=== PATIENT | male | born 1950 | race Caucasian/White ===

== ENCOUNTER 2018-10-17 06:34 | Day surgery (SDC) | payer MEDICARE, OTHER ==
[2018-10-10 12:31] VITALS: BMI 39.9
[~2018-10-17 06:34] MED LIST: ALPRAZolam 0.25 MG TAB PO PRN; ALPRAZolam 0.5 MG TAB PO PRN; ASPIRIN 325 MG TAB PO STA; ATORVASTATIN 80 MG TAB PO STA; NITROGLYCERIN SL TABS 0.4 MG TAB SUBLINGUAL PRN; SODIUM CHLORIDE 0.9% 1,000 ML in EMPTY BAG 1 BAG IV ONE
[2018-10-17 07:15] LABS: Anisocytosis Slight; Basophils # (A) 0.1 k/uL (0-0.2); Basophils % (A) 1 %; Eosinophils # (A) 0.2 k/uL (0-0.7); Eosinophils % (A) 2 %; HCT 34.9 % (39.0-53.0); Hypochromasia Marked; Lymphocytes # (A) 9.5 k/uL (1.0-4.8); Lymphocytes % (A) 60 %; MCH 23.5 pg (25.0-35.0); MCHC 31.5 g/dL (31.0-37.0); MCV 74.7 fL (80.0-100.0); Mean Platelet Volume 7.7; Microcytosis Slight; Monocytes # (A) 0.5 k/uL (0-1.0); Monocytes % (A) 3 %; Neutrophils # (A) 5.3 k/uL (1.3-7.7); Neutrophils % (A) 33 %; Platelet Count 239 k/uL (150-450); RBC 4.67 m/uL (4.30-5.90); RDW 17.6 % (11.5-15.5); WBC 15.9 k/uL (3.8-10.6)
[2018-10-17 07:20] LABS: Glucose,Whole Blood 142 mg/dL (75-99)
[2018-10-17 07:21] VITALS: BP 161/77; PULSE 67; TEMP 98.6
[2018-10-17] MEDS ORDERED: fentaNYL (PF) 50 MCG/ML 2 ML AMP IV ONE (07:51)
[2018-10-17] MEDS ORDERED: LIDOCAINE 1% INJ 10MG/ML (20 ML MDV) SQ ONE ×2 (07:54→07:56)
[2018-10-17] MEDS ORDERED: VERAPAMIL SYRINGE (5 MG/10 ML) INTRAARTER ONE (07:59)
[2018-10-17] MEDS ORDERED: NITROGLYCERIN SL TABS 0.4 MG TAB SUBLINGUAL ONE (08:02)
[2018-10-17] MEDS ORDERED: IOPAMIDOL-370 125ML BTL INJ ONE (08:13)
[2018-10-17] MEDS ORDERED: RX INFO: IV CONTRAST WAS GIVEN 1 EACH MISC MISCELLANE PRN (08:27)
[2018-10-17] MEDS ORDERED: SODIUM CHLORIDE 0.9% 1,000 ML IV SCH (08:30)
--- NOTE | 2018-10-17 08:44 | CC ---
CARDIAC CATHETERIZATION REPORT Mr. Deluna is a 68-year-old male with a known history of coronary artery disease, hypertension, hyperlipidemia, as well as diabetes mellitus, who recently has been complaining of increasing episode of chest discomfort and dyspnea and he had visits to the emergency room. In view of his new pattern of symptoms, recommendation was made regarding cardiac catheterization. The procedure as well as the risks and complications were discussed with the patient who is in full understanding and agreement. PROCEDURE: Patient was brought to the dental laboratory technology teacher in a fasting semi-sedated state after receiving fentanyl and Benadryl and achieving moderate conscious state. Using Xylocaine anesthesia in the Seldinger technique, a 6-Italian sheath was introduced in the right radial artery. Selective right and left coronary angiography was performed using 5- Italian 3.5 bend right and left Edilma catheters. Multiple views of the coronary artery including hemiaxial views were obtained. Following that 5-Italian tight pigtail catheter was left ventricle and a 30-degree PERLA view of the left ventricle was obtained. Following that, catheter and sheaths were removed. Hemostasis was obtained with deployment of a TR band. There was no immediate complication. Patient was returned to his room in stable condition. Of note, the patient received 5000 units of intravenous heparin as well as intra-arterial verapamil. FINDINGS: LEFT MAIN: This is a short size vessel bifurcating in the left circumflex, left anterior descending artery. Left main coronary artery has no evidence of high-grade stenosis. LEFT ANTERIOR DESCENDING ARTERY: This is a large-sized vessel reaching to the apex with a wraparound apex segment giving rise to a large diagonal branch. Proximally the left anterior descending artery has a 30% proximal plaque as well as another 30% at the bifurcation of the diagonal branch. The rest of the vessel has no high-grade stenosis. LEFT CIRCUMFLEX: This is a nondominant vessel giving rise to a large proximal obtuse marginal branch. Beyond that, the left circumflex is small in caliber and has no evidence of high-grade stenosis. RIGHT CORONARY ARTERY: This is a large dominant vessel bifurcating distally PDA and posterolateral segment and branches. The right coronary artery in mid segment has a 30% to 40% plaque. The takeoff of the PLV has a 50% to 60% plaque. The rest of the vessel has no high-grade stenosis. LEFT VENTRICULOGRAM: Left ventriculogram was performed in 30-degree PERLA view revealed normal left ventricular size and systolic function. Ejection fraction 60%. There was no significant mitral regurgitation. HEMODYNAMICS: There was no gradient across the aortic valve. The left ventricular end- diastolic pressure was 14 mmHg. CONCLUSION: 1. Mild to moderate triple-vessel coronary artery disease. 2. Normal left ventricular size and systolic function. RECOMMENDATION: In view of finding anatomy, I recommend continue medical therapy with aggressive coronary risk modifications that has been initiated. Those findings and recommendations were discussed with the patient and his family and they are in full understanding and agreement. Duration of procedure is 19 minutes. MMODL / IJN: [id number] /
[2018-10-17] MEDS ORDERED: NON-FORMULARY DRUG (Omeprazole 20 MG) PO SCH (09:00)
[2018-10-17] MEDS ORDERED: NON-FORMULARY DRUG (Lisinopril [Lisinopril] 40 MG) PO SCH (09:00)
[2018-10-17] MEDS ORDERED: ATORVASTATIN 80 MG TAB PO SCH (09:00)
[2018-10-17] MEDS ORDERED: NON-FORMULARY DRUG (Aspirin [Adult Low Dose Aspirin Ec] 81 MG) PO SCH (09:00)
[2018-10-17] MEDS ORDERED: NON-FORMULARY DRUG (Ranitidine Hcl [Zantac] 150 MG) PO SCH (09:00)
[2018-10-17] MEDS ORDERED: POTASSIUM CHLORIDE 10 MEQ PO SCH (09:00)
[2018-10-17] MEDS ORDERED: ALLOPURINOL 300 MG TAB PO SCH (09:00)
[2018-10-17] MEDS ORDERED: NON-FORMULARY DRUG (Sitagliptin 100 MG) PO SCH (09:00)
[2018-10-17] MEDS ORDERED: LABETALOL 100 MG TAB PO SCH (09:00)
[2018-10-17] MEDS ORDERED: INSULIN DETEMIR (LEVEMIR) 100 UNIT/ML SYR SQ SCH (09:00)
[2018-10-17] MEDS ORDERED: ISOSORBIDE MONONITRATE ER 60 MG TAB.ER.24H PO SCH (09:00)
[2018-10-17] MEDS ORDERED: amLODIPine 5 MG TAB PO SCH (09:00)
[2018-10-17 09:17] LABS: Poikilocytosis (M) Present
[2018-10-17 12:24] LABS: Glucose,Whole Blood 124 mg/dL (75-99)
[2018-10-17 13:54] VITALS: RESP 20
== END 2018-10-17 13:55 | disposition home or self-care (01) ==
LOC: CATHCVL 06:34
PROVIDERS: ATTEND Internal Medicine Interventional Cardiology
DX: I25.110 Atherosclerotic heart disease of native coronary artery with unstable angina pectoris (principal); I10 Essential (primary) hypertension; E78.2 Mixed hyperlipidemia; E11.51 Type 2 diabetes mellitus with diabetic peripheral angiopathy without gangrene; A42.7 Actinomycotic sepsis; Z79.82 Long term (current) use of aspirin; Z79.899 Other long term (current) drug therapy; Z72.0 Tobacco use; Z79.4 Long term (current) use of insulin; Z79.01 Long term (current) use of anticoagulants
CPT/HCPCS: 93458; 85025; C1894; C1769; J2001; J3010; J1644; Q9967

== ENCOUNTER → 2019-06-14 | Outpatient (CLI) | payer MEDICARE, OTHER | END | disposition home or self-care (01) | LOC: CPPFTMAIN 12:41 | PROVIDERS: ATTEND Internal Medicine Critical Care Medicine | DX: J44.9 Chronic obstructive pulmonary disease, unspecified (principal) | CPT/HCPCS: 94060; 94726; 94729 ==

== ENCOUNTER 2020-01-27 02:44 | Inpatient (IN) | payer MEDICARE, OTHER ==
[2020-01-27] MEDS ORDERED: NALOXONE 0.4 MG/ML 1 ML VIAL IV PRN (02:55)
[2020-01-27] MEDS ORDERED: NITROGLYCERIN OINT 1 INCH/GM PACKET TOPICAL STA (02:55)
[2020-01-27] MEDS ORDERED: MORPHINE SULFATE 4 MG/ML SYRINGE IV PRN (02:55)
--- NOTE | 2020-01-27 02:55 | ED ---
Chest Pain HPI - General Stated Complaint: Cardiac consult Time Seen by Provider: 01/27/20 02:54 - History of Present Illness Initial Comments: Pierre is a 69-year-old male with known history of coronary artery disease, diabetes, hypertension, hyperlipidemia, morbid obesity. Patient is brought to the ER today as a transfer from [facility]. Patient presented the hospital complaining of chest pain that began at noon. Asians cardiac workup was unremarkable there. EKG was nonischemic troponins were negative 2 however despite narcotic pain medication and nitro the patient had persistent chest pain and decision was made to admit him for further evaluation by cardiology. Upon arrival patient received some pain medication in route and reports his pain is down to 2 out of 10. - Related Data Home Medications Medication Instructions Recorded Confirmed Allopurinol [Zyloprim] 300 mg PO DAILY 10/10/18 10/17/18 Aspirin [Adult Low Dose Aspirin EC] 81 mg PO DAILY 10/10/18 10/17/18 Atorvastatin [Lipitor] 80 mg PO DAILY 10/10/18 10/17/18 Furosemide [Lasix] 20 mg PO DAILY 10/10/18 10/17/18 Insulin Aspart [NovoLOG] 0 units INJ ACHS PRN 10/10/18 10/17/18 Insulin Detemir (Levemir) [Levemir] 50 unit SQ BID 10/10/18 10/17/18 Isosorbide Mononitrate ER [Imdur] 60 mg PO DAILY 10/10/18 10/10/18 Labetalol [Trandate] 100 mg PO BID 10/10/18 10/10/18 Lisinopril 40 mg PO BID 10/10/18 10/10/18 Omeprazole [PriLOSEC] 20 mg PO DAILY 10/10/18 10/17/18 Potassium Chloride 10 meq PO DAILY 10/10/18 10/17/18 Ranitidine HCl [Zantac] 150 mg PO BID 10/10/18 10/10/18 Rivaroxaban [Xarelto] 20 mg PO DAILY 10/10/18 10/17/18 amLODIPine [Norvasc] 5 mg PO DAILY 10/10/18 10/10/18 metFORMIN HCL [Glucophage] 1,000 mg PO BID 10/10/18 10/17/18 sitaGLIPtin [Januvia] 100 mg PO DAILY 10/10/18 10/17/18 Allergies Allergy/AdvReac Type Severity Reaction Status Date / Time cortisone Allergy Anaphylaxis Verified 01/27/20 03:25 Review of Systems ROS Statement: Those systems with pertinent positive or pertinent negative responses have been documented in the HPI. ROS Other: All systems not noted in ROS Statement are negative. 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 LT SHOULDER SX. RT ROTATOR CUFF REPAIR X 2. COLONOSCOPY Past Anesthesia/Blood Transfusion Reactions: No Reported Reaction Smoking Status: Former smoker - Past Family History Mother Family Medical History: No Reported History General Exam - General Exam Comments Initial Comments: Physical Exam GENERAL: Patient is well-developed and well-nourished. Patient is nontoxic and well-hydrated and is in no distress. HENT: Normocephalic, Atraumatic. EYES: Blind PULMONARY: Unlabored respirations. CARDIOVASCULAR: RRR Warm and well perfused extremities ABDOMEN: Non-distended Obese SKIN: No rashes or bruising : Deferred NEUROLOGIC: Alert and oriented Normal speech Normal gait MUSCULOSKELETAL: Moving all extremities with no apparent injury PSYCHIATRIC: No SI/HI Course Vital Signs 01/27/20 01/27/20 01/27/20 02:54 03:34 04:00 Temperature 97.7 F 97.5 F L 97.5 F L Pulse Rate 64 Pulse Rate [ 63 63 Rx Specialist ] Respiratory 17 18 18 Rate Blood Pressure 175/73 Blood Pressure 141/84 141/64 [Right Arm Supine] O2 Sat by Pulse 98 98 98 Oximetry Chest Pain MDM - MDM She care was discussed transferring physician 69-year-old male with known cardiac history with intractable chest pain despite narcotics and nitro Patient is noted to be hypertensive upon arrival to his chest pain is improved nitro paste was given On reevaluation patient remains nearly chest pain-free and his blood pressure is improving Patient will be admitted for evaluation by cardiology Disposition Clinical Impression: Chest pain Disposition: ADMITTED IP TO THIS HOSP Condition: Stable Is patient prescribed a controlled substance at d/c from ED?: No
[2020-01-27 06:00] LABS: Anisocytosis Slight; HCT 36.9 % (39.0-53.0); HGB 11.9 gm/dL (13.0-17.5); Hypochromasia Moderate; MCH 25.5 pg (25.0-35.0); MCHC 32.2 g/dL (31.0-37.0); MCV 79.1 fL (80.0-100.0); Microcytosis Slight; Platelet Count 211 k/uL (150-450); RBC 4.67 m/uL (4.30-5.90); RDW 17.6 % (11.5-15.5); WBC 16.9 k/uL (3.8-10.6)
[2020-01-27] MEDS: INSULIN ASPART (NovoLOG) 100 UNIT/ML VIAL SQ SCH ×4 (06:01→20:48)
[2020-01-27 06:03] LABS: Glucose,Whole Blood 52 mg/dL (75-99)
[2020-01-27 06:09] LABS: African American GFR (CKD) >90 (>60 ml/min/1.73 sqM); Anion Gap 5 mmol/L; Blood Urea Nitrogen 18 mg/dL (9-20); Calcium 9.3 mg/dL (8.4-10.2); Carbon Dioxide 26 mmol/L (22-30); Chloride 111 mmol/L (98-107); Non-African American GFR(CKD) 88 (>60 ml/min/1.73 sqM); Potassium 3.8 mmol/L (3.5-5.1); Sodium 142 mmol/L (137-145)
[2020-01-27 06:16] LABS: Glucose 48 mg/dL (74-99)
[2020-01-27 06:19] LABS: Glucose,Whole Blood 51 mg/dL (75-99)
[2020-01-27 06:34] LABS: Glucose,Whole Blood 66 mg/dL (75-99)
[2020-01-27 06:49] LABS: Glucose,Whole Blood 99 mg/dL (75-99)
--- NOTE | 2020-01-27 10:40 | P.CRDCN ---
History of Present Illness Consult date: 01/27/20 History of present illness: This is a 69-year-old gentleman with history of of diffuse coronary artery disease without any critical lesions, diabetes, hypertension, hyperlipidemia and also obesity. This patient went to the [facility] with complaints of chest pains yesterday. The pains were on the left side of the chest in the precordial area. Patient was sitting when he started having these pains. He claims these are sometimes sharp, sometimes dull pains. Not associated any significant nausea vomiting or sweating. No radiation. His EKG did not reveal any acute changes. He is feeling better today. His chest pains appear to be atypical. We'll proceed with the Lexiscan stress test tomorrow. Further recommendation will depend upon clinical course. Patient will also have an echocardiogram. 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 LT SHOULDER SX. RT ROTATOR CUFF REPAIR X 2. COLONOSCOPY Past Anesthesia/Blood Transfusion Reactions: No Reported Reaction Smoking Status: Former smoker - Past Family History Mother Family Medical History: No Reported History Medications and Allergies Home Medications Medication Instructions Recorded Confirmed Type Allopurinol [Zyloprim] 300 mg PO DAILY 10/10/18 10/17/18 History Aspirin [Adult Low Dose Aspirin EC] 81 mg PO DAILY 10/10/18 10/17/18 History Atorvastatin [Lipitor] 80 mg PO DAILY 10/10/18 10/17/18 History Furosemide [Lasix] 20 mg PO DAILY 10/10/18 10/17/18 History Insulin Aspart [NovoLOG] 0 units INJ ACHS PRN 10/10/18 10/17/18 History Insulin Detemir (Levemir) [Levemir] 50 unit SQ BID 10/10/18 10/17/18 History Isosorbide Mononitrate ER [Imdur] 60 mg PO DAILY 10/10/18 10/10/18 History Labetalol [Trandate] 100 mg PO BID 10/10/18 10/10/18 History Lisinopril 40 mg PO BID 10/10/18 10/10/18 History Omeprazole [PriLOSEC] 20 mg PO DAILY 10/10/18 10/17/18 History Potassium Chloride 10 meq PO DAILY 10/10/18 10/17/18 History Ranitidine HCl [Zantac] 150 mg PO BID 10/10/18 10/10/18 History Rivaroxaban [Xarelto] 20 mg PO DAILY 10/10/18 10/17/18 History amLODIPine [Norvasc] 5 mg PO DAILY 10/10/18 10/10/18 History metFORMIN HCL [Glucophage] 1,000 mg PO BID 10/10/18 10/17/18 History sitaGLIPtin [Januvia] 100 mg PO DAILY 10/10/18 10/17/18 History Allergies Allergy/AdvReac Type Severity Reaction Status Date / Time cortisone Allergy Anaphylaxis Verified 01/27/20 03:25 Physical Exam Vitals: Vital Signs Temp Pulse Pulse Resp BP BP Pulse Ox 01/27/20 08:22 69 01/27/20 08:21 97.6 F 69 18 160/70 94 L 01/27/20 04:00 97.5 F L 63 18 141/64 98 01/27/20 03:34 97.5 F L 63 18 141/84 98 01/27/20 02:54 97.7 F 64 17 175/73 98 Intake and Output 01/26/20 01/27/20 01/27/20 22:59 06:59 14:59 Other: # Voids 1 4 # Bowel Movements 1 Weight 122 kg GENERAL EXAM: Patient is alert and oriented and doesn't appear to be in any acute distress HEENT: Normocephalic. Normal reaction of pupils, equal size, normal range of extraocular motion. No erythema or exudates in the throat. NECK: No masses, no nuchal rigidity. CHEST: No chest wall deformity. LUNGS: Equal air entry with no crackles or wheeze. HEART: S1 and S2 normal with no audible mumurs or gallops. Regular rhythm, femorals equal on both sides.. ABDOMEN: No hepatosplenomegaly, normal bowel sounds, no guarding or rigidity. SKIN: No rashes CENTRAL NERVOUS SYSTEM: No focal deficits. EXTREMITIES: No cyanosis, clubbing or edema. Results 01/27/20 05:47 01/27/20 05:47 Cardiac Enzymes 01/27/20 Range/Units 05:47 Troponin I 0.021 (0.000-0.034) ng/mL CBC 01/27/20 Range/Units 05:47 WBC 16.9 H (3.8-10.6) k/uL RBC 4.67 (4.30-5.90) m/uL Hgb 11.9 L (13.0-17.5) gm/dL Hct 36.9 L (39.0-53.0) % Plt Count 211 (150-450) k/uL Comprehensive Metabolic Panel 01/27/20 Range/Units 05:47 Sodium 142 (137-145) mmol/L Potassium 3.8 (3.5-5.1) mmol/L Chloride 111 H (98-107) mmol/L Carbon Dioxide 26 (22-30) mmol/L BUN 18 (9-20) mg/dL Creatinine 0.90 (0.66-1.25) mg/dL Glucose 48 L* (74-99) mg/dL Calcium 9.3 (8.4-10.2) mg/dL Current Medications Generic Name Dose Route Start Last Admin Trade Name Freq PRN Reason Stop Dose Admin Insulin Aspart 0 unit 01/27/20 07:30 01/27/20 06:01 Novolog SQ Not Given ACHS [place]YTON Protocol Morphine Sulfate 4 mg 01/27/20 02:55 Morphine Sulfate (Inj) IV Q4HR PRN Severe Pain Naloxone HCl 0.2 mg 01/27/20 02:55 Narcan IV Q2M PRN Opioid Reversal Intake and Output 01/26/20 01/27/20 01/27/20 22:59 06:59 14:59 Other: # Voids 1 4 # Bowel Movements 1 Weight 122 kg 01/27/20 05:47 01/27/20 05:47 EKG Interpretations (text) Not available in the computer but apparently did not show any acute changes Assessment and Plan (1) Coronary artery disease Current Visit: Yes Status: Acute Code(s): I25.10 - ATHSCL HEART DISEASE OF [place] CORONARY ARTERY W/O ANG PCTRS SNOMED Code(s): 48542479 (2) Chest pain Current Visit: Yes Status: Acute Code(s): R07.9 - CHEST PAIN, UNSPECIFIED SNOMED Code(s): 36916518 (3) Diabetes mellitus Current Visit: Yes Status: Acute Code(s): E11.9 - TYPE 2 DIABETES MELLITUS WITHOUT COMPLICATIONS SNOMED Code(s): 42984213 (4) Essential hypertension Current Visit: Yes Status: Acute Code(s): I10 - ESSENTIAL (PRIMARY) HYPERTENSION SNOMED Code(s): 57796784 Plan: Patient is comfortable. His chest pains appear to be atypical. Cardiac enzymes and EKGs are negative. Patient is being scheduled for an echo and also Persantine Cardilate study. If the stress test was ischemia, patient may need a cardiac catheterization. Otherwise maximum medical therapy and risk factor modification to be continued
[2020-01-27 11:51] LABS: Glucose,Whole Blood 71 mg/dL (75-99)
[2020-01-27 12:08] LABS: Glucose,Whole Blood 93 mg/dL (75-99)
--- NOTE | 2020-01-27 13:37 | P.CNPUL ---
History of Present Illness Consult date: 01/27/20 Requesting physician: Neno Garcia Reason for consult: chest pain Chief complaint: Chest pain History of present illness: This is a very pleasant 69-year-old gentleman who follows with Dr. Dorman as his primary care provider. He has a history of hypertension, hyperlipidemia, obesity, diabetes mellitus, diffuse coronary artery disease without any critical lesions from previous cardiac catheterization 1 year ago. He also has a history of leukemia, CVA 2, gout, legally blind, former smoker. He also has a history of previous pulmonary embolism and is anticoagulated with Xarelto. He had presented to [facility] last evening with complaints of chest pain. He was subsequent transferred here for further cardiac evaluation. White count 16.9. Hemoglobin 11.9. Sodium 142. Potassium 3.8. Creatinine 0.90. Troponin 0.21. He is seen today in consultation on the selective care unit. He is currently sitting up in a chair at the bedside. Awake and alert in no acute distress. He denies any shortness of breath, cough or congestion. No fever, chills or night sweats. He is maintaining O2 saturations in the 90s on room air. He's afebrile. His chest pain appears to be atypical. The plan is for stress test in a.m. Review of Systems REVIEW OF SYSTEMS: CONSTITUTIONAL: Denies any recent significant weight loss or weight gain. EYES: Denies change in vision. EARS, NOSE, MOUTH, THROAT: Denies headaches, denies sore throat. CARDIOVASCULAR: Positive for chest pain, palpitations no syncopal episodes. RESPIRATORY: Denies shortness of breath, cough, congestion or hemoptysis. GASTROINTESTINAL: Denies change in appetite, denies abdominal pain GENITOURINARY: Denies hematuria, denies infections. MUSKULOSKELETAL: Denies pain, denies swelling. INTEGUMENTARY: Denies rash, denies eczema. NEUROLOGICAL: Denies recent memory loss, no recent seizure activity. PSYCHIATRIC: Denies anxiety, denies depression. HEMATOLOGIC/LYMPHATIC: Denies anemia, denies enlarged lymph nodes. 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 LT SHOULDER SX. RT ROTATOR CUFF REPAIR X 2. COLONOSCOPY Past Anesthesia/Blood Transfusion Reactions: No Reported Reaction Smoking Status: Former smoker - Past Family History Mother Family Medical History: No Reported History Medications and Allergies Home Medications Medication Instructions Recorded Confirmed Type Allopurinol [Zyloprim] 300 mg PO HS 10/10/18 01/27/20 History Aspirin [Adult Low Dose Aspirin EC] 81 mg PO HS 10/10/18 01/27/20 History Atorvastatin [Lipitor] 80 mg PO HS 10/10/18 01/27/20 History Furosemide [Lasix] 20 mg PO DAILY 10/10/18 01/27/20 History Isosorbide Mononitrate ER [Imdur] 60 mg PO DAILY 10/10/18 01/27/20 History Labetalol [Trandate] 100 mg PO BID 10/10/18 01/27/20 History Omeprazole [PriLOSEC] 20 mg PO DAILY 10/10/18 01/27/20 History Potassium Chloride 10 meq PO DAILY 10/10/18 01/27/20 History Rivaroxaban [Xarelto] 20 mg PO DAILY 10/10/18 01/27/20 History amLODIPine [Norvasc] 5 mg PO BID 10/10/18 01/27/20 History metFORMIN HCL [Glucophage] 1,000 mg PO BID 10/10/18 01/27/20 History sitaGLIPtin [Januvia] 100 mg PO DAILY 10/10/18 01/27/20 History Albuterol Sulfate [Albuterol 2 puff PO RT-QID PRN 01/27/20 01/27/20 History Sulfate Hfa] Ferrous Sulfate [Feosol] 325 mg PO BID 01/27/20 01/27/20 History Insulin Aspart [NovoLOG Flexpen] See Protocol SQ AC-TID 01/27/20 01/27/20 History Insulin Degludec [Tresiba 50 units SQ BID 01/27/20 01/27/20 History Flextouch U-100] Losartan Potassium [Cozaar] 100 mg PO DAILY 01/27/20 01/27/20 History Montelukast [Singulair] 10 mg PO DAILY 01/27/20 01/27/20 History Allergies Allergy/AdvReac Type Severity Reaction Status Date / Time cortisone Allergy Anaphylaxis Verified 01/27/20 10:40 Physical Exam Vitals: Vital Signs Temp Pulse Pulse Resp BP BP Pulse Ox 01/27/20 12:31 65 16 174/89 97 01/27/20 08:21 97.6 F 69 18 160/70 94 L 01/27/20 04:00 97.5 F L 63 18 141/64 98 01/27/20 03:34 97.5 F L 63 18 141/84 98 01/27/20 02:54 97.7 F 64 17 175/73 98 Intake and Output 01/26/20 01/27/20 01/27/20 22:59 06:59 14:59 Output Total 700 Balance -700 Output: Urine 700 Other: # Voids 1 4 # Bowel Movements 1 Weight 122 kg GENERAL EXAM: Alert, pleasant 69-year-old gentleman, on room air with O2 saturation 97%, comfortable in no apparent distress. HEAD: Normocephalic. EYES: Normal reaction of pupils, equal size. NOSE: Clear with pink turbinates. THROAT: No erythema or exudates. NECK: No masses, no JVD. CHEST: No chest wall deformity. LUNGS: Equal air entry with no crackles, wheeze, rhonchi or dullness. CVS: S1 and S2 normal with no audible murmur, regular rhythm. ABDOMEN: No hepatosplenomegaly, normal bowel sounds, no guarding or rigidity. SPINE: No scoliosis or deformity SKIN: No rashes CENTRAL NERVOUS SYSTEM: No focal deficits, tone is normal in all 4 extremities. EXTREMITIES: There is no peripheral edema. No clubbing, no cyanosis. Peripheral pulses are intact. Results - Laboratory Findings CBC and BMP: 01/27/20 05:47 01/27/20 05:47 Abnormal lab findings: Abnormal Labs 01/27/20 01/27/20 01/27/20 05:47 05:47 06:00 WBC 16.9 H Hgb 11.9 L Hct 36.9 L MCV 79.1 L RDW 17.6 H Chloride 111 H Glucose 48 L* POC Glucose (mg/dL) 52 L 01/27/20 01/27/20 01/27/20 06:18 06:32 11:50 WBC Hgb Hct MCV RDW Chloride Glucose POC Glucose (mg/dL) 51 L 66 L 71 L Assessment and Plan Assessment: 1 Atypical chest pain in a patient with a known history of diffuse coronary artery disease without any critical stenosis during heart catheterization 1 year ago. Plan is for stress test in a.m. 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 Pham Records from [facility] were reviewed Stable from the pulmonary standpoint Stress test in a.m. We will continue to follow make further recommendations based on his clinical status I, the cosigning physician, performed a history & physical examination of the patient. Lungs sounds are clear. Maintaining good O2 saturations in the 90s on room air. I discussed the assessment and plan of care with my nurse practitioner, Kayleigh Rodriguez. I attest to the consultation as dictated by her. Time with Patient: Greater than 30
[2020-01-27] MEDS ORDERED: ALBUTEROL NEBULIZED 2.5 MG/3 ML INHALATION PRN (16:05)
[2020-01-27] MEDS: LOSARTAN 50 MG TAB PO SCH (16:42)
[2020-01-27] MEDS: ISOSORBIDE MONONITRATE ER 60 MG TAB.ER.24H PO SCH (16:42)
[2020-01-27] MEDS: MONTELUKAST 10 MG TAB PO SCH (16:43)
[2020-01-27] MEDS: RIVAROXABAN 20 MG TAB PO SCH (16:43)
[2020-01-27 16:46] LABS: Glucose,Whole Blood 140 mg/dL (75-99)
[2020-01-27 20:39] LABS: Glucose,Whole Blood 144 mg/dL (75-99)
[2020-01-27] MEDS: ATORVASTATIN 80 MG TAB PO SCH (20:48)
[2020-01-27] MEDS: FERROUS SULFATE 325 MG TAB PO SCH (20:48)
[2020-01-27] MEDS: ALLOPURINOL 300 MG TAB PO SCH (20:48)
[2020-01-27] MEDS: ASPIRIN 81 MG PO SCH (20:48)
[2020-01-27] MEDS: LABETALOL 100 MG TAB PO SCH (20:48)
[2020-01-27] MEDS: amLODIPine 5 MG TAB PO SCH (20:53)
--- NOTE | 2020-01-28 00:52 | P.HPIM ---
History of Present Illness This is a pleasant 69 years old male with past medical history of coronary artery disease,PE on xarelto, heart failure, CVA/TIA, diabetes mellitus, hypertension, hyperlipidemia, leukemia not on treatment, legally blind. he was transferred from [facility] for coronary artery disease/ Presents because of chest pain of one day duration , on left side , non radiating, non specific in character,was more sever yesterday , no dyspnea , no nausea or vomiting , Vitals are stable. CBC showing mild leukocytosis of 16.9, BMP is unremarkable with normal electrolytes and creatinine. glucose was low this morning 51, currently improved to 93 Troponin is negative at 0.0-1 Review of Systems CONSTITUTIONAL: No fever, no malaise, no fatigue. HEENT: No recent visual problems or hearing problems. Denied any sore throat. CARDIOVASCULAR: no palpitations, no syncope. PULMONARY: , no cough, no hemoptysis. GASTROINTESTINAL: No diarrhea, no nausea, no vomiting, no abdominal pain. Normoactive bowel sounds. NEUROLOGICAL: No headaches, no weakness, no numbness. HEMATOLOGICAL: Denies any bleeding or petechiae. GENITOURINARY: Denies any burning micturition, frequency, or urgency. MUSCULOSKELETAL/RHEUMATOLOGICAL: Denies any joint pain, swelling, or any muscle pain. ENDOCRINE: Denies any polyuria or polydipsia. 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 LT SHOULDER SX. RT ROTATOR CUFF REPAIR X 2. COLONOSCOPY Past Anesthesia/Blood Transfusion Reactions: No Reported Reaction Smoking Status: Former smoker - Past Family History Mother Family Medical History: No Reported History Medications and Allergies Home Medications Medication Instructions Recorded Confirmed Type Allopurinol [Zyloprim] 300 mg PO HS 10/10/18 01/27/20 History Aspirin [Adult Low Dose Aspirin EC] 81 mg PO HS 10/10/18 01/27/20 History Atorvastatin [Lipitor] 80 mg PO HS 10/10/18 01/27/20 History Furosemide [Lasix] 20 mg PO DAILY 10/10/18 01/27/20 History Isosorbide Mononitrate ER [Imdur] 60 mg PO DAILY 10/10/18 01/27/20 History Labetalol [Trandate] 100 mg PO BID 10/10/18 01/27/20 History Omeprazole [PriLOSEC] 20 mg PO DAILY 10/10/18 01/27/20 History Potassium Chloride 10 meq PO DAILY 10/10/18 01/27/20 History Rivaroxaban [Xarelto] 20 mg PO DAILY 10/10/18 01/27/20 History amLODIPine [Norvasc] 5 mg PO BID 10/10/18 01/27/20 History metFORMIN HCL [Glucophage] 1,000 mg PO BID 10/10/18 01/27/20 History sitaGLIPtin [Januvia] 100 mg PO DAILY 10/10/18 01/27/20 History Albuterol Sulfate [Albuterol 2 puff PO RT-QID PRN 01/27/20 01/27/20 History Sulfate Hfa] Ferrous Sulfate [Feosol] 325 mg PO BID 01/27/20 01/27/20 History Insulin Aspart [NovoLOG Flexpen] See Protocol SQ AC-TID 01/27/20 01/27/20 History Insulin Degludec [Tresiba 50 units SQ BID 01/27/20 01/27/20 History Flextouch U-100] Losartan Potassium [Cozaar] 100 mg PO DAILY 01/27/20 01/27/20 History Montelukast [Singulair] 10 mg PO DAILY 01/27/20 01/27/20 History Allergies Allergy/AdvReac Type Severity Reaction Status Date / Time cortisone Allergy Anaphylaxis Verified 01/27/20 10:40 Physical Exam Vitals: Vital Signs Temp Pulse Pulse Resp BP BP Pulse Ox 01/27/20 08:22 69 01/27/20 08:21 97.6 F 69 18 160/70 94 L 01/27/20 04:00 97.5 F L 63 18 141/64 98 01/27/20 03:34 97.5 F L 63 18 141/84 98 01/27/20 02:54 97.7 F 64 17 175/73 98 Intake and Output 01/26/20 01/27/20 01/27/20 22:59 06:59 14:59 Output Total 700 Balance -700 Output: Urine 700 Other: # Voids 1 4 # Bowel Movements 1 Weight 122 kg GENERAL: The patient is alert and oriented x3, not in any acute distress. Well developed, well nourished. HEENT: Pupils are round and equally reacting to light. EOMI. No scleral icterus. No conjunctival pallor. Normocephalic, atraumatic. No pharyngeal erythema. No thyromegaly. CARDIOVASCULAR: S1 and S2 present. No murmurs, rubs, or gallops. PULMONARY: Chest is clear to auscultation, no wheezing or crackles. ABDOMEN: Soft, nontender, nondistended, normoactive bowel sounds. No palpable organomegaly. MUSCULOSKELETAL: No joint swelling or deformity. EXTREMITIES: No cyanosis, clubbing, or pedal edema. NEUROLOGICAL: Gross neurological examination did not reveal any focal deficits. SKIN: No rashes. No petechiae Results CBC & Chem 7: 01/27/20 05:47 01/27/20 05:47 Labs: Abnormal Lab Results - Last 24 Hours (Table) 01/27/20 01/27/20 01/27/20 Range/Units 05:47 05:47 06:00 WBC 16.9 H (3.8-10.6) k/uL Hgb 11.9 L (13.0-17.5) gm/dL Hct 36.9 L (39.0-53.0) % MCV 79.1 L (80.0-100.0) fL RDW 17.6 H (11.5-15.5) % Chloride 111 H (98-107) mmol/L Glucose 48 L* (74-99) mg/dL POC Glucose (mg/dL) 52 L (75-99) mg/dL 01/27/20 01/27/20 01/27/20 Range/Units 06:18 06:32 11:50 WBC (3.8-10.6) k/uL Hgb (13.0-17.5) gm/dL Hct (39.0-53.0) % MCV (80.0-100.0) fL RDW (11.5-15.5) % Chloride (98-107) mmol/L Glucose (74-99) mg/dL POC Glucose (mg/dL) 51 L 66 L 71 L (75-99) mg/dL Thrombosis Risk Factor Assmnt - Choose All That Apply Any of the Below Risk Factors Present?: Yes Each Factor Represents 1 point: Obesity (BMI >25) Other Risk Factors: Yes Each Risk Factor Represents 2 Points: Age 61-74 years Each Risk Factor Represents 3 Points: History of DVT/PE Thrombosis Risk Factor Assessment Total Risk Factor Score: 6 Thrombosis Risk Factor Assessment Level: High Risk Assessment and Plan Assessment: Chest pain, rule out acute coronary syndrome diabetes mellitus Hypertension Hyperlipidemia Chronic Heart failure History of coronary artery disease History of CVA/TIA History of leukemia not on treatment legally blind Plan: this is a pleasant 69 years old male who presents with chest pain. Slip Cover Operator evaluated the patient and recommended echocardiogram and stress study and he might need cardiac cath based on workup. Labs and medication were reviewed.. Continue same treatment. Continue with symptomatic treatment. Resume home medication. Monitor lytes and vitals. DVT and GI prophylaxis. Further recommendations of the clinical course of the patient DVT prophylaxis: on Xarelto GI Prophylaxis: Pepcid PT/OT: Pending Prognosis is guarded
[2020-01-28 05:44] LABS: Glucose,Whole Blood 115 mg/dL (75-99)
[2020-01-28] MEDS ORDERED: DIPYRIDAMOLE IV ONE (06:00)
[2020-01-28] MEDS ORDERED: SODIUM CHLORIDE 0.9% IV ONE (06:00)
[2020-01-28] MEDS ORDERED: CAFFEINE CITRATE 60 MG/3 ML VIAL IV PRN (06:00)
[2020-01-28] MEDS ORDERED: AMINOPHYLLINE 500 MG/20 ML VIAL IV PRN (06:00)
[2020-01-28] MEDS: INSULIN ASPART (NovoLOG) 100 UNIT/ML VIAL SQ SCH ×4 (06:07→20:52)
--- NOTE | 2020-01-28 11:01 | P.HPIM ---
History of Present Illness 69-year-old pleasant gentleman was admitted for chest pain appears to be atypical musculoskeletal nature rule out a concurrent syndromes patient underwent stress test that comes back negative patient will be discharged today. PHYSICAL EXAMINATION: GENERAL: The patient is alert and oriented x3, not in any acute distress. Well d eveloped, well nourished. HEENT: No scleral icterus. No conjunctival pallor. Normocephalic, atraumatic. No pharyngeal erythema. No thyromegaly. CARDIOVASCULAR: S1 and S2 present. No murmurs, rubs, or gallops. PULMONARY: Chest is clear to auscultation, no wheezing or crackles. ABDOMEN: Soft, nontender, nondistended, normoactive bowel sounds. No palpable organomegaly. MUSCULOSKELETAL: No joint swelling or deformity. EXTREMITIES: No cyanosis, clubbing, or pedal edema. NEUROLOGICAL: Gross neurological examination did not reveal any focal deficits. SKIN: No rashes. Rest of the medical problems as physician course please refer to dictation of H&P from Dr. Russell from yesterday Past Medical History Past Medical History: Coronary Artery Disease (CAD), Cancer, Heart Failure, CVA/TIA, Diabetes Mellitus, Eye Disorder, GERD/Reflux, Hyperlipidemia, Hy pertension Additional Past Medical History / Comment(s): LEUKEMIA-NO TX, CVA X 2, BILAT CATARACTS, LEGALLY BLIND-RETINITIS PIGMENTOSA, GOUT History of Any Multi-Drug Resistant Organisms: None Reported Past Surgical History: Appendectomy, Back Surgery, Cholecystectomy, Heart Catheterization, Joint Replacement, Orthopedic Surgery Additional Past Surgical History / Comment(s): BILAT TKA &MICHAEL. LT SHOULDER SX. RT ROTATOR CUFF REPAIR X 2. COLONOSCOPY Past Anesthesia/Blood Transfusion Reactions: No Reported Reaction Smoking Status: Former smoker - Past Family History Mother Family Medical History: No Reported History Medications and Allergies Home Medications Medication Instructions Recorded Confirmed Type Allopurinol [Zyloprim] 300 mg PO HS 10/10/18 01/27/20 History Aspirin [Adult Low Dose Aspirin EC] 81 mg PO HS 10/10/18 01/27/20 History Atorvastatin [Lipitor] 80 mg PO HS 10/10/18 01/27/20 History Furosemide [Lasix] 20 mg PO DAILY 10/10/18 01/27/20 History Isosorbide Mononitrate ER [Imdur] 60 mg PO DAILY 10/10/18 01/27/20 History Labetalol [Trandate] 100 mg PO BID 10/10/18 01/27/20 History Omeprazole [PriLOSEC] 20 mg PO DAILY 10/10/18 01/27/20 History Potassium Chloride 10 meq PO DAILY 10/10/18 01/27/20 History Rivaroxaban [Xarelto] 20 mg PO DAILY 10/10/18 01/27/20 History amLODIPine [Norvasc] 5 mg PO BID 10/10/18 01/27/20 History metFORMIN HCL [Glucophage] 1,000 mg PO BID 10/10/18 01/27/20 History sitaGLIPtin [Januvia] 100 mg PO DAILY 10/10/18 01/27/20 History Albuterol Sulfate [Albuterol 2 puff PO RT-QID PRN 01/27/20 01/27/20 History Sulfate Hfa] Ferrous Sulfate [Feosol] 325 mg PO BID 01/27/20 01/27/20 History Insulin Aspart [NovoLOG Flexpen] See Protocol SQ AC-TID 01/27/20 01/27/20 History Insulin Degludec [Tresiba 50 units SQ BID 01/27/20 01/27/20 History Flextouch U-100] Losartan Potassium [Cozaar] 100 mg PO DAILY 01/27/20 01/27/20 History Montelukast [Singulair] 10 mg PO DAILY 01/27/20 01/27/20 History Allergies Allergy/AdvReac Type Severity Reaction Status Date / Time cortisone Allergy Anaphylaxis Verified 01/27/20 10:40 Physical Exam Vitals: Vital Signs Temp Pulse Resp BP Pulse Ox 01/28/20 07:46 16 01/28/20 07:45 98.5 F 56 L 16 168/70 96 01/28/20 04:00 97.7 F 63 16 170/72 94 L 01/27/20 23:33 97.7 F 60 16 162/71 94 L 01/27/20 19:47 97.7 F 61 18 144/70 96 01/27/20 16:00 98.6 F 63 18 187/80 94 L 01/27/20 12:31 65 16 174/89 97 Intake and Output 01/27/20 01/28/20 01/28/20 22:59 06:59 14:59 Intake Total 560 300 10 Output Total 800 300 Balance -240 0 10 Intake: IV 10 Invasive Line 1 10 Oral 560 300 Output: Urine 800 300 Other: # Voids 1 # Bowel Movements 1 Weight 120 kg 120 kg Results CBC & Chem 7: 01/27/20 05:47 01/27/20 05:47 Labs: Abnormal Lab Results - Last 24 Hours (Table) 01/27/20 01/27/20 01/27/20 Range/Units 11:50 16:45 20:37 POC Glucose (mg/dL) 71 L 140 H 144 H (75-99) mg/dL 01/28/20 Range/Units 05:43 POC Glucose (mg/dL) 115 H (75-99) mg/dL Thrombosis Risk Factor Assmnt - Choose All That Apply Any of the Below Risk Factors Present?: Yes Each Factor Represents 1 point: Obesity (BMI >25) Other Risk Factors: Yes Each Risk Factor Represents 2 Points: Age 61-74 years Each Risk Factor Represents 3 Points: History of DVT/PE Thrombosis Risk Factor Assessment Total Risk Factor Score: 6 Thrombosis Risk Factor Assessment Level: High Risk
--- NOTE | 2020-01-28 11:01 | P.DS ---
Providers Date of admission: 01/27/20 02:55 Attending physician: Neno Garcia Consults: 01/27/20 04:17 Consult Physician Routine Consulting Provider: Sara Carrington Consult Reason/Comments: Chest pain Do you want consulting provider notified?: Yes, Notify in am Primary care physician: Sugar Dorman [facility] Course: 69-year-old pleasant gentleman was admitted for chest pain appears to be atypical musculoskeletal nature rule out a concurrent syndromes patient underwent stress test that comes back negative patient will be discharged today. PHYSICAL EXAMINATION: GENERAL: The patient is alert and oriented x3, not in any acute distress. Well developed, well nourished. HEENT: No scleral icterus. No conjunctival pallor. Normocephalic, atraumatic. No pharyngeal erythema. No thyromegaly. CARDIOVASCULAR: S1 and S2 present. No murmurs, rubs, or gallops. PULMONARY: Chest is clear to auscultation, no wheezing or crackles. ABDOMEN: Soft, nontender, nondistended, normoactive bowel sounds. No palpable organomegaly. MUSCULOSKELETAL: No joint swelling or deformity. EXTREMITIES: No cyanosis, clubbing, or pedal edema. NEUROLOGICAL: Gross neurological examination did not reveal any focal deficits. SKIN: No rashes. Rest of the medical problems as physician course please refer to dictation of H&P from Dr. Russell from yesterday Patient Condition at Discharge: Stable Plan - Discharge Summary Discharge Rx Participant: No New Discharge Prescriptions: Continue Omeprazole [PriLOSEC] 20 mg PO DAILY Furosemide [Lasix] 20 mg PO DAILY Atorvastatin [Lipitor] 80 mg PO HS sitaGLIPtin [Januvia] 100 mg PO DAILY amLODIPine [Norvasc] 5 mg PO BID Labetalol [Trandate] 100 mg PO BID Isosorbide Mononitrate ER [Imdur] 60 mg PO DAILY Allopurinol [Zyloprim] 300 mg PO HS metFORMIN HCL [Glucophage] 1,000 mg PO BID Rivaroxaban [Xarelto] 20 mg PO DAILY Potassium Chloride 10 meq PO DAILY Aspirin [Adult Low Dose Aspirin EC] 81 mg PO HS Montelukast [Singulair] 10 mg PO DAILY Insulin Degludec [Tresiba Flextouch U-100] 50 units SQ BID Insulin Aspart [NovoLOG Flexpen] See Protocol SQ AC-TID Albuterol Sulfate [Albuterol Sulfate Hfa] 2 puff PO RT-QID PRN PRN Reason: Shortness Of Breath Losartan Potassium [Cozaar] 100 mg PO DAILY Ferrous Sulfate [Iron (65 MG Elemental)] 325 mg PO BID Discharge Medication List Allopurinol [Zyloprim] 300 mg PO HS 10/10/18 [History] Aspirin [Adult Low Dose Aspirin EC] 81 mg PO HS 10/10/18 [History] Atorvastatin [Lipitor] 80 mg PO HS 10/10/18 [History] Furosemide [Lasix] 20 mg PO DAILY 10/10/18 [History] Isosorbide Mononitrate ER [Imdur] 60 mg PO DAILY 10/10/18 [History] Labetalol [Trandate] 100 mg PO BID 10/10/18 [History] Omeprazole [PriLOSEC] 20 mg PO DAILY 10/10/18 [History] Potassium Chloride 10 meq PO DAILY 10/10/18 [History] Rivaroxaban [Xarelto] 20 mg PO DAILY 10/10/18 [History] amLODIPine [Norvasc] 5 mg PO BID 10/10/18 [History] metFORMIN HCL [Glucophage] 1,000 mg PO BID 10/10/18 [History] sitaGLIPtin [Januvia] 100 mg PO DAILY 10/10/18 [History] Albuterol Sulfate [Albuterol Sulfate Hfa] 2 puff PO RT-QID PRN 01/27/20 [History] Ferrous Sulfate [Iron (65 MG Elemental)] 325 mg PO BID 01/27/20 [History] Insulin Aspart [NovoLOG Flexpen] See Protocol SQ AC-TID 01/27/20 [History] Insulin Degludec [Tresiba Flextouch U-100] 50 units SQ BID 01/27/20 [History] Losartan Potassium [Cozaar] 100 mg PO DAILY 01/27/20 [History] Montelukast [Singulair] 10 mg PO DAILY 01/27/20 [History] Follow up Appointment(s)/Referral(s): Sugar Dorman MD [Primary Care Provider] - 3 Days
[2020-01-28] MEDS: RIVAROXABAN 20 MG TAB PO SCH (11:07)
[2020-01-28] MEDS: FUROSEMIDE 20 MG TAB PO SCH (11:07)
[2020-01-28] MEDS: PANTOPRAZOLE 40 MG TABLET PO SCH (11:07)
[2020-01-28] MEDS: LOSARTAN 50 MG TAB PO SCH (11:07)
[2020-01-28] MEDS: ISOSORBIDE MONONITRATE ER 60 MG TAB.ER.24H PO SCH (11:07)
[2020-01-28] MEDS: amLODIPine 5 MG TAB PO SCH ×2 (11:07→20:17)
[2020-01-28] MEDS: MONTELUKAST 10 MG TAB PO SCH (11:07)
[2020-01-28] MEDS: FERROUS SULFATE 325 MG TAB PO SCH ×2 (11:07→20:17)
[2020-01-28] MEDS: LABETALOL 100 MG TAB PO SCH ×2 (11:09→20:53)
[2020-01-28] MEDS: POTASSIUM CHLORIDE ER 10 MEQ TAB.ER.PRT PO SCH (11:09)
--- NOTE | 2020-01-28 11:18 | NM ---
EXAMINATION TYPE: NM stress persantine cardiolit DATE OF EXAM: 01/28/2020 COMPARISON: NONE HISTORY: Chest pain TECHNIQUE: After the intravenous administration of 9.89 mCi Tc 99m Sestamibi - Cardiolite resting SP ECT images acquired 60 minutes post injection. The patient received 69.5 mg Persantine, 25.8 mCi Tc 99m Sestamibi - Stress images obtained 45 minute s post injection FINDINGS: Review of stress and rest SPECT images demonstrates area of stress-induced reversible ischemia involv ing the apex of the myocardium. Report called to patients nurse. Gated analysis shows normal wall mo tion with an estimated left ventricular ejection fraction of 54 %. IMPRESSION: 1. Findings suggestive of stress-induced reversible ischemia involving the apex of the myocardium. 2. Ejection fraction 54%
[2020-01-28 11:33] LABS: Glucose,Whole Blood 86 mg/dL (75-99)
--- NOTE | 2020-01-28 11:44 | P.PN ---
Subjective 69-year-old pleasant gentleman is admitted for chest pain found to have positive stress test. Cardiology will decide whether to continue with anticoagulation with xarelto, may need to to transition him to heparin for possible cardiac catheterization today. Patient presently doesn't have any chest pain Constitutional: Denied any fatigue denied any fever. Cardio vascular: denied any chest pain, palpitations Gastrointestinal denied any nausea vomiting Pulmonary: Denied any shortness of breath cough Neurologic denied any new focal deficits All inpatient medications were reviewed and appropriate changes in these medications as dictated in the interval history and assessment and plan. Objective - Vital Signs Vital signs: Vital Signs Temp 97.3 F L 01/28/20 11:05 Pulse 55 L 01/28/20 11:05 Resp 16 01/28/20 11:05 BP 165/79 01/28/20 11:05 Pulse Ox 97 01/28/20 11:05 Intake & Output 01/27/20 01/28/20 01/28/20 18:59 06:59 18:59 Intake Total 782 300 10 Output Total 1500 300 Balance -718 0 10 Weight 120 kg 120 kg Intake: IV 10 Invasive Line 1 10 Oral 782 300 Output: Urine 1500 300 Other: # Voids 4 1 # Bowel Movements 1 - Exam PHYSICAL EXAMINATION: GENERAL: The patient is alert and oriented x3, not in any acute distress. Well developed, well nourished. HEENT: No scleral icterus. No conjunctival pallor. Normocephalic, atraumatic. No pharyngeal erythema. No thyromegaly. CARDIOVASCULAR: S1 and S2 present. No murmurs, rubs, or gallops. PULMONARY: Chest is clear to auscultation, no wheezing or crackles. ABDOMEN: Soft, nontender, nondistended, normoactive bowel sounds. No palpable organomegaly. MUSCULOSKELETAL: No joint swelling or deformity. EXTREMITIES: No cyanosis, clubbing, or pedal edema. NEUROLOGICAL: Gross neurological examination did not reveal any focal deficits. SKIN: No rashes. - Labs CBC & Chem 7: 01/27/20 05:47 01/27/20 05:47 Labs: Abnormal Lab Results - Last 24 Hours (Table) 01/27/20 01/27/20 01/27/20 Range/Units 11:50 16:45 20:37 POC Glucose (mg/dL) 71 L 140 H 144 H (75-99) mg/dL 01/28/20 Range/Units 05:43 POC Glucose (mg/dL) 115 H (75-99) mg/dL Assessment and Plan Plan: Chest pain, with positive stress test patient probably A catheterization tomorrow, anti-correlation as mentioned above diabetes mellitus, type II Hypertension Hyperlipidemia Chronic Heart failure History of coronary artery disease History of CVA/TIA History of leukemia not on treatment legally blind
--- NOTE | 2020-01-28 12:10 | EST ---
EXERCISE STRESS AGE: 69 SEX: M HT: 67" WT: 264 PROTOCOL: Persantine STAGE: DURATION OF EXERCISE: HEART RATE REST: 59 BLOOD PRESSURE REST: 139/72 MAXIMUM HEART RATE ACHIEVED: 84 MAXIMUM BLOOD PRESSURE: 150/43 85% MPHR: 130 100% MPHR: 153 METS: INDICATIONS: CLINICAL INFORMATION: Baseline rhythm is sinus mechanism, rate of 59, normal axis and intervals, normal echocardiogram. Baseline blood pressure 139/72 mmHg. Patient received an infusion of dipyridamole per protocol, electrocardiograph monitoring revealed no evidence of diagnostic ischemic ST deviation. Cardiolite was injected per protocol. CONCLUSION: 1. Nondiagnostic electrocardiograph stress testing. 2. Nuclear images will be reported separately. MMODL / IJN: [id number] /
[2020-01-28] MEDS ORDERED: HEPARIN SODIUM,PORCINE 5,000 UNIT/ML 1 ML VIAL IV PRN (12:18)
[2020-01-28] MEDS ORDERED: HEPARIN SODIUM,PORCINE 5,000 UNIT/ML 1 ML VIAL IV ONE (12:18)
[2020-01-28] MEDS ORDERED: HEPARIN SOD,PORK IN 0.45% NACL 25,000 UNIT in 0.45% NACL 1 250ML.BAG IV SCH (12:30)
--- NOTE | 2020-01-28 16:17 | P.PN ---
Subjective Progress Note Date: 01/28/20 This is a 69-year-old gentleman with known ischemic or disease admitted with chest pain. He had a nuclear stress test today that showed ischemia at the apex. Patient is going to have cardiac cath tomorrow. Meanwhile, continue current medical therapy Objective - Vital Signs Vital signs: Vital Signs Temp 97.3 F L 01/28/20 11:05 Pulse 55 L 01/28/20 11:05 Resp 16 01/28/20 11:05 BP 165/79 01/28/20 11:05 Pulse Ox 97 01/28/20 11:05 Intake & Output 01/27/20 01/28/20 01/28/20 18:59 06:59 18:59 Intake Total 782 300 242 Output Total 1500 300 Balance -718 0 242 Weight 120 kg 120 kg Intake: IV 20 Invasive Line 1 20 Oral 782 300 222 Output: Urine 1500 300 Other: # Voids 4 1 # Bowel Movements 1 - Exam GENERAL EXAM: Patient is alert and oriented and doesn't appear to be in any acute distress HEENT: Normocephalic. Normal reaction of pupils, equal size, normal range of extraocular motion. No erythema or exudates in the throat. NECK: No masses, no nuchal rigidity. CHEST: No chest wall deformity. LUNGS: Equal air entry with no crackles or wheeze. HEART: S1 and S2 normal with no audible mumurs or gallops. Regular rhythm, femorals equal on both sides.. ABDOMEN: No hepatosplenomegaly, normal bowel sounds, no guarding or rigidity. SKIN: No rashes CENTRAL NERVOUS SYSTEM: No focal deficits. EXTREMITIES: No cyanosis, clubbing or edema.] - Labs CBC & Chem 7: 01/27/20 05:47 01/27/20 05:47 Labs: Abnormal Lab Results - Last 24 Hours (Table) 01/27/20 01/27/20 01/28/20 Range/Units 16:45 20:37 05:43 POC Glucose (mg/dL) 140 H 144 H 115 H (75-99) mg/dL Assessment and Plan (1) Coronary artery disease Current Visit: Yes Status: Acute Code(s): I25.10 - ATHSCL HEART DISEASE OF [place] CORONARY ARTERY W/O ANG PCTRS SNOMED Code(s): 27160116 (2) Chest pain Current Visit: Yes Status: Acute Code(s): R07.9 - CHEST PAIN, UNSPECIFIED SNOMED Code(s): 10378431 (3) Diabetes mellitus Current Visit: Yes Status: Acute Code(s): E11.9 - TYPE 2 DIABETES MELLITUS WITHOUT COMPLICATIONS SNOMED Code(s): 25191292 (4) Essential hypertension Current Visit: Yes Status: Acute Code(s): I10 - ESSENTIAL (PRIMARY) HYPERTENSION SNOMED Code(s): 43704804 Plan: Patient stress test showed ischemia involving the apex. Scheduled to have By Dr. Carrington tomorrow
[2020-01-28 16:44] LABS: Glucose,Whole Blood 155 mg/dL (75-99)
[2020-01-28 17:17] LABS: Anisocytosis Slight; HCT 36.7 % (39.0-53.0); HGB 11.5 gm/dL (13.0-17.5); Hypochromasia Slight; MCH 24.7 pg (25.0-35.0); MCHC 31.4 g/dL (31.0-37.0); MCV 78.6 fL (80.0-100.0); Mean Platelet Volume 7.1; Microcytosis Slight; Platelet Count 218 k/uL (150-450); RBC 4.67 m/uL (4.30-5.90); WBC 15.7 k/uL (3.8-10.6)
[2020-01-28 17:25] LABS: Calcium 9.2 mg/dL (8.4-10.2); Potassium 4.1 mmol/L (3.5-5.1)
--- NOTE | 2020-01-28 17:37 | PN ---
PROGRESS NOTE PULMONARY/CRITICAL CARE PROGRESS NOTE: DATE OF SERVICE: 01/28/2020 This is a 69-year-old gentleman who was seen by my partner over the weekend with a complaint of chest pain. The patient does have a known history of diffuse coronary disease without any critical stenosis during heart catheterization 1 year ago. The patient also has a history of PE, previous tobacco use, moderately severe to severe COPD with an FEV1 that is 50% of predicted, despite the fact that his COPD is stable, essential hypertension, obesity, hyperlipidemia, gout, diabetes, history of leukemia, retinitis pigmentosa, and a history of CVA/TIA. From the pulmonary standpoint, the patient is very stable. Denies any shortness of breath, chest tightness, wheezing, cough or phlegm production. Currently not having any chest pain or chest discomfort. His other medical issues tend to be stable. He has no respiratory or cardiac issues at this time. PHYSICAL EXAMINATION: VITAL SIGNS: Current vital signs are stable. Temperature 97.3 heart rate 55, respiratory rate 16, blood pressure 165/79, mean 107, room-air saturation 97%. GENERAL APPEARANCE: Appears in no acute distress. HEENT: Examination is grossly unremarkable. Mucous membranes are moist. No oral lesions. NECK: Supple. Full range of motion. No adenopathy. Neck veins are flat. CARDIOVASCULAR: Examination reveals regular rhythm and rate. Heart rate is only 55. S1, S2 normal. Heart sounds are distant. No murmur. LUNGS: Lungs are clear. Breath sounds equal. No wheezes, rhonchi or crackles. ABDOMEN: Soft. Bowel sounds are heard. No masses or tenderness. ABDOMEN: Obese. EXTREMITIES: Intact. No edema. SKIN: Without rash. NEUROLOGIC: Neurologic examination is nonfocal. LABS: Reviewed. No new labs from today. From yesterday, white count 16.9, hemoglobin 11.9, hematocrit 36.9, platelet count 211,000. Sodium 142, potassium 3.8, chloride 111, CO2 26. Anion gap is 5. BUN and creatinine were 18 and 0.9. His COVID-19 testing was negative. Microbiologic studies are negative. Persantine stress test was done. It showed stress-induced reversible ischemia involving the apex of the myocardium. Ejection fraction 54%. ASSESSMENT: 1. Atypical chest pain in a patient with a history of diffuse coronary artery disease, with recent Persantine stress test. 2. History of pulmonary embolism, anticoagulated on Xarelto. 3. Former smoker, with a history of underlying chronic obstructive pulmonary disease, moderately severe, with an FEV1 that is 50% of predicted. 4. Essential hypertension. 5. Obesity. 6. Hyperlipidemia. 7. History of gout. 8. Diabetes mellitus. 9. History of leukemia. 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 11.History of cerebrovascular accident. PLAN: Currently the patient is doing reasonably well. We will continue to follow. It is up to Cardiology as to how they want to proceed with this patient, given his recent catheterization about a year ago that was apparently okay. Additional recommendations and suggestions are forthcoming. Respiratory status is stable. We will follow up in office. MMODL / IJN: [id number] /
[2020-01-28] MEDS: ASPIRIN 81 MG PO SCH (20:17)
[2020-01-28] MEDS: ATORVASTATIN 80 MG TAB PO SCH (20:17)
[2020-01-28] MEDS: ALLOPURINOL 300 MG TAB PO SCH (20:17)
[2020-01-28 20:33] LABS: Glucose,Whole Blood 186 mg/dL (75-99)
[2020-01-28] MEDS: SODIUM CHLORIDE 0.9% 1,000 ML IV SCH (22:10)
[2020-01-29 00:19] VITALS: RESP 18
[2020-01-29] MEDS: LOSARTAN 50 MG TAB PO SCH (05:55)
[2020-01-29] MEDS: PANTOPRAZOLE 40 MG TABLET PO SCH (05:55)
[2020-01-29] MEDS: FUROSEMIDE 20 MG TAB PO SCH (05:55)
[2020-01-29] MEDS: MONTELUKAST 10 MG TAB PO SCH (05:56)
[2020-01-29] MEDS: amLODIPine 5 MG TAB PO SCH (05:56)
[2020-01-29] MEDS: ISOSORBIDE MONONITRATE ER 60 MG TAB.ER.24H PO SCH (05:56)
[2020-01-29] MEDS: FERROUS SULFATE 325 MG TAB PO SCH (05:56)
[2020-01-29] MEDS: POTASSIUM CHLORIDE ER 10 MEQ TAB.ER.PRT PO SCH (05:57)
[2020-01-29] MEDS: INSULIN ASPART (NovoLOG) 100 UNIT/ML VIAL SQ SCH ×3 (06:00→17:41)
[2020-01-29 06:01] LABS: Glucose,Whole Blood 103 mg/dL (75-99)
[2020-01-29] MEDS: LABETALOL 100 MG TAB PO SCH (06:19)
[2020-01-29 08:31] VITALS: TEMP 97.6
[2020-01-29] MEDS ORDERED: IV FLUID CONTINUATION 450 ML IV ONE (09:18)
[2020-01-29] MEDS ORDERED: LIDOCAINE 1% INJ 10MG/ML (20 ML MDV) SQ ONE (09:57)
[2020-01-29] MEDS ORDERED: fentaNYL (PF) 50 MCG/ML 2 ML AMP IV ONE (09:57)
[2020-01-29] MEDS ORDERED: VERAPAMIL SYRINGE (5 MG/10 ML) INTRAARTER ONE (10:04)
[2020-01-29] MEDS ORDERED: HEPARIN SODIUM 1,000 UN/ML (10ML VL) IV ONE (10:11)
[2020-01-29] MEDS ORDERED: IOPAMIDOL-370 100ML BTL INJ ONE (10:20)
[2020-01-29] MEDS ORDERED: RX INFO: IV CONTRAST WAS GIVEN 1 EACH MISC MISCELLANE PRN (10:31)
--- NOTE | 2020-01-29 10:44 | P.DS ---
Providers Date of admission: 01/28/20 16:20 Attending physician: Neno Garcia Consults: 01/27/20 04:17 Consult Physician Routine Consulting Provider: Sara Carrington Consult Reason/Comments: Chest pain Do you want consulting provider notified?: Yes, Notify in am Primary care physician: Sugar Dorman [facility] Course: 69-year-old pleasant gentleman is admitted for chest pain found to have positive stress test. Cardiology will decide whether to continue with anticoagulation with xarelto, may need to to transition him to heparin for possible cardiac catheterization today. Patient presently doesn't have any chest pain 01/29/2020 Patient underwent cardiac catheterization did not show any syncopal occlusive disease. Patient will be discharged today. Patient will be asked to hold off on metformin today and tomorrow will decrease the dose of metformin he may not need this medication at all as his blood sugars are very well controlled with other medications he is on already PHYSICAL EXAMINATION: GENERAL: The patient is alert and oriented x3, not in any acute distress. Well developed, well nourished. HEENT: Pupils are round and equally reacting to light. EOMI. No scleral icterus. No conjunctival pallor. Normocephalic, atraumatic. No pharyngeal erythema. No thyromegaly. CARDIOVASCULAR: S1 and S2 present. No murmurs, rubs, or gallops. PULMONARY: Chest is clear to auscultation, no wheezing or crackles. ABDOMEN: Soft, nontender, nondistended, normoactive bowel sounds. No palpable organomegaly. MUSCULOSKELETAL: No joint swelling or deformity. EXTREMITIES: No cyanosis, clubbing, or pedal edema. NEUROLOGICAL: Gross neurological examination did not reveal any focal deficits. SKIN: No rashes. Assessment and Plan Plan: Chest pain, with positive stress test, status post cardiac authorization did not show any significant stent table atherosclerotic occlusive disease. diabetes mellitus, type II Hypertension Hyperlipidemia Chronic Heart failure History of coronary artery disease History of CVA/TIA History of leukemia not on treatment legally blind Patient Condition at Discharge: Stable Plan - Discharge Summary Discharge Rx Participant: No New Discharge Prescriptions: Continue Omeprazole [PriLOSEC] 20 mg PO DAILY Furosemide [Lasix] 20 mg PO DAILY Atorvastatin [Lipitor] 80 mg PO HS sitaGLIPtin [Januvia] 100 mg PO DAILY amLODIPine [Norvasc] 5 mg PO BID Labetalol [Trandate] 100 mg PO BID Isosorbide Mononitrate ER [Imdur] 60 mg PO DAILY Allopurinol [Zyloprim] 300 mg PO HS Rivaroxaban [Xarelto] 20 mg PO DAILY Potassium Chloride 10 meq PO DAILY Aspirin [Adult Low Dose Aspirin EC] 81 mg PO HS Montelukast [Singulair] 10 mg PO DAILY Insulin Degludec [Tresiba Flextouch U-100] 50 units SQ BID Insulin Aspart [NovoLOG Flexpen] See Protocol SQ AC-TID Albuterol Sulfate [Albuterol Sulfate Hfa] 2 puff PO RT-QID PRN PRN Reason: Shortness Of Breath Losartan Potassium [Cozaar] 100 mg PO DAILY Ferrous Sulfate [Iron (65 MG Elemental)] 325 mg PO BID Changed metFORMIN HCL [Glucophage] 500 mg PO BID #0 Discharge Medication List Allopurinol [Zyloprim] 300 mg PO HS 10/10/18 [History] Aspirin [Adult Low Dose Aspirin EC] 81 mg PO HS 10/10/18 [History] Atorvastatin [Lipitor] 80 mg PO HS 10/10/18 [History] Furosemide [Lasix] 20 mg PO DAILY 10/10/18 [History] Isosorbide Mononitrate ER [Imdur] 60 mg PO DAILY 10/10/18 [History] Labetalol [Trandate] 100 mg PO BID 10/10/18 [History] Omeprazole [PriLOSEC] 20 mg PO DAILY 10/10/18 [History] Potassium Chloride 10 meq PO DAILY 10/10/18 [History] Rivaroxaban [Xarelto] 20 mg PO DAILY 10/10/18 [History] amLODIPine [Norvasc] 5 mg PO BID 10/10/18 [History] sitaGLIPtin [Januvia] 100 mg PO DAILY 10/10/18 [History] Albuterol Sulfate [Albuterol Sulfate Hfa] 2 puff PO RT-QID PRN 01/27/20 [Hist ory] Ferrous Sulfate [Iron (65 MG Elemental)] 325 mg PO BID 01/27/20 [History] Insulin Aspart [NovoLOG Flexpen] See Protocol SQ AC-TID 01/27/20 [History] Insulin Degludec [Tresiba Flextouch U-100] 50 units SQ BID 01/27/20 [History] Losartan Potassium [Cozaar] 100 mg PO DAILY 01/27/20 [History] Montelukast [Singulair] 10 mg PO DAILY 01/27/20 [History] metFORMIN HCL [Glucophage] 500 mg PO BID #0 01/29/20 [Rx] Follow up Appointment(s)/Referral(s): Sara Carrington MD [STAFF PHYSICIAN] - 1 Week Sugar Dorman MD [Primary Care Provider] - 3 Days
[2020-01-29] MEDS: SODIUM CHLORIDE 0.9% 1,000 ML IV SCH (10:45)
[2020-01-29] MEDS ORDERED: SODIUM CHLORIDE 0.9% 1,000 ML IV SCH (10:45)
--- NOTE | 2020-01-29 11:10 | PN ---
PROGRESS NOTE PULMONARY/CRITICAL CARE PROGRESS NOTE: DATE OF SERVICE: 01/29/2020 A 69-year-old male who we saw yesterday. The patient had atypical chest pain. His Persantine stress test was positive for reversible stress-induced ischemia. The patient is scheduled for catheterization today. He apparently had a catheterization about a year ago which apparently was "normal." He does have a history of pulmonary embolism, on Xarelto, previous tobacco user with underlying moderately severe COPD and an FEV1 of 50%, essential hypertension, obesity, hyperlipidemia, gout, diabetes, leukemia, legal blindness, and history of cerebrovascular accident. Currently, the patient is without symptoms. Denies any shortness of breath, chest pain, chest discomfort, cough, wheezing, phlegm production, fever, chills, nausea, vomiting or diarrhea. Current vital signs are reviewed, temperature is 97.6, heart rate 57, respiratory rate 18, blood pressure 157/72 mean 100, room air saturation is 97%. Appears in no acute distress. HEENT: Examination is grossly unremarkable. Mucous membranes are moist. No supplemental oxygen. NECK: Supple full range of motion. No adenopathy. Neck veins are flat. CARDIOVASCULAR: Examination reveals regular rhythm and rate. Heart rate mid 50s. S1, S2 normal. There is no murmur. LUNGS: Reveal clear breath sounds. No wheezes or rhonchi. ABDOMEN: Soft, bowel sounds are heard. EXTREMITIES: Intact. No cyanosis, clubbing, or edema. SKIN: Without rash. NEUROLOGIC: Examination is brief but nonfocal. Labs are reviewed. No new labs from today as yet. Microbiology is negative. No recent chest x-ray. Medications are reviewed. ASSESSMENT: 1. Atypical chest pain with an abnormal Persantine stress test, anticipated cardiac catheterization today. 2. Previous cardiac catheterization about 1 year ago, which was reported to be okay. 3. History of pulmonary embolism, currently on Xarelto. 4. History of tobacco use, with COPD, thought to be moderately severe with an FEV1 of 50% of predicted. 5. Essential hypertension. 6. Obesity. 7. Hyperlipidemia. 8. Gout. 9. Diabetes. 10.History of leukemia. 11.Legal blindness that is secondary to retinitis pigmentosa. 12.History of cerebrovascular accident. PLAN: The patient is doing well. Catheterization today. Presenting stress test was positive. Pulmonary status is stable. Will continue to follow. MMODL / IJN: [id number] /
[2020-01-29 11:45] LABS: Glucose,Whole Blood 147 mg/dL (75-99)
--- NOTE | 2020-01-29 12:02 | ECHOF ---
Referral Reason:Chest pain and cardiomyopathy MEASUREMENTS -------- HEIGHT: 170.2 cm WEIGHT: 119.7 kg BP: 170/72 RVIDd: 3.5 cm (< 3.3) IVSd: 1.4 cm (0.6 - 1.1) LVIDd: 5.0 cm (3.9 - 5.3) LVPWd: 1.3 cm (0.6 - 1.1) IVSs: 1.6 cm LVIDs: 3.6 cm LVPWs: 1.9 cm LA Diam: 3.5 cm (2.7 - 3.8) Ao Diam: 3.3 cm (2.0 - 3.7) AV Cusp: 2.0 cm (1.5 - 2.6) MV EXCURSION: 17.007 mm (> 18.000) MV EF SLOPE: 68 mm/s (70 - 150) EPSS: 0.7 cm MV E Nemesio: 0.94 m/s MV DecT: 328 ms MV A Nemesio: 1.12 m/s MV E/A Ratio: 0.84 FINDINGS -------- Sinus rhythm. This was a technically difficult study with suboptimal apical views. The left ventricular size is normal. There is moderate concentric left ventricular hypertrophy. O verall left ventricular systolic function is normal with, an EF between 55 - 60 %. The right ventricle is mildly enlarged. The left atrial size is normal. The right atrial size is normal. 3 ml of Lumason was utilized for enhancement of images. Interatrial and interventricular septum intact. The aortic valve is trileaflet, and appears structurally normal. No aortic stenosis or regurgitation. The mitral valve is normal. Mild mitral regurgitation is present. The tricuspid valve appears structurally normal. Mild tricuspid regurgitation present. The pulmonic valve was not well visualized. Trace/mild (physiologic) pulmonic regurgitation. The aortic root size is normal. IVC Not well visulized. There is no pericardial effusion. CONCLUSIONS -------- 1. There is moderate concentric left ventricular hypertrophy. 2. Overall left ventricular systolic function is normal with, an EF between 55 - 60 %. 3. The right ventricle is mildly enlarged. 4. The left atrial size is normal. 5. 3 ml of Lumason was utilized for enhancement of images. 6. The aortic valve is trileaflet, and appears structurally normal. No aortic stenosis or regurgitati on. 7. Mild mitral regurgitation is present. 8. Mild tricuspid regurgitation present. 9. Trace/mild (physiologic) pulmonic regurgitation. 10. There is no pericardial effusion. CONCRETE BLOCK MASON: Paloma Valenzuela RDCS
--- NOTE | 2020-01-29 12:04 | CC ---
CARDIAC CATHETERIZATION REPORT Mr. Deluna is a 69-year-old male with known history of hypertension, hyperlipidemia, diabetes mellitus, who presented with symptoms of chest discomfort. His cardiac enzymes were unremarkable. He underwent stress test that revealed evidence of inducible ischemia. In view of that, recommendation regarding cardiac catheterization. The procedures, risks, and complication were discussed with the patient who is in full understanding and agreement. PROCEDURE: Patient was brought to denture laboratory technician in a fasting semi-sedated state after receiving fentanyl and Benadryl and achieving moderate conscious sedated state. Using Xylocaine anesthesia and Seldinger technique, a 6-Welsh sheath was introduced in the right radial artery. Selective right and left coronary angiography was performed using 5- Welsh, 3.5 bend right and left Edilma catheter. Multiple views of the coronary artery including hemiaxial views obtained. Following that, catheter and sheath were removed. Hemostasis was obtained with deployment of a TR band. There was no immediate complication. Patient is returned to his room in stable condition. Of note, the patient received 5000 units of intravenous heparin as well as intra-arterial verapamil. FINDINGS: LEFT MAIN: This is a short size vessel, bifurcating into left circumflex, left anterior descending artery. Left main coronary artery has no evidence of high-grade stenosis. LEFT ANTERIOR DESCENDING ARTERY: This is a large-sized vessel, reaching toward the apex with a wraparound apex segment, giving rise to a proximal large diagonal branch. The left anterior descending artery proximally has 20% plaque. The rest of the vessel has no high-grade stenosis. LEFT CIRCUMFLEX: This is a small nondominant vessel that has no evidence of high-grade stenosis. RIGHT CORONARY ARTERY: This is a large dominant vessel, bifurcating distally into PDA and posterolateral segment and branches. There was catheter-induced spasm in the ostium that resolved. There is a 20% to 30% plaque in the mid segment. The rest of the vessel has mild intimal disease without any evidence of high-grade stenosis. LEFT VENTRICULOGRAM: Left ventriculogram was not performed. CONCLUSION: Mild disease involving the mid right coronary artery and the proximal LAD with catheter- induced spasm of the ostium of the right coronary artery that subsequently resolved. RECOMMENDATION: Patient will be continued on present medical regimen. Aggressive risk modifications will been continued. Those findings and recommendation were discussed with the patient in full understanding and agreement. Duration of procedure is 23 minutes. MMODL / IJN: [id number] /
--- NOTE | 2020-01-29 13:15 | CDI ---
Documentation Clarification Form Date: 01/29/2020 12:51:11 PM From: Roshni Son RN CCDS Admit Date: 01/28/2020 04:20:00 PM Patient Name: Pierre Deluna Visit Number: [id number] Discharge Date: ATTENTION: The Clinical Documentation Specialists (CDI) and [facility] Coding Staff appreciate your assistance in clarifying documentation. Please respond to the clarification below the line at the bottom and electronically sign. The CDI & [facility] Coding staff will review the response and follow-up if needed. Please note: Queries are made part of the Legal Health Record. If you have any questions, please contact the author of this message via ITS. Dr. Gilda Sanchez Chronic Heart failure is documented in the DCS 01/28 History/Risk Factors: 69-year-old male presents to the ED as a transfer from [facility] for chest pain that began at noon. Medical History HTN, CHF, CAD and DM Clinical Indicators: 01/26 VS/Pulse OX: B/P: 175/73; HR 64; Temp: 97.7 Oral; RR: 17; SpO2: 98% 2L nasal cannula 01/27 Echocardiogram Results: There is moderate concentric left ventricular hypertrophy. Overall left ventricular systolic function is normal with an EF between 55-60%. Right ventricle is mildly enlarged. Treatment: 01/26 Cozaar 100mg PO Daily, Imdur 60mg PO Daily; Lasix 20mg PO Daily In your professional opinion, can you please clarify the acuity and type of CHF if known? Chronic Diastolic Heart Failure Unable to Determine Other, please specify (Last Revision: October 2017) no heart failure MTDD
[2020-01-29 16:22] VITALS: BP 139/65; PULSE 55
[2020-01-29 16:48] LABS: Glucose,Whole Blood 191 mg/dL (75-99)
[2020-01-30] MEDS ORDERED: RIVAROXABAN 20 MG TAB PO SCH (09:00)
== END 2020-01-29 19:19 | disposition home or self-care (01) | DRG 287 ==
LOC: EC 02:44 → 3SCARD 02:55 → OBSVTOIN 01-28 16:20
PROVIDERS: ADMIT Hospitalist; ATTEND Hospitalist
PROC: B2111ZZ Fluoroscopy of Multiple Coronary Arteries using Low Osmolar Contrast (ICD-10-PCS; principal; 2020-01-29 09:00)
DX: I25.10 Atherosclerotic heart disease of native coronary artery without angina pectoris (principal); Z68.41 Body mass index [BMI] 40.0-44.9, adult; I50.1 Left ventricular failure, unspecified; E66.01 Morbid (severe) obesity due to excess calories; H54.8 Legal blindness, as defined in USA; K21.9 Gastro-esophageal reflux disease without esophagitis; E78.5 Hyperlipidemia, unspecified; I11.0 Hypertensive heart disease with heart failure; E11.9 Type 2 diabetes mellitus without complications; J44.9 Chronic obstructive pulmonary disease, unspecified; H26.9 Unspecified cataract; M10.9 Gout, unspecified; Z11.59 Encounter for screening for other viral diseases; Z79.899 Other long term (current) drug therapy; Z79.82 Long term (current) use of aspirin; Z79.4 Long term (current) use of insulin; Z79.01 Long term (current) use of anticoagulants; Z88.8 Allergy status to other drugs, medicaments and biological substances; Z86.73 Personal history of transient ischemic attack (TIA), and cerebral infarction without residual deficits; Z87.891 Personal history of nicotine dependence; Z86.711 Personal history of pulmonary embolism; Z90.49 Acquired absence of other specified parts of digestive tract; Z98.890 Other specified postprocedural states
CPT/HCPCS: 78452; 80048; 84484; 85027; 93017; 93306; 93454; 99285

== ENCOUNTER 2020-04-27 19:59 | Emergency (ER) | payer MEDICARE, OTHER ==
[2020-04-27 20:06] VITALS: TEMP 98.7
[2020-04-27] MEDS ORDERED: ONDANSETRON 4 MG/2 ML VIAL IVP STA (20:38)
[2020-04-27] MEDS ORDERED: MORPHINE SULFATE 4 MG/ML SYRINGE IVP STA (20:38)
[2020-04-27 21:06] LABS: Appearance,Urine Clear (Clear); Bilirubin,Urine Negative (Negative); Blood,Urine Negative (Negative); Color,Urine Yellow; Glucose,Urine (UA) Negative (Negative); Ketones,Urine Negative (Negative); Leukocyte Esterase,Urine Negative (Negative); Nitrite,Urine Negative (Negative); PH, Urine 5.5 (5.0-8.0); Protein,Urine Trace (Negative); Specific Gravity,Urine 1.021 (1.001-1.035); Urobilinogen,Urine <2.0 mg/dL (<2.0)
[2020-04-27 21:14] LABS: Partial Thromboplastin Time 27.8 sec (22.0-30.0); Prothrombin Time 10.7 sec (9.0-12.0)
[2020-04-27 21:16] LABS: Albumin 3.7 g/dL (3.5-5.0); Calcium 9.3 mg/dL (8.4-10.2); Potassium 3.9 mmol/L (3.5-5.1); Total Bilirubin 0.4 mg/dL (0.2-1.3); Total Protein 5.6 g/dL (6.3-8.2)
[2020-04-27 21:17] LABS: Anisocytosis Slight; Basophils # (A) 0.1 k/uL (0-0.2); Basophils % (A) 1 %; Eosinophils # (A) 0.3 k/uL (0-0.7); Eosinophils % (A) 2 %; HCT 34.7 % (39.0-53.0); HGB 10.9 gm/dL (13.0-17.5); Hypochromasia Slight; Lymphocytes # (A) 7.4 k/uL (1.0-4.8); Lymphocytes % (A) 49 %; MCH 23.9 pg (25.0-35.0); MCHC 31.5 g/dL (31.0-37.0); Mean Platelet Volume 7.2; Microcytosis Slight; Monocytes # (A) 0.6 k/uL (0-1.0); Monocytes % (A) 4 %; Neutrophils # (A) 6.6 k/uL (1.3-7.7); Neutrophils % (A) 43 %; Platelet Count 231 k/uL (150-450); RBC 4.57 m/uL (4.30-5.90); RDW 17.3 % (11.5-15.5); WBC 15.2 k/uL (3.8-10.6)
--- NOTE | 2020-04-27 21:18 | ED ---
Abdominal Pain HPI - General Chief Complaint: Abdominal Pain Stated Complaint: Rib pain Time Seen by Provider: 04/27/20 20:08 Source: patient Mode of arrival: wheelchair Limitations: physical limitation - History of Present Illness Initial Comments: 69-year-old male patient with past medical history significant for CAD, leukemia, heart failure, CVA, diabetes, hypertension, presents to the emergency department today for evaluation of pain. Patient is reporting pain to the right upper quadrant radiating through to his back. Patient states the area is very tender to touch. Hurts worse with movement and deep breathing. States that his been going on for the last 5 days and getting worse. He does report some diarrhea intermittently but denies any nausea or vomiting. Denies hematochezia, melena, hematemesis. Denies any fever or chills. He does report some dysuria. Denies any hematuria. He has had cholecystectomy and appendectomy in the past. Patient denies any recent rash, cough, shortness of breath, chest pain, numbness, tingling, dizziness, weakness, headache, visual changes, or any other complaints. - Related Data Home Medications Medication Instructions Recorded Confirmed Aspirin [Adult Low Dose Aspirin EC] 81 mg PO HS 10/10/18 01/27/20 Atorvastatin [Lipitor] 80 mg PO HS 10/10/18 01/27/20 Furosemide [Lasix] 20 mg PO DAILY 10/10/18 01/27/20 Isosorbide Mononitrate ER [Imdur] 60 mg PO DAILY 10/10/18 01/27/20 Labetalol [Trandate] 100 mg PO BID 10/10/18 01/27/20 Omeprazole [PriLOSEC] 20 mg PO DAILY 10/10/18 01/27/20 Potassium Chloride 10 meq PO DAILY 10/10/18 01/27/20 Rivaroxaban [Xarelto] 20 mg PO DAILY 10/10/18 01/27/20 allopurinoL [Zyloprim] 300 mg PO HS 10/10/18 01/27/20 amLODIPine [Norvasc] 5 mg PO BID 10/10/18 01/27/20 sitaGLIPtin [Januvia] 100 mg PO DAILY 10/10/18 01/27/20 Albuterol Sulfate [Albuterol 2 puff PO RT-QID PRN 01/27/20 01/27/20 Sulfate Hfa] Ferrous Sulfate [Iron (65 MG 325 mg PO BID 01/27/20 01/27/20 Elemental)] Insulin Aspart [NovoLOG Flexpen] See Protocol SQ AC-TID 01/27/20 01/27/20 Insulin Degludec [Tresiba 50 units SQ BID 01/27/20 01/27/20 Flextouch U-100] Losartan Potassium [Cozaar] 100 mg PO DAILY 01/27/20 01/27/20 Montelukast [Singulair] 10 mg PO DAILY 01/27/20 01/27/20 Previous Rx's Medication Instructions Recorded metFORMIN HCL [Glucophage] 500 mg PO BID #0 01/29/20 Allergies Allergy/AdvReac Type Severity Reaction Status Date / Time cortisone Allergy Anaphylaxis Verified 04/27/20 20:06 Review of Systems ROS Statement: Those systems with pertinent positive or pertinent negative responses have been documented in the HPI. ROS Other: All systems not noted in ROS Statement are negative. 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 LT SHOULDER SX. RT ROTATOR CUFF REPAIR X 2. COLONOSCOPY Past Anesthesia/Blood Transfusion Reactions: No Reported Reaction Past Psychological History: No Psychological Hx Reported Smoking Status: Never smoker Past Alcohol Use History: None Reported Past Drug Use History: None Reported - Past Family History Mother Family Medical History: No Reported History General Exam Limitations: physical limitation General appearance: alert, in no apparent distress, other (This is a well- developed, well-nourished adult male patient in no acute distress. Vital signs upon presentation are temperature 98.7F, pulse 63, respiration 16, blood pressure 176/70, pulse ox 98% on room air.) ENT exam: Present: normal exam, normal oropharynx, mucous membranes moist Respiratory exam: Present: normal lung sounds bilaterally. Absent: respiratory distress, wheezes, rales, rhonchi, stridor Cardiovascular Exam: Present: regular rate, normal rhythm, normal heart sounds. Absent: systolic murmur, diastolic murmur, rubs, gallop, clicks GI/Abdominal exam: Present: soft, tenderness (Right upper quadrant, right lateral abdomen, right CVA tenderness), normal bowel sounds. Absent: distended, guarding, rebound, rigid Neurological exam: Present: alert, oriented X3, CN II-XII intact Psychiatric exam: Present: normal affect, normal mood Skin exam: Present: warm, dry, intact, normal color. Absent: rash Course Vital Signs 04/27/20 04/27/20 04/27/20 20:03 20:30 21:10 Temperature 98.7 F Pulse Rate 63 63 72 Respiratory 16 14 16 Rate Blood Pressure 176/70 181/75 155/60 O2 Sat by Pulse 98 96 95 Oximetry 04/27/20 04/27/20 21:40 22:10 Temperature Pulse Rate 62 61 Respiratory 17 16 Rate Blood Pressure 155/60 143/57 O2 Sat by Pulse 95 97 Oximetry Medical Decision Making - Medical Decision Making 69-year-old male patient presents to the emergency department today for evaluation of right upper quadrant abdominal pain radiating around to his right ribs. Physical examination did reveal increased tenderness with even the lightest palpation to the right upper quadrant and right lateral abdomen and flank. Labs reviewed and did reveal elevated white blood cell count at 15,000. Remainder of labs are unremarkable. Urine showed no evidence for infection or blood. CT abdomen and pelvis without contrast was obtained. Did show simple cyst on the liver which were unchanged compared to a computed tomography scan in January of last year. Remainder of CT was unremarkable for acute abnormalities. I did discuss findings and results with the patient. He's had no vomiting and pain has improved since being in the emergency department. We did discuss possible early shingles infection as a cause for his symptoms he is instructed to monitor for rash. He is instructed to follow up with his primary care physic celia in one to 2 days for further evaluation of this abdominal pain. Return parameters were discussed in detail. He verbalizes understanding and agrees with this plan to - Lab Data Result diagrams: 04/27/20 20:45 04/27/20 20:45 Lab Results 10/04/20 10/04/20 10/04/20 Range/Units 20:45 20:45 20:45 WBC 15.2 H (3.8-10.6) k/uL RBC 4.57 (4.30-5.90) m/uL Hgb 10.9 L (13.0-17.5) gm/dL Hct 34.7 L (39.0-53.0) % MCV 76.0 L (80.0-100.0) fL MCH 23.9 L (25.0-35.0) pg MCHC 31.5 (31.0-37.0) g/dL RDW 17.3 H (11.5-15.5) % Plt Count 231 (150-450) k/uL Neutrophils % 43 % Lymphocytes % 49 % Monocytes % 4 % Eosinophils % 2 % Basophils % 1 % Neutrophils # 6.6 (1.3-7.7) k/uL Lymphocytes # 7.4 H (1.0-4.8) k/uL Monocytes # 0.6 (0-1.0) k/uL Eosinophils # 0.3 (0-0.7) k/uL Basophils # 0.1 (0-0.2) k/uL Manual Slide Review Performed Hypochromasia Slight Anisocytosis Slight Microcytosis Slight PT 10.7 (9.0-12.0) sec INR 1.0 (<1.2) APTT 27.8 (22.0-30.0) sec Sodium (137-145) mmol/L Potassium (3.5-5.1) mmol/L Chloride (98-107) mmol/L Carbon Dioxide (22-30) mmol/L Anion Gap mmol/L BUN (9-20) mg/dL Creatinine (0.66-1.25) mg/dL Est GFR (CKD-EPI)AfAm (>60 ml/min/1.73 sqM) Est GFR (CKD-EPI)NonAf (>60 ml/min/1.73 sqM) Glucose (74-99) mg/dL Calcium (8.4-10.2) mg/dL Total Bilirubin (0.2-1.3) mg/dL AST (17-59) U/L ALT (4-49) U/L Alkaline Phosphatase (38-126) U/L Troponin I (0.000-0.034) ng/mL Total Protein (6.3-8.2) g/dL Albumin (3.5-5.0) g/dL Amylase (30-110) U/L Lipase (23-300) U/L Urine Color Yellow Urine Appearance Clear (Clear) Urine pH 5.5 (5.0-8.0) Ur Specific [place] 1.021 (1.001-1.035) Urine Protein Trace H (Negative) Urine Glucose (UA) Negative (Negative) Urine Ketones Negative (Negative) Urine Blood Negative (Negative) Urine Nitrite Negative (Negative) Urine Bilirubin Negative (Negative) Urine Urobilinogen <2.0 (<2.0) mg/dL Ur Leukocyte Esterase Negative (Negative) 04/27/20 04/27/20 Range/Units 20:45 20:45 WBC (3.8-10.6) k/uL RBC (4.30-5.90) m/uL Hgb (13.0-17.5) gm/dL Hct (39.0-53.0) % MCV (80.0-100.0) fL MCH (25.0-35.0) pg MCHC (31.0-37.0) g/dL RDW (11.5-15.5) % Plt Count (150-450) k/uL Neutrophils % % Lymphocytes % % Monocytes % % Eosinophils % % Basophils % % Neutrophils # (1.3-7.7) k/uL Lymphocytes # (1.0-4.8) k/uL Monocytes # (0-1.0) k/uL Eosinophils # (0-0.7) k/uL Basophils # (0-0.2) k/uL Manual Slide Review Hypochromasia Anisocytosis Microcytosis PT (9.0-12.0) sec INR (<1.2) APTT (22.0-30.0) sec Sodium 141 (137-145) mmol/L Potassium 3.9 (3.5-5.1) mmol/L Chloride 109 H (98-107) mmol/L Carbon Dioxide 26 (22-30) mmol/L Anion Gap 6 mmol/L BUN 19 (9-20) mg/dL Creatinine 1.12 (0.66-1.25) mg/dL Est GFR (CKD-EPI)AfAm 78 (>60 ml/min/1.73 sqM) Est GFR (CKD-EPI)NonAf 68 (>60 ml/min/1.73 sqM) Glucose 138 H (74-99) mg/dL Calcium 9.3 (8.4-10.2) mg/dL Total Bilirubin 0.4 (0.2-1.3) mg/dL AST 30 (17-59) U/L ALT 17 (4-49) U/L Alkaline Phosphatase 52 (38-126) U/L Troponin I <0.012 (0.000-0.034) ng/mL Total Protein 5.6 L (6.3-8.2) g/dL Albumin 3.7 (3.5-5.0) g/dL Amylase 57 (30-110) U/L Lipase 129 (23-300) U/L Urine Color Urine Appearance (Clear) Urine pH (5.0-8.0) Ur Specific [place] (1.001-1.035) Urine Protein (Negative) Urine Glucose (UA) (Negative) Urine Ketones (Negative) Urine Blood (Negative) Urine Nitrite (Negative) Urine Bilirubin (Negative) Urine Urobilinogen (<2.0) mg/dL Ur Leukocyte Esterase (Negative) - EKG Data -: EKG Interpreted by Dc EKG Comments: EKG obtained at 2011 shows sinus rhythm with blocked PACs, ventricular rate is 71, MO interval 176, QRS duration 94, QTC 416, QTC 452. No evidence of ST elevation or depression. - Radiology Data Radiology results: report reviewed, image reviewed CT abdomen and pelvis without contrast is obtained. Report is reviewed in its entirety. Impression by Dr. Wright shows colonic diverticulosis without diverticulitis. Multilevel spondylotic changes in the lumbar spine and probable spinal stenosis. No evidence of renal stone or obstruction. Multiple simple cyst in the liver not change compared to old chest computed tomography scan of 02/12/2019. Disposition Clinical Impression: Abdominal pain Disposition: HOME SELF-CARE Condition: Good Instructions (If sedation given, give patient instructions): Abdominal Pain (ED) Additional Instructions: Follow up with your primary care physician for recheck in 1-2 days. Monitor area for development of a rash. Return to the emergency department for any new, worsening, or concerning symptoms. Is patient prescribed a controlled substance at d/c from ED?: No Referrals: Sugar Dorman MD [Primary Care Provider] - 1-2 days Time of Disposition: 23:52
--- NOTE | 2020-04-27 23:26 | CT ---
EXAMINATION TYPE: CT abdomen pelvis wo con DATE OF EXAM: 04/27/2020 COMPARISON: None HISTORY: Right sided pain with pain during urination. CT DLP: 1940.4 mGycm Automated exposure control for dose reduction was used. There is some mild atelectasis at the lung bases. There is no pleural effusion. There is no pericardi al effusion. There are multiple cysts in the liver that measure up to 7 cm. The bile ducts are not dilated. Spleen is intact. The stomach is intact. There is no evidence of pancreatic mass. There are clips from chol ecystectomy. The bile ducts are not dilated. There is no adrenal mass. Kidneys have normal size. There is no hydronephrosis. Ureters are not dilat ed. There is no retroperitoneal adenopathy. The bladder distends smoothly. There is metal artifact fr om bilateral hip prosthesis. The bony pelvis appears intact. There are numerous diverticula in the si gmoid colon. I see no sign of diverticulitis. There is posterior fusion surgery in the lumbar spine f rom L3 to L5. There is laminectomy defect. There is probably multilevel lumbar spinal stenosis. Detai l is limited. There is no mesenteric edema. There is no ascites. There clips apparently from appendectomy. There is no evidence of a bowel obstruction. There is no sign of free air. IMPRESSION: Colonic diverticulosis without diverticulitis. Multilevel spondylotic changes in the lumbar spine and probable spinal stenosis. No evidence of renal stone or obstruction. Multiple simple cysts in the liver not changed compared to old chest CT scan of 02/12/2019
[2020-04-27] MEDS ORDERED: ACET/COD 300 MG/30 MG STARTER PACK 6 TAB BTL PO STA (23:55)
[2020-04-28 02:47] VITALS: BP 157/74; PULSE 70; RESP 18
== END 2020-04-28 00:20 | disposition home or self-care (01) ==
LOC: EC 19:59
DX: R10.11 Right upper quadrant pain (principal); D72.829 Elevated white blood cell count, unspecified; M54.9 Dorsalgia, unspecified; I11.0 Hypertensive heart disease with heart failure; I50.9 Heart failure, unspecified; E78.5 Hyperlipidemia, unspecified; K21.9 Gastro-esophageal reflux disease without esophagitis; H54.8 Legal blindness, as defined in USA; I25.10 Atherosclerotic heart disease of native coronary artery without angina pectoris; E11.9 Type 2 diabetes mellitus without complications; Z79.4 Long term (current) use of insulin; Z79.01 Long term (current) use of anticoagulants; Z79.82 Long term (current) use of aspirin; Z79.899 Other long term (current) drug therapy; Z90.49 Acquired absence of other specified parts of digestive tract; Z98.42 Cataract extraction status, left eye; Z98.41 Cataract extraction status, right eye; Z88.8 Allergy status to other drugs, medicaments and biological substances; Z86.73 Personal history of transient ischemic attack (TIA), and cerebral infarction without residual deficits
CPT/HCPCS: 99284; 96374; 96375; 36415; 93005; 80053; 82150; 83690; 84484; 85025; 85610; 85730; 81003; 74176; J2270; J2405

== ENCOUNTER 2020-08-09 21:20 | Observation (INO) | payer MEDICARE, OTHER ==
[2020-08-09] MEDS ORDERED: MORPHINE SULFATE 4 MG/ML SYRINGE IVP STA (21:33)
[2020-08-09 21:49] LABS: Anisocytosis Slight; Basophils # (A) 0.2 k/uL (0-0.2); Basophils % (A) 1 %; Eosinophils # (A) 0.3 k/uL (0-0.7); Eosinophils % (A) 2 %; HCT 36.6 % (39.0-53.0); Lymphocytes # (A) 9.5 k/uL (1.0-4.8); Lymphocytes % (A) 56 %; MCH 24.8 pg (25.0-35.0); MCHC 32.7 g/dL (31.0-37.0); MCV 75.9 fL (80.0-100.0); Mean Platelet Volume 7.1; Microcytosis Slight; Monocytes # (A) 0.5 k/uL (0-1.0); Monocytes % (A) 3 %; Neutrophils # (A) 6.2 k/uL (1.3-7.7); Neutrophils % (A) 36 %; Platelet Count 195 k/uL (150-450); RBC 4.83 m/uL (4.30-5.90); RDW 17.4 % (11.5-15.5)
[2020-08-09 21:57] LABS: Prothrombin Time 10.6 sec (9.0-12.0)
[2020-08-09 22:04] LABS: Albumin 3.9 g/dL (3.5-5.0); Calcium 9.5 mg/dL (8.4-10.2); Potassium 3.8 mmol/L (3.5-5.1); Total Bilirubin 0.6 mg/dL (0.2-1.3); Total Protein 6.2 g/dL (6.3-8.2)
--- NOTE | 2020-08-09 22:53 | ED ---
Chest Pain HPI - General Chief Complaint: Chest Pain Stated Complaint: Chest pain Time Seen by Provider: 08/09/20 21:20 Source: patient, EMS Mode of arrival: ambulatory Limitations: no limitations - History of Present Illness Initial Comments: 70 year old male with PMH of ascad, DM who presents to the ED from [facility]. Patient was their facility earlier this evening with complaint of chest pain that started around 12:30. Patient describes it as a pressure sensation was treated with nitro without improvement. Laboratory studies were conducted and the patient did have a negative first troponin. She had a history of a cath earlier this year by Dr. Carrington. Was found have a 65% occlusion which was going to be medically managed. Patient denies having any stents in his heart. Patient presents to our facility reporting of the pain is 6 out of 10. States that he frequently gets short of breath which is exertional. Patient was given an aspirin at their facility and was transferred here for cardiac care. Patient denies ripping or tearing sensation. No fevers or chills. Denies any nausea or vomiting. No numbness, tingling or weakness into his legs. Denies any abdominal pain. No other alleviating, precipitating or modifying factors - Related Data Home Medications Medication Instructions Recorded Confirmed Aspirin [Adult Low Dose Aspirin EC] 81 mg PO HS 10/10/18 08/09/20 Atorvastatin [Lipitor] 80 mg PO HS 10/10/18 08/09/20 Furosemide [Lasix] 20 mg PO DAILY 10/10/18 08/09/20 Isosorbide Mononitrate ER [Imdur] 60 mg PO DAILY 10/10/18 08/09/20 Labetalol [Trandate] 100 mg PO BID 10/10/18 08/09/20 Omeprazole [PriLOSEC] 20 mg PO HS 10/10/18 08/09/20 Potassium Chloride 10 meq PO DAILY 10/10/18 08/09/20 Rivaroxaban [Xarelto] 20 mg PO DAILY 10/10/18 08/09/20 allopurinoL [Zyloprim] 300 mg PO HS 10/10/18 08/09/20 amLODIPine [Norvasc] 5 mg PO BID 10/10/18 08/09/20 sitaGLIPtin [Januvia] 100 mg PO DAILY 10/10/18 08/09/20 Albuterol Sulfate [Albuterol 2 puff INHALATION RT-QID PRN 01/27/20 08/09/20 Sulfate Hfa] Ferrous Sulfate [Iron (65 MG 325 mg PO BID 01/27/20 08/09/20 Elemental)] Insulin Aspart [NovoLOG Flexpen] See Protocol SQ AC-TID 01/27/20 08/09/20 Insulin Degludec [Tresiba 35 units SQ BID 01/27/20 08/09/20 Flextouch U-100] Losartan Potassium [Cozaar] 100 mg PO DAILY 01/27/20 08/09/20 Montelukast [Singulair] 10 mg PO HS 01/27/20 08/09/20 Budesonide/Formoterol Fumarate 2 puff INHALATION RT-BID 08/09/20 08/09/20 [Symbicort 160-4.5 Mcg Inhaler] Dapagliflozin Propanediol [Farxiga] 5 mg PO HS 08/09/20 08/09/20 Tamsulosin [Flomax] 0.4 mg PO HS 08/09/20 08/09/20 hydrALAZINE HCL [Apresoline] 100 mg PO BID 08/09/20 08/09/20 metFORMIN HCL 1,000 mg PO BID 08/09/20 08/09/20 Allergies Allergy/AdvReac Type Severity Reaction Status Date / Time cortisone Allergy Anaphylaxis Verified 08/09/20 22:58 Review of Systems ROS Statement: Those systems with pertinent positive or pertinent negative responses have been documented in the HPI. ROS Other: All systems not noted in ROS Statement are negative. EKG Findings - EKG Comments: EKG Findings:: EKG demonstrates sinus rhythm with PACs. Rate of 64. [place] 172. QRS 100. QTC of 455. No acute ST segment elevations or depressions Past Medical History Past Medical History: Coronary Artery Disease (CAD), Cancer, Heart Failure, CVA/TIA, Diabetes Mellitus, Eye Disorder, GERD/Reflux, Hyperlipidemia, Hypertension Additional Past Medical History / Comment(s): 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 LT SHOULDER SX. RT ROTATOR CUFF REPAIR X 2. COLONOSCOPY Past Anesthesia/Blood Transfusion Reactions: No Reported Reaction Past Psychological History: No Psychological Hx Reported Smoking Status: Never smoker Past Alcohol Use History: None Reported Past Drug Use History: None Reported - Past Family History Mother Family Medical History: No Reported History General Exam Limitations: no limitations General appearance: alert, in no apparent distress Head exam: Present: atraumatic, normocephalic, normal inspection Eye exam: Present: normal appearance, PERRL, EOMI. Absent: scleral icterus, conjunctival injection, periorbital swelling ENT exam: Present: normal exam, mucous membranes moist Neck exam: Present: normal inspection. Absent: tenderness, meningismus, lymphadenopathy Respiratory exam: Present: normal lung sounds bilaterally. Absent: respiratory distress, wheezes, rales, rhonchi, stridor Cardiovascular Exam: Present: regular rate, normal rhythm, normal heart sounds. Absent: systolic murmur, diastolic murmur, rubs, gallop, clicks GI/Abdominal exam: Present: soft, normal bowel sounds. Absent: distended, te nderness, guarding, rebound, rigid Extremities exam: Present: normal inspection, full ROM, normal capillary refill. Absent: tenderness, pedal edema, joint swelling, calf tenderness Back exam: Present: normal inspection Neurological exam: Present: alert, oriented X3, CN II-XII intact Psychiatric exam: Present: normal affect, normal mood Skin exam: Present: warm, dry, intact, normal color. Absent: rash Course Vital Signs 08/09/20 08/09/20 08/09/20 21:22 21:59 22:01 Temperature 98 F Pulse Rate 68 60 Pulse Rate [ 60 Template Clerk ] Respiratory 20 18 Rate Blood Pressure 192/92 189/78 O2 Sat by Pulse 94 L 94 L Oximetry 08/09/20 22:44 Temperature Pulse Rate 61 Pulse Rate [ Template Clerk ] Respiratory 18 Rate Blood Pressure 155/69 O2 Sat by Pulse 93 L Oximetry Chest Pain MDM - MDM Upon arrival patient is placed into room 14. A thorough history and physical exam was performed. I did review the patient's packet. He is given a dose of morphine for his pain for which she does have resolution in his pain. I repeated laboratory studies. The patient's troponin continues to remain negative. Because of this known cardiac disease I did recommend hospital admission for which patient did agree to. Leukocytosis of 17 is consistent with lab values that were obtained at [facility]. I discussed the case with Dr. Mejía who accepted admission for the patient. Patient remained in stable condition was transported to the floor Disposition Clinical Impression: Chest pain, Coronary artery disease Disposition: ADMITTED IP TO THIS HOSP Condition: Stable Is patient prescribed a controlled substance at d/c from ED?: No Decision to Admit Reason: Admit from EC Decision Date: 08/09/20 Decision Time: 22:53
[2020-08-09] MEDS ORDERED: MORPHINE SULFATE 4 MG/ML SYRINGE IV PRN (22:54)
[2020-08-09] MEDS ORDERED: NALOXONE 0.4 MG/ML 1 ML VIAL IV PRN (22:54)
[2020-08-10 02:50] LABS: Anisocytosis Slight; Basophils # (A) 0.1 k/uL (0-0.2); Basophils % (A) 1 %; Eosinophils # (A) 0.2 k/uL (0-0.7); Eosinophils % (A) 1 %; HCT 34.5 % (39.0-53.0); HGB 10.6 gm/dL (13.0-17.5); Hypochromasia Moderate; Lymphocytes # (A) 8.1 k/uL (1.0-4.8); Lymphocytes % (A) 57 %; MCH 23.8 pg (25.0-35.0); MCHC 30.8 g/dL (31.0-37.0); MCV 77.2 fL (80.0-100.0); Mean Platelet Volume 7.7; Microcytosis Slight; Monocytes # (A) 0.4 k/uL (0-1.0); Monocytes % (A) 3 %; Neutrophils # (A) 5.2 k/uL (1.3-7.7); Neutrophils % (A) 36 %; Platelet Count 201 k/uL (150-450); RBC 4.47 m/uL (4.30-5.90); RDW 17.1 % (11.5-15.5); WBC 14.2 k/uL (3.8-10.6)
[2020-08-10 03:18] LABS: Calcium 8.9 mg/dL (8.4-10.2); Potassium 3.6 mmol/L (3.5-5.1)
[2020-08-10 05:50] LABS: Glucose,Whole Blood 124 mg/dL (75-99)
[2020-08-10] MEDS ORDERED: INSULIN DETEMIR (LEVEMIR) 100 UNIT/ML SYR SQ SCH (07:00)
[2020-08-10] MEDS: INSULIN ASPART (NovoLOG) 100 UNIT/ML VIAL SQ SCH ×2 (07:48→12:43)
[2020-08-10] MEDS ORDERED: SYMBICORT 160-4.5 MCG INHALER INHALATION SCH (08:00)
[2020-08-10] MEDS ORDERED: hydrALAZINE HCL 50 MG TAB PO SCH (09:00)
[2020-08-10] MEDS ORDERED: amLODIPine 5 MG TAB PO SCH (09:00)
[2020-08-10] MEDS ORDERED: FUROSEMIDE 20 MG TAB PO SCH (09:00)
[2020-08-10] MEDS ORDERED: POTASSIUM CHLORIDE ER 10 MEQ TAB.ER.PRT PO SCH (09:00)
[2020-08-10] MEDS ORDERED: LOSARTAN 25 MG TAB PO SCH (09:00)
[2020-08-10] MEDS ORDERED: FERROUS SULFATE 325 MG TAB PO SCH (09:00)
[2020-08-10] MEDS ORDERED: ISOSORBIDE MONONITRATE ER 60 MG TAB.ER.24H PO SCH (09:00)
[2020-08-10] MEDS ORDERED: RIVAROXABAN 20 MG TAB PO SCH (09:00)
[2020-08-10] MEDS ORDERED: LABETALOL 100 MG TAB PO SCH (09:00)
[2020-08-10 09:55] VITALS: RESP 18
[2020-08-10 12:12] LABS: Glucose,Whole Blood 199 mg/dL (75-99)
--- NOTE | 2020-08-10 13:56 | P.DS ---
Providers Date of admission: 08/09/20 22:56 Attending physician: Gemma Mejía Consults: 08/09/20 22:55 Consult Physician Urgent Consulting Provider: [facility] Consult Reason/Comments: acute chest pain, possible acs, hx ascad Do you want consulting provider notified?: Yes Primary care physician: Sugar Dorman [facility] Course: Refer to my history of present illness for further details Patient Condition at Discharge: Stable Plan - Discharge Summary Discharge Rx Participant: No New Discharge Prescriptions: No Action Omeprazole [PriLOSEC] 20 mg PO HS Furosemide [Lasix] 20 mg PO DAILY Atorvastatin [Lipitor] 80 mg PO HS sitaGLIPtin [Januvia] 100 mg PO DAILY amLODIPine [Norvasc] 5 mg PO BID Labetalol [Trandate] 100 mg PO BID Isosorbide Mononitrate ER [Imdur] 60 mg PO DAILY allopurinoL [Zyloprim] 300 mg PO HS Rivaroxaban [Xarelto] 20 mg PO DAILY Potassium Chloride 10 meq PO DAILY Aspirin [Adult Low Dose Aspirin EC] 81 mg PO HS Montelukast [Singulair] 10 mg PO HS Insulin Degludec [Tresiba Flextouch U-100] 35 units SQ BID Insulin Aspart [NovoLOG Flexpen] See Protocol SQ AC-TID Albuterol Sulfate [Albuterol Sulfate Hfa] 2 puff INHALATION RT-QID PRN PRN Reason: Shortness Of Breath Losartan Potassium [Cozaar] 100 mg PO DAILY Ferrous Sulfate [Iron (65 MG Elemental)] 325 mg PO BID Dapagliflozin Propanediol [Farxiga] 5 mg PO HS Tamsulosin [Flomax] 0.4 mg PO HS Budesonide/Formoterol Fumarate [Symbicort 160-4.5 Mcg Inhaler] 2 puff INHALATION RT-BID hydrALAZINE HCL [Apresoline] 100 mg PO BID metFORMIN HCL 1,000 mg PO BID Discharge Medication List Aspirin [Adult Low Dose Aspirin EC] 81 mg PO HS 10/10/18 [History] Atorvastatin [Lipitor] 80 mg PO HS 10/10/18 [History] Furosemide [Lasix] 20 mg PO DAILY 10/10/18 [History] Isosorbide Mononitrate ER [Imdur] 60 mg PO DAILY 10/10/18 [History] Labetalol [Trandate] 100 mg PO BID 10/10/18 [History] Omeprazole [PriLOSEC] 20 mg PO HS 10/10/18 [History] Potassium Chloride 10 meq PO DAILY 10/10/18 [History] Rivaroxaban [Xarelto] 20 mg PO DAILY 10/10/18 [History] allopurinoL [Zyloprim] 300 mg PO HS 10/10/18 [History] amLODIPine [Norvasc] 5 mg PO BID 10/10/18 [History] sitaGLIPtin [Januvia] 100 mg PO DAILY 10/10/18 [History] Albuterol Sulfate [Albuterol Sulfate Hfa] 2 puff INHALATION RT-QID PRN 01/27/20 [History] Ferrous Sulfate [Iron (65 MG Elemental)] 325 mg PO BID 01/27/20 [History] Insulin Aspart [NovoLOG Flexpen] See Protocol SQ AC-TID 01/27/20 [History] Insulin Degludec [Tresiba Flextouch U-100] 35 units SQ BID 01/27/20 [History] Losartan Potassium [Cozaar] 100 mg PO DAILY 01/27/20 [History] Montelukast [Singulair] 10 mg PO HS 01/27/20 [History] Budesonide/Formoterol Fumarate [Symbicort 160-4.5 Mcg Inhaler] 2 puff INHALATION RT-BID 08/09/20 [History] Dapagliflozin Propanediol [Farxiga] 5 mg PO HS 08/09/20 [History] Tamsulosin [Flomax] 0.4 mg PO HS 08/09/20 [History] hydrALAZINE HCL [Apresoline] 100 mg PO BID 08/09/20 [History] metFORMIN HCL 1,000 mg PO BID 08/09/20 [History] Follow up Appointment(s)/Referral(s): Sugar Dorman MD [Primary Care Provider] - 3 Days Discharge Disposition: HOME SELF-CARE
--- NOTE | 2020-08-10 13:56 | P.HPIM ---
History of Present Illness 64-year-old male the came in with compensative chest pain which started yesterday pressure-like sensation along with pain in the in between the shoulder blade areas patient doesn't have any gallbladder. Patient just pain has improve d a competent no diaphoresis or shortness of breath 6/10 in severity and lasted for few hours. This probably associated shortness of breath. Patient had a cardiac catheterization recently which showed around the 2030% stenosis in some of the coronary vessels. D-dimer is negative patient is already on anticoagulation at this time. We'll also obtain a chest x-ray patient denied any cough fever chills patient does have leukocytosis denied any dysuria. Review of Systems REVIEW OF SYSTEMS: CONSTITUTIONAL: No fever, no malaise, no fatigue. HEENT: No recent visual problems or hearing problems. Denied any sore throat. CARDIOVASCULAR: No orthopnea, PND, no palpitations, no syncope. PULMONARY: no cough, no hemoptysis. GASTROINTESTINAL: No diarrhea, no nausea, no vomiting, no abdominal pain. NEUROLOGICAL: No headaches, no weakness, no numbness. HEMATOLOGICAL: Denies any bleeding or petechiae. GENITOURINARY: Denies any burning micturition, frequency, or urgency. MUSCULOSKELETAL/RHEUMATOLOGICAL: Denies any joint pain, swelling, or any muscle pain. ENDOCRINE: Denies any polyuria or polydipsia. The rest of the 14-point review of systems is negative. 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 LT SHOULDER SX. RT ROTATOR CUFF REPAIR X 2. COLONOSCOPY Past Anesthesia/Blood Transfusion Reactions: No Reported Reaction Past Psychological History: No Psychological Hx Reported Smoking Status: Never smoker Past Alcohol Use History: None Reported Past Drug Use History: None Reported - Past Family History Mother Family Medical History: No Reported History Medications and Allergies Home Medications Medication Instructions Recorded Confirmed Type Aspirin [Adult Low Dose Aspirin EC] 81 mg PO HS 10/10/18 08/09/20 History Atorvastatin [Lipitor] 80 mg PO HS 10/10/18 08/09/20 History Furosemide [Lasix] 20 mg PO DAILY 10/10/18 08/09/20 History Isosorbide Mononitrate ER [Imdur] 60 mg PO DAILY 10/10/18 08/09/20 History Labetalol [Trandate] 100 mg PO BID 10/10/18 08/09/20 History Omeprazole [PriLOSEC] 20 mg PO HS 10/10/18 08/09/20 History Potassium Chloride 10 meq PO DAILY 10/10/18 08/09/20 History Rivaroxaban [Xarelto] 20 mg PO DAILY 10/10/18 08/09/20 History allopurinoL [Zyloprim] 300 mg PO HS 10/10/18 08/09/20 History amLODIPine [Norvasc] 5 mg PO BID 10/10/18 08/09/20 History sitaGLIPtin [Januvia] 100 mg PO DAILY 10/10/18 08/09/20 History Albuterol Sulfate [Albuterol 2 puff INHALATION RT-QID PRN 01/27/20 08/09/20 History Sulfate Hfa] Ferrous Sulfate [Iron (65 MG 325 mg PO BID 01/27/20 08/09/20 History Elemental)] Insulin Aspart [NovoLOG Flexpen] See Protocol SQ AC-TID 01/27/20 08/09/20 Hi story Insulin Degludec [Tresiba 35 units SQ BID 01/27/20 08/09/20 History Flextouch U-100] Losartan Potassium [Cozaar] 100 mg PO DAILY 01/27/20 08/09/20 History Montelukast [Singulair] 10 mg PO HS 01/27/20 08/09/20 History Budesonide/Formoterol Fumarate 2 puff INHALATION RT-BID 08/09/20 08/09/20 History [Symbicort 160-4.5 Mcg Inhaler] Dapagliflozin Propanediol [Farxiga] 5 mg PO HS 08/09/20 08/09/20 History Tamsulosin [Flomax] 0.4 mg PO HS 08/09/20 08/09/20 History hydrALAZINE HCL [Apresoline] 100 mg PO BID 08/09/20 08/09/20 History metFORMIN HCL 1,000 mg PO BID 08/09/20 08/09/20 History Allergies Allergy/AdvReac Type Severity Reaction Status Date / Time cortisone Allergy Anaphylaxis Verified 08/09/20 22:58 Physical Exam Vitals: Vital Signs Temp Pulse Pulse Resp BP BP Pulse Ox 08/10/20 09:00 97.8 F 60 18 174/74 96 08/10/20 02:56 59 L 08/10/20 00:15 98.4 F 59 L 16 167/76 94 L 08/09/20 22:44 61 18 155/69 93 L 08/09/20 22:01 60 08/09/20 21:59 60 18 189/78 94 L 08/09/20 21:22 98 F 68 20 192/92 94 L Intake and Output 08/09/20 08/10/20 08/10/20 22:59 06:59 14:59 Output Total 350 Balance -350 Output: Urine 350 Other: Voiding Method Urinal # Voids 1 Weight 120.202 kg 120.202 kg PHYSICAL EXAMINATION: GENERAL: The patient is alert and oriented x3, not in any acute distress. Well developed, well nourished. HEENT: Patient is legally blind EOMI. No scleral icterus. No conjunctival pallor. Normocephalic, atraumatic. No pharyngeal erythema. No thyromegaly. CARDIOVASCULAR: S1 and S2 present. No murmurs, rubs, or gallops. PULMONARY: Chest is clear to auscultation, no wheezing or crackles. ABDOMEN: Soft, nontender, nondistended, normoactive bowel sounds. No palpable organomegaly. MUSCULOSKELETAL: No joint swelling or deformity. EXTREMITIES: No cyanosis, clubbing, or pedal edema. NEUROLOGICAL: Gross neurological examination did not reveal any focal deficits. SKIN: No rashes. Results CBC & Chem 7: 08/10/20 02:40 08/10/20 02:40 Labs: Abnormal Lab Results - Last 24 Hours (Table) 08/09/20 08/09/20 08/10/20 Range/Units 21:41 21:41 02:40 WBC 17.0 H 14.2 H (3.8-10.6) k/uL Hgb 12.0 L 10.6 L (13.0-17.5) gm/dL Hct 36.6 L 34.5 L (39.0-53.0) % MCV 75.9 L 77.2 L (80.0-100.0) fL MCH 24.8 L 23.8 L (25.0-35.0) pg MCHC 30.8 L (31.0-37.0) g/dL RDW 17.4 H 17.1 H (11.5-15.5) % Lymphocytes # 9.5 H 8.1 H (1.0-4.8) k/uL Chloride 109 H (98-107) mmol/L Glucose 124 H (74-99) mg/dL POC Glucose (mg/dL) (75-99) mg/dL Total Protein 6.2 L (6.3-8.2) g/dL 08/10/20 08/10/20 08/10/20 Range/Units 02:40 05:48 12:11 WBC (3.8-10.6) k/uL Hgb (13.0-17.5) gm/dL Hct (39.0-53.0) % MCV (80.0-100.0) fL MCH (25.0-35.0) pg MCHC (31.0-37.0) g/dL RDW (11.5-15.5) % Lymphocytes # (1.0-4.8) k/uL Chloride 108 H (98-107) mmol/L Glucose 122 H (74-99) mg/dL POC Glucose (mg/dL) 124 H 199 H (75-99) mg/dL Total Protein (6.3-8.2) g/dL Thrombosis Risk Factor Assmnt - Choose All That Apply Each Risk Factor Represents 2 Points: Age 61-74 years Each Risk Factor Represents 3 Points: History of DVT/PE Thrombosis Risk Factor Assessment Total Risk Factor Score: 5 Thrombosis Risk Factor Assessment Level: High Risk Assessment and Plan Plan: -Chest pain: We will rule out acute coronary syndromes but possibility of this chest pain being cardiac is low as patient had recent cardiac catheterization with the above-mentioned the results. Patient will be evaluated by cardiology cleared by cardiology after ruling out any pneumonia patient will be discharged. Ruled out pulmonary embolism. 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
--- NOTE | 2020-08-10 14:31 | XR ---
EXAMINATION TYPE: XR chest 2V DATE OF EXAM: 08/10/2020 COMPARISON: 02/12/2013. HISTORY: Chest pain. TECHNIQUE: Frontal and lateral views of the chest are obtained. FINDINGS: There is mild interstitial edema. No definite focal infiltrate, pleural effusion, or pneum othorax seen. The cardiac silhouette size is enlarged. The osseous structures are otherwise intact . Left shoulder arthroplasty seen. IMPRESSION: Mild CHF.
[2020-08-10 15:25] VITALS: TEMP 98
[2020-08-10 16:08] VITALS: BP 160/75; PULSE 60
--- NOTE | 2020-08-10 16:35 | P.CRDCN ---
History of Present Illness History of present illness: HISTORY OF PRESENTING ILLNESS This is a pleasant 70-year-old male past medical history significant for hypertension, PE, hyperlipidemia, diabetes mellitus, mild nonobstructive coronary artery disease and prior stroke. He follows in the office with Dr. Carrington. We have been asked to see in consultation for chest pain. Patient has had numerous issues with chest pain in the past. He admits that over the last 3 days he has had substernal chest pain which has been off and on occasionally lasting for 5 minutes and occasionally lasting all day. He denies any association with exertion and no associated nausea, diaphoresis. He admits it is worse with deep inspiration. He therefore presented to emergency department. He has had numerous heart catheterizations in the past. His last heart catheterization 01/28/2020 was performed secondary to abnormal stress test with apical ischemia. Heart catheterization showed mild LAD plaquing of 20%, no significant disease of the circumflex and a catheter-induced vasospasm however only 20-30% stenosis. Patient currently states that his chest pain is improved. Last echocardiogram in the office showed ejection fraction 55% from September 2017 DIAGNOSTICS EKG reveals normal sinus rhythm, PAC, no significant ST or T wave abnormalities. Chest xray reported as mild CHF. Laboratory reviewed, white blood cell 14.2, hemoglobin 10.6, platelets 201, creatinine 1.0, troponins negative 3. Current cardiac medications include amlodipine 5 mg twice a day, aspirin 81 mg daily, Lipitor 80 mg daily, Lasix 20 mg daily, hydralazine 100 mg by mouth twice a day, Imdur 60 mg daily, labetalol 100 mg twice a day, losartan 100 mg daily, Xarelto 20 mg daily. REVIEW OF SYSTEMS At the time of my exam: CONSTITUTIONAL: Denies fever or chills. CARDIOVASCULAR: + chest pain, no shortness of breath, orthopnea, PND or palpitations. RESPIRATORY: Denies cough. GASTROINTESTINAL: Denies abdominal pain, diarrhea, constipation, nausea or vomiting. MUSCULOSKELETAL: Denies myalgias. NEUROLOGIC: Denies numbness, tingling or weakness. ENDOCRINE: Denies fatigue, weight change, polydipsia or polyurina. GENITOURINARY: Denies burning, hematuria or urgency with micturation. HEMATOLOGIC: Denies history of anemia or bleeding. PHYSICAL EXAMINATION Blood pressure 160/75 heart rate 60 afebrile and maintaining oxygen saturation on room air. CONSTITUTIONAL: No apparent distress, + nystagmus. HEENT: Head is normocephalic. Pupils are equal, round. Sclerae anicteric. Mucous membranes of the mouth are moist. No JVD. No carotid bruit. CHEST EXAMINATION: Lungs are clear to auscultation. +mild chest wall tenderness is noted on palpation. HEART EXAMINATION: Regular rate and rhythm. S1, S2 heard. No murmurs, gallops or rub. ABDOMEN: Soft, nontender. Positive bowel sounds. EXTREMITIES: 2+ peripheral pulses, no lower extremity edema and no calf tenderness. NEUROLOGIC EXAMINATION: Patient is awake, alert and oriented x3. ASSESSMENT 1. Atypical chest pain with normal troponins and recent heart catheterization showing only mild coronary artery disease 2. Coronary artery disease with only mild disease by recent heart catheterization 3. History of PE on anticoagulation 4. Essential hypertension on 6 medications with continued elevated blood pressure readings 5. History of CVA 6. Hyperlipidemia 7. Diabetes mellitus PLAN Patient's chest pain appears fairly atypical and somewhat reproducible on exam. His troponins are normal and EKG normal. Patient has had recent workup with heart catheterization showing no significant obstructive disease. Patient appears stable for discharge with follow-up with Dr. Carrington. 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 LT SHOULDER SX. RT ROTATOR CUFF REPAIR X 2. COLONOSCOPY Past Anesthesia/Blood Transfusion Reactions: No Reported Reaction Past Psychological History: No Psychological Hx Reported Smoking Status: Never smoker Past Alcohol Use History: None Reported Past Drug Use History: None Reported - Past Family History Mother Family Medical History: No Reported History Medications and Allergies Home Medications Medication Instructions Recorded Confirmed Type Aspirin [Adult Low Dose Aspirin EC] 81 mg PO HS 10/10/18 08/09/20 History Atorvastatin [Lipitor] 80 mg PO HS 10/10/18 08/09/20 History Furosemide [Lasix] 20 mg PO DAILY 10/10/18 08/09/20 History Isosorbide Mononitrate ER [Imdur] 60 mg PO DAILY 10/10/18 08/09/20 History Labetalol [Trandate] 100 mg PO BID 10/10/18 08/09/20 History Omeprazole [PriLOSEC] 20 mg PO HS 10/10/18 08/09/20 History Potassium Chloride 10 meq PO DAILY 10/10/18 08/09/20 History Rivaroxaban [Xarelto] 20 mg PO DAILY 10/10/18 08/09/20 History allopurinoL [Zyloprim] 300 mg PO HS 10/10/18 08/09/20 History amLODIPine [Norvasc] 5 mg PO BID 10/10/18 08/09/20 History sitaGLIPtin [Januvia] 100 mg PO DAILY 10/10/18 08/09/20 History Albuterol Sulfate [Albuterol 2 puff INHALATION RT-QID PRN 01/27/20 08/09/20 History Sulfate Hfa] Ferrous Sulfate [Iron (65 MG 325 mg PO BID 01/27/20 08/09/20 History Elemental)] Insulin Aspart [NovoLOG Flexpen] See Protocol SQ AC-TID 01/27/20 08/09/20 History Insulin Degludec [Tresiba 35 units SQ BID 01/27/20 08/09/20 History Flextouch U-100] Losartan Potassium [Cozaar] 100 mg PO DAILY 01/27/20 08/09/20 History Montelukast [Singulair] 10 mg PO HS 01/27/20 08/09/20 History Budesonide/Formoterol Fumarate 2 puff INHALATION RT-BID 08/09/20 08/09/20 History [Symbicort 160-4.5 Mcg Inhaler] Dapagliflozin Propanediol [Farxiga] 5 mg PO HS 08/09/20 08/09/20 History Tamsulosin [Flomax] 0.4 mg PO HS 08/09/20 08/09/20 History hydrALAZINE HCL [Apresoline] 100 mg PO BID 08/09/20 08/09/20 History metFORMIN HCL 1,000 mg PO BID 08/09/20 08/09/20 History Allergies Allergy/AdvReac Type Severity Reaction Status Date / Time cortisone Allergy Anaphylaxis Verified 08/09/20 22:58 Physical Exam Vitals: Vital Signs Temp Pulse Pulse Resp BP BP Pulse Ox 08/10/20 15:00 98.0 F 68 18 160/75 95 08/10/20 09:00 97.8 F 60 18 174/74 96 08/10/20 02:56 59 L 08/10/20 00:15 98.4 F 59 L 16 167/76 94 L 08/09/20 22:44 61 18 155/69 93 L 08/09/20 22:01 60 08/09/20 21:59 60 18 189/78 94 L 08/09/20 21:22 98 F 68 20 192/92 94 L Intake and Output 08/10/20 08/10/20 08/10/20 06:59 14:59 22:59 Output Total 350 Balance -350 Output: Urine 350 Other: Voiding Method Urinal Urinal # Voids 1 Weight 120.202 kg Results 08/10/20 02:40 08/10/20 02:40 Cardiac Enzymes 08/09/20 08/09/20 08/10/20 Range/Units 21:41 21:41 00:30 AST 32 (17-59) U/L Troponin I <0.012 <0.012 (0.000-0.034) ng/mL 08/10/20 Range/Units 02:40 AST (17-59) U/L Troponin I <0.012 (0.000-0.034) ng/mL Coagulation 08/09/20 Range/Units 21:41 PT 10.6 (9.0-12.0) sec APTT 23.0 (22.0-30.0) sec CBC 08/09/20 08/10/20 Range/Units 21:41 02:40 WBC 17.0 H 14.2 H (3.8-10.6) k/uL RBC 4.83 4.47 (4.30-5.90) m/uL Hgb 12.0 L 10.6 L (13.0-17.5) gm/dL Hct 36.6 L 34.5 L (39.0-53.0) % Plt Count 195 201 (150-450) k/uL Comprehensive Metabolic Panel 08/09/20 08/10/20 Range/Units 21:41 02:40 Sodium 140 140 (137-145) mmol/L Potassium 3.8 3.6 (3.5-5.1) mmol/L Chloride 109 H 108 H (98-107) mmol/L Carbon Dioxide 25 28 (22-30) mmol/L BUN 19 18 (9-20) mg/dL Creatinine 1.03 1.03 (0.66-1.25) mg/dL Glucose 124 H 122 H (74-99) mg/dL Calcium 9.5 8.9 (8.4-10.2) mg/dL AST 32 (17-59) U/L ALT 25 (4-49) U/L Alkaline Phosphatase 52 (38-126) U/L Total Protein 6.2 L (6.3-8.2) g/dL Albumin 3.9 (3.5-5.0) g/dL Current Medications Generic Name Dose Route Start Last Admin Trade Name Freq PRN Reason Stop Dose Admin Allopurinol 300 mg 08/10/20 21:00 Allopurinol 300 Mg Tab PO HS [facility] Amlodipine Besylate 5 mg 08/10/20 09:00 08/10/20 08:58 Amlodipine 5 Mg Tab PO 5 mg BID [facility] Administration Aspirin 81 mg 08/10/20 21:00 Aspirin 81 Mg PO HS [facility] Atorvastatin Calcium 80 mg 08/10/20 21:00 Atorvastatin 80 Mg Tab PO HS [facility] Budesonide/Formoterol Fumarate 2 puff 08/10/20 08:00 08/10/20 07:47 Symbicort 160-4.5 Mcg Inhaler INHALATION 2 puff RT-BID [facility] Administration Ferrous Sulfate 325 mg 08/10/20 09:00 08/10/20 08:58 Ferrous Sulfate 325 Mg Tab PO 325 mg BID [facility] Administration Furosemide 20 mg 08/10/20 09:00 08/10/20 08:58 Furosemide 20 Mg Tab PO 20 mg DAILY [facility] Administration Hydralazine HCl 100 mg 08/10/20 09:00 08/10/20 08:59 Hydralazine Hcl 50 Mg Tab PO 100 mg BID [facility] Administration Insulin Aspart 0 unit 08/10/20 07:30 08/10/20 12:43 Insulin Aspart (Novolog) 100 Unit/Ml Vial SQ 3 unit ACHS [facility] Administration Protocol Insulin Detemir 35 unit 08/10/20 07:00 08/10/20 07:05 Insulin Detemir (Levemir) 100 Unit/Ml Syr SQ Not Given BID@0700,2100 [facility] Isosorbide Mononitrate 60 mg 08/10/20 09:00 08/10/20 08:59 Isosorbide Mononitrate Er 60 Mg Tab.Er.24h PO 60 mg DAILY [facility] Administration Labetalol HCl 100 mg 08/10/20 09:00 08/10/20 08:59 Labetalol 100 Mg Tab PO 100 mg BID [facility] Administration Losartan Potassium 100 mg 08/10/20 09:00 08/10/20 08:58 Losartan 25 Mg Tab PO 100 mg DAILY [facility] Administration Montelukast Sodium 10 mg 08/10/20 21:00 Montelukast 10 Mg Tab PO HS [facility] Morphine Sulfate 4 mg 08/09/20 22:54 Morphine Sulfate 4 Mg/Ml Syringe IV Q4HR PRN Severe Pain Naloxone HCl 0.2 mg 08/09/20 22:54 Naloxone 0.4 Mg/Ml 1 Ml Vial IV Q2M PRN Opioid Reversal Pantoprazole Sodium 40 mg 08/10/20 21:00 Pantoprazole 40 Mg Tablet PO HS [facility] Potassium Chloride 10 meq 08/10/20 09:00 08/10/20 08:58 Potassium Chloride Er 10 Meq Tab.Er.Prt PO 10 meq DAILY [facility] Administration Rivaroxaban 20 mg 08/10/20 09:00 08/10/20 09:00 Rivaroxaban 20 Mg Tab PO 20 mg DAILY [facility] Administration Tamsulosin HCl 0.4 mg 08/10/20 21:00 Tamsulosin 0.4 Mg Cap.Er.24h PO HS [facility] Intake and Output 08/10/20 08/10/20 08/10/20 06:59 14:59 22:59 Output Total 350 Balance -350 Output: Urine 350 Other: Voiding Method Urinal Urinal # Voids 1 Weight 120.202 kg 08/10/20 02:40 08/10/20 02:40
[2020-08-10] MEDS ORDERED: allopurinoL 300 MG TAB PO SCH (21:00)
[2020-08-10] MEDS ORDERED: TAMSULOSIN 0.4 MG CAP.ER.24H PO SCH (21:00)
[2020-08-10] MEDS ORDERED: ATORVASTATIN 80 MG TAB PO SCH (21:00)
[2020-08-10] MEDS ORDERED: MONTELUKAST 10 MG TAB PO SCH (21:00)
[2020-08-10] MEDS ORDERED: ASPIRIN 81 MG PO SCH (21:00)
[2020-08-10] MEDS ORDERED: PANTOPRAZOLE 40 MG TABLET PO SCH (21:00)
== END 2020-08-10 16:54 | disposition home or self-care (01) ==
LOC: EC 21:20 → 1SOBS 22:56
PROVIDERS: ADMIT Internal Medicine; ATTEND Internal Medicine
DX: R07.89 Other chest pain (principal); R06.02 Shortness of breath; I25.10 Atherosclerotic heart disease of native coronary artery without angina pectoris; E78.5 Hyperlipidemia, unspecified; J44.9 Chronic obstructive pulmonary disease, unspecified; C95.90 Leukemia, unspecified not having achieved remission; H35.52 Pigmentary retinal dystrophy; I49.1 Atrial premature depolarization; I50.9 Heart failure, unspecified; K21.9 Gastro-esophageal reflux disease without esophagitis; M10.9 Gout, unspecified; I13.0 Hypertensive heart and chronic kidney disease with heart failure and stage 1 through stage 4 chronic kidney disease, or unspecified chronic kidney disease; E11.22 Type 2 diabetes mellitus with diabetic chronic kidney disease; N18.9 Chronic kidney disease, unspecified; Z98.890 Other specified postprocedural states; Z79.82 Long term (current) use of aspirin; Z79.899 Other long term (current) drug therapy; Z79.01 Long term (current) use of anticoagulants; Z79.4 Long term (current) use of insulin; Z79.51 Long term (current) use of inhaled steroids; Z88.8 Allergy status to other drugs, medicaments and biological substances; Z86.73 Personal history of transient ischemic attack (TIA), and cerebral infarction without residual deficits; Z98.41 Cataract extraction status, right eye; Z98.42 Cataract extraction status, left eye; Z90.49 Acquired absence of other specified parts of digestive tract; Z96.653 Presence of artificial knee joint, bilateral; Z96.643 Presence of artificial hip joint, bilateral; Z86.711 Personal history of pulmonary embolism
CPT/HCPCS: 96374; 99285; 36415; 94640; 93005; 85379; 80053; 80048; 84484 ×2; 85025 ×2; 85610; 85730; 71046; G0378 ×2; J2270

== ENCOUNTER → 2020-10-15 | Outpatient (CLI) | payer MEDICARE, OTHER ==
[2020-10-15 09:26] VITALS: BP 163/72; PULSE 65; RESP 16; TEMP 98.1
--- NOTE | 2020-10-15 09:50 | P.PAINCN ---
History of Present Illness - Reason for Consult Consult date: 10/15/20 - History of Present Illness This is 70 years old male with a chronic history of severe neck pain started 2 years ago, he denies any initiating event and he report that the neck pain is constant and increased with any neck movement, associated with some headache especially at night, pain is more prominent on the left side of the neck, he denies any radicular symptoms, patient reported that he had some numbness and tingling sensation in his hands bilaterally, also he has some numbness and tingling sensation in his feet bilaterally and this is mostly secondary to peripheral neuropathy secondary to diabetes, his neck pain interfere with her quality of life, patient denies any motor or sensory deficits he denies any fever or night sweats, and he denies any change in the bowel movement or urination, patient reported that most of his neck pain is on the left side cervical area almost 80% of his pain, he denies any radiation of the pain to the upper extremity, patient is scheduled to have physical therapy starting next week. Patient had a history of coronary artery disease ,and PE and he is currently on anticoagulation(Xarelto ) Patient is legally blind Past Medical History Past Medical History: Coronary Artery Disease (CAD), Cancer, Heart Failure, CVA/TIA, Diabetes Mellitus, Eye Disorder, GERD/Reflux, Hyperlipidemia, Hypertension, Osteoarthritis (OA), Renal Disease Additional Past Medical History / Comment(s): 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 LT SHOULDER SX. RT ROTATOR CUFF REPAIR X 2. COLONOSCOPY. heartcaths x3-no stents Past Anesthesia/Blood Transfusion Reactions: No Reported Reaction Past Psychological History: No Psychological Hx Reported Smoking Status: Never smoker Past Alcohol Use History: None Reported Additional Past Alcohol Use History / Comment(s): QUIT SMOKING AT AGE 34 per pt, smoked a pipe Past Drug Use History: None Reported - Past Family History Mother Family Medical History: No Reported History Medications and Allergies Home Medications Medication Instructions Recorded Confirmed Type Aspirin [Adult Low Dose Aspirin EC] 81 mg PO HS 10/10/18 10/15/20 History Atorvastatin [Lipitor] 80 mg PO HS 10/10/18 10/15/20 History Furosemide [Lasix] 20 mg PO DAILY 10/10/18 10/15/20 History Isosorbide Mononitrate ER [Imdur] 60 mg PO DAILY 10/10/18 10/15/20 History Labetalol [Trandate] 100 mg PO BID 10/10/18 10/15/20 History Omeprazole [PriLOSEC] 20 mg PO BID 10/10/18 10/15/20 History Potassium Chloride 10 meq PO DAILY 10/10/18 10/15/20 History Rivaroxaban [Xarelto] 20 mg PO DAILY 10/10/18 10/15/20 History allopurinoL [Zyloprim] 300 mg PO HS 10/10/18 10/15/20 History amLODIPine [Norvasc] 5 mg PO BID 10/10/18 10/15/20 History sitaGLIPtin [Januvia] 100 mg PO DAILY 10/10/18 10/15/20 History Albuterol Sulfate [Albuterol 2 puff INHALATION RT-QID PRN 01/27/20 10/15/20 History Sulfate Hfa] Ferrous Sulfate [Iron (65 MG 325 mg PO BID 01/27/20 10/15/20 History Elemental)] Insulin Aspart [NovoLOG Flexpen] See Protocol SQ AC-TID 01/27/20 10/15/20 History Insulin Degludec [Tresiba 35 units SQ BID 01/27/20 10/15/20 History Flextouch U-100] Montelukast [Singulair] 10 mg PO HS 01/27/20 10/15/20 History Budesonide/Formoterol Fumarate 2 puff INHALATION RT-BID 08/09/20 10/15/20 History [Symbicort 160-4.5 Mcg Inhaler] Dapagliflozin Propanediol [Farxiga] 5 mg PO HS 08/09/20 10/15/20 History Tamsulosin [Flomax] 0.4 mg PO HS 08/09/20 10/15/20 History hydrALAZINE HCL [Apresoline] 100 mg PO 1200 PRN 08/09/20 10/15/20 History metFORMIN HCL 1,000 mg PO BID 08/09/20 10/15/20 History hydrALAZINE HCL [Apresoline] 100 mg PO BID 10/13/20 10/15/20 History Allergies Allergy/AdvReac Type Severity Reaction Status Date / Time cortisone Allergy Anaphylaxis Verified 10/13/20 15:32 Physical Exam Vitals: Vital Signs Temp Pulse Resp BP Pulse Ox 10/15/20 09:23 98.1 F 65 16 163/72 99 Physical Examinations : -Constitutiona : Cooperative , not in acute distress . -HEENT : nech : supple , no Lymphadenopathy , normal thyroid size . : eyes : no ptosis , no icterus, no photophobia . - neurologic : , no focal neurological deffecit . Patient legally blind -psychatric : alert , oriented X 3 , appropriate affect , intact judgment and insight . -Lymphatic : no Lymphadenopathy . - musculoskeltal : Cervical Spine motor stregnth in the deltoid and biceps, normal right side , normal Left side motor stregnth biceps and the wrist extensors normal right side ,normal left side . motor stregnth in the triceps muscle . normal Right side , normal Left side deep tendon reflexes normal at the biceps , normal at Brachioradialis , normal at triceps. cervical facet loading test: Positive Bilaterally Spurling test= positive Right , positive left. Neck distraction test= positive Right , positive left. Ryan sign= positive right, positive left . Lumber spine moter stegnth lower extremities ,thigh and legs 5/5 Right side , 5/5 Left side deep tendon reflexes : normal Knee Jerk , normal ankle Jerk lumber facet Loading Test =positive Right , posiutive Left Range of motion of the lumbar spine Flexion 30 degrees, extension 10 degrees strait leg raising test = positive at 60 degree Fabere test= positive Right , and positive LT . Sever tenderness over the Sacroiliac joint on the Right , and Left sides Results Comments: Not have any diagnostic imaging for computed tomography scan or MRI of the cervical spine is available Assessment and Plan Plan: Assessment and plan=1-cervical spondylosis with cervical facet arthropathy without myelopathy 2-coronary artery disease . 3-history of pulmonary embolism currently on anticoagulation Xarelto. We will order MRI of the cervical spine to evaluate. Patient already scheduled to have physical therapy started next week, Patient will be seen within a few weeks after he had MRI of the cervical spine, patient possibly could benefit from diagnostic medial branch cervical area, and possible RFA , we have to hold Xarelto before the procedure(a cardiology approval if we have to proceed Time with Patient: Greater than 30 PQRS Measure Charge Sheet Measure #130: Documentation of Current Meds in Medical Chart: Patient's medications documented in chart Measure #226: Tobacco Use: Screen & Cessation Intervention: Pt not a tobacco user Measure #111: Pneumonia Vaccination: Pneumococcal vaccine NOT administered or previously given Measure #47: Advance Care Plan: Advance care planning discussed & documented, pt chose/unable to give Measure #412: Opioid Treatment Agreement: No documentation of signed opioid treatment agreement Measure #408: Opioid Therapy Follow-up Evaluation: Patient had NO f/u eval minimum every 3 months during opioid therapy Measure #317: Preventitive Care & Scrn High Bld Press & F/U: Pre-hypertensive or hypertensive BP documented, pt will f/u with PCP Measure #128: Body Mass Index (BMI) Screening & Follow-up: BMI documented ABOVE normal parameters - f/u documented Measure #131: Pain Assessment & Follow-up: Pain positive & plan documented, Follow-up scheduled Measure #431: Unhealthy Alcohol Use Preventative Care & Scrn: Patient not identified as an unhealthy alcohol user PQRS Narrative: Smoking Status Former smoker Blood Pressure 163/72 Pain Intensity [Neck] 3 Scale Used Numeric (1 - 10) Hx Alcohol Use (MH) No Home Medications: Ambulatory Orders Aspirin [Adult Low Dose Aspirin EC] 81 mg PO HS 10/10/18 Atorvastatin [Lipitor] 80 mg PO HS 10/10/18 Furosemide [Lasix] 20 mg PO DAILY 10/10/18 Isosorbide Mononitrate ER [Imdur] 60 mg PO DAILY 10/10/18 Labetalol [Trandate] 100 mg PO BID 10/10/18 Omeprazole [PriLOSEC] 20 mg PO BID 10/10/18 Potassium Chloride 10 meq PO DAILY 10/10/18 Rivaroxaban [Xarelto] 20 mg PO DAILY 10/10/18 allopurinoL [Zyloprim] 300 mg PO HS 10/10/18 amLODIPine [Norvasc] 5 mg PO BID 10/10/18 sitaGLIPtin [Januvia] 100 mg PO DAILY 10/10/18 Albuterol Sulfate [Albuterol Sulfate Hfa] 2 puff INHALATION RT-QID PRN 01/27/20 Ferrous Sulfate [Iron (65 MG Elemental)] 325 mg PO BID 01/27/20 Insulin Aspart [NovoLOG Flexpen] See Protocol SQ AC-TID 01/27/20 Insulin Degludec [Tresiba Flextouch U-100] 35 units SQ BID 01/27/20 Montelukast [Singulair] 10 mg PO HS 01/27/20 Budesonide/Formoterol Fumarate [Symbicort 160-4.5 Mcg Inhaler] 2 puff INHALATION RT-BID 08/09/20 Dapagliflozin Propanediol [Farxiga] 5 mg PO HS 08/09/20 Tamsulosin [Flomax] 0.4 mg PO HS 08/09/20 hydrALAZINE HCL [Apresoline] 100 mg PO 1200 PRN 08/09/20 metFORMIN HCL 1,000 mg PO BID 08/09/20 hydrALAZINE HCL [Apresoline] 100 mg PO BID 10/13/20
== END ==
LOC: PNWHC3 09:02
PROVIDERS: ATTEND Specialist
DX: M47.812 Spondylosis without myelopathy or radiculopathy, cervical region (principal); I25.10 Atherosclerotic heart disease of native coronary artery without angina pectoris; E11.9 Type 2 diabetes mellitus without complications; K21.9 Gastro-esophageal reflux disease without esophagitis; E78.5 Hyperlipidemia, unspecified; I10 Essential (primary) hypertension; M19.90 Unspecified osteoarthritis, unspecified site; Z79.02 Long term (current) use of antithrombotics/antiplatelets; Z79.82 Long term (current) use of aspirin; Z79.4 Long term (current) use of insulin; Z79.899 Other long term (current) drug therapy; Z86.718 Personal history of other venous thrombosis and embolism; Z86.73 Personal history of transient ischemic attack (TIA), and cerebral infarction without residual deficits
CPT/HCPCS: 99211

== ENCOUNTER → 2020-11-12 | Outpatient (CLI) | payer MEDICARE, OTHER ==
--- NOTE | 2020-11-12 12:08 | P.PN ---
Progress Note - Text Progress Note Date: 11/12/20 This is a follow-up visit for this 70 years old woman with a chronic history of severe neck pain, patient diagnosed with cervical spondylosis and he was ordered last visit to have physical therapy, and also we ordered MRI of the cervical spine, patient reported that since he started the physical therapy his pain improved significantly he had minimal or no pain, and his activity improved, he is legally blind and he has difficulty arranging for transportation, the patient reported that his pain is 0 now, he had no motor or sensory deficits, in the future if pain increases or change he can call the clinic and we will get the MRI report from [facility], (had cervical MRI done over there ), and because the patient's pain improved ,I advised the patient to follow up with us when necessary, we will reevaluate, patient has to finish his physical therapy - PQRS measures = - Patient's medications are documented in the chart. -Tobacco use is ,negative and counseling.Given. -Patient's has not received pneumococcal vaccine. -Advanced care planning discussed, patient not eligible. -Opiate contract not signed. -Pain positive and follow-up visit/procedure is scheduled. -Patient's blood pressure measured [ 151/76] , and documented in the record ,and patient will follow up with the primary care. -Patient's weight was measured and body mass index [ 41 ] above the,normal limits and counseling was done. and patient instructed to follow-up with the primary care physician. -Patient was not identified as an unhealthy alcohol user
== END ==
CPT/HCPCS: 99211

== ENCOUNTER 2020-12-09 21:38 | Observation (INO) | payer MEDICARE, OTHER ==
--- NOTE | 2020-12-09 21:41 | ED ---
Weakness HPI - General Stated complaint: CHF Time Seen by Provider: 12/09/20 21:40 Source: RN notes reviewed, old records reviewed Mode of arrival: EMS Limitations: altered mental status - History of Present Illness Initial comments: This is a 62-year-old male with a complaint of shortness of breath like swelling and weakness. Patient is blind is multiple medical core morbidities but coming in with shortness of breath and not feeling well. Week. Patient was found a significantly low blood sugar is improved by given glucose, patient is found here to have recurrent low blood sugar here in the ER which is replaced MD Complaint: generalized weakness -: hour(s) Location: generalized Severity: moderate Severity scale (1-10): 6 Consistency: constant Improves with: none Context: recent illness, history of similar Associated Symptoms: confusion, nausea/vomiting, shortness of breath - Related Data Home Medications Medication Instructions Recorded Confirmed Atorvastatin [Lipitor] 80 mg PO HS 10/10/18 12/09/20 Isosorbide Mononitrate ER [Imdur] 60 mg PO DAILY 10/10/18 12/09/20 Labetalol [Trandate] 100 mg PO BID 10/10/18 12/09/20 Omeprazole [PriLOSEC] 20 mg PO BID 10/10/18 12/09/20 Rivaroxaban [Xarelto] 20 mg PO DAILY 10/10/18 12/09/20 allopurinoL [Zyloprim] 300 mg PO DAILY 10/10/18 12/09/20 amLODIPine [Norvasc] 5 mg PO BID 10/10/18 12/09/20 sitaGLIPtin [Januvia] 100 mg PO DAILY 10/10/18 12/09/20 Albuterol Sulfate [Albuterol 2 puff INHALATION RT-Q4H PRN 01/27/20 12/09/20 Sulfate Hfa] Insulin Aspart [NovoLOG Flexpen] See Protocol SQ AC-TID 01/27/20 12/09/20 Insulin Degludec [Tresiba 35 units SQ BID 01/27/20 12/09/20 Flextouch U-100] Montelukast [Singulair] 10 mg PO HS 01/27/20 12/09/20 Budesonide/Formoterol Fumarate 2 puff INHALATION RT-BID 08/09/20 12/09/20 [Symbicort 160-4.5 Mcg Inhaler] Dapagliflozin Propanediol [Farxiga] 5 mg PO HS 08/09/20 12/09/20 Tamsulosin [Flomax] 0.4 mg PO HS 08/09/20 12/09/20 hydrALAZINE HCL [Apresoline] 100 mg PO DAILY@1200 PRN 08/09/20 12/09/20 metFORMIN HCL 1,000 mg PO BID 08/09/20 12/09/20 Furosemide [Lasix] 40 mg PO DAILY 12/09/20 12/09/20 Losartan Potassium [Cozaar] 100 mg PO DAILY 12/09/20 12/09/20 Silver Sulfadiazine [SSD 1% Cream] 1 applic TOPICAL 5XD 12/09/20 12/09/20 hydrALAZINE HCL 100 mg PO BID 12/09/20 12/09/20 Previous Rx's Medication Instructions Recorded Potassium Chloride 20 meq PO DAILY #0 12/10/20 traMADol HCL [Ultram] 50 mg PO Q4HR PRN 3 Days #18 tab 12/10/20 Allergies Allergy/AdvReac Type Severity Reaction Status Date / Time cortisone Allergy Anaphylaxis Verified 12/09/20 22:27 Review of Systems ROS Statement: Those systems with pertinent positive or pertinent negative responses have been documented in the HPI. ROS Other: All systems not noted in ROS Statement are negative. 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 LT SHOULDER SX. RT ROTATOR CUFF REPAIR X 2. COLONOSCOPY Past Anesthesia/Blood Transfusion Reactions: No Reported Reaction Additional Past Alcohol Use History / Comment(s): QUIT SMOKING AT AGE 34 per pt, smoked a pipe - Past Family History Mother Family Medical History: No Reported History General Exam Limitations: altered mental status General appearance: alert, in no apparent distress, anxious, lethargic, in distress, obese Head exam: Present: atraumatic, normocephalic, normal inspection Eye exam: Present: normal appearance, PERRL, EOMI. Absent: scleral icterus, conjunctival injection, periorbital swelling ENT exam: Present: normal exam, mucous membranes moist Neck exam: Present: normal inspection. Absent: tenderness, meningismus, lymphadenopathy Respiratory exam: Present: normal lung sounds bilaterally. Absent: respiratory distress, wheezes, rales, rhonchi, stridor Cardiovascular Exam: Present: regular rate, normal rhythm, normal heart sounds. Absent: systolic murmur, diastolic murmur, rubs, gallop, clicks GI/Abdominal exam: Present: soft, normal bowel sounds. Absent: distended, tenderness, guarding, rebound, rigid Extremities exam: Present: normal inspection, full ROM, normal capillary refill. Absent: tenderness, pedal edema, joint swelling, calf tenderness Back exam: Present: normal inspection Neurological exam: Present: alert, oriented X3, CN II-XII intact Psychiatric exam: Present: normal affect, normal mood Skin exam: Present: warm, dry, intact, normal color. Absent: rash Course Vital Signs 12/09/20 12/09/20 12/10/20 21:43 23:00 00:00 Temperature 98.1 F Pulse Rate 74 69 64 Respiratory 20 20 20 Rate Blood Pressure 152/55 122/54 128/57 O2 Sat by Pulse 97 98 98 Oximetry 12/10/20 12/10/20 12/10/20 01:04 05:28 06:30 Temperature 97.8 F 98.0 F 98.7 F Pulse Rate 65 60 58 L Respiratory 20 20 20 Rate Blood Pressure 146/60 137/62 131/66 O2 Sat by Pulse 98 97 95 Oximetry 12/10/20 12/10/20 12/10/20 08:10 10:25 14:39 Temperature 98.2 F 98.3 F Pulse Rate 60 63 Respiratory 16 16 Rate Blood Pressure 142/58 138/57 O2 Sat by Pulse 97 96 95 Oximetry 12/10/20 12/10/20 18:24 20:55 Temperature 98 F Pulse Rate 58 L 63 Respiratory 20 18 Rate Blood Pressure 139/63 161/72 O2 Sat by Pulse 96 97 Oximetry - Reevaluation(s) Reevaluation #1: Medical record is reviewed patient Symptoms are improved here in the ER Spoke with patient informed results questions answered EKG Findings - EKG Comments: EKG Findings:: EKG shows sinus rhythm 69 [place] 1:30 QRS 100 QTc 482 Medical Decision Making - Medical Decision Making 70 male with CHF coming in with recurrent hypoglycemia weakness. Patient is diuresis low blood sugar that his been replaced - Lab Data Result diagrams: 12/10/20 11:19 12/10/20 11:19 Lab Results 12/09/20 12/09/20 12/09/20 Range/Units 21:44 22:04 22:04 WBC 15.3 H (3.8-10.6) k/uL RBC 4.56 (4.30-5.90) m/uL Hgb 11.3 L (13.0-17.5) gm/dL Hct 34.5 L (39.0-53.0) % MCV 75.7 L (80.0-100.0) fL MCH 24.8 L (25.0-35.0) pg MCHC 32.7 (31.0-37.0) g/dL RDW 17.8 H (11.5-15.5) % Plt Count 200 (150-450) k/uL MPV 7.5 Neutrophils % 52 % Lymphocytes % 41 % Monocytes % 4 % Eosinophils % 2 % Basophils % 1 % Neutrophils # 7.9 H (1.3-7.7) k/uL Lymphocytes # 6.2 H (1.0-4.8) k/uL Monocytes # 0.5 (0-1.0) k/uL Eosinophils # 0.3 (0-0.7) k/uL Basophils # 0.1 (0-0.2) k/uL Hypochromasia Slight Anisocytosis Slight Microcytosis Slight PT 10.9 (9.0-12.0) sec INR 1.0 (<1.2) APTT 24.7 (22.0-30.0) sec Sodium (137-145) mmol/L Potassium (3.5-5.1) mmol/L Chloride (98-107) mmol/L Carbon Dioxide (22-30) mmol/L Anion Gap mmol/L BUN (9-20) mg/dL Creatinine (0.66-1.25) mg/dL Est GFR (CKD-EPI)AfAm (>60 ml/min/1.73 sqM) Est GFR (CKD-EPI)NonAf (>60 ml/min/1.73 sqM) Glucose (74-99) mg/dL POC Glucose (mg/dL) 53 L (75-99) mg/dL POC Glu Industrial Education Teacher ID Geovani Tamez Calcium (8.4-10.2) mg/dL Phosphorus (2.5-4.5) mg/dL Magnesium (1.6-2.3) mg/dL Total Bilirubin (0.2-1.3) mg/dL AST (17-59) U/L ALT (4-49) U/L Alkaline Phosphatase (38-126) U/L Creatine Kinase (55-170) U/L Troponin I (0.000-0.034) ng/mL NT-Pro-B Natriuret Pep pg/mL Total Protein (6.3-8.2) g/dL Albumin (3.5-5.0) g/dL Urine Color Urine Appearance (Clear) Urine pH (5.0-8.0) Ur Specific [place] (1.001-1.035) Urine Protein (Negative) Urine Glucose (UA) (Negative) Urine Ketones (Negative) Urine Blood (Negative) Urine Nitrite (Negative) Urine Bilirubin (Negative) Urine Urobilinogen (<2.0) mg/dL Ur Leukocyte Esterase (Negative) Coronavirus (PCR) (Not Detectd) 12/09/20 12/09/20 12/09/20 Range/Units 22:04 22:04 22:04 WBC (3.8-10.6) k/uL RBC (4.30-5.90) m/uL Hgb (13.0-17.5) gm/dL Hct (39.0-53.0) % MCV (80.0-100.0) fL MCH (25.0-35.0) pg MCHC (31.0-37.0) g/dL RDW (11.5-15.5) % Plt Count (150-450) k/uL MPV Neutrophils % % Lymphocytes % % Monocytes % % Eosinophils % % Basophils % % Neutrophils # (1.3-7.7) k/uL Lymphocytes # (1.0-4.8) k/uL Monocytes # (0-1.0) k/uL Eosinophils # (0-0.7) k/uL Basophils # (0-0.2) k/uL Hypochromasia Anisocytosis Microcytosis PT (9.0-12.0) sec INR (<1.2) APTT (22.0-30.0) sec Sodium 138 (137-145) mmol/L Potassium 3.4 L (3.5-5.1) mmol/L Chloride 107 (98-107) mmol/L Carbon Dioxide 22 (22-30) mmol/L Anion Gap 9 mmol/L BUN 25 H (9-20) mg/dL Creatinine 1.24 (0.66-1.25) mg/dL Est GFR (CKD-EPI)AfAm 69 (>60 ml/min/1.73 sqM) Est GFR (CKD-EPI)NonAf 60 (>60 ml/min/1.73 sqM) Glucose 318 H (74-99) mg/dL POC Glucose (mg/dL) (75-99) mg/dL POC Glu Industrial Education Teacher ID Calcium 9.4 (8.4-10.2) mg/dL Phosphorus 3.0 (2.5-4.5) mg/dL Magnesium 1.7 (1.6-2.3) mg/dL Total Bilirubin 0.4 (0.2-1.3) mg/dL AST 30 (17-59) U/L ALT 17 (4-49) U/L Alkaline Phosphatase 50 (38-126) U/L Creatine Kinase 223 H (55-170) U/L Troponin I <0.012 (0.000-0.034) ng/mL NT-Pro-B Natriuret Pep pg/mL Total Protein 5.5 L (6.3-8.2) g/dL Albumin 3.6 (3.5-5.0) g/dL Urine Color Yellow Urine Appearance Clear (Clear) Urine pH 5.0 (5.0-8.0) Ur Specific [place] 1.016 (1.001-1.035) Urine Protein Negative (Negative) Urine Glucose (UA) 3+ H (Negative) Urine Ketones Negative (Negative) Urine Blood Negative (Negative) Urine Nitrite Negative (Negative) Urine Bilirubin Negative (Negative) Urine Urobilinogen <2.0 (<2.0) mg/dL Ur Leukocyte Esterase Negative (Negative) Coronavirus (PCR) (Not Detectd) 12/09/20 12/09/20 12/09/20 Range/Units 22:04 22:06 23:01 WBC (3.8-10.6) k/uL RBC (4.30-5.90) m/uL Hgb (13.0-17.5) gm/dL Hct (39.0-53.0) % MCV (80.0-100.0) fL MCH (25.0-35.0) pg MCHC (31.0-37.0) g/dL RDW (11.5-15.5) % Plt Count (150-450) k/uL MPV Neutrophils % % Lymphocytes % % Monocytes % % Eosinophils % % Basophils % % Neutrophils # (1.3-7.7) k/uL Lymphocytes # (1.0-4.8) k/uL Monocytes # (0-1.0) k/uL Eosinophils # (0-0.7) k/uL Basophils # (0-0.2) k/uL Hypochromasia Anisocytosis Microcytosis PT (9.0-12.0) sec INR (<1.2) APTT (22.0-30.0) sec Sodium (137-145) mmol/L Potassium (3.5-5.1) mmol/L Chloride (98-107) mmol/L Carbon Dioxide (22-30) mmol/L Anion Gap mmol/L BUN (9-20) mg/dL Creatinine (0.66-1.25) mg/dL Est GFR (CKD-EPI)AfAm (>60 ml/min/1.73 sqM) Est GFR (CKD-EPI)NonAf (>60 ml/min/1.73 sqM) Glucose (74-99) mg/dL POC Glucose (mg/dL) 127 H 106 H (75-99) mg/dL POC Glu Industrial Education Teacher ID Joshua Purcell Pauline Calcium (8.4-10.2) mg/dL Phosphorus (2.5-4.5) mg/dL Magnesium (1.6-2.3) mg/dL Total Bilirubin (0.2-1.3) mg/dL AST (17-59) U/L ALT (4-49) U/L Alkaline Phosphatase (38-126) U/L Creatine Kinase (55-170) U/L Troponin I (0.000-0.034) ng/mL NT-Pro-B Natriuret Pep 136 pg/mL Total Protein (6.3-8.2) g/dL Albumin (3.5-5.0) g/dL Urine Color Urine Appearance (Clear) Urine pH (5.0-8.0) Ur Specific [place] (1.001-1.035) Urine Protein (Negative) Urine Glucose (UA) (Negative) Urine Ketones (Negative) Urine Blood (Negative) Urine Nitrite (Negative) Urine Bilirubin (Negative) Urine Urobilinogen (<2.0) mg/dL Ur Leukocyte Esterase (Negative) Coronavirus (PCR) (Not Detectd) 12/09/20 12/10/20 Range/Units 23:50 01:08 WBC (3.8-10.6) k/uL RBC (4.30-5.90) m/uL Hgb (13.0-17.5) gm/dL Hct (39.0-53.0) % MCV (80.0-100.0) fL MCH (25.0-35.0) pg MCHC (31.0-37.0) g/dL RDW (11.5-15.5) % Plt Count (150-450) k/uL MPV Neutrophils % % Lymphocytes % % Monocytes % % Eosinophils % % Basophils % % Neutrophils # (1.3-7.7) k/uL Lymphocytes # (1.0-4.8) k/uL Monocytes # (0-1.0) k/uL Eosinophils # (0-0.7) k/uL Basophils # (0-0.2) k/uL Hypochromasia Anisocytosis Microcytosis PT (9.0-12.0) sec INR (<1.2) APTT (22.0-30.0) sec Sodium (137-145) mmol/L Potassium (3.5-5.1) mmol/L Chloride (98-107) mmol/L Carbon Dioxide (22-30) mmol/L Anion Gap mmol/L BUN (9-20) mg/dL Creatinine (0.66-1.25) mg/dL Est GFR (CKD-EPI)AfAm (>60 ml/min/1.73 sqM) Est GFR (CKD-EPI)NonAf (>60 ml/min/1.73 sqM) Glucose (74-99) mg/dL POC Glucose (mg/dL) 175 H (75-99) mg/dL POC Glu Industrial Education Teacher ID Dariela Florez Calcium (8.4-10.2) mg/dL Phosphorus (2.5-4.5) mg/dL Magnesium (1.6-2.3) mg/dL Total Bilirubin (0.2-1.3) mg/dL AST (17-59) U/L ALT (4-49) U/L Alkaline Phosphatase (38-126) U/L Creatine Kinase (55-170) U/L Troponin I (0.000-0.034) ng/mL NT-Pro-B Natriuret Pep pg/mL Total Protein (6.3-8.2) g/dL Albumin (3.5-5.0) g/dL Urine Color Urine Appearance (Clear) Urine pH (5.0-8.0) Ur Specific [place] (1.001-1.035) Urine Protein (Negative) Urine Glucose (UA) (Negative) Urine Ketones (Negative) Urine Blood (Negative) Urine Nitrite (Negative) Urine Bilirubin (Negative) Urine Urobilinogen (<2.0) mg/dL Ur Leukocyte Esterase (Negative) Coronavirus (PCR) Not Detected (Not Detectd) Disposition Clinical Impression: Congestive heart failure, Diabetes mellitus, Hypoglycemia, Weakness Disposition: ADMITTED IP TO THIS HOSP Condition: Good Is patient prescribed a controlled substance at d/c from ED?: No
[2020-12-09 21:46] LABS: Glucose,Whole Blood 53 mg/dL (75-99)
[2020-12-09 22:08] LABS: Glucose,Whole Blood 127 mg/dL (75-99)
[2020-12-09 22:31] LABS: Anisocytosis Slight; Basophils # (A) 0.1 k/uL (0-0.2); Basophils % (A) 1 %; Eosinophils # (A) 0.3 k/uL (0-0.7); Eosinophils % (A) 2 %; HCT 34.5 % (39.0-53.0); HGB 11.3 gm/dL (13.0-17.5); Hypochromasia Slight; Lymphocytes # (A) 6.2 k/uL (1.0-4.8); Lymphocytes % (A) 41 %; MCH 24.8 pg (25.0-35.0); MCHC 32.7 g/dL (31.0-37.0); MCV 75.7 fL (80.0-100.0); Mean Platelet Volume 7.5; Microcytosis Slight; Monocytes # (A) 0.5 k/uL (0-1.0); Monocytes % (A) 4 %; Neutrophils # (A) 7.9 k/uL (1.3-7.7); Neutrophils % (A) 52 %; Platelet Count 200 k/uL (150-450); RBC 4.56 m/uL (4.30-5.90); RDW 17.8 % (11.5-15.5); WBC 15.3 k/uL (3.8-10.6)
[2020-12-09 22:32] LABS: Albumin 3.6 g/dL (3.5-5.0); Calcium 9.4 mg/dL (8.4-10.2); Magnesium 1.7 mg/dL (1.6-2.3); Potassium 3.4 mmol/L (3.5-5.1); Total Bilirubin 0.4 mg/dL (0.2-1.3); Total Protein 5.5 g/dL (6.3-8.2)
[2020-12-09 22:35] LABS: Partial Thromboplastin Time 24.7 sec (22.0-30.0); Prothrombin Time 10.9 sec (9.0-12.0)
--- NOTE | 2020-12-09 22:36 | XR ---
EXAMINATION TYPE: XR chest 2V DATE OF EXAM: 12/09/2020 COMPARISON: 08/10/2020 HISTORY: Chest pain. Weakness. TECHNIQUE: 2 views FINDINGS: There is some minimal linear infiltrate and atelectasis left lower lobe. The right lung is clear. There is no heart failure. There is left shoulder prosthesis. There are chest leads. IMPRESSION: Minimal atelectasis left lung bases increased compared to old exam. Normal heart.
[2020-12-09 22:38] LABS: Appearance,Urine Clear (Clear); Bilirubin,Urine Negative (Negative); Blood,Urine Negative (Negative); Color,Urine Yellow; Glucose,Urine (UA) 3+ (Negative); Ketones,Urine Negative (Negative); Leukocyte Esterase,Urine Negative (Negative); Nitrite,Urine Negative (Negative); Protein,Urine Negative (Negative); Specific Gravity,Urine 1.016 (1.001-1.035); Urobilinogen,Urine <2.0 mg/dL (<2.0)
[2020-12-09 23:03] LABS: Glucose,Whole Blood 106 mg/dL (75-99)
[2020-12-10] MEDS ORDERED: HYDROmorphone 1 MG/ML 1 ML SYRINGE IVP STA (00:43)
[2020-12-10 01:11] LABS: Glucose,Whole Blood 175 mg/dL (75-99)
[2020-12-10] MEDS ORDERED: POTASSIUM BICARBONATE/CIT AC 20 MEQ TABLET.EFF PO STA (01:19)
[2020-12-10] MEDS ORDERED: HYDROmorphone 1 MG/ML 1 ML SYRINGE IVP PRN (01:19)
[2020-12-10] MEDS ORDERED: FUROSEMIDE 10 MG/ML 4 ML VIAL IV SCH (01:30)
[2020-12-10 06:23] LABS: Glucose,Whole Blood 136 mg/dL (75-99)
[2020-12-10] MEDS: INSULIN ASPART (NovoLOG) 100 UNIT/ML VIAL SQ SCH ×3 (07:57→18:15)
[2020-12-10] MEDS ORDERED: ALBUTEROL HFA INHALER INHALATION PRN (11:10)
[2020-12-10 11:52] LABS: Anisocytosis Slight; HGB 11.2 gm/dL (13.0-17.5); Hypochromasia Slight; MCH 23.5 pg (25.0-35.0); MCV 75.8 fL (80.0-100.0); Mean Platelet Volume 7.8; Microcytosis Slight; Platelet Count 201 k/uL (150-450); RBC 4.75 m/uL (4.30-5.90); RDW 17.8 % (11.5-15.5); WBC 11.9 k/uL (3.8-10.6)
[2020-12-10] MEDS ORDERED: hydrALAZINE HCL 50 MG TAB PO PRN (12:00)
--- NOTE | 2020-12-10 12:03 | US ---
EXAMINATION TYPE: US venous doppler duplex LE DATE OF EXAM: 12/10/2020 11:54 AM COMPARISON: NONE CLINICAL HISTORY: DVT. SIDE PERFORMED: TECHNIQUE: The lower extremity deep venous system is examined utilizing real time linear array sonog danelle with graded compression, doppler sonography and color-flow sonography. VESSELS IMAGED: Common Femoral Vein Deep Femoral Vein Greater Saphenous Vein * Femoral Vein Popliteal Vein Small Saphenous Vein * Proximal Calf Veins-not seen swelling (* superficial vessels) Large body habitus, extensive swelling, technically difficult study. Right Leg: Appears negative for DVT. Left Leg: Appears negative for DVT. There is normal flow, compressibility, vascular waveforms. IMPRESSION: No evident deep venous thrombosis at or central to the knees
[2020-12-10 12:05] LABS: Calcium 9.8 mg/dL (8.4-10.2); Potassium 3.7 mmol/L (3.5-5.1)
[2020-12-10 12:29] LABS: Glucose,Whole Blood 161 mg/dL (75-99)
--- NOTE | 2020-12-10 14:20 | P.HPIM ---
History of Present Illness Patient is pleasant 70-year-old the male came in with complaints of bilateral lower extremity edema and some pain. Patient is still complaining of some pain in that area patient had a left the lower extremity DVT in the past. Patient is admitted with concerns of congestive heart failure although patient doesn't have any JVD pulmonary edema on the chest x-ray. Patient swelling although may have resolved by now patient was receiving Lasix and evaluated patient doesn't have much of swelling in the small area of redness which does didn't appear to be cellulitic days. Patient may have post-thrombotic pain. Patient will need c ompression socks which will be ordered. Patient will be given prescriptions for pain medications be obtained a Doppler of the bilateral lower extremity which did not show any DVT patient has BNP of around 200. Patient denied any orthopnea proximal nocturnal dyspnea or shortness of breath. Patient denied any chest pain at this time patient doesn't have any fever chills no signs or symptoms of sepsis but patient had leukocytosis yesterday which improved today. Patient is presently not on any antibiotics. Review of Systems REVIEW OF SYSTEMS: CONSTITUTIONAL: No fever, no malaise, no fatigue. HEENT: No recent visual problems or hearing problems. Denied any sore throat. CARDIOVASCULAR: No chest pain, orthopnea, PND, no palpitations, no syncope. PULMONARY: No shortness of breath, no cough, no hemoptysis. GASTROINTESTINAL: No diarrhea, no nausea, no vomiting, no abdominal pain. NEUROLOGICAL: No headaches, no weakness, no numbness. HEMATOLOGICAL: Denies any bleeding or petechiae. GENITOURINARY: Denies any burning micturition, frequency, or urgency. MUSCULOSKELETAL/RHEUMATOLOGICAL: Denies any joint pain. ENDOCRINE: Denies any polyuria or polydipsia. The rest of the 14-point review of systems is negative. 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 LT SHOULDER SX. RT ROTATOR CUFF REPAIR X 2. COLONOSCOPY Past Anesthesia/Blood Transfusion Reactions: No Reported Reaction Additional Past Alcohol Use History / Comment(s): QUIT SMOKING AT AGE 34 per pt, smoked a pipe - Past Family History Mother Family Medical History: No Reported History Medications and Allergies Home Medications Medication Instructions Recorded Confirmed Type Atorvastatin [Lipitor] 80 mg PO HS 10/10/18 12/09/20 History Isosorbide Mononitrate ER [Imdur] 60 mg PO DAILY 10/10/18 12/09/20 History Labetalol [Trandate] 100 mg PO BID 10/10/18 12/09/20 History Omeprazole [PriLOSEC] 20 mg PO BID 10/10/18 12/09/20 History Rivaroxaban [Xarelto] 20 mg PO DAILY 10/10/18 12/09/20 History allopurinoL [Zyloprim] 300 mg PO DAILY 10/10/18 12/09/20 History amLODIPine [Norvasc] 5 mg PO BID 10/10/18 12/09/20 History sitaGLIPtin [Januvia] 100 mg PO DAILY 10/10/18 12/09/20 History Albuterol Sulfate [Albuterol 2 puff INHALATION RT-Q4H PRN 01/27/20 12/09/20 History Sulfate Hfa] Insulin Aspart [NovoLOG Flexpen] See Protocol SQ AC-TID 01/27/20 12/09/20 History Insulin Degludec [Tresiba 35 units SQ BID 01/27/20 12/09/20 History Flextouch U-100] Montelukast [Singulair] 10 mg PO HS 01/27/20 12/09/20 History Budesonide/Formoterol Fumarate 2 puff INHALATION RT-BID 08/09/20 12/09/20 History [Symbicort 160-4.5 Mcg Inhaler] Dapagliflozin Propanediol [Farxiga] 5 mg PO HS 08/09/20 12/09/20 History Tamsulosin [Flomax] 0.4 mg PO HS 08/09/20 12/09/20 History hydrALAZINE HCL [Apresoline] 100 mg PO DAILY@1200 PRN 08/09/20 12/09/20 History metFORMIN HCL 1,000 mg PO BID 08/09/20 12/09/20 History Furosemide [Lasix] 40 mg PO DAILY 12/09/20 12/09/20 History Losartan Potassium [Cozaar] 100 mg PO DAILY 12/09/20 12/09/20 History Silver Sulfadiazine [SSD 1% Cream] 1 applic TOPICAL 5XD 12/09/20 12/09/20 History hydrALAZINE HCL 100 mg PO BID 12/09/20 12/09/20 History Potassium Chloride 20 meq PO DAILY #0 12/10/20 12/09/20 Rx traMADol HCL [Ultram] 50 mg PO Q4HR PRN 3 Days #18 tab 12/10/20 Rx Allergies Allergy/AdvReac Type Severity Reaction Status Date / Time cortisone Allergy Anaphylaxis Verified 12/09/20 22:27 Physical Exam Vitals: Vital Signs Temp Pulse Resp BP Pulse Ox 12/10/20 10:25 98.2 F 60 16 142/58 96 12/10/20 08:10 97 12/10/20 06:30 98.7 F 58 L 20 131/66 95 12/10/20 05:28 98.0 F 60 20 137/62 97 12/10/20 01:04 97.8 F 65 20 146/60 98 12/10/20 00:00 64 20 128/57 98 12/09/20 23:00 69 20 122/54 98 12/09/20 21:43 98.1 F 74 20 152/55 97 Intake and Output 12/09/20 12/10/20 12/10/20 22:59 06:59 14:59 Other: Weight 120.202 kg PHYSICAL EXAMINATION: GENERAL: The patient is alert and oriented x3, not in any acute distress. Well developed, well nourished. HEENT: No scleral icterus. No conjunctival pallor. Normocephalic, atraumatic. No pharyngeal erythema. No thyromegaly. CARDIOVASCULAR: S1 and S2 present. No murmurs, rubs, or gallops. PULMONARY: Chest is clear to auscultation, no wheezing or crackles. ABDOMEN: Soft, nontender, nondistended, normoactive bowel sounds. No palpable organomegaly. MUSCULOSKELETAL: No joint swelling or deformity. EXTREMITIES: No cyanosis, clubbing, patient doesn't have any significant pedal edema patient does have an area of redness which didn't appear to be cellulitic no lower cranial rise of temperature. NEUROLOGICAL: Gross neurological examination did not reveal any focal deficits. SKIN: No rashes. Results CBC & Chem 7: 12/10/20 11:19 12/10/20 11:19 Labs: Abnormal Lab Results - Last 24 Hours (Table) 12/09/20 12/09/20 12/09/20 Range/Units 21:44 22:04 22:04 WBC 15.3 H (3.8-10.6) k/uL Hgb 11.3 L (13.0-17.5) gm/dL Hct 34.5 L (39.0-53.0) % MCV 75.7 L (80.0-100.0) fL MCH 24.8 L (25.0-35.0) pg RDW 17.8 H (11.5-15.5) % Neutrophils # 7.9 H (1.3-7.7) k/uL Lymphocytes # 6.2 H (1.0-4.8) k/uL Potassium (3.5-5.1) mmol/L Carbon Dioxide (22-30) mmol/L BUN (9-20) mg/dL Glucose (74-99) mg/dL POC Glucose (mg/dL) 53 L (75-99) mg/dL Creatine Kinase (55-170) U/L Total Protein (6.3-8.2) g/dL Urine Glucose (UA) 3+ H (Negative) 12/09/20 12/09/20 12/09/20 Range/Units 22:04 22:06 23:01 WBC (3.8-10.6) k/uL Hgb (13.0-17.5) gm/dL Hct (39.0-53.0) % MCV (80.0-100.0) fL MCH (25.0-35.0) pg RDW (11.5-15.5) % Neutrophils # (1.3-7.7) k/uL Lymphocytes # (1.0-4.8) k/uL Potassium 3.4 L (3.5-5.1) mmol/L Carbon Dioxide (22-30) mmol/L BUN 25 H (9-20) mg/dL Glucose 318 H (74-99) mg/dL POC Glucose (mg/dL) 127 H 106 H (75-99) mg/dL Creatine Kinase 223 H (55-170) U/L Total Protein 5.5 L (6.3-8.2) g/dL Urine Glucose (UA) (Negative) 12/10/20 12/10/20 12/10/20 Range/Units 01:08 06:17 11:19 WBC 11.9 H (3.8-10.6) k/uL Hgb 11.2 L (13.0-17.5) gm/dL Hct 36.0 L (39.0-53.0) % MCV 75.8 L (80.0-100.0) fL MCH 23.5 L (25.0-35.0) pg RDW 17.8 H (11.5-15.5) % Neutrophils # (1.3-7.7) k/uL Lymphocytes # (1.0-4.8) k/uL Potassium (3.5-5.1) mmol/L Carbon Dioxide (22-30) mmol/L BUN (9-20) mg/dL Glucose (74-99) mg/dL POC Glucose (mg/dL) 175 H 136 H (75-99) mg/dL Creatine Kinase (55-170) U/L Total Protein (6.3-8.2) g/dL Urine Glucose (UA) (Negative) 12/10/20 12/10/20 Range/Units 11:19 12:27 WBC (3.8-10.6) k/uL Hgb (13.0-17.5) gm/dL Hct (39.0-53.0) % MCV (80.0-100.0) fL MCH (25.0-35.0) pg RDW (11.5-15.5) % Neutrophils # (1.3-7.7) k/uL Lymphocytes # (1.0-4.8) k/uL Potassium (3.5-5.1) mmol/L Carbon Dioxide 31 H (22-30) mmol/L BUN 24 H (9-20) mg/dL Glucose 196 H (74-99) mg/dL POC Glucose (mg/dL) 161 H (75-99) mg/dL Creatine Kinase (55-170) U/L Total Protein (6.3-8.2) g/dL Urine Glucose (UA) (Negative) Assessment and Plan Plan: - bilateral pedal edema: Which resolved at this time doesn't appear to be in CHF exacerbation patient had a normal ejection fraction the past although patient may have a diastolic dysfunction but patient is not in heart failure exacerbation at this time bilateral pedal edema may be related to chronic venous insufficiency which resolved at this time. Patient will be discharged same dose on same dose of Lasix. -Left lower exudate pain, most probably post-thrombotic pain ruled out DVT patient is already on anticoagulation which will be continued and patient will need compression socks. -Mild acute renal failure secondary to excessive diuretics because of which I'm cutting back to diuretics back to his home dose. 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
--- NOTE | 2020-12-10 14:21 | P.DS ---
Providers Date of admission: 12/10/20 01:19 Attending physician: Neno Garcia Primary care physician: Sugar Dorman [facility] Course: Please refer to my history of present illness for further details Patient Condition at Discharge: Good Plan - Discharge Summary New Discharge Prescriptions: New traMADol HCL [Ultram] 50 mg PO Q4HR PRN 3 Days #18 tab PRN Reason: Pain Continue Omeprazole [PriLOSEC] 20 mg PO BID Atorvastatin [Lipitor] 80 mg PO HS sitaGLIPtin [Januvia] 100 mg PO DAILY amLODIPine [Norvasc] 5 mg PO BID Labetalol [Trandate] 100 mg PO BID Isosorbide Mononitrate ER [Imdur] 60 mg PO DAILY allopurinoL [Zyloprim] 300 mg PO DAILY Rivaroxaban [Xarelto] 20 mg PO DAILY Montelukast [Singulair] 10 mg PO HS Insulin Degludec [Tresiba Flextouch U-100] 35 units SQ BID Insulin Aspart [NovoLOG Flexpen] See Protocol SQ AC-TID Albuterol Sulfate [Albuterol Sulfate Hfa] 2 puff INHALATION RT-Q4H PRN PRN Reason: Shortness Of Breath Dapagliflozin Propanediol [Farxiga] 5 mg PO HS Tamsulosin [Flomax] 0.4 mg PO HS Budesonide/Formoterol Fumarate [Symbicort 160-4.5 Mcg Inhaler] 2 puff INHALATION RT-BID hydrALAZINE HCL [Apresoline] 100 mg PO DAILY@1200 PRN PRN Reason: HIGH BLOOD PRESSURE metFORMIN HCL 1,000 mg PO BID hydrALAZINE HCL 100 mg PO BID Furosemide [Lasix] 40 mg PO DAILY Silver Sulfadiazine [SSD 1% Cream] 1 applic TOPICAL 5XD Losartan Potassium [Cozaar] 100 mg PO DAILY Changed Potassium Chloride 20 meq PO DAILY #0 Discharge Medication List Atorvastatin [Lipitor] 80 mg PO HS 10/10/18 [History] Isosorbide Mononitrate ER [Imdur] 60 mg PO DAILY 10/10/18 [History] Labetalol [Trandate] 100 mg PO BID 10/10/18 [History] Omeprazole [PriLOSEC] 20 mg PO BID 10/10/18 [History] Rivaroxaban [Xarelto] 20 mg PO DAILY 10/10/18 [History] allopurinoL [Zyloprim] 300 mg PO DAILY 10/10/18 [History] amLODIPine [Norvasc] 5 mg PO BID 10/10/18 [History] sitaGLIPtin [Januvia] 100 mg PO DAILY 10/10/18 [History] Albuterol Sulfate [Albuterol Sulfate Hfa] 2 puff INHALATION RT-Q4H PRN 01/27/20 [History] Insulin Aspart [NovoLOG Flexpen] See Protocol SQ AC-TID 01/27/20 [History] Insulin Degludec [Tresiba Flextouch U-100] 35 units SQ BID 01/27/20 [History] Montelukast [Singulair] 10 mg PO HS 01/27/20 [History] Budesonide/Formoterol Fumarate [Symbicort 160-4.5 Mcg Inhaler] 2 puff INHALATION RT-BID 08/09/20 [History] Dapagliflozin Propanediol [Farxiga] 5 mg PO HS 08/09/20 [History] Tamsulosin [Flomax] 0.4 mg PO HS 08/09/20 [History] hydrALAZINE HCL [Apresoline] 100 mg PO DAILY@1200 PRN 08/09/20 [History] metFORMIN HCL 1,000 mg PO BID 08/09/20 [History] Furosemide [Lasix] 40 mg PO DAILY 12/09/20 [History] Losartan Potassium [Cozaar] 100 mg PO DAILY 12/09/20 [History] Silver Sulfadiazine [SSD 1% Cream] 1 applic TOPICAL 5XD 12/09/20 [History] hydrALAZINE HCL 100 mg PO BID 12/09/20 [History] Potassium Chloride 20 meq PO DAILY #0 12/10/20 [Rx] traMADol HCL [Ultram] 50 mg PO Q4HR PRN 3 Days #18 tab 12/10/20 [Rx] Follow up Appointment(s)/Referral(s): Sugar Dorman MD [Primary Care Provider] - 3 Days Ambulatory/Diagnostic Orders: Basic Metabolic Panel [LAB.AMB] Time Frame: 3 Days, Location: None Selected Discharge Disposition: HOME WITH HOME HEALTH SERVICES
[2020-12-10 17:15] LABS: Glucose,Whole Blood 156 mg/dL (75-99)
[2020-12-10 18:25] VITALS: TEMP 98
[2020-12-10] MEDS ORDERED: SYMBICORT 160-4.5 MCG INHALER INHALATION SCH (20:00)
[2020-12-10 21:00] VITALS: BP 161/72; PULSE 63; RESP 18
[2020-12-10] MEDS ORDERED: MONTELUKAST 10 MG TAB PO SCH (21:00)
[2020-12-10] MEDS ORDERED: INSULIN DETEMIR (LEVEMIR) 100 UNIT/ML SYR SQ SCH (21:00)
[2020-12-10] MEDS ORDERED: LABETALOL 100 MG TAB PO SCH (21:00)
[2020-12-10] MEDS ORDERED: ATORVASTATIN 80 MG TAB PO SCH (21:00)
[2020-12-10] MEDS ORDERED: TAMSULOSIN 0.4 MG CAP.ER.24H PO SCH (21:00)
[2020-12-10] MEDS ORDERED: metFORMIN 500 MG TAB PO SCH (21:00)
[2020-12-10] MEDS ORDERED: amLODIPine 5 MG TAB PO SCH (21:00)
[2020-12-10] MEDS ORDERED: NON FORMULARY DRUG (Dapagliflozin Propanediol [Farxiga] 5 MG Tablet) PO SCH (21:00)
[2020-12-10] MEDS ORDERED: hydrALAZINE HCL 50 MG TAB PO SCH (21:00)
[2020-12-11] MEDS ORDERED: PANTOPRAZOLE 40 MG TABLET PO SCH (07:30)
[2020-12-11] MEDS ORDERED: allopurinoL 300 MG TAB PO SCH (09:00)
[2020-12-11] MEDS ORDERED: RIVAROXABAN 20 MG TAB PO SCH (09:00)
[2020-12-11] MEDS ORDERED: POTASSIUM CHLORIDE ER 10 MEQ TAB.ER.PRT PO SCH (09:00)
[2020-12-11] MEDS ORDERED: LOSARTAN 50 MG TAB PO SCH (09:00)
[2020-12-11] MEDS ORDERED: FUROSEMIDE 40 MG TAB PO SCH (09:00)
[2020-12-11] MEDS ORDERED: LINAGLIPTIN 5 MG TABLET PO SCH (09:00)
[2020-12-11] MEDS ORDERED: ISOSORBIDE MONONITRATE ER 60 MG TAB.ER.24H PO SCH (09:00)
== END 2020-12-10 21:10 | disposition home health service (06) ==
LOC: EC 21:38 → 1SOBS 12-10 01:19
PROVIDERS: ADMIT Hospitalist; ATTEND Hospitalist
DX: R60.0 Localized edema (principal); N17.9 Acute kidney failure, unspecified; E11.649 Type 2 diabetes mellitus with hypoglycemia without coma; I13.0 Hypertensive heart and chronic kidney disease with heart failure and stage 1 through stage 4 chronic kidney disease, or unspecified chronic kidney disease; I50.9 Heart failure, unspecified; N18.9 Chronic kidney disease, unspecified; E11.22 Type 2 diabetes mellitus with diabetic chronic kidney disease; M79.662 Pain in left lower leg; J44.9 Chronic obstructive pulmonary disease, unspecified; E87.6 Hypokalemia; T50.2X5A Adverse effect of carbonic-anhydrase inhibitors, benzothiadiazides and other diuretics, initial encounter; E78.5 Hyperlipidemia, unspecified; I25.10 Atherosclerotic heart disease of native coronary artery without angina pectoris; D72.829 Elevated white blood cell count, unspecified; K21.9 Gastro-esophageal reflux disease without esophagitis; H35.52 Pigmentary retinal dystrophy; M10.9 Gout, unspecified; H26.9 Unspecified cataract; H54.8 Legal blindness, as defined in USA; Z79.01 Long term (current) use of anticoagulants; Z79.51 Long term (current) use of inhaled steroids; Z79.4 Long term (current) use of insulin; Z79.899 Other long term (current) drug therapy; Z88.8 Allergy status to other drugs, medicaments and biological substances; Z86.73 Personal history of transient ischemic attack (TIA), and cerebral infarction without residual deficits; Z86.718 Personal history of other venous thrombosis and embolism; Z85.6 Personal history of leukemia; Z90.49 Acquired absence of other specified parts of digestive tract; Z87.891 Personal history of nicotine dependence; Z96.653 Presence of artificial knee joint, bilateral; Z96.643 Presence of artificial hip joint, bilateral; Z86.711 Personal history of pulmonary embolism; Z98.890 Other specified postprocedural states
CPT/HCPCS: 96374; 96375; 99285; 36415 ×2; 93005; 83880; 80053; 80048; 82550; 83735; 84100; 84484; 85025; 85027; 85610; 85730; 81003; 87635; 71046; 93970; G0378; J1940; J1170

== ENCOUNTER 2021-02-21 22:45 | Observation (INO) | payer MEDICARE, OTHER ==
[2021-02-21] MEDS ORDERED: ASPIRIN 81 MG PO STA (23:01)
[2021-02-21 23:18] LABS: Anisocytosis Slight; Basophils # (A) 0.1 k/uL (0-0.2); Basophils % (A) 1 %; Eosinophils # (A) 0.3 k/uL (0-0.7); Eosinophils % (A) 2 %; HCT 32.9 % (39.0-53.0); HGB 10.7 gm/dL (13.0-17.5); Lymphocytes % (A) 49 %; MCH 25.3 pg (25.0-35.0); MCHC 32.7 g/dL (31.0-37.0); MCV 77.3 fL (80.0-100.0); Mean Platelet Volume 8.1; Microcytosis Slight; Monocytes # (A) 0.5 k/uL (0-1.0); Monocytes % (A) 3 %; Neutrophils # (A) 6.2 k/uL (1.3-7.7); Neutrophils % (A) 43 %; Platelet Count 209 k/uL (150-450); RBC 4.25 m/uL (4.30-5.90); RDW 17.9 % (11.5-15.5); WBC 14.3 k/uL (3.8-10.6)
--- NOTE | 2021-02-21 23:19 | XR ---
EXAMINATION TYPE: XR chest 2V DATE OF EXAM: 02/21/2021 COMPARISON: 12/09/2020 HISTORY: Chest pain TECHNIQUE: FINDINGS: There is no heart failure nor confluent pneumonic infiltrate. Costophrenic angles are fairl y clear. There is bilateral shoulder prosthesis. Heart size is normal. There are chest leads. There a re no hilar masses. IMPRESSION: No active cardiopulmonary disease. Normal heart. No adverse change.
[2021-02-21 23:28] LABS: Albumin 3.5 g/dL (3.5-5.0); Calcium 9.1 mg/dL (8.4-10.2); Magnesium 1.6 mg/dL (1.6-2.3); Potassium 3.8 mmol/L (3.5-5.1); Total Bilirubin 0.5 mg/dL (0.2-1.3); Total Protein 5.5 g/dL (6.3-8.2)
[2021-02-21 23:31] LABS: INR 1.1 (<1.2); Partial Thromboplastin Time 25.4 sec (22.0-30.0); Prothrombin Time 11.8 sec (9.0-12.0)
[2021-02-21 23:40] LABS: Poikilocytosis (M) Present; Rouleaux Present
--- NOTE | 2021-02-21 23:53 | ED ---
Chest Pain HPI - General Stated Complaint: Chest Pain Time Seen by Provider: 02/21/21 22:47 Source: patient, EMS Mode of arrival: EMS Limitations: no limitations - History of Present Illness Initial Comments: This patient is a 70-year-old man who presents to be evaluated for left-sided chest pain that had started in the morning. Patient describes intermittent pains that he states are somewhat dull and also somewhat heavy. They've been lasting about 2-3 minutes and resolved spontaneously. Patient did go to [facility]. He states he was told that his potassium was alone they gave him a supplement and then let him go home. Patient states that he continued having episodes of pain and it was recommended that he come back here to the hospital. MD Complaint: chest pain Onset/Timin -: hour(s) Onset: during rest Pain Location: left chest Pain Radiation: none Severity: mild Quality: heaviness, dull Consistency: intermittent Improves With: nothing Worsens With: nothing Treatments Prior to Arrival: none - Related Data Home Medications Medication Instructions Recorded Confirmed Atorvastatin [Lipitor] 80 mg PO HS 10/10/18 02/22/21 Isosorbide Mononitrate ER [Imdur] 60 mg PO DAILY 10/10/18 02/22/21 Labetalol [Trandate] 100 mg PO BID 10/10/18 02/22/21 Omeprazole [PriLOSEC] 20 mg PO BID 10/10/18 02/22/21 Rivaroxaban [Xarelto] 20 mg PO DAILY 10/10/18 02/22/21 allopurinoL [Zyloprim] 300 mg PO DAILY 10/10/18 02/22/21 amLODIPine [Norvasc] 5 mg PO BID 10/10/18 02/22/21 sitaGLIPtin [Januvia] 100 mg PO DAILY 10/10/18 02/22/21 Albuterol Sulfate [Albuterol 2 puff INHALATION RT-Q4H PRN 01/27/20 02/22/21 Sulfate Hfa] Insulin Aspart [NovoLOG Flexpen] See Protocol SQ AC-TID 01/27/20 02/22/21 Insulin Degludec [Tresiba 20 units SQ BID 01/27/20 02/22/21 Flextouch U-100] Montelukast [Singulair] 10 mg PO HS 01/27/20 02/22/21 Budesonide/Formoterol Fumarate 2 puff INHALATION RT-BID 08/09/20 02/22/21 [Symbicort 160-4.5 Mcg Inhaler] Dapagliflozin Propanediol [Farxiga] 5 mg PO HS 08/09/20 02/22/21 Tamsulosin [Flomax] 0.4 mg PO HS 08/09/20 02/22/21 hydrALAZINE HCL [Apresoline] 100 mg PO DAILY@1200 PRN 08/09/20 02/22/21 metFORMIN HCL [Glucophage] 1,000 mg PO BID 08/09/20 02/22/21 Furosemide [Lasix] 40 mg PO DAILY 12/09/20 02/22/21 Losartan Potassium [Cozaar] 100 mg PO DAILY 12/09/20 02/22/21 Silver Sulfadiazine [SSD 1% Cream] 1 applic TOPICAL 5XD 12/09/20 02/22/21 hydrALAZINE HCL 100 mg PO BID 12/09/20 02/22/21 Aspirin 81 mg PO DAILY 02/22/21 02/22/21 Previous Rx's Medication Instructions Recorded Potassium Chloride 20 meq PO DAILY #0 12/10/20 traMADol HCL [Ultram] 50 mg PO Q4HR PRN 3 Days #18 tab 12/10/20 Allergies Allergy/AdvReac Type Severity Reaction Status Date / Time cortisone Allergy Anaphylaxis Verified 02/21/21 23:05 Review of Systems ROS Statement: Those systems with pertinent positive or pertinent negative responses have been documented in the HPI. ROS Other: All systems not noted in ROS Statement are negative. Constitutional: Denies: fever, chills Respiratory: Denies: cough, dyspnea Cardiovascular: Reports: chest pain. Denies: palpitations, orthopnea, edema, syncope Gastrointestinal: Denies: abdominal pain, nausea, vomiting, diarrhea, melena, hematochezia Genitourinary: Denies: dysuria, hematuria Musculoskeletal: Denies: back pain Skin: Denies: rash Neurological: Denies: headache, weakness, numbness EKG Findings - EKG Results: EKG: interpreted by LISA BULLOCK, sinus rhythm (Rate 66 bpm), normal axis, normal QRS, normal ST/T Past Medical History Past Medical History: Coronary Artery Disease (CAD), Cancer, Heart Failure, CVA/TIA, Diabetes Mellitus, Eye Disorder, GERD/Reflux, Hyperlipidemia, Hypertension Additional Past Medical History / Comment(s): 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 LT SHOULDER SX. RT ROTATOR CUFF REPAIR X 2. COLONOSCOPY Past Anesthesia/Blood Transfusion Reactions: No Reported Reaction Additional Past Alcohol Use History / Comment(s): QUIT SMOKING AT AGE 34 per pt, smoked a pipe - Past Family History Mother Family Medical History: No Reported History General Exam Limitations: no limitations General appearance: alert, in no apparent distress Head exam: Present: atraumatic, normocephalic Eye exam: Absent: scleral icterus, conjunctival injection Neck exam: Present: normal inspection, full ROM Respiratory exam: Present: normal lung sounds bilaterally. Absent: respiratory distress, wheezes, rales, rhonchi, stridor, chest wall tenderness, accessory muscle use Cardiovascular Exam: Present: regular rate, normal rhythm, normal heart sounds. Absent: systolic murmur, diastolic murmur, rubs, gallop GI/Abdominal exam: Present: soft. Absent: distended, tenderness, guarding, rebound, rigid, mass Extremities exam: Present: normal inspection, normal capillary refill. Absent: pedal edema, calf tenderness Back exam: Present: normal inspection. Absent: CVA tenderness (R), CVA tenderness (L) Neurological exam: Present: alert Skin exam: Present: warm, dry, intact, normal color. Absent: rash Course Vital Signs 02/21/21 02/22/21 02/22/21 23:03 00:02 01:01 Temperature 97.5 F L Pulse Rate 66 62 98 Respiratory 18 18 68 H Rate Blood Pressure 148/70 113/45 133/51 O2 Sat by Pulse 98 98 98 Oximetry Disposition Clinical Impression: Chest pain Disposition: ADMITTED IP TO THIS HOSP Condition: Fair Is patient prescribed a controlled substance at d/c from ED?: No
[2021-02-22] MEDS ORDERED: NITROGLYCERIN SL TABS 0.4 MG TAB SUBLINGUAL PRN (00:45)
[2021-02-22] MEDS ORDERED: traMADol 50 MG TAB PO PRN (02:14)
--- NOTE | 2021-02-22 02:19 | P.HPIM ---
History of Present Illness H&P Date: 02/22/21 Patient is a 70-year-old male with a PMH of type II DM, Hx of PE (on Xarelto), legally blind, chronic kidney disease, hypertension, hyperlipidemia, tobacco abuse, and COPD who presented to emergency room with complaints of chest pain. The patient reports that his chest pain started around 8:30 PM last night, sudden onset, left-sided, sharp and dull in nature, somewhat pleuritic in nature, nonradiating, with associated shortness of breath. He denied nausea, diaphoresis, or dizziness. Denied pain radiating to the back. Denied leg pain or swelling. Reports that the pain had improved at time of interview to a 3 out of 10. He further denied cough, fever, chills, abdominal pain, diarrhea. Chest x- ray in the emergency room was unremarkable. EKG in the emergency room revealed a normal sinus rhythm at [address]/T-wave changes noted as reviewed by me. Laboratory evaluation was remarkable for leukocytosis of 14.3, hemoglobin 10.7, MCV 77.3, d-dimer 0.7, BUN 23, creatinine 1.32, glucose 118, and troponin less than 0.012. Review of systems: Pertinent positives and negatives as discussed in HPI, a complete review of systems was performed and all other systems are negative. Physical examination: General: non toxic, no distress, appears at stated age, morbidly obese Derm: no unusual rashes/lesions no unusual ecchymoses, warm, dry Head: atraumatic, normocephalic, symmetric Eyes: EOMI, no lid lag, anicteric sclera, pupils equal round reactive to light ENT: Nose and ears atraumatic, no thrush, no pharyngeal erythema Neck: No thyromegaly, no cervical lymphadenopathy, trachea midline, supple Mouth: no lip lesion, mucus membranes moist Cardiovascular: S1S2 reg, no murmur, positive posterior tibial pulse bilateral, no edema, capillary refill less than 2 seconds Lungs: CTA bilateral, no rhonchi, no rales , no accessory muscle use Abdominal: soft, nontender to palpation, no guarding, no appreciable organomegaly, normal bowel sounds Ext: no gross muscle atrophy, muscle strength 5 out of 5 in all 4 extremities grossly, no contractures, Neuro: CN II-XI grossly intact, light touch intact all 4 extremities Psych: Alert, oriented, appropriate affect Assessment/plan Chest pain with atypical features -Cardiology consult -Trend troponin -Cardiac monitoring -Continue with aspirin Leukocytosis -Likely due to acute stressor -No signs of active infection at this time -Monitor for now Microcytic anemia -At baseline -Obtain anemia workup SERJIO on Chronic kidney disease -Monitor for now Chronic conditions: Type II DM, hypertension, hyperlipidemia, COPD -Lispro insulin sliding scale a blood glucose monitoring -Check A1c -Continue with home meds DVT prophylaxis -Xarelto The patient is admitted with an anticipated less than 2 midnight stay for evaluation of chest pain CODE STATUS:Full Code Discussed with: patient Anticipated discharge date: in am Anticipated discharge place: Home Past Medical History Past Medical History: Coronary Artery Disease (CAD), Cancer, Heart Failure, CVA/TIA, Diabetes Mellitus, Eye Disorder, GERD/Reflux, Hyperlipidemia, Hypertension Additional Past Medical History / Comment(s): 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 LT SHOULDER SX. RT ROTATOR CUFF REPAIR X 2. COLONOSCOPY Past Anesthesia/Blood Transfusion Reactions: No Reported Reaction Past Psychological History: No Psychological Hx Reported Smoking Status: Former smoker Past Alcohol Use History: None Reported Additional Past Alcohol Use History / Comment(s): QUIT SMOKING AT AGE 34 per pt, smoked a pipe Past Drug Use History: None Reported - Past Family History Mother Family Medical History: No Reported History Medications and Allergies Home Medications Medication Instructions Recorded Confirmed Type Atorvastatin [Lipitor] 80 mg PO HS 10/10/18 02/22/21 History Isosorbide Mononitrate ER [Imdur] 60 mg PO DAILY 10/10/18 02/22/21 History Labetalol [Trandate] 100 mg PO BID 10/10/18 02/22/21 History Omeprazole [PriLOSEC] 20 mg PO BID 10/10/18 02/22/21 History Rivaroxaban [Xarelto] 20 mg PO DAILY 10/10/18 02/22/21 History allopurinoL [Zyloprim] 300 mg PO DAILY 10/10/18 02/22/21 History amLODIPine [Norvasc] 5 mg PO BID 10/10/18 02/22/21 History sitaGLIPtin [Januvia] 100 mg PO DAILY 10/10/18 02/22/21 History Albuterol Sulfate [Albuterol 2 puff INHALATION RT-Q4H PRN 01/27/20 02/22/21 History Sulfate Hfa] Insulin Aspart [NovoLOG Flexpen] See Protocol SQ AC-TID 01/27/20 02/22/21 History Insulin Degludec [Tresiba 20 units SQ BID 01/27/20 02/22/21 History Flextouch U-100] Montelukast [Singulair] 10 mg PO HS 01/27/20 02/22/21 History Budesonide/Formoterol Fumarate 2 puff INHALATION RT-BID 08/09/20 02/22/21 History [Symbicort 160-4.5 Mcg Inhaler] Dapagliflozin Propanediol [Farxiga] 5 mg PO HS 08/09/20 02/22/21 History Tamsulosin [Flomax] 0.4 mg PO HS 08/09/20 02/22/21 History hydrALAZINE HCL [Apresoline] 100 mg PO DAILY@1200 PRN 08/09/20 02/22/21 History metFORMIN HCL [Glucophage] 1,000 mg PO BID 08/09/20 02/22/21 History Furosemide [Lasix] 40 mg PO DAILY 12/09/20 02/22/21 History Losartan Potassium [Cozaar] 100 mg PO DAILY 12/09/20 02/22/21 History Silver Sulfadiazine [SSD 1% Cream] 1 applic TOPICAL 5XD 12/09/20 02/22/21 History hydrALAZINE HCL 100 mg PO BID 12/09/20 02/22/21 History Potassium Chloride 20 meq PO DAILY #0 12/10/20 02/22/21 Rx traMADol HCL [Ultram] 50 mg PO Q4HR PRN 3 Days #18 tab 12/10/20 02/22/21 Rx Aspirin 81 mg PO DAILY 02/22/21 02/22/21 History Allergies Allergy/AdvReac Type Severity Reaction Status Date / Time cortisone Allergy Anaphylaxis Verified 02/21/21 23:05 Physical Exam Vitals: Vital Signs Temp Pulse Pulse Resp BP BP Pulse Ox 02/22/21 01:32 97.7 F 62 18 126/67 98 02/22/21 01:01 98 68 H 133/51 98 02/22/21 00:02 62 18 113/45 98 02/21/21 23:03 97.5 F L 66 18 148/70 98 Intake and Output 02/21/21 02/21/21 02/22/21 14:59 22:59 06:59 Other: Weight 117.934 kg Results CBC & Chem 7: 02/21/21 23:09 02/21/21 23:09 Labs: Abnormal Lab Results - Last 24 Hours (Table) 02/21/21 02/21/21 02/21/21 Range/Units 23:09 23:09 23:09 WBC 14.3 H (3.8-10.6) k/uL RBC 4.25 L (4.30-5.90) m/uL Hgb 10.7 L (13.0-17.5) gm/dL Hct 32.9 L (39.0-53.0) % MCV 77.3 L (80.0-100.0) fL RDW 17.9 H (11.5-15.5) % Lymphocytes # 7.0 H (1.0-4.8) k/uL D-Dimer 0.71 H (<0.60) mg/L FEU Carbon Dioxide 21 L (22-30) mmol/L BUN 23 H (9-20) mg/dL Creatinine 1.32 H (0.66-1.25) mg/dL Glucose 118 H (74-99) mg/dL Total Protein 5.5 L (6.3-8.2) g/dL Thrombosis Risk Factor Assmnt - Choose All That Apply Any of the Below Risk Factors Present?: Yes Each Risk Factor Represents 2 Points: Age 61-74 years Thrombosis Risk Factor Assessment Total Risk Factor Score: 2 Thrombosis Risk Factor Assessment Level: Low Risk
[2021-02-22] MEDS: SYMBICORT 160-4.5 MCG INHALER INHALATION SCH ×2 (07:16→17:34)
[2021-02-22 07:19] LABS: Glucose,Whole Blood 130 mg/dL (75-99)
[2021-02-22] MEDS: INSULIN ASPART (NovoLOG) 100 UNIT/ML VIAL SQ SCH ×4 (07:53→20:53)
[2021-02-22] MEDS ORDERED: HEPARIN SODIUM,PORCINE/PF 5,000 UNIT/0.5 ML SYRINGE SQ SCH (09:00)
[2021-02-22] MEDS: amLODIPine 5 MG TAB PO SCH ×2 (09:30→20:46)
[2021-02-22] MEDS: LABETALOL 100 MG TAB PO SCH ×2 (09:30→20:46)
[2021-02-22] MEDS: ASPIRIN 325 MG TAB PO SCH (09:30)
[2021-02-22] MEDS: hydrALAZINE HCL 50 MG TAB PO SCH ×2 (09:30→20:46)
[2021-02-22] MEDS: FUROSEMIDE 40 MG TAB PO SCH (09:30)
[2021-02-22] MEDS: RIVAROXABAN 20 MG TAB PO SCH (09:31)
[2021-02-22] MEDS: LOSARTAN 50 MG TAB PO SCH (09:31)
[2021-02-22] MEDS: ISOSORBIDE MONONITRATE ER 60 MG TAB.ER.24H PO SCH (09:31)
[2021-02-22] MEDS: allopurinoL 300 MG TAB PO SCH (09:31)
[2021-02-22 10:20] LABS: HCT 31.2 % (39.6-50.0); HGB 9.4 g/dL (13.0-17.0); MCH 24.3 pg (27.0-32.0); MCHC 30.1 g/dL (32.0-37.0); MCV 80.6 fL (80.0-97.0); Mean Platelet Volume 10.3 fL (9.5-12.2); Platelet Count 193 X 10*3/uL (140-440); RBC 3.87 X 10*6/uL (4.40-5.60); RDW 18.6 % (11.5-14.5); WBC 11.76 X 10*3/uL (4.50-10.00)
[2021-02-22 10:32] LABS: Ferritin 42.8 ng/mL (22.0-322.0)
[2021-02-22] MEDS: IPRATROPIUM-ALBUTEROL 3 ML NEB INHALATION SCH ×3 (10:53→17:33)
[2021-02-22 10:54] LABS: % Iron Saturation 7.48 (15.00-50.00); Anion Gap 9.4 mmol/L (4.00-12.00); BUN/Creat Ratio 18.46 Ratio (12.00-20.00); Calcium 8.9 mg/dL (8.7-10.3); Carbon Dioxide 25.6 mmol/L (21.6-31.8); Non-African American GFR(CKD) 56.1 (60.0-200.0); Potassium 3.6 mmol/L (3.5-5.5)
[2021-02-22 12:44] LABS: Glucose,Whole Blood 138 mg/dL (75-99)
[2021-02-22] MEDS: POTASSIUM CHLORIDE ER 10 MEQ TAB.ER.PRT PO SCH (13:09)
--- NOTE | 2021-02-22 13:32 | P.CNPUL ---
History of Present Illness Consult date: 02/22/21 Reason for consult: dyspnea, chest pain History of present illness: This is a 70-year-old male patient known history of COPD and previous history of pulmonary embolism with Xarelto on outpatient basis was coming in for intermittent chest pain. The pain is over the anterior chest area on and off and he does not related to any activity. He can be watching TV and he would have on and off chest pain. No diaphoresis. No sweating. No radiation. EKG was showing a normal sinus rhythm without any ST-T segment abnormalities. Troponins were less than 0.01. Chest x-ray showed emphysema/COPD with hyperinflation. There is also increased pulmonary vascular markings and pulmonary arteries are quite engorged. There is also a vague opacity in the left upper lobe which was not reported by the radiologist. However there is a concern of an underlying abnormality in the left upper lobe based on my review of the chest x-ray.. The patient is legally blind. The patient has diabetes mellitus. The patient has had multiple orthopedic surgeries including a lateral shoulder replacement. He also has chronic kidney disease. Current creatinine is at 1.3. He has hypertension and hyperlipidemia. No history of hemoptysis. The pain across his chest and nonpleuritic in nature. Currently is chest pain- free. Hemoglobin is at 10.7 at time of admission and currently is down to 9.4. The creatinine is at 1.3 stable, COVID-19 testing was negative, troponin times he has been negative. Cardiology consultation has been obtained. No other significant events otherwise. No hemodynamic instability. No altered mentation. No syncope. His last echocardiogram that was done on 01/28/2020 showed normal ejection fraction of 55-60%. He had a Doppler of the lower extremity on 12/10/2020 that showed no evidence of DVT of the lower extremities bilaterally. He had also a Persantine cardiac stress test that was done on 01/28/2020 that showed sinus injury was reversible ischemia involving the apex of the myocardium. The patient also had a cardiac catheterization on 01/30/2020 that showed mild disease involving the mid RCA and proximal LAD and there was a catheter induced spasm of the ostium of the right coronary artery that subsequently resolved. He was offered medical management by Dr. Carrington. Review of Systems Constitutional: Reports fatigue Eyes: bilateral blurred vision, bilateral decreased vision, bilateral loss of vision Ears: deny: decreased hearing, ear discharge, earache, tinnitus Ears, nose, mouth and throat: Reports as per HPI Breasts: absent: as per HPI, gynecomastia Cardiovascular: Reports chest pain, Reports claudication, Reports decreased exercise tolerance, Reports dyspnea on exertion, Reports shortness of breath Respiratory: Reports dyspnea Gastrointestinal: Reports as per HPI Genitourinary: Reports as per HPI Musculoskeletal: Reports as per HPI Musculoskeletal: bilateral: ankle swelling, absent: ankle pain, ankle stiffness Integumentary: Reports as per HPI Neurological: Reports as per HPI (History of TIA/CVA), Reports weakness Endocrine: Reports as per HPI Hematologic/Lymphatic: Reports as per HPI Allergic/Immunologic: Reports as per HPI Past Medical History Past Medical History: Coronary Artery Disease (CAD), Cancer, Heart Failure, CVA/TIA, Diabetes Mellitus, Eye Disorder, GERD/Reflux, Hyperlipidemia, Hypertension Additional Past Medical History / Comment(s): 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 LT SHOULDER SX. RT ROTATOR CUFF REPAIR X 2. COLONOSCOPY Past Anesthesia/Blood Transfusion Reactions: No Reported Reaction Additional Past Alcohol Use History / Comment(s): QUIT SMOKING AT AGE 34 per pt, smoked a pipe - Past Family History Mother Family Medical History: No Reported History Medications and Allergies Home Medications Medication Instructions Recorded Confirmed Type Atorvastatin [Lipitor] 80 mg PO HS 10/10/18 02/22/21 History Isosorbide Mononitrate ER [Imdur] 60 mg PO DAILY 10/10/18 02/22/21 History Labetalol [Trandate] 100 mg PO BID 10/10/18 02/22/21 History Omeprazole [PriLOSEC] 20 mg PO BID 10/10/18 02/22/21 History Rivaroxaban [Xarelto] 20 mg PO DAILY 10/10/18 02/22/21 History allopurinoL [Zyloprim] 300 mg PO DAILY 10/10/18 02/22/21 History amLODIPine [Norvasc] 5 mg PO BID 10/10/18 02/22/21 History sitaGLIPtin [Januvia] 100 mg PO DAILY 10/10/18 02/22/21 History Albuterol Sulfate [Albuterol 2 puff INHALATION RT-Q4H PRN 01/27/20 02/22/21 History Sulfate Hfa] Insulin Aspart [NovoLOG Flexpen] See Protocol SQ AC-TID 01/27/20 02/22/21 History Insulin Degludec [Tresiba 20 units SQ BID 01/27/20 02/22/21 History Flextouch U-100] Montelukast [Singulair] 10 mg PO HS 01/27/20 02/22/21 History Budesonide/Formoterol Fumarate 2 puff INHALATION RT-BID 08/09/20 02/22/21 History [Symbicort 160-4.5 Mcg Inhaler] Dapagliflozin Propanediol [Farxiga] 5 mg PO HS 08/09/20 02/22/21 History Tamsulosin [Flomax] 0.4 mg PO HS 08/09/20 02/22/21 History metFORMIN HCL [Glucophage] 1,000 mg PO BID 08/09/20 02/22/21 History Furosemide [Lasix] 40 mg PO DAILY 12/09/20 02/22/21 History Losartan Potassium [Cozaar] 100 mg PO DAILY 12/09/20 02/22/21 History Silver Sulfadiazine [SSD 1% Cream] 1 applic TOPICAL 5XD 12/09/20 02/22/21 History hydrALAZINE HCL 100 mg PO BID 12/09/20 02/22/21 History Aspirin 81 mg PO DAILY 02/22/21 02/22/21 History Potassium Chloride ER [K-Dur 10] 10 meq PO DAILY 02/22/21 02/22/21 History Allergies Allergy/AdvReac Type Severity Reaction Status Date / Time cortisone Allergy Anaphylaxis Verified 02/22/21 08:05 Physical Exam Vitals: Vital Signs Temp Pulse Pulse Resp BP BP Pulse Ox 02/22/21 08:00 62 16 02/22/21 07:00 97.7 F 62 16 153/69 99 02/22/21 01:32 97.7 F 62 18 126/67 98 02/22/21 01:01 98 68 H 133/51 98 02/22/21 00:02 62 18 113/45 98 07/31/21 23:03 97.5 F L 66 18 148/70 98 Intake and Output 02/21/21 02/22/21 02/22/21 22:59 06:59 14:59 Output Total 500 700 Balance -500 -700 Output: Urine 500 700 Other: Voiding Method Urinal Urinal Diaper Diaper # Voids 2 Weight 117.934 kg The patient appeared well nourished and normally developed. Vital signs as documented. Head exam is unremarkable. No scleral icterus or corneal arcus noted. 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 Neck is without jugular venous distension, thyromegaly, or carotid bruits. Carotid upstrokes are brisk bilaterally. Lungs are clear to auscultation and percussion. Cardiac exam reveals the PMI to be normally sized and situated. Rhythm is reg ular. First and second heart sounds normal. No murmurs, rubs or gallops. Abdominal exam reveals normal bowel sounds, no masses, no organomegaly and no aortic enlargement. Extremities are nonedematous and both femoral and pedal pulses are normal.Examination of the skin revealed no evidence of significant rashes, suspicious appearing nevi or other concerning lesions.Neurologically, the patient is awake and alert and the patient does not have any focal neurological deficit. Cranial nerves are essentially intact. Results - Laboratory Findings CBC and BMP: 02/22/21 04:56 02/22/21 04:56 PT/INR, D-dimer PT 11.8 sec (9.0-12.0) 02/21/21 23:09 INR 1.1 (<1.2) 02/21/21 23:09 D-Dimer 0.71 mg/L FEU (<0.60) H 02/21/21 23:09 Abnormal lab findings: Abnormal Labs 02/21/21 02/21/21 02/21/21 23:09 23:09 23:09 WBC 14.3 H RBC 4.25 L Hgb 10.7 L Hct 32.9 L MCV 77.3 L MCH MCHC RDW 17.9 H Lymphocytes # 7.0 H D-Dimer 0.71 H Carbon Dioxide 21 L BUN 23 H Creatinine 1.32 H Est GFR (CKD-EPI)NonAf Glucose 118 H POC Glucose (mg/dL) Iron % Saturation Total Protein 5.5 L 08/01/21 08/01/21 08/01/21 04:56 04:56 07:09 WBC 11.76 H RBC 3.87 L Hgb 9.4 L Hct 31.2 L MCV MCH 24.3 L MCHC 30.1 L RDW 18.6 H Lymphocytes # D-Dimer Carbon Dioxide BUN Creatinine Est GFR (CKD-EPI)NonAf 56.1 L Glucose 129 H POC Glucose (mg/dL) 130 H Iron 19 L % Saturation 7.48 L Total Protein 02/22/21 12:41 WBC RBC Hgb Hct MCV MCH MCHC RDW Lymphocytes # D-Dimer Carbon Dioxide BUN Creatinine Est GFR (CKD-EPI)NonAf Glucose POC Glucose (mg/dL) 138 H Iron % Saturation Total Protein - Diagnostic Findings Chest x-ray: image reviewed Assessment and Plan Plan: 1 chest pain, atypical, currently under investigation. Note that the patient has no EKG abnormalities. No troponin leak. Chest x-ray showing a vague opacity in the left upper lobe. He has previous history of pulmonary embolism. Nevertheless the patient is demented on Xarelto on outpatient basis. 2 coronary artery disease, mild, nonocclusive based on a cardiac catheterization that was done in January 2020. He has been offered medical treatment 3 congestion heart failure, preserved LV function based on that finding on that was done in 2019 4 diabetes mellitus 5 COPD 6 previous history of pulmonary embolism maintained on long-term and to coagulation with Xarelto. Doppler of the lower extremity that was done in November 2020 was negative 7 legal blindness/Retinitis pigmentosa 8 previous history of CVA/TIA 2 without any residual disorders 9 hypertension 10 hyperlipidemia 11 chronic kidney disease stage 2-3 Plan Noncontrast CAT scan of the chest regarding the possibility of left upper lobe opacity Resumed on nebulizer treatments around the clock Continue Xarelto Cardiology consultation
[2021-02-22 14:16] LABS: Hemoglobin A1C 6.5 % (4.0-6.0)
--- NOTE | 2021-02-22 15:01 | P.PN ---
Subjective Progress Note Date: 02/22/21 Principal diagnosis: chest pain Hospitalist Interval Note Patient seen and examined at bedside. minimal chest pain currently, reports that he has had worsening dyspnea on exertion for the last 2 weeks. He also reports that he had surgery on his right shoulder about a month ago and has been using his left shoulder more. He denies any increase in numbness or tingling, no lightheadedness, no dizziness, slight issues with acid reflux that have been getting better, and no significant nausea. Vital signs reviewed General: non toxic, no distress, [appears older than stated age Derm: warm, dry Head: atraumatic, normocephalic, symmetric Eyes: EOMI, no lid lag, anicteric sclera Mouth: no lip lesion, mucus membranes moist Cardiovascular: S1S2 reg, no murmur, positive posterior tibial pulse bilateral, pain to palpation over left chest wall, negative empty can test, negative biceps tendon testing Lungs: CTA bilateral, no rhonchi, no rales , no accessory muscle use Abdominal: soft, nontender to palpation, no guarding, no appreciable or ganomegaly Ext: no gross muscle atrophy, no edema, no contractures Neuro: CN II-XI grossly intact, no focal neuro deficits Psych: Alert, oriented, appropriate affect Assessment/Plan: Chest pain atypical -Suspect secondary to overuse of the left arm -Serial troponin negative -EKG without significant ST segment changes -Await cardiology recommendations. COPD with worsening shortness of breath, left upper lobe opacity -No signs of wheezing on auscultation, history of ALLERGIC reaction to cortisone -Increase DuoNeb's -Patient asking for pulmonary consultation -Check CT chest Chronic kidney disease, at baseline -Avoid nephrotoxic agents -No signs of acute kidney injury -Repeat BMP in a.m. Leukocytosis -Likely secondary to stress or -Continue to monitor Diabetes mellitus type 2 -Sliding-scale insulin -Follow blood sugars -Resume Tradjenta -Long-acting insulin Chronic: Hypertension Dyslipidemia This is an update note for patient , for full note on 02/22/21 see H and P. There is no charge associated with this note. Active Medications Albuterol/Ipratropium (Ipratropium-Albuterol 3 Ml Neb) 3 ml INHALATION RT-QID [place] Last Admin: 02/22/21 10:53 Dose: Not Given Documented by: Allopurinol (Allopurinol 300 Mg Tab) 300 mg PO DAILY [facility] Last Admin: 02/22/21 09:31 Dose: 300 mg Documented by: Amlodipine Besylate (Amlodipine 5 Mg Tab) 5 mg PO BID [facility] Last Admin: 02/22/21 09:30 Dose: 5 mg Documented by: Aspirin (Aspirin 325 Mg Tab) 325 mg PO DAILY [facility] Last Admin: 02/22/21 09:30 Dose: 325 mg Documented by: Atorvastatin Calcium (Atorvastatin 80 Mg Tab) 80 mg PO [facility] Budesonide/Formoterol Fumarate (Symbicort 160-4.5 Mcg Inhaler) 2 puff INHALATION RT-BID [facility] Last Admin: 02/22/21 07:16 Dose: 2 puff Documented by: Furosemide (Furosemide 40 Mg Tab) 40 mg PO DAILY [facility] Last Admin: 02/22/21 09:30 Dose: 40 mg Documented by: Hydralazine HCl (Hydralazine Hcl 50 Mg Tab) 100 mg PO BID [facility] Last Admin: 02/22/21 09:30 Dose: 100 mg Documented by: Insulin Aspart (Insulin Aspart (Novolog) 100 Unit/Ml Vial) 0 unit SQ [facility]; Protocol Last Admin: 02/22/21 13:09 Dose: 1 unit Documented by: Insulin Detemir (Insulin Detemir (Levemir) 100 Unit/Ml Syr) 20 unit SQ BID@0700,2100 [facility] Isosorbide Mononitrate (Isosorbide Mononitrate Er 60 Mg Tab.Er.24h) 60 mg PO DAILY [facility] Last Admin: 02/22/21 09:31 Dose: 60 mg Documented by: Labetalol HCl (Labetalol 100 Mg Tab) 100 mg PO BID [facility] Last Admin: 02/22/21 09:30 Dose: 100 mg Documented by: Linagliptin (Linagliptin 5 Mg Tablet) 5 mg PO DAILY [facility] Losartan Potassium (Losartan 50 Mg Tab) 100 mg PO DAILY [facility] Last Admin: 02/22/21 09:31 Dose: 100 mg Documented by: Montelukast Sodium (Montelukast 10 Mg Tab) 10 mg PO [facility] Nitroglycerin (Nitroglycerin Sl Tabs 0.4 Mg Tab) 0.4 mg SUBLINGUAL Q5M PRN PRN Reason: Chest Pain Potassium Chloride (Potassium Chloride Er 10 Meq Tab.Er.Prt) 10 meq PO DAILY [facility] Last Admin: 02/22/21 13:09 Dose: 10 meq Documented by: Rivaroxaban (Rivaroxaban 20 Mg Tab) 20 mg PO DAILY [facility]; Protocol Last Admin: 02/22/21 09:31 Dose: 20 mg Documented by: Tamsulosin HCl (Tamsulosin 0.4 Mg Cap.Er.24h) 0.4 mg PO [facility] Tramadol HCl (Tramadol 50 Mg Tab) 50 mg PO Q4HR PRN PRN Reason: Pain Objective - Vital Signs Vital signs: Vital Signs Temp 97.8 F 02/22/21 14:53 Pulse 60 02/22/21 14:53 Resp 16 02/22/21 14:53 BP 121/62 02/22/21 14:53 Pulse Ox 98 02/22/21 14:53 Intake & Output 02/21/21 02/22/21 02/22/21 18:59 06:59 18:59 Intake Total 200 Output Total 500 1200 Balance -500 -1000 Weight 117.934 kg Intake: Oral 200 Output: Urine 500 1200 Other: Voiding Method Urinal Urinal Diaper Diaper # Voids 2 - Labs CBC & Chem 7: 02/22/21 04:56 02/22/21 04:56 Labs: Abnormal Lab Results - Last 24 Hours (Table) 02/21/21 02/21/21 02/21/21 Range/Units 23:09 23:09 23:09 WBC 14.3 H (3.8-10.6) k/uL RBC 4.25 L (4.30-5.90) m/uL Hgb 10.7 L (13.0-17.5) gm/dL Hct 32.9 L (39.0-53.0) % MCV 77.3 L (80.0-100.0) fL MCH (27.0-32.0) pg MCHC (32.0-37.0) g/dL RDW 17.9 H (11.5-15.5) % Lymphocytes # 7.0 H (1.0-4.8) k/uL D-Dimer 0.71 H (<0.60) mg/L FEU Carbon Dioxide 21 L (22-30) mmol/L BUN 23 H (9-20) mg/dL Creatinine 1.32 H (0.66-1.25) mg/dL Est GFR (CKD-EPI)NonAf (60.0-200.0) Glucose 118 H (74-99) mg/dL POC Glucose (mg/dL) (75-99) mg/dL Hemoglobin A1c (4.0-6.0) % Iron (65-175) ug/dL % Saturation (15.00-50.00) Total Protein 5.5 L (6.3-8.2) g/dL 02/22/21 02/22/21 02/22/21 Range/Units 04:56 04:56 04:56 WBC 11.76 H (3.8-10.6) k/uL RBC 3.87 L (4.30-5.90) m/uL Hgb 9.4 L (13.0-17.5) gm/dL Hct 31.2 L (39.0-53.0) % MCV (80.0-100.0) fL MCH 24.3 L (27.0-32.0) pg MCHC 30.1 L (32.0-37.0) g/dL RDW 18.6 H (11.5-15.5) % Lymphocytes # (1.0-4.8) k/uL D-Dimer (<0.60) mg/L FEU Carbon Dioxide (22-30) mmol/L BUN (9-20) mg/dL Creatinine (0.66-1.25) mg/dL Est GFR (CKD-EPI)NonAf 56.1 L (60.0-200.0) Glucose 129 H (74-99) mg/dL POC Glucose (mg/dL) (75-99) mg/dL Hemoglobin A1c 6.5 H (4.0-6.0) % Iron 19 L (65-175) ug/dL % Saturation 7.48 L (15.00-50.00) Total Protein (6.3-8.2) g/dL 02/22/21 02/22/21 Range/Units 07:09 12:41 WBC (3.8-10.6) k/uL RBC (4.30-5.90) m/uL Hgb (13.0-17.5) gm/dL Hct (39.0-53.0) % MCV (80.0-100.0) fL MCH (27.0-32.0) pg MCHC (32.0-37.0) g/dL RDW (11.5-15.5) % Lymphocytes # (1.0-4.8) k/uL D-Dimer (<0.60) mg/L FEU Carbon Dioxide (22-30) mmol/L BUN (9-20) mg/dL Creatinine (0.66-1.25) mg/dL Est GFR (CKD-EPI)NonAf (60.0-200.0) Glucose (74-99) mg/dL POC Glucose (mg/dL) 130 H 138 H (75-99) mg/dL Hemoglobin A1c (4.0-6.0) % Iron (65-175) ug/dL % Saturation (15.00-50.00) Total Protein (6.3-8.2) g/dL
--- NOTE | 2021-02-22 16:06 | P.CRDCN ---
History of Present Illness History of present illness: HISTORY OF PRESENTING ILLNESS Patient is a pleasant 70-year-old male with history of type 2 diabetes mellitus, pulmonary embolism on anticoagulation, legally blind, chronic kidney disease, CO PD, tobacco abuse, hypertension, hyperlipidemia, prior mild coronary artery disease by heart catheterization 01/29/2020. Patient presents secondary to episodes of chest pain as well as shortness breath. Patient states this has been going on for last 3-4 weeks. He did have an echocardiogram performed at the end of January by Dr. Carrington however I do not have the results currently. His chest pain is not associated with any exertion. It is very reproducible and pinpoint in the left fifth intercostal space with palpation. He denies any associated nausea or diaphoresis. This shortness breath appears unrelated. He did see pulmonology who ordered a CAT scan, results are pending. Prior heart catheterization from January 2020 showed only mild disease of the RCA and proximal LAD and a catheter induced spasm of the RCA. REVIEW OF SYSTEMS At the time of my exam: CONSTITUTIONAL: Denies fever or chills. CARDIOVASCULAR: +chest pain, +shortness of breath, no orthopnea, PND or palpitations. RESPIRATORY: Denies cough. GASTROINTESTINAL: Denies abdominal pain, diarrhea, constipation, nausea or vomiting. MUSCULOSKELETAL: Denies myalgias. NEUROLOGIC: Denies numbness, tingling or weakness. ENDOCRINE: Denies fatigue, weight change, polydipsia or polyurina. GENITOURINARY: Denies burning, hematuria or urgency with micturation. HEMATOLOGIC: Denies history of anemia or bleeding. PHYSICAL EXAMINATION Vital signs reviewed. CONSTITUTIONAL: No apparent distress. HEENT: Head is normocephalic. Pupils are equal, round. Sclerae anicteric. Mucous membranes of the mouth are moist. No JVD. No carotid bruit. CHEST EXAMINATION: Lungs are clear to auscultation. No chest wall tenderness is noted on palpation or with deep breathing. HEART EXAMINATION: Regular rate and rhythm. S1, S2 heard. No murmurs, gallops or rub. ABDOMEN: Soft, nontender. Positive bowel sounds. EXTREMITIES: 2+ peripheral pulses, no lower extremity edema and no calf tenderness. NEUROLOGIC EXAMINATION: Patient is awake, alert and oriented x3. ASSESSMENT 1. Atypical, reproducible chest pain with palpation and recent heart cathet erization showing only mild coronary artery disease. Do not suspect acute coronary syndrome. Appears musculoskeletal. Troponins normal. 2. Coronary artery disease with only mild CAD by heart catheterization 3. History of PE on anticoagulation 4. Essential hypertension 5. History of stroke 6. Hyperlipidemia 7. Diabetes mellitus2 PLAN Check office records for recent 2-D echo that was performed at the end of January. Patient's chest pain appears atypical. Continue with medical therapy. Offered patient stress testing however he would like to continue with medical therapy and outpatient follow-up. Past Medical History Past Medical History: Coronary Artery Disease (CAD), Cancer, Heart Failure, CVA/TIA, Diabetes Mellitus, Eye Disorder, GERD/Reflux, Hyperlipidemia, Hypertension Additional Past Medical History / Comment(s): LEUKEMIA-NO TX, CVA X 2, BILAT CATARACTS, LEGALLY BLIND-RETINITIS PIGMENTOSA, GOUT, chronic kidney diease History of Any Multi-Drug Resistant Organisms: None Reported Past Surgical History: Appendectomy, Back Surgery, Cholecystectomy, Heart Malorie terization, Joint Replacement, Orthopedic Surgery Additional Past Surgical History / Comment(s): BILAT TKA &MICHAEL. LT SHOULDER SX. RT ROTATOR CUFF REPAIR X 2. COLONOSCOPY Past Anesthesia/Blood Transfusion Reactions: No Reported Reaction Additional Past Alcohol Use History / Comment(s): QUIT SMOKING AT AGE 34 per pt, smoked a pipe - Past Family History Mother Family Medical History: No Reported History Medications and Allergies Home Medications Medication Instructions Recorded Confirmed Type Atorvastatin [Lipitor] 80 mg PO HS 10/10/18 02/22/21 History Isosorbide Mononitrate ER [Imdur] 60 mg PO DAILY 10/10/18 02/22/21 History Labetalol [Trandate] 100 mg PO BID 10/10/18 02/22/21 History Omeprazole [PriLOSEC] 20 mg PO BID 10/10/18 02/22/21 History Rivaroxaban [Xarelto] 20 mg PO DAILY 10/10/18 02/22/21 History allopurinoL [Zyloprim] 300 mg PO DAILY 10/10/18 02/22/21 History amLODIPine [Norvasc] 5 mg PO BID 10/10/18 02/22/21 History sitaGLIPtin [Januvia] 100 mg PO DAILY 10/10/18 02/22/21 History Albuterol Sulfate [Albuterol 2 puff INHALATION RT-Q4H PRN 01/27/20 02/22/21 History Sulfate Hfa] Insulin Aspart [NovoLOG Flexpen] See Protocol SQ AC-TID 01/27/20 02/22/21 History Insulin Degludec [Tresiba 20 units SQ BID 01/27/20 02/22/21 History Flextouch U-100] Montelukast [Singulair] 10 mg PO HS 01/27/20 02/22/21 History Budesonide/Formoterol Fumarate 2 puff INHALATION RT-BID 08/09/20 02/22/21 History [Symbicort 160-4.5 Mcg Inhaler] Dapagliflozin Propanediol [Farxiga] 5 mg PO HS 08/09/20 02/22/21 History Tamsulosin [Flomax] 0.4 mg PO HS 08/09/20 02/22/21 History metFORMIN HCL [Glucophage] 1,000 mg PO BID 08/09/20 02/22/21 History Furosemide [Lasix] 40 mg PO DAILY 12/09/20 02/22/21 History Losartan Potassium [Cozaar] 100 mg PO DAILY 12/09/20 02/22/21 History Silver Sulfadiazine [SSD 1% Cream] 1 applic TOPICAL 5XD 12/09/20 02/22/21 History hydrALAZINE HCL 100 mg PO BID 12/09/20 02/22/21 History Aspirin 81 mg PO DAILY 02/22/21 02/22/21 History Potassium Chloride ER [K-Dur 10] 10 meq PO DAILY 02/22/21 02/22/21 History Allergies Allergy/AdvReac Type Severity Reaction Status Date / Time cortisone Allergy Anaphylaxis Verified 02/22/21 08:05 Physical Exam Vitals: Vital Signs Temp Pulse Pulse Resp BP BP Pulse Ox 02/22/21 14:53 97.8 F 60 16 121/62 98 02/22/21 08:00 62 16 02/22/21 07:00 97.7 F 62 16 153/69 99 02/22/21 01:32 97.7 F 62 18 126/67 98 02/22/21 01:01 98 68 H 133/51 98 02/22/21 00:02 62 18 113/45 98 02/21/21 23:03 97.5 F L 66 18 148/70 98 Intake and Output 02/22/21 02/22/21 02/22/21 06:59 14:59 22:59 Intake Total 200 Output Total 500 700 500 Balance -500 -500 -500 Intake: Oral 200 Output: Urine 500 700 500 Other: Voiding Method Urinal Urinal Diaper Diaper # Voids 1 2 Weight 117.934 kg Results 02/22/21 04:56 02/22/21 04:56 Cardiac Enzymes 02/21/21 02/21/21 02/22/21 Range/Units 23:09 23:09 01:26 AST 23 (17-59) U/L Troponin I <0.012 <0.012 (0.000-0.034) ng/mL 02/22/21 Range/Units 04:56 AST (17-59) U/L Troponin I <0.012 (0.000-0.034) ng/mL Coagulation 02/21/21 Range/Units 23:09 PT 11.8 (9.0-12.0) sec APTT 25.4 (22.0-30.0) sec CBC 02/21/21 02/22/21 Range/Units 23:09 04:56 WBC 14.3 H 11.76 H (3.8-10.6) k/uL RBC 4.25 L 3.87 L (4.30-5.90) m/uL Hgb 10.7 L 9.4 L (13.0-17.5) gm/dL Hct 32.9 L 31.2 L (39.0-53.0) % Plt Count 209 193 (150-450) k/uL Comprehensive Metabolic Panel 02/21/21 02/22/21 Range/Units 23:09 04:56 Sodium 138 144 (137-145) mmol/L Potassium 3.8 3.6 (3.5-5.1) mmol/L Chloride 107 109 (98-107) mmol/L Carbon Dioxide 21 L 25.6 (22-30) mmol/L BUN 23 H 24.0 (9-20) mg/dL Creatinine 1.32 H 1.3 (0.66-1.25) mg/dL Glucose 118 H 129 H (74-99) mg/dL Calcium 9.1 8.9 (8.4-10.2) mg/dL AST 23 (17-59) U/L ALT 15 (4-49) U/L Alkaline Phosphatase 58 (38-126) U/L Total Protein 5.5 L (6.3-8.2) g/dL Albumin 3.5 (3.5-5.0) g/dL Current Medications Generic Name Dose Route Start Last Admin Trade Name Freq PRN Reason Stop Dose Admin Albuterol/Ipratropium 3 ml 02/22/21 12:00 02/22/21 15:06 Ipratropium-Albuterol 3 Ml Neb INHALATION Not Given RT-QID [facility] Allopurinol 300 mg 02/22/21 09:00 02/22/21 09:31 Allopurinol 300 Mg Tab PO 300 mg DAILY [facility] Administration Amlodipine Besylate 5 mg 02/22/21 09:00 02/22/21 09:30 Amlodipine 5 Mg Tab PO 5 mg BID [facility] Administration Aspirin 325 mg 02/22/21 09:00 02/22/21 09:30 Aspirin 325 Mg Tab PO 325 mg DAILY [facility] Administration Atorvastatin Calcium 80 mg 02/22/21 21:00 Atorvastatin 80 Mg Tab PO [facility] Budesonide/Formoterol Fumarate 2 puff 02/22/21 08:00 02/22/21 07:16 Symbicort 160-4.5 Mcg Inhaler INHALATION 2 puff RT-BID [facility] Administration Furosemide 40 mg 02/22/21 09:00 02/22/21 09:30 Furosemide 40 Mg Tab PO 40 mg DAILY [facility] Administration Hydralazine HCl 100 mg 02/22/21 09:00 02/22/21 09:30 Hydralazine Hcl 50 Mg Tab PO 100 mg BID [facility] Administration Insulin Aspart 0 unit 02/22/21 07:30 02/22/21 13:09 Insulin Aspart (Novolog) 100 Unit/Ml Vial SQ 1 unit [facility] Administration Protocol Insulin Detemir 20 unit 02/22/21 21:00 Insulin Detemir (Levemir) 100 Unit/Ml Syr SQ BID@0700,2100 [facility] Isosorbide Mononitrate 60 mg 02/22/21 09:00 02/22/21 09:31 Isosorbide Mononitrate Er 60 Mg Tab.Er.24h PO 60 mg DAILY [facility] Administration Labetalol HCl 100 mg 02/22/21 09:00 02/22/21 09:30 Labetalol 100 Mg Tab PO 100 mg BID [facility] Administration Linagliptin 5 mg 02/23/21 09:00 Linagliptin 5 Mg Tablet PO DAILY [facility] Losartan Potassium 100 mg 02/22/21 09:00 02/22/21 09:31 Losartan 50 Mg Tab PO 100 mg DAILY [facility] Administration Montelukast Sodium 10 mg 02/22/21 21:00 Montelukast 10 Mg Tab PO HS [facility] Nitroglycerin 0.4 mg 02/22/21 00:45 Nitroglycerin Sl Tabs 0.4 Mg Tab SUBLINGUAL Q5M PRN Chest Pain Potassium Chloride 10 meq 02/22/21 12:00 02/22/21 13:09 Potassium Chloride Er 10 Meq Tab.Er.Prt PO 10 meq DAILY [facility] Administration Rivaroxaban 20 mg 02/22/21 09:00 02/22/21 09:31 Rivaroxaban 20 Mg Tab PO 20 mg DAILY [facility] Administration Protocol Tamsulosin HCl 0.4 mg 02/22/21 21:00 Tamsulosin 0.4 Mg Cap.Er.24h PO HS [facility] Tramadol HCl 50 mg 02/22/21 02:14 Tramadol 50 Mg Tab PO Q4HR PRN Pain Intake and Output 02/22/21 02/22/21 02/22/21 06:59 14:59 22:59 Intake Total 200 Output Total 500 700 500 Balance -500 -500 -500 Intake: Oral 200 Output: Urine 500 700 500 Other: Voiding Method Urinal Urinal Diaper Diaper # Voids 1 2 Weight 117.934 kg 02/22/21 04:56 02/22/21 04:56
[2021-02-22 17:06] LABS: Glucose,Whole Blood 166 mg/dL (75-99)
--- NOTE | 2021-02-22 18:17 | CT ---
EXAMINATION TYPE: CT chest wo con DATE OF EXAM: 02/22/2021 COMPARISON: Chest radiograph 02/21/2021 HISTORY: Suspect upper lobe mass CT DLP: 941 mGycm. Automated Exposure Control for Dose Reduction was Utilized. TECHNIQUE: CT scan of the thorax is performed without IV contrast. FINDINGS: LUNGS: The lungs are grossly clear, there is no concerning parenchymal mass or nodule identified. T here is no pleural effusion or pneumothorax seen. The tracheobronchial tree is patent. MEDIASTINUM: Lack of IV contrast is noted to limit evaluation for mediastinal and especially hilar ad enopathy. There are no definitive greater than 1 cm hilar or mediastinal lymph nodes. No cardiomega ly or pericardial effusion is seen. Atherosclerotic calcifications of the thoracic aorta without aneu rysm. OTHER: Circumscribed hepatic cysts the largest measuring 6.5 cm in the right hepatic dome, similar to prior. Gallbladder is absent and there are surgical clips within the gallbladder fossa. Spleen appea rs enlarged measuring 16.5 cm in craniocaudal dimension and contains a nonspecific focal hypodensity inferiorly, measuring 1.5 cm, which appears unchanged compared to 2020. Surgical changes of the bilat eral shoulders. IMPRESSION: 1. No focal consolidation, pleural effusion, or pneumothorax. 2. Splenomegaly. Recommend appropriate laboratory and clinical correlation.
[2021-02-22 20:43] LABS: Glucose,Whole Blood 156 mg/dL (75-99)
[2021-02-22] MEDS ORDERED: TAMSULOSIN 0.4 MG CAP.ER.24H PO SCH (21:00)
[2021-02-22] MEDS ORDERED: ATORVASTATIN 80 MG TAB PO SCH (21:00)
[2021-02-22] MEDS ORDERED: MONTELUKAST 10 MG TAB PO SCH (21:00)
[2021-02-22] MEDS: INSULIN DETEMIR (LEVEMIR) 100 UNIT/ML SYR SQ SCH (21:23)
[2021-02-23 06:53] LABS: Glucose,Whole Blood 136 mg/dL (75-99)
[2021-02-23] MEDS: ASPIRIN 325 MG TAB PO SCH (07:52)
[2021-02-23] MEDS: POTASSIUM CHLORIDE ER 10 MEQ TAB.ER.PRT PO SCH (07:52)
[2021-02-23] MEDS: allopurinoL 300 MG TAB PO SCH (07:52)
[2021-02-23] MEDS: INSULIN ASPART (NovoLOG) 100 UNIT/ML VIAL SQ SCH ×3 (07:53→18:16)
[2021-02-23] MEDS: LOSARTAN 50 MG TAB PO SCH (07:53)
[2021-02-23] MEDS: FUROSEMIDE 40 MG TAB PO SCH (07:53)
[2021-02-23] MEDS: amLODIPine 5 MG TAB PO SCH (07:53)
[2021-02-23] MEDS: SYMBICORT 160-4.5 MCG INHALER INHALATION SCH (08:03)
[2021-02-23] MEDS: IPRATROPIUM-ALBUTEROL 3 ML NEB INHALATION SCH ×3 (08:03→15:52)
[2021-02-23] MEDS ORDERED: LINAGLIPTIN 5 MG TABLET PO SCH (09:00)
[2021-02-23] MEDS: INSULIN DETEMIR (LEVEMIR) 100 UNIT/ML SYR SQ SCH (09:03)
[2021-02-23] MEDS: hydrALAZINE HCL 50 MG TAB PO SCH (09:04)
[2021-02-23] MEDS: ISOSORBIDE MONONITRATE ER 60 MG TAB.ER.24H PO SCH (09:04)
[2021-02-23] MEDS: RIVAROXABAN 20 MG TAB PO SCH (09:04)
[2021-02-23] MEDS: LABETALOL 100 MG TAB PO SCH ×2 (09:04→10:40)
[2021-02-23 09:51] LABS: Chol/HDL Ratio 4.33; LDL Cholesterol,Calculated 51.6 mg/dL (0.0-131.0); VLDL Calculation 28.4 mg/dL (5.00-40.00)
[2021-02-23] MEDS: MUPIROCIN 2% OINT 22 GM TUBE TOPICAL SCH ×2 (10:40→16:55)
--- NOTE | 2021-02-23 11:40 | P.PN ---
Subjective Progress Note Date: 02/23/21 Principal diagnosis: Dyspnea, chest pain This is a 70-year-old male patient known history of COPD and previous history of pulmonary embolism with Xarelto on outpatient basis was coming in for intermittent chest pain. The pain is over the anterior chest area on and off and he does not related to any activity. He can be watching TV and he would have on and off chest pain. No diaphoresis. No sweating. No radiation. EKG was showing a normal sinus rhythm without any ST-T segment abnormalities. Troponins were less than 0.01. Chest x-ray showed emphysema/COPD with hyperi nflation. There is also increased pulmonary vascular markings and pulmonary arteries are quite engorged. There is also a vague opacity in the left upper lobe which was not reported by the radiologist. However there is a concern of an underlying abnormality in the left upper lobe based on my review of the chest x-ray.. The patient is legally blind. The patient has diabetes mellitus. The patient has had multiple orthopedic surgeries including a lateral shoulder replacement. He also has chronic kidney disease. Current creatinine is at 1.3. He has hypertension and hyperlipidemia. No history of hemoptysis. The pain across his chest and nonpleuritic in nature. Currently is chest pain-free. Hemoglobin is at 10.7 at time of admission and currently is down to 9.4. The creatinine is at 1.3 stable, COVID-19 testing was negative, troponin times he has been negative. Cardiology consultation has been obtained. No other significant events otherwise. No hemodynamic instability. No altered mentation. No syncope. His last echocardiogram that was done on 01/28/2020 showed normal ejection fraction of 55-60%. He had a Doppler of the lower extremity on 12/10/2020 that showed no evidence of DVT of the lower extremities bilaterally. He had also a Persantine cardiac stress test that was done on 01/28/2020 that showed sinus injury was reversible ischemia involving the apex of the myocardium. The patient also had a cardiac catheterization on 01/30/2020 that showed mild disease involving the mid RCA and proximal LAD and there was a catheter induced spasm of the ostium of the right coronary artery that subsequently resolved. He was offered medical management by Dr. Carrington. On 02/23/2021 patient seen in follow-up on medical surgical floor. He is increased up in the chair, breathing comfortably right now, no complaints of chest pain today. Vital signs are stable, on 2 L of oxygen pulse ox 96%, he is afebrile. his CT chest has been reviewed showing no focal consolidation and pleural effusion or pneumothorax. Patient has been on Xarelto for previous history of pulmonary embolism. He has had no cough or pulmonary congestion, no phlegm production. He was seen by cardiology and his chest pain was felt to be atypical. Patient follows with Dr. Carrington [facility]. Acute coronary syndrome was not suspected, troponins were normal, no EKG changes. Mos t recent echocardiogram showed preserved LV function of 55-60%. Medical therapy was recommended. Objective - Vital Signs Vital signs: Vital Signs Temp 97.7 F 02/23/21 06:36 Pulse 53 L 02/23/21 06:36 Resp 20 02/23/21 06:36 BP 128/65 02/23/21 06:36 Pulse Ox 96 02/23/21 06:36 Intake & Output 02/22/21 02/23/21 02/23/21 18:59 06:59 18:59 Intake Total 500 500 Output Total 1400 950 Balance -900 -450 Intake: Oral 500 500 Output: Urine 1400 950 Other: Voiding Method Urinal Urinal Diaper Diaper # Voids 1 2 # Bowel Movements 1 - Exam GENERAL EXAM: Alert, very pleasant, 70-year-old white male, on 2 L of oxygen, with pulse ox of 96-98%, sitting up in the recliner comfortable in no apparent distress. HEAD: Normocephalic/atraumatic. EYES: Normal reaction of pupils, equal size. Conjunctiva pink, sclera white. NOSE: Clear with pink turbinates. THROAT: No erythema or exudates. NECK: No masses, no JVD, no thyroid enlargement, no adenopathy. CHEST: No chest wall deformity. Symmetrical expansion. LUNGS: Equal air entry with no crackles, wheeze, rhonchi or dullness. CVS: Regular rate and rhythm, normal S1 and S2, no gallops, no murmurs, no rubs ABDOMEN: Soft, nontender. No hepatosplenomegaly, normal bowel sounds, no guarding or rigidity. EXTREMITIES: No clubbing, no edema, no cyanosis, 2+ pulses and upper and lower extremities. MUSCULOSKELETAL: Muscle strength and tone normal. SPINE: No scoliosis or deformity SKIN: No rashes CENTRAL NERVOUS SYSTEM: Alert and oriented -3. No focal deficits, tone is normal in all 4 extremities. PSYCHIATRIC: Alert and oriented -3. Appropriate affect. Intact judgment and insight. - Labs CBC & Chem 7: 02/22/21 04:56 02/22/21 04:56 Labs: Abnormal Lab Results - Last 24 Hours (Table) 02/22/21 02/22/21 02/22/21 Range/Units 04:56 12:41 17:04 POC Glucose (mg/dL) 138 H 166 H (75-99) mg/dL Hemoglobin A1c 6.5 H (4.0-6.0) % HDL Cholesterol (40.0-60.0) mg/dL 02/22/21 02/23/21 02/23/21 Range/Units 20:41 05:49 06:37 POC Glucose (mg/dL) 156 H 136 H (75-99) mg/dL Hemoglobin A1c (4.0-6.0) % HDL Cholesterol 24.0 L (40.0-60.0) mg/dL Assessment and Plan Plan: 1 chest pain, atypical, currently under investigation. Note that the patient has no EKG abnormalities. No troponin leak. Chest x-ray showing a vague opacity in the left upper lobe, this was followed up with a contrast CT of the chest which showed no focal consolidation, pleural effusion or pneumothorax. He has previous history of pulmonary embolism. Nevertheless the patient is demented on Xarelto on outpatient basis. 2 coronary artery disease, mild, nonocclusive based on a cardiac catheterization that was done in January 2020. He has been offered medical treatment 3 congestion heart failure, preserved LV function based on that finding on that was done in 2019 4 diabetes mellitus 5 COPD 6 previous history of pulmonary embolism maintained on long-term and to coagulation with Xarelto. Doppler of the lower extremity that was done in November 2020 was negative 7 legal blindness/Retinitis pigmentosa 8 previous history of CVA/TIA 2 without any residual disorders 9 hypertension 10 hyperlipidemia 11 chronic kidney disease stage 2-3 Plan: CT of the chest has been reviewed and showed focal consolidation, effusion or pneumothorax Vital signs have been stable Breathing comfortably Patient states he still has exertional dyspnea which has been going on for about a year Does have underlying history of COPD which is stable at this time From pulmonary respectively continue considered for discharge home today in follow-up with in the office this week on I performed a history & physical examination of the patient and discussed their management with my nurse practitioner, Doreen Guzman. I reviewed the nurse practitioner's note and agree with the documented findings and plan of care. Lung sounds are positive for clear breath sounds throughout the lung burdick. The findings and the impression was discussed with the patient. I attest to the documentation by the nurse practitioner. Time with Patient: Less than 30
[2021-02-23 12:23] LABS: Glucose,Whole Blood 235 mg/dL (75-99)
--- NOTE | 2021-02-23 13:24 | P.DS ---
Providers Date of admission: 02/22/21 00:52 Expected date of discharge: 02/23/21 Attending physician: Kranthi Quinones MD Consults: 02/22/21 00:45 Consult Physician Routine Consulting Provider: Sara Carrington Consult Reason/Comments: chest pain Do you want consulting provider notified?: Yes 02/22/21 12:33 Consult Physician Routine Consulting Provider: Nithya Guzman Consult Reason/Comments: COPD, worsening MORRELL Do you want consulting provider notified?: Yes Primary care physician: Sugar Dorman Hospital Course: Discharge Diagnosis: Chest pain atypical, suspect due to overuse from surgery on right shoulder COPD with worsening shortness of breath, left upper lobe opacity Chronic kidney disease, at baseline Leukocytosis Diabetes mellitus type 2 Hypertension Dyslipidemia Hospital Course: Pankaj is a 62 yo male with a history of PMH of type II DM, Hx of PE (on Xarelto), legally blind, chronic kidney disease, hypertension, hyperlipidemia, tobacco abuse, and COPD who presented to emergency room with complaints of chest pain. In the ER he underwent an extensive evaluation. Chest x-ray in the emergency room was unremarkable. EKG in the emergency room revealed a normal sinus rhythm at [address]/T-wave changes noted as reviewed by me. Laboratory evaluation was remarkable for leukocytosis of 14.3, hemoglobin 10.7, MCV 77.3, d-dimer 0.7, BUN 23, creatinine 1.32, glucose 118, and troponin less than 0.012.He was admitted for further monitoring. His troponin remained negative. He was seen by pulmonary and cardiology and was cleared for discharge. Patient seen and examined at bedside. No additional chest pain, still with shortness of breathwith exertion which has been going on for 6-8 months. Vital signs reviewed and stable. General: non toxic, no distress, appears at stated age, chronically ill appearing Derm: warm, dry Head: atraumatic, normocephalic, symmetric Eyes: EOMI, no lid lag, anicteric sclera, horizontal nystagamous Mouth: no lip lesion, mucus membranes moist Cardiovascular: S1S2 reg, no murmur, positive posterior tibial pulse bilateral, Lungs: Course bs bilateral, no rhonchi, no rales , no accessory muscle use Abdominal: soft, nontender to palpation, no guarding, no appreciable organomegaly Ext: no gross muscle atrophy, 2+ edema, no contractures Neuro: CN II-XI grossly intact, no focal neuro deficits Psych: Alert, oriented, appropriate affect A total of 35 minutes of time were spent preparing this complex discharge summary . Patient Condition at Discharge: Fair Plan - Discharge Summary New Discharge Prescriptions: New Mupirocin 2% Oint [Bactroban 2% Oint] 1 applic TOPICAL TID #0 applic Continue Omeprazole [PriLOSEC] 20 mg PO BID Atorvastatin [Lipitor] 80 mg PO HS sitaGLIPtin [Januvia] 100 mg PO DAILY amLODIPine [Norvasc] 5 mg PO BID Labetalol [Trandate] 100 mg PO BID Isosorbide Mononitrate ER [Imdur] 60 mg PO DAILY allopurinoL [Zyloprim] 300 mg PO DAILY Rivaroxaban [Xarelto] 20 mg PO DAILY Montelukast [Singulair] 10 mg PO HS Insulin Degludec [Tresiba Flextouch U-100] 20 units SQ BID Insulin Aspart [NovoLOG Flexpen] See Protocol SQ AC-TID Albuterol Sulfate [Albuterol Sulfate Hfa] 2 puff INHALATION RT-Q4H PRN PRN Reason: Shortness Of Breath Dapagliflozin Propanediol [Farxiga] 5 mg PO HS Tamsulosin [Flomax] 0.4 mg PO HS Budesonide/Formoterol Fumarate [Symbicort 160-4.5 Mcg Inhaler] 2 puff INHALATION RT-BID metFORMIN HCL [Glucophage] 1,000 mg PO BID hydrALAZINE HCL 100 mg PO BID Furosemide [Lasix] 40 mg PO DAILY Silver Sulfadiazine [SSD 1% Cream] 1 applic TOPICAL 5XD Potassium Chloride ER [K-Dur 10] 10 meq PO DAILY Losartan Potassium [Cozaar] 100 mg PO DAILY Aspirin 81 mg PO DAILY Discharge Medication List Atorvastatin [Lipitor] 80 mg PO HS 10/10/18 [History] Isosorbide Mononitrate ER [Imdur] 60 mg PO DAILY 10/10/18 [History] Labetalol [Trandate] 100 mg PO BID 10/10/18 [History] Omeprazole [PriLOSEC] 20 mg PO BID 10/10/18 [History] Rivaroxaban [Xarelto] 20 mg PO DAILY 10/10/18 [History] allopurinoL [Zyloprim] 300 mg PO DAILY 10/10/18 [History] amLODIPine [Norvasc] 5 mg PO BID 10/10/18 [History] sitaGLIPtin [Januvia] 100 mg PO DAILY 10/10/18 [History] Albuterol Sulfate [Albuterol Sulfate Hfa] 2 puff INHALATION RT-Q4H PRN 01/27/20 [History] Insulin Aspart [NovoLOG Flexpen] See Protocol SQ AC-TID 01/27/20 [History] Insulin Degludec [Tresiba Flextouch U-100] 20 units SQ BID 01/27/20 [History] Montelukast [Singulair] 10 mg PO HS 01/27/20 [History] Budesonide/Formoterol Fumarate [Symbicort 160-4.5 Mcg Inhaler] 2 puff INHALATION RT-BID 08/09/20 [History] Dapagliflozin Propanediol [Farxiga] 5 mg PO HS 08/09/20 [History] Tamsulosin [Flomax] 0.4 mg PO HS 08/09/20 [History] metFORMIN HCL [Glucophage] 1,000 mg PO BID 08/09/20 [History] Furosemide [Lasix] 40 mg PO DAILY 12/09/20 [History] Losartan Potassium [Cozaar] 100 mg PO DAILY 12/09/20 [History] Silver Sulfadiazine [SSD 1% Cream] 1 applic TOPICAL 5XD 12/09/20 [History] hydrALAZINE HCL 100 mg PO BID 12/09/20 [History] Aspirin 81 mg PO DAILY 02/22/21 [History] Potassium Chloride ER [K-Dur 10] 10 meq PO DAILY 02/22/21 [History] Mupirocin 2% Oint [Bactroban 2% Oint] 1 applic TOPICAL TID #0 applic 02/23/21 [Rx] Follow up Appointment(s)/Referral(s): Sara Carrington MD [STAFF PHYSICIAN] - 1 Week Isaias Orellana DO [Doctor of Osteopathic Medicine] - 1 Week Sugar Dorman MD [Primary Care Provider] - 1-2 days Activity/Diet/Wound Care/Special Instructions: Activity: as tolerated Diet: heart healthy Discharge Disposition: HOME SELF-CARE
--- NOTE | 2021-02-23 14:04 | P.PN ---
Subjective Progress Note Date: 02/23/21 HISTORY OF PRESENT ILLNESS: Patient is a pleasant 70-year-old male with history of type 2 diabetes mellitus, pulmonary embolism on anticoagulation, legally blind, chronic kidney disease, COPD, tobacco abuse, hypertension, hyperlipidemia, prior mild coronary artery disease by heart catheterization 01/29/2020. Patient presents secondary to episodes of chest pain as well as shortness breath. Patient states this has been going on for last 3-4 weeks. He did have an echocardiogram performed at the end of January by Dr. Carrington however I do not have the results currently. His chest pain is not associated with any exertion. It is very reproducible and pinpoint in the left fifth intercostal space with palpation. He denies any associated nausea or diaphoresis. This shortness breath appears unrelated. He did see pulmonology who ordered a CAT scan, results are pending. Prior heart catheterization from January 2020 showed only mild disease of the RCA and proximal LAD and a catheter induced spasm of the RCA. 02/23/2021 Patient examined this morning at the bedside. She denies chest pain or pressure. He denies shortness of breath. Patient had an echocardiogram perfor med in the office last month. Ejection fraction 55-60%. Mild mitral regurgitation. Mild tricuspid regurgitation. PHYSICAL EXAM: VITAL SIGNS: Reviewed. GENERAL: Well-developed in no acute distress. NECK: Supple. No JVD or thyromegaly LUNGS: Respirations even and unlabored. Lungs essentially clear to auscultation bilaterally. HEART: Regular rate and rhythm. S1 and S2 heard. EXTREMITIES: Normal range of motion. No clubbing or cyanosis. Peripheral pulses intact. No lower extremity edema ASSESSMENT: 1. Atypical, reproducible chest pain with palpation and recent heart catheterization showing only mild coronary artery disease. Do not suspect acute coronary syndrome. Appears musculoskeletal. Troponins normal. 2. Coronary artery disease with only mild CAD by heart catheterization 3. History of PE on anticoagulation 4. Essential hypertension 5. History of stroke 6. Hyperlipidemia 7. Diabetes mellitus PLAN: 2D echo from the office reviewed Patient is stable for discharge home today from a cardiac standpoint He will follow up outpatient with Dr. Carrington Nurse practitioner note has been reviewed by physician. Signing provider agrees with the documented findings, assessment, and plan of care. Objective - Vital Signs Vital signs: Vital Signs Temp 97.7 F 02/23/21 06:36 Pulse 53 L 02/23/21 06:36 Resp 20 02/23/21 06:36 BP 128/65 02/23/21 06:36 Pulse Ox 96 02/23/21 06:36 Intake & Output 02/22/21 02/23/21 02/23/21 18:59 06:59 18:59 Intake Total 500 500 Output Total 1400 950 Balance -900 -450 Intake: Oral 500 500 Output: Urine 1400 950 Other: Voiding Method Urinal Urinal Diaper Diaper # Voids 1 2 # Bowel Movements 1 - Labs CBC & Chem 7: 02/22/21 04:56 02/22/21 04:56 Labs: Abnormal Lab Results - Last 24 Hours (Table) 02/22/21 02/22/21 02/22/21 Range/Units 04:56 12:41 17:04 POC Glucose (mg/dL) 138 H 166 H (75-99) mg/dL Hemoglobin A1c 6.5 H (4.0-6.0) % HDL Cholesterol (40.0-60.0) mg/dL 02/22/21 02/23/21 02/23/21 Range/Units 20:41 05:49 06:37 POC Glucose (mg/dL) 156 H 136 H (75-99) mg/dL Hemoglobin A1c (4.0-6.0) % HDL Cholesterol 24.0 L (40.0-60.0) mg/dL
[2021-02-23 14:34] VITALS: BP 109/55; PULSE 52; RESP 18; TEMP 97.5
[2021-02-23 17:22] LABS: Glucose,Whole Blood 126 mg/dL (75-99)
== END 2021-02-23 18:30 | disposition home or self-care (01) ==
LOC: EC 22:45 → 6NMEDSUR 02-22 00:52
PROVIDERS: ADMIT Internal Medicine; ATTEND Internal Medicine
DX: R07.89 Other chest pain (principal); J44.9 Chronic obstructive pulmonary disease, unspecified; N18.9 Chronic kidney disease, unspecified; I13.0 Hypertensive heart and chronic kidney disease with heart failure and stage 1 through stage 4 chronic kidney disease, or unspecified chronic kidney disease; E11.22 Type 2 diabetes mellitus with diabetic chronic kidney disease; D72.829 Elevated white blood cell count, unspecified; Z20.822 Contact with and (suspected) exposure to COVID-19; E78.5 Hyperlipidemia, unspecified; I50.9 Heart failure, unspecified; I25.10 Atherosclerotic heart disease of native coronary artery without angina pectoris; H54.8 Legal blindness, as defined in USA; K21.9 Gastro-esophageal reflux disease without esophagitis; E66.01 Morbid (severe) obesity due to excess calories; Z68.41 Body mass index [BMI] 40.0-44.9, adult; H35.52 Pigmentary retinal dystrophy; C95.90 Leukemia, unspecified not having achieved remission; M10.9 Gout, unspecified; Z79.01 Long term (current) use of anticoagulants; Z79.4 Long term (current) use of insulin; Z79.51 Long term (current) use of inhaled steroids; Z79.82 Long term (current) use of aspirin; Z79.899 Other long term (current) drug therapy; Z86.711 Personal history of pulmonary embolism; Z86.73 Personal history of transient ischemic attack (TIA), and cerebral infarction without residual deficits; Z87.891 Personal history of nicotine dependence; Z96.619 Presence of unspecified artificial shoulder joint; Z98.41 Cataract extraction status, right eye; Z98.42 Cataract extraction status, left eye; Z90.49 Acquired absence of other specified parts of digestive tract; Z88.8 Allergy status to other drugs, medicaments and biological substances; Z96.643 Presence of artificial hip joint, bilateral; Z96.653 Presence of artificial knee joint, bilateral
CPT/HCPCS: 93005 ×2; 99285; 36415; 94640 ×3; 85379; 80061; 80053; 80048; 82728; 83540; 83550; 83735; 84484 ×2; 85025; 85027; 85610; 85730; 83036; 87635; 71046; 71250; G0378 ×2

== ENCOUNTER → 2021-04-10 | Outpatient (CLI) | payer MEDICARE, OTHER ==
--- NOTE | 2021-04-10 08:25 | US ---
EXAMINATION TYPE: US abdomen complete DATE OF EXAM: 04/10/2021 COMPARISON: NONE CLINICAL HISTORY: R10.13 epigastric pain. Right side pain. GB removed. Hx liver cysts. EXAM MEASUREMENTS: Liver Length: 21.5 cm CBD: 0.5 cm Spleen: 15.0 cm Right Kidney: 11.0 x 5.6 x 4.6 cm Left Kidney: 11.5 x 5.0 x 5.8 cm Pancreas: Echogenic in appearance Liver: Multiple cystic lesions seen. Largest in left lobe= 4.1 x 3.3 x 2.6 cm Gallbladder: Surgically absent Evidence for sonographic Moulton's sign: neg CBD: wnl Spleen: Cystic lesion = 1.6 x 1.9 x 1.4 cm Right Kidney: No hydronephrosis or masses seen Left Kidney: Medial hypoechoic lesion = 0.8 x 0.9 x 0.8 cm Upper IVC: wnl Abd Aorta: Mid and distal portion obscured by overlying bowel gas IMPRESSION: 1. Multiple hepatic cysts. 2. Splenic cyst. 3. Left renal indeterminate lesion could be followed with MRI.
== END | disposition home or self-care (01) ==
LOC: RADUSWWP 07:28
PROVIDERS: ATTEND Internal Medicine Gastroenterology
DX: K76.89 Other specified diseases of liver (principal); D73.4 Cyst of spleen
CPT/HCPCS: 76700

== ENCOUNTER → 2021-09-17 | Outpatient (CLI) | payer MEDICARE, OTHER ==
[2021-09-17 18:16] LABS: ALT 12 U/L (10-49); AST 22 U/L (14-35)
== END | disposition home or self-care (01) ==
LOC: LABWHC1 13:10
PROVIDERS: ATTEND Psychiatry & Neurology Pain Medicine
DX: R51.9 Headache, unspecified (principal); R31.9 Hematuria, unspecified
CPT/HCPCS: 36415; 84450; 84460

== ENCOUNTER → 2022-12-02 | Outpatient (CLI) | payer MEDICARE, OTHER ==
[2022-12-02 16:01] LABS: ALT 26 U/L (10-49); AST 39 U/L (14-35); African American GFR (CKD) 46.3 (60.0-200.0); Alkaline Phosphatase 98 U/L (41-126); Blood Urea Nitrogen 37.4 mg/dL (9.0-27.0); Calcium 9.5 mg/dL (8.7-10.3); Carbon Dioxide 24.9 mmol/L (20.0-27.5); Chloride 110 mmol/L (96-109); Chol/HDL Ratio 2.92 Ratio; Globulin 1.6 g/dL (1.6-3.3); Glucose 73 mg/dL (70-110); LDL Cholesterol,Calculated 86.6 mg/dL (0.0-131.0); Potassium 4.6 mmol/L (3.5-5.5); Sodium 147 mmol/L (135-145); Total Protein 5.6 g/dL (6.2-8.2)
[2022-12-02 16:02] LABS: HCT 32.7 % (39.6-50.0); HGB 9.8 g/dL (13.0-17.0); MCH 25.4 pg (27.0-32.0); MCV 84.7 fL (80.0-97.0); Mean Platelet Volume 10.1 fL (9.5-12.2); NRBC Per 100 WBC 0 /100 WBCS (0.0-0.0); Platelet Count 200 X 10*3/uL (140-440); RBC 3.86 X 10*6/uL (4.40-5.60); RDW 17.3 % (11.5-14.5); WBC 15.61 X 10*3/uL (4.50-10.00)
== END | disposition home or self-care (01) ==
LOC: LABWHC1 09:23
PROVIDERS: ATTEND Internal Medicine Interventional Cardiology
DX: I25.10 Atherosclerotic heart disease of native coronary artery without angina pectoris (principal); E78.2 Mixed hyperlipidemia
CPT/HCPCS: 36415; 80053; 80061; 85027

== ENCOUNTER → 2023-01-07 | Day surgery (SDC) | payer MEDICARE, OTHER ==
[~2023-01-07] MED LIST changes: +ASPIRIN 81 MG PO SCH; +ATORVASTATIN 80 MG TAB PO SCH; +DAPAGLIFLOZIN PROPANEDIOL 5 MG TABLET PO SCH; +HEPARIN SODIUM 1,000 UN/ML (10ML VL) IV ONE; +HEPARIN SODIUM 1,000 UN/ML (10ML VL) ONE; +HEPARIN SODIUM,PORCINE 10,000 UNIT in SODIUM CHLORIDE 0.9% 1,000 ML IRRIGATION PRN; +HEPARIN SODIUM,PORCINE 2,500 UNIT in SODIUM CHLORIDE 0.9% 250 ML IRRIGATION PRN; +IOPAMIDOL-370 100ML BTL INJ ONE; +ISOSORBIDE MONONITRATE ER 60 MG TAB.ER.24H PO SCH; +LABETALOL 100 MG TAB PO SCH; +LIDOCAINE 1% INJ 10MG/ML (5 ML VIAL-PF) SQ ONE; +MONTELUKAST 10 MG TAB PO SCH; +NON FORMULARY DRUG (Insulin Degludec [Tresiba Flextouch U-100 Pen] 100 UNIT/ML Insuln.Pen) SQ SCH; +NON FORMULARY DRUG (Losartan Potassium [Cozaar] 100 MG Tablet) PO SCH; +NON FORMULARY DRUG (Omeprazole 20 MG Capsule.Dr) PO SCH; +RX INFO: IV CONTRAST WAS GIVEN 1 EACH MISC MISCELLANE PRN; +SODIUM CHLORIDE 0.9% 1,000 ML IV ONE; +SODIUM CHLORIDE 0.9% 1,000 ML IV SCH; -SODIUM CHLORIDE 0.9% 1,000 ML in EMPTY BAG 1 BAG IV ONE; +SODIUM CHLORIDE 0.9% 1,000 ML in EMPTY BAG 1 BAG IV SCH; +TAMSULOSIN 0.4 MG CAP.ER.24H PO SCH; +VERAPAMIL 2.5 MG/ML 2 ML AMP ONE; +VERAPAMIL SYRINGE (5 MG/10 ML) INTRAARTER ONE; +amLODIPine 5 MG TAB PO SCH; +fentaNYL (PF) 50 MCG/ML 2 ML AMP IV ONE; +fentaNYL (PF) 50 MCG/ML 2 ML AMP ONE
[2023-01-07 06:55] LABS: Glucose,Whole Blood 116 mg/dL (70-110)
[2023-01-07 06:56] VITALS: TEMP 98
[2023-01-07 06:59] LABS: Anisocytosis Slight; Basophils % (A) 0 %; Eosinophils # (A) 0.2 k/uL (0-0.7); Eosinophils % (A) 2 %; HCT 35.6 % (39.0-53.0); HGB 11.5 gm/dL (13.0-17.5); Hypochromasia Slight; Lymphocytes % (A) 51 %; MCH 25.6 pg (25.0-35.0); MCHC 32.3 g/dL (31.0-37.0); MCV 79.2 fL (80.0-100.0); Mean Platelet Volume 9.1; Microcytosis Slight; Monocytes # (A) 0.4 k/uL (0-1.0); Monocytes % (A) 4 %; Neutrophils % (A) 42 %; Platelet Count 166 k/uL (150-450); RDW 16.4 % (11.5-15.5)
[2023-01-07 07:33] LABS: African American GFR (CKD) 50 (>60 ml/min/1.73 sqM); Anion Gap 10 mmol/L; Blood Urea Nitrogen 24 mg/dL (9-20); Calcium 9.1 mg/dL (8.4-10.2); Carbon Dioxide 24 mmol/L (22-30); Chloride 108 mmol/L (98-107); Glucose 117 mg/dL (74-99); Non-African American GFR(CKD) 44 (>60 ml/min/1.73 sqM); Potassium 4.2 mmol/L (3.5-5.1); Sodium 142 mmol/L (137-145)
--- NOTE | 2023-01-07 09:43 | P.CARDCATH ---
Date of Procedure: 01/07/23 Description of Procedure: Cardiac Catheterization: The patient is a 72-year-old male with a known history of CAD, hypertension, diabetes and hyperlipidemia who has been complaining of progressive dyspnea and chest discomfort. He had an abnormal MPI. Recommendations were made regarding cardiac catheterization, the risks and the complications were discussed with the patient who is in full understanding and agreement. Procedure Description: Patient was brought to excavation laborer in fasting semi-sedated state after receiving Fentanyl and Benadryl achieiving moderate conscious sedated state. Using Xylocaine Anesthesia and Seldinger technique, a 6-Armenian sheath was introduced in the right radial artery . Subsequently, selective coronary angiography was performed using a 5-Armenian 3.5 bend Edilma catheter. Multiple views of the coronary artery including hemiaxial views were obtained. The 5-Armenian pigtail catheter was used to cross the aortic valve and LVEDP was calculated. Following that, catheter and sheath were removed. Hemostasis was obtained with deployment of TR band . There was no immediate complication. Patient was returned to room in stable condition. Of note, the patient received a total of 5000 units of intravenous heparin as well as intra-arterial verapamil. Findings: Left main: This is a large size vessel, bifurcating into LAD and left circumflex, the distal left main has 10% plaque, the rest of the vessel has no high-grade stenosis LAD: This is a large size vessel, reaching to the apex, giving rise to a large diagonal branch, the proximal LAD has 20-30% plaque no high-grade stenosis Left circumflex: This is a nondominant vessel giving rise to a very proximal obtuse marginal branch, the second obtuse marginal branch is small in caliber, the left circumflex and its branches have no evidence of obstructive disease RCA: This is a dominant vessel, bifurcating into PDA and PLV the proximal and mid RCA has mild intimal disease of 20-30% without any evidence of high-grade stenosis Left Ventriculogram: Not performed Hemodynamics: There was no gradient across the aortic valve , LVEDP was 14-18 mmHg Conclusion: 1. Mild obstructive disease in the LAD and right coronary artery 2. Right dominance 3. No progression of disease compared with old imaging Recommendations: At this time I'll continue on the present medical therapy with guideline maximum medical therapy. The findings and the recommendations were discussed with the patient and he was in full understanding and agreement. Duration of sedation is 22 minutes.
[2023-01-07 15:05] VITALS: BP 145/85; PULSE 48; RESP 16
== END | disposition home or self-care (01) ==
LOC: CATHCVL 06:20
PROVIDERS: ATTEND Internal Medicine Interventional Cardiology
DX: I25.10 Atherosclerotic heart disease of native coronary artery without angina pectoris (principal); I25.9 Chronic ischemic heart disease, unspecified; E11.51 Type 2 diabetes mellitus with diabetic peripheral angiopathy without gangrene; I10 Essential (primary) hypertension; G47.33 Obstructive sleep apnea (adult) (pediatric); E78.2 Mixed hyperlipidemia; Z87.891 Personal history of nicotine dependence; Z79.82 Long term (current) use of aspirin; Z79.899 Other long term (current) drug therapy; Z79.01 Long term (current) use of anticoagulants; Z79.4 Long term (current) use of insulin; Z79.84 Long term (current) use of oral hypoglycemic drugs; Z79.51 Long term (current) use of inhaled steroids; Z88.8 Allergy status to other drugs, medicaments and biological substances
CPT/HCPCS: 93458; 99152; 80048; 85025; C1769; C1894; J2001; J3010; J1644; Q9967

== ENCOUNTER 2024-01-08 13:59 | Inpatient (IN) | payer MEDICARE, OTHER ==
[2024-01-08 14:10] LABS: Glucose,Whole Blood 193 mg/dL (70-110)
[2024-01-08] MEDS: SODIUM CHLORIDE 0.9% 500 ML 500 ML IV ONE (14:21)
--- NOTE | 2024-01-08 14:27 | CT ---
EXAMINATION TYPE: CT brain wo con CT DLP: 1293.1 mGycm, Automated exposure control for dose reduction was used. DATE OF EXAM: 01/08/2024 2:21 PM COMPARISON: None. CLINICAL INDICATION:Male, 73 years old with history of Neuro deficit, acute, stroke suspected, Neuro deficit, acute, stroke suspected. right side weakness TECHNIQUE: Brain: Axial CT images of the brain were obtained with coronal and sagittal reformats created and rev iewed. Contrast used: None. Oral contrast used: None. FINDINGS: Brain: Extra-axial spaces: No abnormal extra-axial fluid collections. Ventricular system: Within normal limits Cerebral parenchyma: No acute intraparenchymal hemorrhage or mass effect. The gtz-white junction is well differentiated. Scattered hypoattenuating areas are seen within the white matter. Cerebellum: Unremarkable. Mass effect: No evidence of midline shift. Intracranial vasculature: unremarkable Soft tissues: Normal. Calvarium/osseous structures: No depressed skull fracture. Paranasal sinuses and mastoid air cells: Mild scattered paranasal sinus disease. Visualized orbits: Orbital contents are intact. IMPRESSION: 1. No acute intracranial process. 2. Nonspecific white matter changes, likely secondary to chronic small vessel ischemic disease.
[2024-01-08 14:30] LABS: ALT 23 U/L (4-49); AST 38 U/L (17-59); African American GFR (CKD) 42 (>60 ml/min/1.73 sqM); Albumin 3.8 g/dL (3.5-5.0); Alkaline Phosphatase 64 U/L (38-126); Anion Gap 8 mmol/L; Blood Urea Nitrogen 40 mg/dL (9-20); Calcium 8.6 mg/dL (8.4-10.2); Carbon Dioxide 26 mmol/L (22-30); Chloride 110 mmol/L (98-107); Creatine Kinase 154 U/L (55-170); Glucose 175 mg/dL (74-99); Non-African American GFR(CKD) 37 (>60 ml/min/1.73 sqM); Potassium 4.3 mmol/L (3.5-5.1); Sodium 144 mmol/L (137-145); Total Bilirubin 0.6 mg/dL (0.2-1.3); Total Protein 5.9 g/dL (6.3-8.2)
--- NOTE | 2024-01-08 14:30 | ED ---
General Adult HPI - General Chief complaint: Neuro Symptoms/Deficit Stated complaint: Poss Stroke Time Seen by Provider: 01/08/24 14:01 Source: patient, EMS, RN notes reviewed, old records reviewed Mode of arrival: EMS Limitations: no limitations - History of Present Illness Initial comments: 83-year-old male with remote history of CVA presenting with stroke symptoms which began at approximately 1250. Patient had developed some dizziness, headache, and right-sided weakness. Paramedics had noted a drift in the right upper and right lower extremity. Patient is legally blind from . He does take Xarelto and states that he took this medication this morning. Patient is a code stroke activation. - Related Data Home Medications Medication Instructions Recorded Confirmed Atorvastatin [Lipitor] 80 mg PO HS 10/10/18 01/08/24 Isosorbide Mononitrate ER [Imdur] 60 mg PO DAILY 10/10/18 01/08/24 Labetalol [Trandate] 100 mg PO DAILY 10/10/18 01/08/24 Omeprazole [PriLOSEC] 20 mg PO BID 10/10/18 01/08/24 Rivaroxaban [Xarelto] 20 mg PO DAILY 10/10/18 01/08/24 amLODIPine [Norvasc] 5 mg PO BID 10/10/18 01/08/24 Albuterol Sulfate [Albuterol 2 puff INHALATION RT-Q4H PRN 01/27/20 01/08/24 Sulfate Hfa] Insulin Aspart [NovoLOG Flexpen] 5 - 15 units SQ AC-TID 01/27/20 01/08/24 Insulin Degludec [Tresiba 22 units SQ BID 01/27/20 01/08/24 Flextouch U-100 Pen] Montelukast [Singulair] 10 mg PO HS 01/27/20 01/08/24 Dapagliflozin Propanediol [Farxiga] 5 mg PO HS 08/09/20 01/08/24 Tamsulosin [Flomax] 0.8 mg PO PC-SUPPER 08/09/20 01/08/24 Losartan Potassium [Cozaar] 100 mg PO DAILY 12/09/20 01/08/24 Aspirin 81 mg PO HS 02/22/21 01/08/24 Potassium Chloride ER [K-Dur 10] 10 meq PO DAILY 02/22/21 01/08/24 Budesonide/Glycopyr/Formoterol 2 puff INHALATION RT-BID 01/08/24 01/08/24 [Breztri Aerosphere Inhaler] Cyanocobalamin (Vitamin B-12) 1,000 mcg PO DAILY 01/08/24 01/08/24 [Vitamin B-12] Furosemide [Lasix] 20 mg PO DAILY 01/08/24 01/08/24 Gabapentin 300 mg PO TID 01/08/24 01/08/24 HYDROcodone/APAP 5-325MG [[place] 1 tab PO Q8H PRN 01/08/24 01/08/24 5-325] Levalbuterol Nebulized [Xopenex 1.25 mg INHALATION RT-Q8H PRN 01/08/24 01/08/24 Nebulized] Solifenacin Succinate 5 mg PO DAILY 01/08/24 01/08/24 allopurinoL [Zyloprim] 100 mg PO HS 01/08/24 01/08/24 metFORMIN HCL ER [Glucophage XR] 500 mg PO BID-W/MEALS 01/08/24 01/08/24 Allergies Allergy/AdvReac Type Severity Reaction Status Date / Time cortisone Allergy Anaphylaxis, Verified 01/08/24 15:22 tongue swelling Review of Systems ROS Statement: Those systems with pertinent positive or pertinent negative responses have been documented in the HPI. ROS Other: All systems not noted in ROS Statement are negative. 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 History of Any Multi-Drug Resistant Organisms: None Reported Past Surgical History: Appendectomy, Back Surgery, Cholecystectomy, Heart Catheterization, Joint Replacement, Orthopedic Surgery Additional Past Surgical History / Comment(s): BILAT TKA &MICHAEL. LT SHOULDER SX/b ilateral total shoulder replacements. RT ROTATOR CUFF REPAIR X 2. COLONOSCOPY Past Anesthesia/Blood Transfusion Reactions: No Reported Reaction Additional Past Anesthesia/Blood Transfusion Reaction / Comment(s): Pt unsure if he has received blood. Past Psychological History: No Psychological Hx Reported Smoking Status: Former smoker - Past Family History Mother Family Medical History: No Reported History Additional Family Medical History / Comment(s): Smoker. Father Sister(s) Family Medical History: Vascular Disorder Additional Family Medical History / Comment(s): ASHD General Exam General appearance: alert, in no apparent distress Head exam: Present: atraumatic, normocephalic Eye exam: Present: PERRL Respiratory exam: Present: normal lung sounds bilaterally. Absent: respiratory distress, wheezes Cardiovascular Exam: Present: normal rhythm, bradycardia GI/Abdominal exam: Present: soft. Absent: distended, tenderness Neurological exam: Present: alert, oriented X3, CN II-XII intact. Absent: motor sensory deficit Psychiatric exam: Present: normal affect, normal mood Skin exam: Present: warm, dry, intact. Absent: cyanosis, diaphoretic Course Vital Signs 01/08/24 01/08/24 14:01 15:28 Temperature 97.6 F Pulse Rate 57 L 52 L Respiratory 18 18 Rate Blood Pressure 171/87 150/63 O2 Sat by Pulse 97 99 Oximetry - Reevaluation(s) Reevaluation #1: 01/08/24 14:[address] Toure, recommends CT brain wo contrast, hold CT angiography given low NIH, anticoagulation and history of chronic kidney disease. Medical Decision Making - Medical Decision Making Was pt. sent in by a medical professional or institution (, PA, RADIATOR REPAIRER, urgent ca re, hospital, or custodial...) When possible be specific @ -No Did you speak to anyone other than the patient for history (EMS, parent, family, police, friend...)? What history was obtained from this source @ -No Did you review nursing and triage notes (agree or disagree)? Why? @ -I reviewed and agree with nursing and triage notes Were old charts reviewed (outside hosp., previous admission, EMS record, old EKG, old radiological studies, urgent care reports/EKG's, custodial records)? Report findings @ -No old charts were reviewed Differential CVA Ischemic stroke, hemorrhagic stroke, brain tumor, atypical migraine, Wernicke's encephalopathy, seizure, multiple sclerosis, meningitis, encephalitis, hypoglycemia, Guillain-Son, electrolytes disturbance, myasthenia gravis.... This is not meant to be an all-inclusive list EKG interpreted by me (3pts min.). @EKG: Sinus bradycardia rate of 55, FL interval 179, QRS duration 105, QTc [address] segment elevation. X-rays interpreted by me (1pt min.). @X-ray of the chest showing pulmonary vascular congestion. CT interpreted by me (1pt min.). @The brain negative for intracranial hemorrhage or mass effect. U/S interpreted by me (1pt. min.). @ -None done What testing was considered but not performed or refused? (CT, X-rays, U/S, la bs)? Why? @ -None What meds were considered but not given or refused? Why? @ -None Did you discuss the management of the patient with other professionals (professionals i.e. , PA, RADIATOR REPAIRER, lab, RT, psych nurse, psychiatric social worker supervisor, chucking machine set up operator, teacher, seaman officer, outpatient case manager)? Give summary @ -Case discussed with Dr. Barbosa who will admit Was smoking cessation discussed for >3mins.? @ -No Was critical care preformed (if so, how long)? @ -yes, 35 min Were there social determinants of health that impacted care today? How? (Homelessness, low income, unemployed, alcoholism, drug addiction, transportati on, low edu. Level, literacy, decrease access to med. care, detention, rehab)? @ -No Was there de-escalation of care discussed even if they declined (Discuss DNR or withdrawal of care, Hospice)? DNR status @ -No What co-morbidities impacted this encounter? (DM, HTN, Smoking, COPD, CAD, Cancer, CVA, ARF, Chemo, Hep., AIDS, mental health diagnosis, sleep apnea, morbid obesity)? @Chronic kidney disease, CVA Was patient admitted / discharged? Hospital course, mention meds given and route, prescriptions, significant lab abnormalities, going to OR and other pertinent info. @ -4-year-old male presenting with right-sided weakness, dizziness, headache. Patient has previous CVA, paramedics report that he had no residual weakness from his CVA but the patient states that he has had some minor residual deficits although these were worse today. Initial NIH is 3. Patient not a normal lytic candidate secondary to anticoagulation and low NIH. Patient was a stroke activation and workup in the emergency department reveals chronic CBC abnormalities, chronic kidney disease, head CT is negative. Patient will be admitted for further evaluation of CVA, neurology placed on consult. Undiagnosed new problem with uncertain prognosis? @ -No Drug Therapy requiring intensive monitoring for toxicity (Heparin, Nitro, Insulin, Cardizem)? @ -No Were any procedures done? @ -No Diagnosis/symptom? @ -Dizzy, right-sided weakness, CVA Acute, or Chronic, or Acute on Chronic? @ -[Acute Uncomplicated (without systemic symptoms) or Complicated (systemic symptoms)? @ -Default Side effects of treatment? @ -No Exacerbation, Progression, or Severe Exacerbation? @ -No Poses a threat to life or bodily function? How? (Chest pain, USA, MS, pneumonia, PE, COPD, DKA, ARF, appy, cholecystitis, CVA, Diverticulitis, Homicidal, Suicidal, threat to staff... and all critical care pts) @ -[yes, CVA - Lab Data Result diagrams: 01/08/24 14:11 01/08/24 14:11 Lab Results 01/08/24 01/08/24 01/08/24 Range/Units 14:07 14:11 14:11 WBC 14.1 H (3.8-10.6) k/uL RBC 4.07 L (4.30-5.90) m/uL Hgb 10.6 L (13.0-17.5) gm/dL Hct 33.5 L (39.0-53.0) % MCV 82.3 (80.0-100.0) fL MCH 25.9 (25.0-35.0) pg MCHC 31.5 (31.0-37.0) g/dL RDW 17.3 H (11.5-15.5) % Plt Count 157 (150-450) k/uL MPV 8.2 Neutrophils % (Manual) 39 % Lymphocytes % (Manual) 60 % Monocytes % (Manual) 1 % Neutrophils # (Manual) 5.50 (1.3-7.7) k/uL Lymphocytes # (Manual) 8.46 H (1.0-4.8) k/uL Monocytes # (Manual) 0.14 (0-1.0) k/uL Nucleated RBCs 0 (0-0) /100 WBC Manual Slide Review Performed Hypochromasia Moderate Anisocytosis Slight Ovalocytes Present PT 14.6 H (10.0-12.5) sec INR 1.4 H (<1.2) APTT 32.1 H (22.0-30.0) sec Sodium (137-145) mmol/L Potassium (3.5-5.1) mmol/L Chloride (98-107) mmol/L Carbon Dioxide (22-30) mmol/L Anion Gap mmol/L BUN (9-20) mg/dL Creatinine (0.66-1.25) mg/dL Est GFR (CKD-EPI)AfAm (>60 ml/min/1.73 sqM) Est GFR (CKD-EPI)NonAf (>60 ml/min/1.73 sqM) Glucose (74-99) mg/dL POC Glucose (mg/dL) 193 H (70-110) mg/dL POC Glu Filter Changer ID Mango, Cate Calcium (8.4-10.2) mg/dL Total Bilirubin (0.2-1.3) mg/dL AST (17-59) U/L ALT (4-49) U/L Alkaline Phosphatase (38-126) U/L Creatine Kinase (55-170) U/L Total Protein (6.3-8.2) g/dL Albumin (3.5-5.0) g/dL 01/08/24 Range/Units 14:11 WBC (3.8-10.6) k/uL RBC (4.30-5.90) m/uL Hgb (13.0-17.5) gm/dL Hct (39.0-53.0) % MCV (80.0-100.0) fL MCH (25.0-35.0) pg MCHC (31.0-37.0) g/dL RDW (11.5-15.5) % Plt Count (150-450) k/uL MPV Neutrophils % (Manual) % Lymphocytes % (Manual) % Monocytes % (Manual) % Neutrophils # (Manual) (1.3-7.7) k/uL Lymphocytes # (Manual) (1.0-4.8) k/uL Monocytes # (Manual) (0-1.0) k/uL Nucleated RBCs (0-0) /100 WBC Manual Slide Review Hypochromasia Anisocytosis Ovalocytes PT (10.0-12.5) sec INR (<1.2) APTT (22.0-30.0) sec Sodium 144 (137-145) mmol/L Potassium 4.3 (3.5-5.1) mmol/L Chloride 110 H (98-107) mmol/L Carbon Dioxide 26 (22-30) mmol/L Anion Gap 8 mmol/L BUN 40 H (9-20) mg/dL Creatinine 1.82 H (0.66-1.25) mg/dL Est GFR (CKD-EPI)AfAm 42 (>60 ml/min/1.73 sqM) Est GFR (CKD-EPI)NonAf 37 (>60 ml/min/1.73 sqM) Glucose 175 H (74-99) mg/dL POC Glucose (mg/dL) (70-110) mg/dL POC Glu Filter Changer ID Calcium 8.6 (8.4-10.2) mg/dL Total Bilirubin 0.6 (0.2-1.3) mg/dL AST 38 (17-59) U/L ALT 23 (4-49) U/L Alkaline Phosphatase 64 (38-126) U/L Creatine Kinase 154 (55-170) U/L Total Protein 5.9 L (6.3-8.2) g/dL Albumin 3.8 (3.5-5.0) g/dL Critical Care Time Critical Care Time: Yes Total Critical Care Time: 35 Disposition Clinical Impression: Cerebrovascular accident (CVA) Disposition: ADMITTED IP TO THIS [facility] Condition: Stable Is patient prescribed a controlled substance at d/c from ED?: No Referrals: Nonstaff,Physician [Primary Care Provider] - 1-2 days Time of Disposition: 16:28
[2024-01-08 14:31] LABS: Anisocytosis Slight; HCT 33.5 % (39.0-53.0); HGB 10.6 gm/dL (13.0-17.5); Hypochromasia Moderate; MCH 25.9 pg (25.0-35.0); MCHC 31.5 g/dL (31.0-37.0); MCV 82.3 fL (80.0-100.0); Mean Platelet Volume 8.2; Platelet Count 157 k/uL (150-450); RBC 4.07 m/uL (4.30-5.90); RDW 17.3 % (11.5-15.5); WBC 14.1 k/uL (3.8-10.6)
[2024-01-08 14:32] LABS: INR 1.4 (<1.2); Partial Thromboplastin Time 32.1 sec (22.0-30.0); Prothrombin Time 14.6 sec (10.0-12.5)
[2024-01-08 14:52] LABS: Lymphocytes # (M) 8.46 k/uL (1.0-4.8); Monocytes # (M) 0.14 k/uL (0-1.0); Neutrophils % (M) 39 %; Nucleated Red Blood Cells 0 /100 WBC (0-0); Ovalocytes Present; Total Cells Counted 100
--- NOTE | 2024-01-08 15:01 | XR ---
EXAMINATION TYPE: XR chest 2V DATE OF EXAM: 01/08/2024 2:58 PM CLINICAL INDICATION:Male, 73 years old with history of altered mental status; [facility] COMPARISON: Chest radiographs from 02/21/2021 TECHNIQUE: XR chest 2V Frontal and lateral views of the chest. FINDINGS: Lungs/Pleura: There is no evidence of pleural effusion, focal consolidation, or pneumothorax. Pulmonary vascularity: Unremarkable. Heart/mediastinum: Cardiomediastinal silhouette is enlarged and stable. Musculoskeletal: No acute osseous pathology. IMPRESSION: Cardiomegaly and mild pulmonary vascular congestion. Correlate with BNP for congestive heart failure.
[2024-01-08] MEDS: ASPIRIN 325 MG TAB PO STA (15:25)
[2024-01-08 18:30] LABS: Glucose,Whole Blood 169 mg/dL (70-110)
[2024-01-08] MEDS ORDERED: ALBUTEROL HFA INHALER INHALATION PRN (19:16)
[2024-01-08] MEDS ORDERED: ALBUTEROL NEBULIZED 2.5 MG/3 ML INHALATION PRN (19:16)
[2024-01-08] MEDS ORDERED: DEXTROSE 50% SYRINGE 50 ML IVP PRN ×2 (19:18)
[2024-01-08] MEDS: SYMBICORT 160-4.5 MCG INHALER INHALATION SCH (20:48)
[2024-01-08] MEDS: IPRATROPIUM 0.5 MG/2.5 ML NEBU INHALATION SCH (20:48)
[2024-01-08] MEDS: INSULIN ASPART (NovoLOG) 100 UNIT/ML VIAL SQ SCH (21:25)
[2024-01-08 21:29] LABS: Glucose,Whole Blood 141 mg/dL (70-110)
[2024-01-08] MEDS: amLODIPine 5 MG TAB PO SCH (21:40)
[2024-01-08] MEDS: MONTELUKAST 10 MG TAB PO SCH (21:40)
[2024-01-08] MEDS: DAPAGLIFLOZIN PROPANEDIOL 5 MG TABLET PO SCH (21:40)
[2024-01-08] MEDS: TAMSULOSIN 0.4 MG CAP.ER.24H PO SCH (21:40)
[2024-01-08] MEDS: GABAPENTIN 300 MG CAP PO SCH (21:40)
[2024-01-08] MEDS: ATORVASTATIN 80 MG TAB PO SCH (21:40)
[2024-01-08] MEDS: allopurinoL 100 MG TAB PO SCH (21:40)
[2024-01-08] MEDS: INSULIN DETEMIR (LEVEMIR) 100 UNIT/ML SYR SQ SCH (22:15)
[2024-01-09] MEDS: HYDROcodone/APAP 5-325MG 1 EACH TAB PO PRN (04:09)
[2024-01-09 07:37] LABS: Glucose,Whole Blood 71 mg/dL (70-110)
[2024-01-09] MEDS: ISOSORBIDE MONONITRATE ER 60 MG TAB.ER.24H PO SCH (08:33)
[2024-01-09] MEDS: LABETALOL 100 MG TAB PO SCH (08:34)
[2024-01-09] MEDS: PANTOPRAZOLE 40 MG TABLET PO SCH (08:34)
[2024-01-09] MEDS: CYANOCOBALAMIN 500 MCG TAB PO SCH (08:34)
[2024-01-09 08:39] LABS: LDL Cholesterol,Calculated 57.7 mg/dL (0.0-131.0)
--- NOTE | 2024-01-09 12:12 | P.HPIM ---
History of Present Illness 83-year-old male came in with complaints of weakness on the right side significantly improved by the time I evaluated the patient patient did not receive any tPA patient also has patient facial droop towards the left side along with speech abnormality all of which are apparently improving at this time. Patient is legally blind. Patient's multiple has multiple other medical problems patient is on anticoagulation with Xarelto which is being held until being evaluated by neurology. Patient is on anticoagulation for DVT and pulmon traci embolism in the past patient is not much ambulatory because of which he was not never taken off anticoagulation. Patient also has chronic kidney disease appears to have 1.7 is his baseline creatinine and he is also on 300 mg of gabapentin 3 times a day along with metformin which cannot be used with his kidney function. Stenting was discussed with the patient. Patient any fever or chills. Patient does have some drift in the right hand with around 4+/5 strength. Both upper and lower extremities. REVIEW OF SYSTEMS: CONSTITUTIONAL: No fever, no malaise, no fatigue. HEENT: No recent visual problems or hearing problems. Denied any sore throat. CARDIOVASCULAR: No chest pain, orthopnea, PND, no palpitations, no syncope. PULMONARY: No shortness of breath, no cough, no hemoptysis. GASTROINTESTINAL: No diarrhea, no nausea, no vomiting, no abdominal pain. NEUROLOGICAL: No headaches, HEMATOLOGICAL: Denies any bleeding or petechiae. GENITOURINARY: Denies any burning micturition, frequency, or urgency. MUSCULOSKELETAL/RHEUMATOLOGICAL: Denies any joint pain, swelling, or any muscle pain. ENDOCRINE: Denies any polyuria or polydipsia. The rest of the 14-point review of systems is negative. PHYSICAL EXAMINATION: GENERAL: The patient is alert and oriented x3, not in any acute distress. Well developed, well nourished. HEENT: Pupils are round and equally reacting to light. EOMI. No scleral icterus. No conjunctival pallor. Normocephalic, atraumatic. No pharyngeal erythema. No thyromegaly. CARDIOVASCULAR: S1 and S2 present. No murmurs, rubs, or gallops. PULMONARY: Chest is clear to auscultation, no wheezing or crackles. ABDOMEN: Soft, nontender, nondistended, normoactive bowel sounds. No palpable organomegaly. MUSCULOSKELETAL: No joint swelling or deformity. EXTREMITIES: No cyanosis, clubbing, or pedal edema. NEUROLOGICAL: Weakness on the right side as mentioned above 4+/5 strength and on the right side and speech abnormality motor speech abnormality as mentioned above SKIN: No rashes. Assessment and plan Cerebrovascular accident probably atherosclerotic involving left middle cerebral artery perforating branches and left subcortical and internal capsular areas. Patient will undergo MRI neurology will evaluate the patient patient received aspirin in ER and anticoagulation is being held until the neurology evaluated the patient. Echocardiogram will be obtained along with lipid panel hemoglobin A1c physical therapy occupational therapy and speech therapy consultation -Hypertension. Permissive hypertension GEETA inhibitor will be held amlodipine will be continued labetalol is not an appropriate dose because of which I am continuing the discontinuing that medication patient probably can get Coreg if needs a beta-kristin patient is presently sinus bradycardic. Type 2 diabetes mellitus well-controlled blood sugars with hemoglobin A1c of jack und 6.8 patient will be resumed on his home regimen -Chronic kidney disease stage IV: Gabapentin will be discontinued will try duloxetine and see if he can tolerate this medication if his neuropathic pain is well-controlled, patient is not a candidate for metformin to be discontinued. There may be a competent of acute renal failure holding of diuretics, GEETA inhibitor and other nephrotoxic medications as mentioned above -Coronary artery disease -History of DVT and pulmonary embolism in the past is on anticoagulation which is being temporarily held until he is evaluated by neurology COPD without any acute exacerbation -Gastroesophageal reflux disease -Peripheral vascular disease DVT prophylaxis:-Temporarily holding Xarelto as mentioned above- Past Medical History Past Medical History: Asthma, Blood Disorder, Coronary Artery Disease (CAD), Cancer, Heart Failure, COPD, CVA/TIA, Diabetes Mellitus, Deep Vein Thrombosis (DVT), Eye Disorder, GERD/Reflux, Hearing Disorder / Deafness, Hyperlipidemia, Hypertension, Pneumonia, Pulmonary Embolus (PE), Renal Disease, Seizure Disorder, Vascular Disorder Additional Past Medical History / Comment(s): LEUKEMIA-NO TX, CVA X 2 balance issues, IDDM type II, LEGALLY BLIND bilaterally-RETINITIS PIGMENTOSA, DVT R leg/L lung, PVD, current sore L upper gum, "weak bladder", RIKI with cpap use, GOUT, chronic kidney diease, recent back pain, past low iron and recently told he has iron anemia, elementary school records list epilepsy/pt was unaware. History of Any Multi-Drug Resistant Organisms: None Reported Past Surgical History: Appendectomy, Back Surgery, Cholecystectomy, Heart Catheterization, Joint Replacement, Orthopedic Surgery Additional Past Surgical History / Comment(s): BILAT TKA &MICHAEL. LT SHOULDER SX/bilateral total shoulder replacements. RT ROTATOR CUFF REPAIR X 2. COLON OSCOPY Past Anesthesia/Blood Transfusion Reactions: No Reported Reaction Additional Past Anesthesia/Blood Transfusion Reaction / Comment(s): Pt unsure if he has received blood. Past Psychological History: No Psychological Hx Reported Additional Psychological History / Comment(s): Pt resides with grandson, age 16yrs. Smoking Status: Former smoker Past Alcohol Use History: None Reported Additional Past Alcohol Use History / Comment(s): Pt started smoking pipe in 1959 and quit in 1983 Past Drug Use History: None Reported - Past Family History Mother History Unknown: Yes Family Medical History: No Reported History Additional Family Medical History / Comment(s): Smoker. Father Sister(s) History Unknown: Yes Family Medical History: Vascular Disorder Additional Family Medical History / Comment(s): ASHD Medications and Allergies Home Medications Medication Instructions Recorded Confirmed Type Atorvastatin [Lipitor] 80 mg PO HS 10/10/18 01/08/24 History Isosorbide Mononitrate ER [Imdur] 60 mg PO DAILY 10/10/18 01/08/24 History Labetalol [Trandate] 100 mg PO DAILY 10/10/18 01/08/24 History Omeprazole [PriLOSEC] 20 mg PO BID 10/10/18 01/08/24 History Rivaroxaban [Xarelto] 20 mg PO DAILY 10/10/18 01/08/24 History amLODIPine [Norvasc] 5 mg PO BID 10/10/18 01/08/24 History Albuterol Sulfate [Albuterol 2 puff INHALATION RT-Q4H PRN 01/27/20 01/08/24 History Sulfate Hfa] Insulin Aspart [NovoLOG Flexpen] 5 - 15 units SQ AC-TID 01/27/20 01/08/24 History Insulin Degludec [Tresiba 22 units SQ BID 01/27/20 01/08/24 History Flextouch U-100 Pen] Montelukast [Singulair] 10 mg PO HS 01/27/20 01/08/24 History Dapagliflozin Propanediol [Farxiga] 5 mg PO HS 08/09/20 01/08/24 History Tamsulosin [Flomax] 0.8 mg PO PC-SUPPER 08/09/20 01/08/24 History Losartan Potassium [Cozaar] 100 mg PO DAILY 12/09/20 01/08/24 History Aspirin 81 mg PO HS 02/22/21 01/08/24 History Potassium Chloride ER [K-Dur 10] 10 meq PO DAILY 02/22/21 01/08/24 History Budesonide/Glycopyr/Formoterol 2 puff INHALATION RT-BID 01/08/24 01/08/24 History [Breztri Aerosphere Inhaler] Cyanocobalamin (Vitamin B-12) 1,000 mcg PO DAILY 01/08/24 01/08/24 History [Vitamin B-12] Furosemide [Lasix] 20 mg PO DAILY 01/08/24 01/08/24 History Gabapentin 300 mg PO TID 01/08/24 01/08/24 History HYDROcodone/APAP 5-325MG [[place] 1 tab PO Q8H PRN 01/08/24 01/08/24 History 5-325] Levalbuterol Nebulized [Xopenex 1.25 mg INHALATION RT-Q8H PRN 01/08/24 01/08/24 History Nebulized] Solifenacin Succinate 5 mg PO DAILY 01/08/24 01/08/24 History allopurinoL [Zyloprim] 100 mg PO HS 01/08/24 01/08/24 History metFORMIN HCL ER [Glucophage XR] 500 mg PO BID-W/MEALS 01/08/24 01/08/24 History Allergies Allergy/AdvReac Type Severity Reaction Status Date / Time cortisone Allergy Anaphylaxis, Verified 01/08/24 15:22 tongue swelling Physical Exam Vitals: Vital Signs Temp Pulse Pulse Resp BP BP Pulse Ox 01/09/24 08:35 47 L 20 155/72 96 01/09/24 08:09 95 01/09/24 04:45 48 L 18 143/63 97 01/09/24 01:00 51 L 18 159/67 97 01/08/24 21:44 97.8 F 50 L 20 174/77 97 01/08/24 18:02 18 01/08/24 18:01 97.5 F L 50 L 18 155/66 96 01/08/24 17:53 97.5 F L 50 L 18 155/66 96 01/08/24 17:12 48 L 18 132/88 99 01/08/24 15:28 52 L 18 150/63 99 01/08/24 14:01 97.6 F 57 L 18 171/87 97 Intake and Output 01/08/24 01/09/24 01/09/24 22:59 06:59 14:59 Intake Total 30 Output Total 925 Balance -895 Intake: Oral 30 Output: Urine 925 Other: Voiding Method Urinal # Bowel Movements 0 Weight 118.297 kg Results CBC & Chem 7: 01/08/24 14:11 01/08/24 14:11 Labs: Abnormal Lab Results - Last 24 Hours (Table) 01/08/24 01/08/24 01/08/24 Range/Units 14:07 14:11 14:11 WBC 14.1 H (3.8-10.6) k/uL RBC 4.07 L (4.30-5.90) m/uL Hgb 10.6 L (13.0-17.5) gm/dL Hct 33.5 L (39.0-53.0) % RDW 17.3 H (11.5-15.5) % Lymphocytes # (Manual) 8.46 H (1.0-4.8) k/uL PT 14.6 H (10.0-12.5) sec INR 1.4 H (<1.2) APTT 32.1 H (22.0-30.0) sec Chloride (98-107) mmol/L BUN (9-20) mg/dL Creatinine (0.66-1.25) mg/dL Glucose (74-99) mg/dL POC Glucose (mg/dL) 193 H (70-110) mg/dL Hemoglobin A1c (<=6.0) % Total Protein (6.3-8.2) g/dL HDL Cholesterol (40.00-60.00) mg/dL 01/08/24 01/08/24 01/08/24 Range/Units 14:11 18:29 21:24 WBC (3.8-10.6) k/uL RBC (4.30-5.90) m/uL Hgb (13.0-17.5) gm/dL Hct (39.0-53.0) % RDW (11.5-15.5) % Lymphocytes # (Manual) (1.0-4.8) k/uL PT (10.0-12.5) sec INR (<1.2) APTT (22.0-30.0) sec Chloride 110 H (98-107) mmol/L BUN 40 H (9-20) mg/dL Creatinine 1.82 H (0.66-1.25) mg/dL Glucose 175 H (74-99) mg/dL POC Glucose (mg/dL) 169 H 141 H (70-110) mg/dL Hemoglobin A1c (<=6.0) % Total Protein 5.9 L (6.3-8.2) g/dL HDL Cholesterol (40.00-60.00) mg/dL 01/09/24 01/09/24 Range/Units 02:40 02:40 WBC (3.8-10.6) k/uL RBC (4.30-5.90) m/uL Hgb (13.0-17.5) gm/dL Hct (39.0-53.0) % RDW (11.5-15.5) % Lymphocytes # (Manual) (1.0-4.8) k/uL PT (10.0-12.5) sec INR (<1.2) APTT (22.0-30.0) sec Chloride (98-107) mmol/L BUN (9-20) mg/dL Creatinine (0.66-1.25) mg/dL Glucose (74-99) mg/dL POC Glucose (mg/dL) (70-110) mg/dL Hemoglobin A1c 6.8 H (<=6.0) % Total Protein (6.3-8.2) g/dL HDL Cholesterol 37.10 L (40.00-60.00) mg/dL Thrombosis Risk Factor Assmnt - Choose All That Apply Any of the Below Risk Factors Present?: Yes Each Factor Represents 1 point: Obesity (BMI >25) Other Risk Factors: Yes Each Risk Factor Represents 2 Points: Age 61-74 years Each Risk Factor Represents 3 Points: Family history of DVT/PE, History of DVT/PE Other congenital or acquired thrombophilia - If yes, enter type in comment: No Each Risk Factor Represents 5 Points: Stroke (< 1 month) Thrombosis Risk Factor Assessment Total Risk Factor Score: 14 Thrombosis Risk Factor Assessment Level: High Risk
[2024-01-09 12:13] LABS: Glucose,Whole Blood 98 mg/dL (70-110)
--- NOTE | 2024-01-09 13:12 | US ---
EXAMINATION TYPE: US carotid duplex BILAT DATE OF EXAM: 01/09/2024 COMPARISON: NONE CLINICAL INDICATION: Male, 73 years old with history of stroke; TECHNIQUE: Carotid duplex ultrasound examination. Indirect Doppler criteria was utilized. FINDINGS: EXAM MEASUREMENTS: RIGHT: Peak Systolic Velocity (PSV) cm/sec ----- Right CCA: 110 ----- Right ICA: 125 ----- Right ECA: 260 ICA/CCA ratio: 1.1 RIGHT: End Diastole cm/sec ----- Right CCA: 16 ----- Right ICA: 23 ----- Right ECA: 19 LEFT: Peak Systolic Velocity (PSV) cm/sec ----- Left CCA: 99 ----- Left ICA: 131 ----- Left ECA: 239 ICA/CCA ratio: 1.3 LEFT: End Diastole cm/sec ----- Left CCA: 23 ----- Left ICA: 22 ----- Left ECA: 15 VERTEBRALS (direction of flow): Right Vertebral: Antegrade Left Vertebral: Antegrade Rhythm: Arrhythmia [employer] INSTRUCTOR NOTES: Intimal thickening and plaque noted bilaterally. Elevated velocities noted within bilateral ECAs. IMPRESSION: Less than 50-69% stenosis of the bilateral carotid bifurcations by peak systolic velocity.. Criteria for Assigning % of Stenosis / Diameter reduction (Estimation based on the indirect measurements of the internal carotid artery velocities (ICA PSV). 1. Normal (no stenosis)=ICA PSV < 125 cm/s: ratio < 2.0: ICA EDV<40 cm/s. 2. Less than 50% stenosis=ICA PSV < 125 cm/s: ratio < 2.0: ICA EDV<40 cm/s. 3. 50 to 69% stenosis=ICA PSV of 125 to 230 cm/s: ration 2.0 ? 4.0: ICA EDV 40-100 cm/s. 4. Greater than 70% stenosis to near occlusion= ICA PSV > 230 cm/s: ratio > 4.0: ICA EDV > 100 cm/s. 5. Near occlusion= ICA PSV velocities may be low or undetectable: variable ratio and ICA EDV. 6. Total occlusion=unable to detect flow.
[2024-01-09] MEDS: DULoxetine HCL 30 MG CAPSULE.DR PO SCH (13:31)
--- NOTE | 2024-01-09 15:20 | P.CNNES ---
History of Present Illness Consult date: 01/09/24 Requesting physician: Isaias Charles Reason for Consult: dizzy, right sided weakness r/o cva History of Present Illness: This is a 73-year-old gentleman history of legally blind bilaterally since because of retinitis pigmentosa history of DVT and pulmonary embolism on Xarelto, history of stroke with residual right lower extremity weakness, diabetes hypertension who presented emergency department because of slurred speech and dizziness yesterday. He stated that he had his symptoms yesterday around 12:50 PM and he felt dizzy and slurred speech and he felt the episode lasted for about 30 minutes. He could not describe dizziness but he felt just dizzy. His grandson resides with him. He is on Xarelto for his history of PE and DVT as well as he is on aspirin 81 mg daily. He stated that he had a stroke in 2011 and he had residual right lower leg weakness. He feels back to baseline. ED note it seems that he notified them that he had right-sided weakness and the paramedics noted that he had a drift on the right upper and lower extremity. Again he notified me that he had weakness over the right side predominant in the right lower extremity Some of the other workup during this hospital visit: Heart rate in 40's. Lipid panel his triglyceride of 101, cholesterol 115, LDL is 57 and HDL is 37 Hemoglobin A1c 6.8. Minimally elevated kidney function more than baseline. CT Head is reported as no acute intracranial process. Specific white matter changes. I personally reviewed CT and agree there is no acute or subacute process. Carotid duplex is reported as less than 50 to 69% stenosis of bilateral carotid bifurcation by peak systolic velocity Review of Systems The positive and negative as per HPI. 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 History of Any Multi-Drug Resistant Organisms: None Reported Past Surgical History: Appendectomy, Back Surgery, Cholecystectomy, Heart Catheterization, Joint Replacement, Orthopedic Surgery Additional Past Surgical History / Comment(s): BILAT TKA &MICHAEL. LT SHOULDER SX /bilateral total shoulder replacements. RT ROTATOR CUFF REPAIR X 2. COLONOSCOPY Past Anesthesia/Blood Transfusion Reactions: No Reported Reaction Additional Past Anesthesia/Blood Transfusion Reaction / Comment(s): Pt unsure if he has received blood. Past Psychological History: No Psychological Hx Reported Additional Psychological History / Comment(s): Pt resides with grandson, age 16yrs. Smoking Status: Former smoker Past Alcohol Use History: None Reported Additional Past Alcohol Use History / Comment(s): Pt started smoking pipe in 1959 and quit in 1983 Past Drug Use History: None Reported - Past Family History Mother History Unknown: Yes Family Medical History: No Reported History Additional Family Medical History / Comment(s): Smoker. Father Sister(s) History Unknown: Yes Family Medical History: Vascular Disorder Additional Family Medical History / Comment(s): ASHD Medications and Allergies Home Medications Medication Instructions Recorded Confirmed Type Atorvastatin [Lipitor] 80 mg PO HS 10/10/18 01/08/24 History Isosorbide Mononitrate ER [Imdur] 60 mg PO DAILY 10/10/18 01/08/24 History Labetalol [Trandate] 100 mg PO DAILY 10/10/18 01/08/24 History Omeprazole [PriLOSEC] 20 mg PO BID 10/10/18 01/08/24 History Rivaroxaban [Xarelto] 20 mg PO DAILY 10/10/18 01/08/24 History amLODIPine [Norvasc] 5 mg PO BID 10/10/18 01/08/24 History Albuterol Sulfate [Albuterol 2 puff INHALATION RT-Q4H PRN 01/27/20 01/08/24 History Sulfate Hfa] Insulin Aspart [NovoLOG Flexpen] 5 - 15 units SQ AC-TID 01/27/20 01/08/24 History Insulin Degludec [Tresiba 22 units SQ BID 01/27/20 01/08/24 History Flextouch U-100 Pen] Montelukast [Singulair] 10 mg PO HS 01/27/20 01/08/24 History Dapagliflozin Propanediol [Farxiga] 5 mg PO HS 08/09/20 01/08/24 History Tamsulosin [Flomax] 0.8 mg PO PC-SUPPER 08/09/20 01/08/24 History Losartan Potassium [Cozaar] 100 mg PO DAILY 12/09/20 01/08/24 History Aspirin 81 mg PO HS 02/22/21 01/08/24 History Potassium Chloride ER [K-Dur 10] 10 meq PO DAILY 02/22/21 01/08/24 History Budesonide/Glycopyr/Formoterol 2 puff INHALATION RT-BID 01/08/24 01/08/24 History [Breztri Aerosphere Inhaler] Cyanocobalamin (Vitamin B-12) 1,000 mcg PO DAILY 01/08/24 01/08/24 History [Vitamin B-12] Furosemide [Lasix] 20 mg PO DAILY 01/08/24 01/08/24 History Gabapentin 300 mg PO TID 01/08/24 01/08/24 History HYDROcodone/APAP 5-325MG [[place] 1 tab PO Q8H PRN 01/08/24 01/08/24 History 5-325] Levalbuterol Nebulized [Xopenex 1.25 mg INHALATION RT-Q8H PRN 01/08/24 01/08/24 History Nebulized] Solifenacin Succinate 5 mg PO DAILY 01/08/24 01/08/24 History allopurinoL [Zyloprim] 100 mg PO HS 01/08/24 01/08/24 History metFORMIN HCL ER [Glucophage XR] 500 mg PO BID-W/MEALS 01/08/24 01/08/24 History Allergies Allergy/AdvReac Type Severity Reaction Status Date / Time cortisone Allergy Anaphylaxis, Verified 01/08/24 15:22 tongue swelling Physical Examination - Vital Signs Vital Signs: Vital Signs Temp Pulse Pulse Resp BP BP Pulse Ox 01/09/24 13:29 46 L 18 163/76 01/09/24 08:35 47 L 20 155/72 96 01/09/24 08:09 95 01/09/24 04:45 48 L 18 143/63 97 01/09/24 01:00 51 L 18 159/67 97 01/08/24 21:44 97.8 F 50 L 20 174/77 97 01/08/24 18:02 18 01/08/24 18:01 97.5 F L 50 L 18 155/66 96 01/08/24 17:53 97.5 F L 50 L 18 155/66 96 01/08/24 17:12 48 L 18 132/88 99 01/08/24 15:28 52 L 18 150/63 99 GENERAL: The patient is lying in bed and is not in acute distress. NEUROLOGICAL: Higher mental function: The patient is awake, alert, oriented to self, place and time. Patient is following commands. No aphasia and no neglect. Cranial nerves: The pupils are round, equal. Has dysconjufate gaze. 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 Had saccadic movement of the eyes (old). Facial sensation is normal to touch throughout. The facial strength is normal throughout. Hearing is normal bilaterally to hand rub. Tongue is midline and moved [id number] without any difficulty. No dysarthria is noted. Shoulder shrug is normal bilaterally. Motor: The strength is right lower extremity is 4+. Otherwise strength is 5/5 throughout. Normal tone and bulk. Cerebellum: Normal finger to nose bilaterally. Sensation: Sensation is normal to touch throughout. Reflexes (right/left): 1+ throughout. Plantars are mute bilaterally. Results - Laboratory Findings CBC and BMP: 01/08/24 14:11 01/08/24 14:11 Abnormal Lab Findings: Abnormal Labs 01/08/24 01/08/24 01/08/24 14:07 14:11 14:11 WBC 14.1 H RBC 4.07 L Hgb 10.6 L Hct 33.5 L RDW 17.3 H Lymphocytes # (Manual) 8.46 H PT 14.6 H INR 1.4 H APTT 32.1 H Chloride BUN Creatinine Glucose POC Glucose (mg/dL) 193 H Hemoglobin A1c Total Protein HDL Cholesterol 01/08/24 01/08/24 01/08/24 14:11 18:29 21:24 WBC RBC Hgb Hct RDW Lymphocytes # (Manual) PT INR APTT Chloride 110 H BUN 40 H Creatinine 1.82 H Glucose 175 H POC Glucose (mg/dL) 169 H 141 H Hemoglobin A1c Total Protein 5.9 L HDL Cholesterol 01/09/24 01/09/24 02:40 02:40 WBC RBC Hgb Hct RDW Lymphocytes # (Manual) PT INR APTT Chloride BUN Creatinine Glucose POC Glucose (mg/dL) Hemoglobin A1c 6.8 H Total Protein HDL Cholesterol 37.10 L Assessment and Plan Assessment: There was a 73-year-old gentleman with multiple medical issues who presented emergency department because of dizziness and dysarthria yesterday at 1250 and it lasted for about 30 minutes. Per the ED team EMS felt the patient had a drift over the right side but patient stated that he has old stroke and he has residual weakness over the right lower. Transient dizziness and dysarthria is probable transient ischemic attack. 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 Will obtain MRI of the brain and will decide to change aspirin to Plavix 75 mg daily. Patient is on Lipitor 80 mg nightly Pending MRI of the brain, 2D echo Continue neurochecks Cardiac monitoring PT OT and [facility] are consulted Patient has bradycardia as low as in the 40s and will defer the management to pr imary team. Consider cardiology consultation. Will defer the rest of the medical management to primary and other specialists DVT prophylaxis on Xarelto Plan discussed with the patient, primary attending and his nurse Thank you for the consultation Time with Patient: Greater than 30
[2024-01-09 17:32] LABS: Glucose,Whole Blood 123 mg/dL (70-110)
[2024-01-10 06:03] LABS: Glucose,Whole Blood 92 mg/dL (70-110)
[2024-01-10] MEDS: RIVAROXABAN 20 MG TAB PO SCH (08:22)
[2024-01-10 11:16] LABS: Glucose,Whole Blood 116 mg/dL (70-110)
--- NOTE | 2024-01-10 12:25 | P.PN ---
Subjective Progress Note Date: 01/10/24 I am following-up with patient and he feels he is back to baseline. Denies any new neurological issues. Is pending MRI Brain. Objective - Vital Signs Vital signs: Vital Signs Temp 97.7 F 01/10/24 08:27 Pulse 58 L 01/10/24 08:27 Resp 16 01/10/24 08:27 BP 174/69 01/10/24 08:27 Pulse Ox 96 01/10/24 08:49 FiO2 Intake & Output 01/09/24 01/10/24 01/10/24 18:59 06:59 18:59 Intake Total 0 180 Output Total 750 1000 500 Balance -750 -1000 -320 Intake: Oral 0 180 Output: Urine 750 1000 500 Other: Voiding Method Urinal Urinal # Voids 6 0 # Bowel Movements 0 - Exam GENERAL: The patient is sitting in a chair and is not in acute distress. NEUROLOGICAL: Higher mental function: The patient is awake, alert, oriented to self, place and time. Patient is following commands. No aphasia and no neglect. Cranial nerves: The pupils are round, equal. Has dysconjufate gaze. 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 Had saccadic movement of the eyes (old). Facial sensation is normal to touch throughout. The facial strength is normal throughout. Hearing is normal bilaterally to hand rub. Tongue is midline and moved [id number] without any difficulty. No dysarthria is noted. Shoulder shrug is normal bilaterally. Motor: The strength is right lower extremity is 4+. Otherwise strength is 5/5 throughout. Normal tone and bulk. Cerebellum: Normal finger to nose bilaterally. Sensation: Sensation is normal to touch throughout. Reflexes (right/left): 1+ throughout. Plantars are mute bilaterally. Some of the other workup during this hospital visit: Heart rate in 40's. Lipid panel his triglyceride of 101, cholesterol 115, LDL is 57 and HDL is 37 Hemoglobin A1c 6.8. Minimally elevated kidney function more than baseline. CT Head is reported as no acute intracranial process. Specific white matter changes. I personally reviewed CT and agree there is no acute or subacute process. Carotid duplex is reported as less than 50 to 69% stenosis of bilateral carotid bifurcation by peak systolic velocity - Labs CBC & Chem 7: 01/08/24 14:11 01/08/24 14:11 Labs: Abnormal Lab Results - Last 24 Hours (Table) 01/09/24 01/10/24 Range/Units 17:31 11:15 POC Glucose (mg/dL) 123 H 116 H (70-110) mg/dL Assessment and Plan Assessment: There was a 73-year-old gentleman with multiple medical issues who presented emergency department because of dizziness and dysarthria yesterday at 1250 and it lasted for about 30 minutes. Per the ED team EMS felt the patient had a drift over the right side but patient stated that he has old stroke and he has residual weakness over the right lower. Transient dizziness and dysarthria is probable transient ischemic attack. 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 Will obtain MRI of the brain and then will decide to change aspirin to Plavix 75 mg daily. Patient is on Lipitor 80 mg nightly Pending MRI of the brain, 2D echo Continue neurochecks Cardiac monitoring PT OT and BILL POSTER INSTALLER are consulted Patient has bradycardia as low as in the 40s and will defer the management to primary team. Consider cardiology consultation. Will defer the rest of the medical management to primary and other specialists DVT prophylaxis on Xarelto Plan discussed with the patient. Time with Patient: Less than 30
[2024-01-10 14:17] LABS: African American GFR (CKD) 56 (>60 ml/min/1.73 sqM); Anion Gap 6 mmol/L; Blood Urea Nitrogen 26 mg/dL (9-20); Calcium 8.7 mg/dL (8.4-10.2); Carbon Dioxide 26 mmol/L (22-30); Chloride 109 mmol/L (98-107); Glucose 140 mg/dL (74-99); Non-African American GFR(CKD) 49 (>60 ml/min/1.73 sqM); Potassium 4.5 mmol/L (3.5-5.1); Sodium 141 mmol/L (137-145)
--- NOTE | 2024-01-10 14:29 | MR ---
EXAMINATION TYPE: MR brain wo con DATE OF EXAM: 01/10/2024 COMPARISON: None HISTORY: Right sided weakness, neuro deficit, evaluate for stroke. CONTRAST: Performed utilizing 0 mL intravenous Gadavist gadolinium contrast. TECHNIQUE: Multiplanar, multiecho imaging on a 3.0 Alyse magnet is performed through the brain. Stud y is performed within 24 hours of arrival to the hospital. The craniovertebral junction is normal. The pituitary is normal. Diffusion-weighted imaging is performed. No abnormal hyperintensity is present to suggest an acute i ntracranial infarct or acute ischemic change. There are scattered punctate areas of hyperintensity on T2 and Inversion Recovery weighted sequences which are non-specific but can be related to microvascular ischemic changes. Differential diagnosis c ould include migraine headaches and vasculitis. Lyme disease and multiple sclerosis are considered le ss likely but within the differential Ventricles and sulci are appropriate for the patient age. IMPRESSION: 1. No suspicious acute intracranial changes. 2. Scattered punctate white matter changes which can be compatible with microvascular ischemic change .
[2024-01-10 16:22] LABS: Glucose,Whole Blood 216 mg/dL (70-110)
[2024-01-10 20:09] LABS: Glucose,Whole Blood 143 mg/dL (70-110)
[2024-01-10 20:45] VITALS: RESP 16
--- NOTE | 2024-01-10 21:04 | P.PN ---
Subjective Progress Note Date: 01/10/24 83-year-old male came in with complaints of weakness on the right side significantly improved by the time I evaluated the patient patient did not receive any tPA patient also has patient facial droop towards the left side along with speech abnormality all of which are apparently improving at this time. Patient is legally blind. Patient's multiple has multiple other medical problems patient is on anticoagulation with Xarelto which is being held until being evaluated by neurology. Patient is on anticoagulation for DVT and pulmonary embolism in the past patient is not much ambulatory because of which he was not never taken off anticoagulation. Patient also has chronic kidney disease appears to have 1.7 is his baseline creatinine and he is also on 300 mg of gabapentin 3 times a day along with metformin which cannot be used with his kidney function. Stenting was discussed with the patient. Patient any fever or chills. Patient does have some drift in the right hand with around 4+/5 strength. Both upper and lower extremities. 01/10/2024 Patient is evaluated today in follow up. Symptoms of facial droop and dysarthria have resolved. He has right leg weakness form prior stroke. Patient will be going for MRI and echocardiogram today. He is on xarelto at this time. Creatinine better at 1.44. REVIEW OF SYSTEMS: CONSTITUTIONAL: No fever, no malaise, no fatigue. HEENT: No recent visual problems or hearing problems. Denied any sore throat. CARDIOVASCULAR: No chest pain, orthopnea, PND, no palpitations, no syncope. PULMONARY: No shortness of breath, no cough, no hemoptysis. GASTROINTESTINAL: No diarrhea, no nausea, no vomiting, no abdominal pain. NEUROLOGICAL: No headaches, PHYSICAL EXAMINATION: GENERAL: The patient is alert and oriented x3, not in any acute distress. Well developed, well nourished. HEENT: Pupils are round and equally reacting to light. EOMI. No scleral icterus. No conjunctival pallor. Normocephalic, atraumatic. No pharyngeal erythema. No thyromegaly. CARDIOVASCULAR: S1 and S2 present. No murmurs, rubs, or gallops. PULMONARY: Chest is clear to auscultation, no wheezing or crackles. ABDOMEN: Soft, nontender, nondistended, normoactive bowel sounds. No palpable organomegaly. MUSCULOSKELETAL: No joint swelling or deformity. EXTREMITIES: No cyanosis, clubbing, or pedal edema. NEUROLOGICAL: Weakness on the right side as mentioned above 4+/5 strength and on the right side speech has improved. SKIN: No rashes. Assessment and plan -Cerebrovascular accident probably atherosclerotic involving left middle cerebral artery perforating branches and left subcortical and internal capsular areas. Currently pending MRI. Symptoms have resolved. Echocardiogram is also being obtained. Resumed on xarelto. -Hypertension. Permissive hypertension GEETA inhibitor will be held amlodipine will be continued labetalol is not an appropriate dose because of which I am continuing the discontinuing that medication patient probably can get Coreg if needs a beta-kristin patient is presently sinus bradycardic. -Type 2 diabetes mellitus well-controlled blood sugars with hemoglobin A1c of around 6.8 patient will be resumed on his home regimen -Chronic kidney disease stage IV: Gabapentin will be discontinued will try duloxetine and see if he can tolerate this medication if his neuropathic pain is well-controlled, patient is not a candidate for metformin to be discontinued. There may be a competent of acute renal failure holding of diuretics, GEETA inhib itor and other nephrotoxic medications as mentioned above. Creatinine is improving. -Coronary artery disease -History of DVT and pulmonary embolism in the past is on anticoagulation has been resumed. COPD without any acute exacerbation -Gastroesophageal reflux disease -Peripheral vascular disease DVT prophylaxis:-Temporarily holding Xarelto as mentioned above- The impression and plan of care has been dictated by Kenia Wong, Nurse Practitioner as directed. Dr. Laura MD I have performed a history and physical examination and medical decision making of this patient, discussed the same with the dictator, and agree with the dictators assessment and plan as written, documented as a scribe. Based on total visit time, I have performed more than 50% of this visit. Objective - Vital Signs Vital signs: Vital Signs Temp 98 F 01/10/24 20:00 Pulse 52 L 01/10/24 20:00 Resp 16 01/10/24 20:00 BP 143/74 01/10/24 20:00 Pulse Ox 96 01/10/24 20:00 FiO2 Intake & Output 01/10/24 01/10/24 01/11/24 06:59 18:59 06:59 Intake Total 0 360 Output Total 1000 500 Balance -1000 -140 Intake: Oral 0 360 Output: Urine 1000 500 Other: Voiding Method Urinal Urinal # Voids 0 1 # Bowel Movements 0 1 - Labs CBC & Chem 7: 01/08/24 14:11 01/10/24 13:28 Labs: Abnormal Lab Results - Last 24 Hours (Table) 01/10/24 01/10/24 01/10/24 Range/Units 11:15 13:28 16:19 Chloride 109 H (98-107) mmol/L BUN 26 H (9-20) mg/dL Creatinine 1.44 H (0.66-1.25) mg/dL Glucose 140 H (74-99) mg/dL POC Glucose (mg/dL) 116 H 216 H (70-110) mg/dL 01/10/24 Range/Units 20:07 Chloride (98-107) mmol/L BUN (9-20) mg/dL Creatinine (0.66-1.25) mg/dL Glucose (74-99) mg/dL POC Glucose (mg/dL) 143 H (70-110) mg/dL Assessment and Plan Time with Patient: Less than 30
[2024-01-11 06:17] LABS: Glucose,Whole Blood 83 mg/dL (70-110)
[2024-01-11 07:38] LABS: Anisocytosis Slight; HCT 35.7 % (39.0-53.0); Hypochromasia Slight; MCH 25.4 pg (25.0-35.0); MCHC 30.8 g/dL (31.0-37.0); MCV 82.5 fL (80.0-100.0); Mean Platelet Volume 7.7; Platelet Count 166 k/uL (150-450); RBC 4.33 m/uL (4.30-5.90); RDW 17.7 % (11.5-15.5); WBC 13.7 k/uL (3.8-10.6)
[2024-01-11 07:54] LABS: African American GFR (CKD) 51 (>60 ml/min/1.73 sqM); Anion Gap 6 mmol/L; Blood Urea Nitrogen 27 mg/dL (9-20); Calcium 9.2 mg/dL (8.4-10.2); Carbon Dioxide 26 mmol/L (22-30); Chloride 109 mmol/L (98-107); Glucose 65 mg/dL (74-99); Non-African American GFR(CKD) 44 (>60 ml/min/1.73 sqM); Potassium 4.1 mmol/L (3.5-5.1); Sodium 141 mmol/L (137-145)
[2024-01-11 08:18] VITALS: TEMP 97.8
[2024-01-11 08:20] LABS: Eosinophils # (M) 0.27 k/uL (0-0.7); Lymphocytes # (M) 5.75 k/uL (1.0-4.8); Monocytes # (M) 0.41 k/uL (0-1.0); Neutrophils # (M) 7.26 k/uL (1.3-7.7); Neutrophils % (M) 53 %; Nucleated Red Blood Cells 0 /100 WBC (0-0); Ovalocytes Present; Total Cells Counted 100
--- NOTE | 2024-01-11 11:13 | CA ---
Transthoracic Echo Report Name: Pierre Deluna Age: 73 Gender: M : 1950 Exam Date: 01/10/2024 15:27 Exam Location: [facility] Ht (in): 67 Wt (lb): 260 Ordering Physician: Damon Orellana MD Attending/Referring Phys: Nuclear Design Engineer Anali Bosch RDCS Procedure CPT: Indications: STROKE. BUBBLE STUDY Cardiac Hx: Technical Quality: Technically difficult study Contrast 1: Definity Total Dose (mL): 2 Contrast 2: Total Dose (mL): MEASUREMENTS (Male / Female) Normal Values 2D ECHO LV Diastolic Diameter PLAX 4.9 cm 4.2 - 5.9 / 3.9 - 5.3 cm LV Systolic Diameter PLAX 3.2 cm IVS Diastolic Thickness 1.0 cm 0.6 - 1.0 / 0.6 - 0.9 cm LVPW Diastolic Thickness 1.2 cm 0.6 - 1.0 / 0.6 - 0.9 cm LV Relative Wall Thickness 0.5 RV Internal Dim ED PLAX 3.1 cm LVOT Diameter 2.3 cm LV Diastolic Volume MOD BP 156.5 cm??? 67 - 155 / 56 - 104 cm??? LV Systolic Volume MOD BP 46.6 cm??? 22 - 58 / 19 - 49 cm??? LV Ejection Fraction MOD BP 70.2 % >= 55 % LV Cardiac Index MOD BP 2363.9 cm???/min???m??? LV Diastolic Volume MOD 4C 159.5 cm??? LV Systolic Volume MOD 4C 48.4 cm??? LV Ejection Fraction MOD 4C 69.6 % LV Cardiac Index MOD 4C 2389.2 cm???/min???m??? LV Diastolic Length 4C 9.7 cm LV Systolic Length 4C 7.9 cm LV Diastolic Volume MOD 2C 146.2 cm??? LV Systolic Volume MOD 2C 40.7 cm??? LV Ejection Fraction MOD 2C 72.2 % LV Cardiac Index MOD 2C 2268.8 cm???/min???m??? LV Diastolic Length 2C 9.2 cm LV Systolic Length 2C 7.1 cm Ascending Aorta Diameter 3.9 cm DOPPLER AV Peak Velocity 133.1 cm/s AV Peak Gradient 7.1 mmHg AV Mean Velocity 89.9 cm/s AV Mean Gradient 3.6 mmHg AV Velocity Time Integral 32.4 cm LVOT Peak Velocity 104.9 cm/s LVOT Peak Gradient 4.4 mmHg LVOT Velocity Time Integral 26.4 cm LVOT Stroke Volume 107.4 cm??? LVOT Stroke Volume Index 47.5 ml/m??? LVOT Cardiac Index 2310.9 cm???/min???m??? AV Area Cont Eq vti 3.3 cm??? AV Area Cont Eq pk 3.2 cm??? MV Peak Velocity 126.1 cm/s MV Peak Gradient 6.4 mmHg MV Mean Velocity 65.5 cm/s MV Mean Gradient 2.2 mmHg MV Velocity Time Integral 44.6 cm MV Area PHT 3.4 cm??? Mitral E Point Velocity 111.1 cm/s Mitral A Point Velocity 114.7 cm/s Mitral E to A Ratio 1.0 MV Deceleration Time 222.5 ms PV Peak Velocity 138.7 cm/s PV Peak Gradient 7.7 mmHg FINDINGS Left Ventricle Left ventricular ejection fraction is estimated at60- 65 %. Mildly increased left ventricular diastolic volume. Left ventricular wall thickness normal. No obvious regional wall motion abnormalities. Right Ventricle Right ventricle not well visualized. Unable to estimate the right ventricular systolic pressure. Right Atrium Right atrium not well visualized. Left Atrium Left atrial dilatation by visual estimate. Mitral Valve Structurally normal mitral valve. No mitral stenosis, regurgitation or prolapse. Aortic Valve Trileaflet aortic valve. No aortic valve stenosis or regurgitation. Tricuspid Valve Structurally normal tricuspid valve. No tricuspid stenosis. Trace tricuspid regurgitation. Pulmonic Valve Pulmonic valve not well visualized. Pericardium No pericardial effusion. Aorta Normal size aortic root and proximal ascending aorta. CONCLUSIONS Technically difficult study for interpretation Normal LV systolic function Previewed by: Dr. Martir Nuñez MD (Electronically Signed) Final Date: 11 January 2024 11:12
[2024-01-11 11:34] LABS: Glucose,Whole Blood 146 mg/dL (70-110)
[2024-01-11 11:44] VITALS: BP 171/75; PULSE 51
[2024-01-11] MEDS: hydrALAZINE HCL 25 MG TAB PO SCH (13:33)
--- NOTE | 2024-01-11 14:05 | P.PN ---
Subjective Progress Note Date: 01/11/24 I am following-up with patient and he continues to be at baseline and denies any new neurological issues. He had MRI Brain and was negative for acute or subacute ischemic stroke. He has neck surgery scheduled this Tuesday. Objective - Vital Signs Vital signs: Vital Signs Temp 97.8 F 01/11/24 11:44 Pulse 51 L 01/11/24 11:44 Resp 16 01/11/24 11:44 BP 171/75 01/11/24 11:44 Pulse Ox 98 01/11/24 11:44 FiO2 Intake & Output 01/10/24 01/11/24 01/11/24 18:59 06:59 18:59 Intake Total 360 118 Output Total 500 Balance -140 118 Intake: Oral 360 118 Output: Urine 500 Other: Voiding Method Urinal Urinal Urinal # Voids 1 # Bowel Movements 1 - Exam GENERAL: The patient is sitting in a chair and is not in acute distress. NEUROLOGICAL: Higher mental function: The patient is awake, alert, oriented to self, place and time. Patient is following commands. No aphasia and no neglect. Cranial nerves: The pupils are round, equal. Has dysconjufate gaze. 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 Had saccadic movement of the eyes (old). Facial sensation is normal to touch throughout. The facial strength is normal throughout. Hearing is normal bilaterally to hand rub. Tongue is midline and moved [id number] without any difficulty. No dysarthria is noted. Shoulder shrug is normal bilaterally. Motor: The strength is right lower extremity is 4+. Otherwise strength is 5/5 throughout. Normal tone and bulk. Cerebellum: Normal finger to nose bilaterally. Sensation: Sensation is normal to touch throughout. Reflexes (right/left): 1+ throughout. Plantars are mute bilaterally. Some of the other workup during this hospital visit: Heart rate in 40's. Lipid panel his triglyceride of 101, cholesterol 115, LDL is 57 and HDL is 37 Hemoglobin A1c 6.8. Minimally elevated kidney function more than baseline. CT Head is reported as no acute intracranial process. Specific white matter changes. I personally reviewed CT and agree there is no acute or subacute process. Carotid duplex is reported as less than 50 to 69% stenosis of bilateral carotid bifurcation by peak systolic velocity MRI Brain: It is reported as no suspicious acute intracranial changes. Scattered punctate white matter changes which can be compatible with microvascular ischemic change. I personally review MRI and agree there is no acute or subacute stroke. 2D echo: Technically difficult study for interpretation. Normal LV systolic function. - Labs CBC & Chem 7: 01/11/24 06:47 01/11/24 06:47 Labs: Abnormal Lab Results - Last 24 Hours (Table) 01/10/24 01/10/24 01/10/24 Range/Units 13:28 16:19 20:07 WBC (3.8-10.6) k/uL Hgb (13.0-17.5) gm/dL Hct (39.0-53.0) % MCHC (31.0-37.0) g/dL RDW (11.5-15.5) % Lymphocytes # (Manual) (1.0-4.8) k/uL Chloride 109 H (98-107) mmol/L BUN 26 H (9-20) mg/dL Creatinine 1.44 H (0.66-1.25) mg/dL Glucose 140 H (74-99) mg/dL POC Glucose (mg/dL) 216 H 143 H (70-110) mg/dL 01/11/24 01/11/24 01/11/24 Range/Units 06:47 06:47 11:32 WBC 13.7 H (3.8-10.6) k/uL Hgb 11.0 L (13.0-17.5) gm/dL Hct 35.7 L (39.0-53.0) % MCHC 30.8 L (31.0-37.0) g/dL RDW 17.7 H (11.5-15.5) % Lymphocytes # (Manual) 5.75 H (1.0-4.8) k/uL Chloride 109 H (98-107) mmol/L BUN 27 H (9-20) mg/dL Creatinine 1.56 H (0.66-1.25) mg/dL Glucose 65 L (74-99) mg/dL POC Glucose (mg/dL) 146 H (70-110) mg/dL Assessment and Plan Assessment: There was a 73-year-old gentleman with multiple medical issues who presented emergency department because of dizziness and dysarthria yesterday at 1250 and it lasted for about 30 minutes. Per the ED team EMS felt the patient had a drift over the right side but patient stated that he has old stroke and he has residual weakness over the right lower. Transient dizziness and dysarthria is probable transient ischemic attack. MRI Brain is negative for acute or subacute stroke. 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 Recommend changing ASA to Plavix 75mg daily since failed ASA. Patient has cervical surgery scheduled this Tuesday and he was notified to contact with surgeon to assess if can be postponed until 3 weeks from now vs if critical then recommend to avoid Plavix until after surgery. Patient is on Lipitor 80 mg nightly Continue neurochecks Cardiac monitoring PT OT and BRANCH ASSOCIATE are consulted Patient has bradycardia as low as in the 40s and will defer the management to primary team. Consider cardiology consultation. Will defer the rest of the medical management to primary and other specialists DVT prophylaxis on Xarelto Recommend the patient to follow-up with neurologist as outpatient within 2-3 weeks. Plan discussed with the patient, his nurse, and primary team N.P. There is no further neurological work-up. Will sign off. Please reconsult if needed. Time with Patient: Less than 30
--- NOTE | 2024-01-11 16:24 | P.DS ---
Providers Date of admission: 01/08/24 16:23 Attending physician: Neno Garcia Consults: 01/08/24 16:23 Consult Physician Routine Consulting Provider: Damon Orellana Consult Reason/Comments: Dizzy, right-sided weakness, rule out CVA Do you want consulting provider notified?: Yes Primary care physician: Physician Nonstaff Hospital Course: Final Diagnosis -Transient dizziness and dysarthria is probable transient ischemic attack. MRI Brain is negative for acute or subacute stroke. -Bradycardia as low as in the 40s patient has been taken off labetalol -History of hypertension patient has been normotensive recommended to continue off of losartan at this time. -Chronic neck pain patient is scheduled to undergo cervical surgery with Dr. 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 -Diabetes mellitus type II not a candidate for metformin secondary to the renal dysfunction -Hypertension -Chronic kidney disease stage IV -Upper lipidemia maintained on high-dose statin therapy -History of PE and DVT and he is on Xarelto/aspirin -Obstructive sleep apnea and he is on CPAP -Peripheral vascular disease -Gastroesophageal reflux disease Discharge Disposition Patient has been maintained on aspirin and Xarelto on an outpatient basis and this is considered a failure of aspirin therapy and has been recommended by neurology to discharge on Xarelto in combination with Plavix 75 mg daily. Would recommend new postpone her cervical surgery for 3 weeks if possible unless surgery is considered critical. Patient may then need to avoid Plavix until after surgery. Continue high-dose statin therapy with Lipitor 80 mg at at bedtime. Patient has had noted sinus bradycardia and has been recommended to have an event monitor placed on discharge for the next 3 days. Patient needs to follow-up and establish care with a neurologist as an outpatient in the next 2 to 3 weeks. Patient has been taken off of metformin, gabapentin and losartan on discharge secondary to his renal dysfunction he has also been taking off of labetalol secondary to the sinus bradycardia. Recommend to repeat blood work in 2 to 3 days. Hospital Course 83-year-old male came in with complaints of weakness on the right side significantly improved by the time he was evaluated. Patient did not receive any tPA patient also has patient facial droop towards the left side along with speech abnormality all of which are apparently improving at this time. Patient is legally blind. Patient's multiple has multiple other medical problems patient is on anticoagulation with Xarelto secondary to history of DVT and PE. Patient is not much ambulatory because of which he was not never taken off anticoagulation. Patient also has chronic kidney disease appears to have 1.7 is his baseline creatinine and he is also on 300 mg of gabapentin 3 times a day along with metformin which cannot be used with his kidney function. Patient any fever or chills. Patient does have some drift in the right hand with around 4+/5 strength. Both upper and lower extremities. He does report he is supposed to go for cervical spine surgery on Tuesday with Dr. Phillips out of [facility]. Patient was admitted with neurology consultation. Patient had a brain CT which reveals no acute intracranial process. There is nonspecific white matter changes likely secondary to chronic small vessel ischemic disease. X-ray shows cardiomegaly and mild pulmonary vascular congestion correlate for BNP with congestive heart failure. Patient appears euvolemic at this time. EKG reveals sinus bradycardia with a heart rate of [address] or T wave changes. Prolonged Doppler with less than 50 to 69% stenosis of the bilateral carotid bifurcations by Peak systolic velocity. Brain MRI revealed no acute intracranial scattered punctate white matter compatible with microvascular ischemic pain. Patient had an echocardiogram completed today which was a technically difficult study for interpretation there is normal LV systolic function with an EF of 60 to 65% there is trace tricuspid regurgitation. It was evaluated in follow-up he feels that he is back to his baseline and denies any new neurological issues. He continues to report right-sided weakness mostly in the left leg and states that this is residual from a prior stroke. Patient has been maintained on aspirin and Xarelto on an outpatient basis and this is considered a failure of aspirin therapy and has been recommended by neurology to discharge on Xarelto in combination with Plavix 75 mg daily. Would recommend new postpone her cervical surgery for 3 weeks if possible unless surgery is considered critical. Patient may then need to avoid Plavix until after surgery. Patient is not reporting any chest pain he is not reporting any shortness of breath he has no nausea vomiting or diarrhea. He completed his full stroke workup including lipid panel hemoglobin A1c as well as other diagnostic imaging as mentioned. Most recent blood work reveals a white blood cell count of 14.7, hemoglobin of 1.0, BUN of 27, creatinine of 1.56, globin A1c 6.8. Lipid panel reveals a triglyceride level of 101, cholesterol 115, LDL 57, HDL of 37. He will be discharged home. Please see medication reconciliation for a list of current medications. Thank you for allowing us to participate in the care of this patient. The impression and plan of care has been dictated by Kenia Wong, Nurse Practitioner as directed. Dr. Laura MD I have performed a history and physical examination and medical decision making of this patient, discussed the same with the dictator, and agree with the dictators assessment and plan as written, documented as a scribe. Based on total visit time, I have performed more than 50% of this visit. Patient Condition at Discharge: Stable Plan - Discharge Summary Discharge Rx Participant: No New Discharge Prescriptions: New DULoxetine HCL [Cymbalta] 30 mg PO DAILY #30 cap Clopidogrel [Plavix] 75 mg PO DAILY #30 tablet hydrALAZINE HCL 25 mg PO DAILY #30 tab Continue Omeprazole [PriLOSEC] 20 mg PO BID Atorvastatin [Lipitor] 80 mg PO HS amLODIPine [Norvasc] 5 mg PO BID Isosorbide Mononitrate ER [Imdur] 60 mg PO DAILY Rivaroxaban [Xarelto] 20 mg PO DAILY Montelukast [Singulair] 10 mg PO HS Insulin Degludec [Tresiba Flextouch U-100 Pen] 22 units SQ BID Insulin Aspart [NovoLOG Flexpen] 5 - 15 units SQ AC-TID Albuterol Sulfate [Albuterol Sulfate Hfa] 2 puff INHALATION RT-Q4H PRN PRN Reason: Shortness Of Breath Dapagliflozin Propanediol [Farxiga] 5 mg PO HS Tamsulosin [Flomax] 0.8 mg PO PC-SUPPER Potassium Chloride ER [K-Dur 10] 10 meq PO DAILY Budesonide/Glycopyr/Formoterol [Breztri Aerosphere Inhaler] 2 puff INHALATION RT-BID Cyanocobalamin (Vitamin B-12) [Vitamin B-12] 1,000 mcg PO DAILY Furosemide [Lasix] 20 mg PO DAILY allopurinoL [Zyloprim] 100 mg PO HS HYDROcodone/APAP 5-325MG [[place] 5-325] 1 tab PO Q8H PRN PRN Reason: Pain Levalbuterol Nebulized [Xopenex Nebulized] 1.25 mg INHALATION RT-Q8H PRN PRN Reason: Shortness Of Breath Solifenacin Succinate 5 mg PO DAILY Discontinued Labetalol [Trandate] 100 mg PO DAILY Gabapentin 300 mg PO TID metFORMIN HCL ER [Glucophage XR] 500 mg PO BID-W/MEALS Losartan Potassium [Cozaar] 100 mg PO DAILY Aspirin 81 mg PO HS Discharge Medication List Atorvastatin [Lipitor] 80 mg PO HS 10/10/18 [History] Isosorbide Mononitrate ER [Imdur] 60 mg PO DAILY 10/10/18 [History] Omeprazole [PriLOSEC] 20 mg PO BID 10/10/18 [History] Rivaroxaban [Xarelto] 20 mg PO DAILY 10/10/18 [History] amLODIPine [Norvasc] 5 mg PO BID 10/10/18 [History] Albuterol Sulfate [Albuterol Sulfate Hfa] 2 puff INHALATION RT-Q4H PRN 01/27/20 [History] Insulin Aspart [NovoLOG Flexpen] 5 - 15 units SQ AC-TID 01/27/20 [History] Insulin Degludec [Tresiba Flextouch U-100 Pen] 22 units SQ BID 01/27/20 [History] Montelukast [Singulair] 10 mg PO HS 01/27/20 [History] Dapagliflozin Propanediol [Farxiga] 5 mg PO HS 08/09/20 [History] Tamsulosin [Flomax] 0.8 mg PO PC-SUPPER 08/09/20 [History] Potassium Chloride ER [K-Dur 10] 10 meq PO DAILY 02/22/21 [History] Budesonide/Glycopyr/Formoterol [Breztri Aerosphere Inhaler] 2 puff INHALATION RT-BID 01/08/24 [History] Cyanocobalamin (Vitamin B-12) [Vitamin B-12] 1,000 mcg PO DAILY 01/08/24 [History] Furosemide [Lasix] 20 mg PO DAILY 01/08/24 [History] HYDROcodone/APAP 5-325MG [[place]edley 5-325] 1 tab PO Q8H PRN 01/08/24 [History] Levalbuterol Nebulized [Xopenex Nebulized] 1.25 mg INHALATION RT-Q8H PRN 01/08/24 [History] Solifenacin Succinate 5 mg PO DAILY 01/08/24 [History] allopurinoL [Zyloprim] 100 mg PO HS 01/08/24 [History] Clopidogrel [Plavix] 75 mg PO DAILY #30 tablet 01/11/24 [Rx] DULoxetine HCL [Cymbalta] 30 mg PO DAILY #30 cap 01/11/24 [Rx] hydrALAZINE HCL 25 mg PO DAILY #30 tab 01/11/24 [Rx] Follow up Appointment(s)/Referral(s): Cathleen Walls MD [REFERRING] - 1 Week (Enrichment Specialist) Parvez Phillips MD [REFERRING] - 1 Week (Spinal surgery supposed to be having surgery Tuesday at [facility] Prince Levy DO [STAFF PHYSICIAN] - 1 Week (Neurology ) Arianne Barbosa [STAFF PHYSICIAN] - 1 Week (Endocrinology Not a candidate for metformin due to renal dysfunction.) Sugar Cummins MD [REFERRING] - 1-2 Days Ambulatory/Diagnostic Orders: Basic Metabolic Panel [LAB.AMB] Time Frame: 3 Days, Location: None Selected Complete Blood Count w/diff [LAB.AMB] Location: None Selected Patient Instructions/Handouts: Transient Ischemic Attack (DC) Activity/Diet/Wound Care/Special Instructions: Discontinue aspirin 81 mg daily Start plavix 75 mg daily with xarelto Follow up with your blowing weasand. Need to discuss going for surgery with your PCP Dr. Cummins and your spinal surgeon Dr. Phillips. Continue with event monitor for 30 days. Need to follow up with a neurologist on discharge. Discharge Disposition: HOME SELF-CARE
== END 2024-01-11 16:24 | disposition home or self-care (01) | DRG 69 ==
LOC: EC 13:59 → 3SCARD 16:23
PROVIDERS: ADMIT Hospitalist; ATTEND Hospitalist
DX: G45.9 Transient cerebral ischemic attack, unspecified (principal); I13.0 Hypertensive heart and chronic kidney disease with heart failure and stage 1 through stage 4 chronic kidney disease, or unspecified chronic kidney disease; I69.351 Hemiplegia and hemiparesis following cerebral infarction affecting right dominant side; N18.4 Chronic kidney disease, stage 4 (severe); N17.9 Acute kidney failure, unspecified; R00.1 Bradycardia, unspecified; I50.9 Heart failure, unspecified; E11.22 Type 2 diabetes mellitus with diabetic chronic kidney disease; E78.00 Pure hypercholesterolemia, unspecified; Z86.718 Personal history of other venous thrombosis and embolism; G47.33 Obstructive sleep apnea (adult) (pediatric); H35.52 Pigmentary retinal dystrophy; K21.9 Gastro-esophageal reflux disease without esophagitis; E11.51 Type 2 diabetes mellitus with diabetic peripheral angiopathy without gangrene; I25.10 Atherosclerotic heart disease of native coronary artery without angina pectoris; M10.9 Gout, unspecified; H91.90 Unspecified hearing loss, unspecified ear; M54.2 Cervicalgia; G89.29 Other chronic pain; H54.8 Legal blindness, as defined in USA; R29.703 NIHSS score 3; Z79.01 Long term (current) use of anticoagulants; Z79.4 Long term (current) use of insulin; Z79.82 Long term (current) use of aspirin; Z79.84 Long term (current) use of oral hypoglycemic drugs; Z79.899 Other long term (current) drug therapy; Z82.49 Family history of ischemic heart disease and other diseases of the circulatory system; Z85.6 Personal history of leukemia; Z88.6 Allergy status to analgesic agent; Z90.49 Acquired absence of other specified parts of digestive tract; Z86.711 Personal history of pulmonary embolism
CPT/HCPCS: 36415; 70450; 70551; 71046; 80048; 80053; 80061; 82550; 83036; 85025; 85610; 85730; 93005; 93270; 93306; 93880; 94760; 96360; 99291

== ENCOUNTER 2024-03-15 19:41 | Inpatient (IN) | payer MEDICARE, OTHER ==
[2024-03-16] MEDS ORDERED: DOCUSATE 100 MG CAP ONE ×2 (05:56→12:31)
[2024-03-16] MEDS ORDERED: MONTELUKAST 10 MG TAB ONE (09:49)
[2024-03-16] MEDS ORDERED: amLODIPine 5 MG TAB ONE ×2 (09:50→21:17)
[2024-03-16] MEDS ORDERED: PANTOPRAZOLE 40 MG TABLET PO ONE (09:50)
[2024-03-16] MEDS ORDERED: hydrALAZINE HCL 25 MG TAB ONE (09:50)
[2024-03-16] MEDS ORDERED: FAMOTIDINE 20 MG TAB ONE ×2 (09:50→21:18)
[2024-03-16] MEDS ORDERED: ATORVASTATIN 80 MG TAB ONE ×2 (09:50→21:17)
[2024-03-16] MEDS ORDERED: CLOPIDOGREL 75 MG TAB ONE (09:50)
[2024-03-16] MEDS ORDERED: TAMSULOSIN 0.4 MG CAP.ER.24H PO ONE ×2 (17:41→17:48)
[2024-03-16] MEDS ORDERED: INSULIN ASPART (NovoLOG) 100 UNIT/ML VIAL SQ ONE (17:42)
[2024-03-16] MEDS ORDERED: allopurinoL 100 MG TAB ONE (21:17)
[2024-03-16] MEDS ORDERED: TROSPIUM CHLORIDE 20 MG TABLET ONE (23:59)
[2024-03-16] MEDS ORDERED: RIVAROXABAN 20 MG TAB PO ONE (23:59)
[2024-03-16] MEDS ORDERED: ISOSORBIDE MONONITRATE ER 60 MG TAB.ER.24H PO ONE (23:59)
[2024-03-17] MEDS ORDERED: IPRATROPIUM 0.5 MG/2.5 ML NEBU INHALATION ONE (07:37)
[2024-03-17] MEDS ORDERED: amLODIPine 5 MG TAB ONE ×2 (09:53→20:41)
[2024-03-17] MEDS ORDERED: CLOPIDOGREL 75 MG TAB ONE (09:53)
[2024-03-17] MEDS ORDERED: hydrALAZINE HCL 25 MG TAB ONE (09:54)
[2024-03-17] MEDS ORDERED: PANTOPRAZOLE 40 MG TABLET PO ONE (09:54)
[2024-03-17] MEDS ORDERED: FAMOTIDINE 20 MG TAB ONE ×2 (09:54→20:42)
[2024-03-17] MEDS ORDERED: INSULIN ASPART (NovoLOG) 100 UNIT/ML VIAL SQ ONE ×2 (12:37→21:29)
[2024-03-17] MEDS ORDERED: TAMSULOSIN 0.4 MG CAP.ER.24H PO ONE ×2 (18:23→18:24)
[2024-03-17] MEDS ORDERED: allopurinoL 100 MG TAB ONE (20:40)
[2024-03-17] MEDS ORDERED: MONTELUKAST 10 MG TAB ONE (20:41)
[2024-03-17] MEDS ORDERED: ATORVASTATIN 80 MG TAB ONE (20:41)
[2024-03-17] MEDS ORDERED: SYMBICORT 160-4.5 MCG INHALER INHALATION ONE (23:59)
[2024-03-17] MEDS ORDERED: ISOSORBIDE MONONITRATE ER 60 MG TAB.ER.24H PO ONE (23:59)
[2024-03-17] MEDS ORDERED: RIVAROXABAN 20 MG TAB PO ONE (23:59)
[2024-03-17] MEDS ORDERED: TROSPIUM CHLORIDE 20 MG TABLET ONE (23:59)
[2024-03-18] MEDS ORDERED: HYDROcodone/APAP 5-325MG 1 EACH TAB PO PRN
[2024-03-18] MEDS ORDERED: DEXTROSE 50% SYRINGE 50 ML IVP PRN ×2
[2024-03-18] MEDS ORDERED: ALBUTEROL NEBULIZED 2.5 MG/3 ML INHALATION PRN
[2024-03-18] MEDS ORDERED: ACETAMINOPHEN TAB 325 MG TAB PO PRN
[2024-03-18 05:29] LABS: ALT 14 U/L (4-49); AST 18 U/L (17-59); African American GFR (CKD) 46 (>60 ml/min/1.73 sqM); Albumin 3.1 g/dL (3.5-5.0); Albumin/Globulin Ratio 1.6; Alkaline Phosphatase 53 U/L (38-126); Anion Gap 5 mmol/L; Blood Urea Nitrogen 24 mg/dL (9-20); Calcium 8.8 mg/dL (8.4-10.2); Carbon Dioxide 24 mmol/L (22-30); Chloride 109 mmol/L (98-107); Globulin 1.9 g/dL; Glucose 128 mg/dL (74-99); Non-African American GFR(CKD) 39 (>60 ml/min/1.73 sqM); Potassium 3.7 mmol/L (3.5-5.1); Sodium 138 mmol/L (137-145); Total Bilirubin 0.6 mg/dL (0.2-1.3)
[2024-03-18 05:56] LABS: Glucose,Whole Blood 141 mg/dL (70-110)
[2024-03-18 06:24] LABS: Anisocytosis Slight; HGB 11.1 gm/dL (13.0-17.5); Hypochromasia Slight; MCH 25.7 pg (25.0-35.0); MCHC 31.6 g/dL (31.0-37.0); MCV 81.2 fL (80.0-100.0); Microcytosis Slight; Platelet Count 185 k/uL (150-450); RBC 4.31 m/uL (4.30-5.90); RDW 17.5 % (11.5-15.5)
[2024-03-18] MEDS: INSULIN ASPART (NovoLOG) 100 UNIT/ML VIAL SQ SCH (06:40)
[2024-03-18] MEDS: PANTOPRAZOLE 40 MG TABLET PO SCH (06:41)
[2024-03-18] MEDS: SYMBICORT 160-4.5 MCG INHALER INHALATION SCH (07:21)
[2024-03-18] MEDS: IPRATROPIUM 0.5 MG/2.5 ML NEBU INHALATION SCH (07:21)
[2024-03-18] MEDS: CLOPIDOGREL 75 MG TAB PO SCH (10:10)
[2024-03-18] MEDS: FAMOTIDINE 20 MG TAB PO SCH (10:10)
[2024-03-18] MEDS: TROSPIUM CHLORIDE 20 MG TABLET PO SCH (10:10)
[2024-03-18] MEDS: RIVAROXABAN 20 MG TAB PO SCH (10:11)
[2024-03-18] MEDS: hydrALAZINE HCL 25 MG TAB PO SCH ×2 (10:11→14:35)
[2024-03-18] MEDS: amLODIPine 5 MG TAB PO SCH (10:11)
[2024-03-18] MEDS: DOCUSATE 100 MG CAP PO SCH (10:11)
[2024-03-18] MEDS: DULoxetine HCL 30 MG CAPSULE.DR PO SCH (10:11)
[2024-03-18] MEDS: ISOSORBIDE MONONITRATE 20 MG TAB PO SCH (10:19)
[2024-03-18 12:17] LABS: Glucose,Whole Blood 152 mg/dL (70-110)
[2024-03-18] MEDS ORDERED: ASPIRIN 81 MG PO SCH (13:15)
--- NOTE | 2024-03-18 13:16 | P.PN ---
Subjective Progress Note Date: 03/18/24 HPI: Patient has prior history of multiple TIAs. This time he presented to the hospital with another TIA type episode. He had echocardiogram which was not conclusive for to rule out a PFO. SUBJECTIVE: Patient is very concerned about going home. He also has problems with transportation and explicitly reports that he will be able to follow-up for outpatient testing. Due to this we will plan for performing a LATONIA tomorrow a.m. PHYSICAL EXAMINATION Lungs: Clear to auscultation. Poor inspiratory effort heart: Regular rate and rhythm, S1-S2, mild systolic murmur audible. Abdomen: Soft nontender, bowel sounds present, Extremities: No edema, Neuro: Alert, oriented, no focal neurological deficits. Detailed neuro exam was not performed. ASSESSMENT Recurrent TIAs Essential hypertension CKD PLAN Xarelto 20 mg daily, Plavix 75, Lipitor 80, amlodipine 5 twice daily, Imdur 60 mg daily, hydralazine 25 mg 4 times daily Plan for LATONIA to evaluate PFO by Dr. Carrington tomorrow a.m. Possible consideration for a loop recorder. Patient is already on anticoagulation Kennedy Crandall MD, FACC, RPVI Thank you for allowing [facility] to participate in this patient's care. Please contact us in case of any followup questions. Objective - Vital Signs Vital signs: Vital Signs Temp 97.7 F 03/18/24 08:00 Pulse 69 03/18/24 08:00 Resp 16 03/18/24 08:00 BP 167/74 03/18/24 08:00 Pulse Ox 99 03/18/24 08:00 FiO2 Intake & Output 03/17/24 03/18/24 03/18/24 18:59 06:59 18:59 Intake Total 118 Output Total 250 450 Balance -250 -332 Weight 110.677 kg Intake: Oral 118 Output: Urine 250 450 - Labs CBC & Chem 7: 03/18/24 04:00 03/18/24 04:00 Labs: Abnormal Lab Results - Last 24 Hours (Table) 03/18/24 03/18/24 03/18/24 Range/Units 04:00 04:00 05:54 WBC 11.0 H (3.8-10.6) k/uL Hgb 11.1 L (13.0-17.5) gm/dL Hct 35.0 L (39.0-53.0) % RDW 17.5 H (11.5-15.5) % Chloride 109 H (98-107) mmol/L BUN 24 H (9-20) mg/dL Creatinine 1.71 H (0.66-1.25) mg/dL Glucose 128 H (74-99) mg/dL POC Glucose (mg/dL) 141 H (70-110) mg/dL Total Protein 5.0 L (6.3-8.2) g/dL Albumin 3.1 L (3.5-5.0) g/dL 03/18/24 Range/Units 12:16 WBC (3.8-10.6) k/uL Hgb (13.0-17.5) gm/dL Hct (39.0-53.0) % RDW (11.5-15.5) % Chloride (98-107) mmol/L BUN (9-20) mg/dL Creatinine (0.66-1.25) mg/dL Glucose (74-99) mg/dL POC Glucose (mg/dL) 152 H (70-110) mg/dL Total Protein (6.3-8.2) g/dL Albumin (3.5-5.0) g/dL
--- NOTE | 2024-03-18 15:15 | P.PN ---
Subjective Progress Note Date: 03/18/24 Principal diagnosis: TIA, recurrent patient denies having symptoms of focal weakness or numbness. No slurred speech. No other overnight events. Objective - Vital Signs Vital signs: Vital Signs Temp 98.1 F 03/18/24 14:33 Pulse 87 03/18/24 14:33 Resp 15 03/18/24 14:33 BP 103/64 03/18/24 14:33 Pulse Ox 100 03/18/24 14:33 FiO2 Intake & Output 03/17/24 03/18/24 03/18/24 18:59 06:59 18:59 Intake Total 118 Output Total 250 450 Balance -250 -332 Weight 110.677 kg Intake: Oral 118 Output: Urine 250 450 Other: # Bowel Movements 1 - Exam Constitutional: No acute distress, conversant, pleasant Eyes: Anicteric sclerae, moist conjunctiva, no lid-lag legally blind ENMT: NC/AT Oropharynx clear, no erythema, exudates Neck: Supple, FROM, no masses, or JVD No carotid bruits No thyromegaly Lungs: Clear to auscultation Clear to percussion Normal respiratory effort, no accessory muscle use Cardiovascular: Heart regular in rate and rhythm, No murmurs, gallops, or rubs No peripheral edema Abdominal: Soft Nontender, no guarding, rebound or rigidity Abdomen moving with respiration Normoactive bowel sounds No hepatomegaly, No splenomegaly No palpable mass No abdominal wall hernia noted Skin: Normal temperature, tone, texture, turgor No induration No subcutaneous nodules No rash, lesions No ulcers Extremities: No digital cyanosis No clubbing Pedal pulses intact and symmetrical Radial pulses intact and symmetrical No calf tenderness Psychiatric: Alert and oriented to person, place and time Appropriate affect fair judgement Neuro Muscles Strength 5/5 in all 4 extremities Sensation to light touch grossly present throughout Cranial nerves II-XII grossly intact No focal sensory deficits Lymphatics: no palpable cervical or supraclavicular , or inguinal lymph nodes - Labs CBC & Chem 7: 03/18/24 04:00 03/18/24 04:00 Labs: Abnormal Lab Results - Last 24 Hours (Table) 03/18/24 03/18/24 03/18/24 Range/Units 04:00 04:00 05:54 WBC 11.0 H (3.8-10.6) k/uL Hgb 11.1 L (13.0-17.5) gm/dL Hct 35.0 L (39.0-53.0) % RDW 17.5 H (11.5-15.5) % Chloride 109 H (98-107) mmol/L BUN 24 H (9-20) mg/dL Creatinine 1.71 H (0.66-1.25) mg/dL Glucose 128 H (74-99) mg/dL POC Glucose (mg/dL) 141 H (70-110) mg/dL Total Protein 5.0 L (6.3-8.2) g/dL Albumin 3.1 L (3.5-5.0) g/dL 03/18/24 Range/Units 12:16 WBC (3.8-10.6) k/uL Hgb (13.0-17.5) gm/dL Hct (39.0-53.0) % RDW (11.5-15.5) % Chloride (98-107) mmol/L BUN (9-20) mg/dL Creatinine (0.66-1.25) mg/dL Glucose (74-99) mg/dL POC Glucose (mg/dL) 152 H (70-110) mg/dL Total Protein (6.3-8.2) g/dL Albumin (3.5-5.0) g/dL Assessment and Plan Plan: Recurrent TIA According to cardiology patient already had a 30 day event monitor which showed no a-fib or a-flutter according to cardio notes. Head CT and CT angio head and neck ok TTE ok. patient seen by neurology and cardiology services, plan for LATONIA in a.m as he continues to have recurrent TIAs despite being on anticoagulation and Plavix. Hypertension. Stable resume meds Type 2 diabetes mellitus well-controlled blood sugars SSI for now Chronic kidney disease stage III: Stable Coronary artery disease Stable History of DVT and pulmonary embolism in the past is on anticoagulation has been resumed. COPD without any acute exacerbation Gastroesophageal reflux disease Peripheral vascular disease DVT prophylaxis: on AC
--- NOTE | 2024-03-18 16:50 | P.PN ---
Subjective Progress Note Date: 03/18/24 Patient was seen for a follow-up. Patient is sitting comfortably in the recliner. Patient denies any headache or dizziness. No further stroke or TIA. Objective - Vital Signs Vital signs: Vital Signs Temp 98.1 F 03/18/24 14:33 Pulse 87 03/18/24 14:33 Resp 15 03/18/24 14:33 BP 103/64 03/18/24 14:33 Pulse Ox 100 03/18/24 14:33 FiO2 Intake & Output 03/17/24 03/18/24 03/18/24 18:59 06:59 18:59 Intake Total 118 Output Total 250 450 Balance -250 -332 Weight 110.677 kg Intake: Oral 118 Output: Urine 250 450 Other: # Bowel Movements 1 - Exam Patient is alert and awake, no distress. Speech and language functions are normal. Patient is legally blind. Examination is nonfocal. - Labs CBC & Chem 7: 03/18/24 04:00 03/18/24 04:00 Labs: Abnormal Lab Results - Last 24 Hours (Table) 03/18/24 03/18/24 03/18/24 Range/Units 04:00 04:00 05:54 WBC 11.0 H (3.8-10.6) k/uL Hgb 11.1 L (13.0-17.5) gm/dL Hct 35.0 L (39.0-53.0) % RDW 17.5 H (11.5-15.5) % Chloride 109 H (98-107) mmol/L BUN 24 H (9-20) mg/dL Creatinine 1.71 H (0.66-1.25) mg/dL Glucose 128 H (74-99) mg/dL POC Glucose (mg/dL) 141 H (70-110) mg/dL Total Protein 5.0 L (6.3-8.2) g/dL Albumin 3.1 L (3.5-5.0) g/dL 03/18/24 Range/Units 12:16 WBC (3.8-10.6) k/uL Hgb (13.0-17.5) gm/dL Hct (39.0-53.0) % RDW (11.5-15.5) % Chloride (98-107) mmol/L BUN (9-20) mg/dL Creatinine (0.66-1.25) mg/dL Glucose (74-99) mg/dL POC Glucose (mg/dL) 152 H (70-110) mg/dL Total Protein (6.3-8.2) g/dL Albumin (3.5-5.0) g/dL Assessment and Plan Assessment: * TIA, manifesting with right facial paresthesia, right-sided weakness and dysarthria, now resolved. * History of TIA/CVA x 3 with no residual deficits * Hypertension * Diabetes * Hyperlipidemia * Legal blindness due to retinitis pigmentosa * History of DVT, on Xarelto Plan: * Echo completed, results pending. * Patient to undergo LATONIA and loop recorder placement in am. Cardiology on board. * Continue Xarelto 20 mg daily. Patient also on Plavix 75 mg daily. * Continue telemetry monitoring. * Hemoglobin A1c is 6.8 on 01/09/2024. * Lipid panel with cholesterol 115, LDL 57, HDL 37, triglycerides 101 on 01/09/2024. Patient on Lipitor 80 mg daily. * Dr. Damon Orellana to resume neurology service in the morning.
[2024-03-18 17:08] LABS: Glucose,Whole Blood 151 mg/dL (70-110)
[2024-03-18] MEDS: TAMSULOSIN 0.4 MG CAP.ER.24H PO SCH (17:36)
[2024-03-18 20:38] LABS: Glucose,Whole Blood 164 mg/dL (70-110)
[2024-03-18] MEDS: ATORVASTATIN 80 MG TAB PO SCH (21:04)
[2024-03-18] MEDS: allopurinoL 100 MG TAB PO SCH (21:04)
[2024-03-18] MEDS: MONTELUKAST 10 MG TAB PO SCH (21:04)
[2024-03-19 06:22] LABS: Glucose,Whole Blood 152 mg/dL (70-110)
[2024-03-19] MEDS: BENZOCAINE SPRAY 1 CAN TOPICAL ONE (07:29)
[2024-03-19] MEDS: fentaNYL (PF) 50 MCG/1 ML VIAL IVP ONE (07:40)
[2024-03-19] MEDS: MIDAZOLAM 2 MG/2 ML VIAL IVP ONE (07:40)
--- NOTE | 2024-03-19 07:54 | P.PCN ---
Date of Procedure: 03/19/24 Description of Procedure: Indication: TIA Procedure Description: After explaining the procedure to the patient, it's risk and complications, blood pressure, heart rate and O2 saturation were monitored. The throat was sprayed with Cetacaine. Patient received 2 mg intravenous Versed, 50 mcg intravenous fentanyl. The probe was introduced into the esophagus without difficulty. Images were obtained. Following that, the probe was removed. There was no immediate complication. Findings: Left atrial size is normal, left atrial appendage is normal with no evidence of thrombus. Left ventricular size and systolic function are normal. The aortic valve is a tricuspid valve with mild fibrocalcific changes. The mitral valve revealed mild prolapse of the anterior mitral valve leaflets. The tricuspid valve appears to be normal. Pulmonic valve is normal. Descending thoracic aorta appears to be normal. No pericardial effusion was noted. Contrast bubble study revealed no shunting across the interatrial septum with Valsalva maneuver. And eustachian valve was noted in the right atrium. Doppler: Pulse wave and color Doppler were obtained, and revealed mild mitral and tricuspid regurgitation, there was no shunting across the interatrial septum. Conclusion: 1. Normal appearance of the left atrial appendage with no thrombus 2. Normal left ventricular size and systolic function 3. Mild mitral and tricuspid regurgitation 4. No shunting across the interatrial septum 5. Normal appearance of the descending thoracic aorta
[2024-03-19] MEDS: SODIUM CHLORIDE 0.9% 1,000 ML IV SCH ×2 (10:04→10:06)
[2024-03-19 11:37] VITALS: RESP 18; TEMP 97.8
[2024-03-19 11:41] VITALS: BP 145/75; PULSE 58
[2024-03-19 12:33] LABS: Glucose,Whole Blood 166 mg/dL (70-110)
--- NOTE | 2024-04-03 13:15 | CT ---
synapse default - Radiology Report Patient: Pierre Deluna Ordering Physician: Unknown, Unknown ID: [id number] Phone, Pager: Phone: N/A Pager: N/A : 1950 Age/Gender: 73Y, M Primary Location: N/A Procedure: CT brain wo con Study Date: 03/15/2024 5:17:00 PM EXAMINATION TYPE: CT brain wo con DATE OF EXAM: 03/15/2024 COMPARISON: HISTORY: CVA symptoms Unenhanced CT of the brain was performed. The ventricles, basal cisterns and sulci overlying the cerebral convexities demonstrate mild enlargem ent. There is no evidence for intracranial hemorrhage or sulcal effacement. There is decreased attenuation about the periventricular white matter and deep white matter of both c erebral hemispheres, compatible with chronic small vessel ischemia. Differential diagnosis does inclu de demyelination. No mass effects are seen.No midline shift. Osseous calvarium is intact. If symptoms persist consider MRI. IMPRESSION: 1. Age related atrophic and chronic small vessel ischemic change without acute intracranial process s een at this time.
--- NOTE | 2024-04-03 13:15 | CT ---
synapse default - Study Notes/Preliminary Report Print Notes"Print Notes Patient: Pierre Deluna Ordering Physician: Unknown, Unknown ID: [id number] Phone, Pager: Phone: N/A Pager: N/A : 1950 Age/Gender: 73Y, M Primary Location: N/A Procedure: CT angio head neck Study Date: 03/15/2024 5:17:00 PM EXAMINATION TYPE: CODE STROKE: CTA head neck DATE OF EXAM: 03/15/2024 COMPARISON: HISTORY: Neurologic symptoms CONTRAST: Performed with IV Contrast , patient injected with 65 mL of Isovue 370. Combination Contrast CTA cervical carotids and [place] CTA cervical carotids. Examination is limited given lack of 3-D imaging given downtime. Contrast CTA of the cervical carotids was performed 3-D reconstruction imaging obtained at a separate workstation. Right carotid system: Mild plaque is seen of the right common carotid artery. There is mild plaque a lso noted at the carotid bulb and proximal ICA. No significant diameter reduction. ECA is patent. Right vertebral artery appears unremarkable. Left carotid system: Mild plaque is seen of the left common carotid artery. There is mild plaque als o noted at the carotid bulb and proximal ICA. No significant diameter reduction. ECA is patent. Lef t vertebral artery appears unremarkable. IMPRESSION: 1. No significant diameter reduction to account for the patient's symptoms. CTA [place] Contrast CTA of the [place] was performed.Examination is limited given lack of 3-D imaging g iven downtime. Vertebrobasilar system as well as intracranial portions of the internal carotid arteries and their [place] tributaries are patent. I do not see evidence for sizable aneurysm or vascular malformation. Pl ease note MRI provides greater sensitivity and specificity. Visualized brain appears grossly unremar kable. IMPRESSION: 1. No significant abnormality on this limited study. NASCET criteria was used in interpretation of this exam?
--- NOTE | 2024-04-10 13:06 | XR ---
synapse default - Radiology Report Patient: Pierre Deluna Ordering Physician: Unknown, Unknown ID: [id number] Phone, Pager: Phone: N/A Pager: N/A : 1950 Age/Gender: 73Y, M Primary Location: N/A Procedure: XR chest 2V Study Date: 03/15/2024 2:52:05 PM EXAMINATION TYPE: XR chest 2V DATE OF EXAM: 03/15/2024 COMPARISON: 01/08/2024 HISTORY: Shortness of breath TECHNIQUE: Frontal and lateral views of the chest are obtained. FINDINGS: Scattered senescent parenchymal changes noted. Hyperinflation compatible with COPD. No evidence for infiltrate. No evidence for atelectasis. Heart size is stable. Mediastinal structures are stable and grossly unremarkable. No evidence for hilar prominence. Degenerative changes dorsal spine. IMPRESSION: 1. No evidence for acute pulmonary disease.
== END 2024-03-19 14:22 | disposition home or self-care (01) | DRG 69 ==
LOC: 6NMEDSUR 19:41 → OBSVTOIN 19:41 → UNDODISOB 20:28
PROVIDERS: ADMIT Internal Medicine; ATTEND Internal Medicine
PROC: B246ZZ4 Ultrasonography of Right and Left Heart, Transesophageal (ICD-10-PCS; principal; 2024-03-19 15:15)
DX: G45.9 Transient cerebral ischemic attack, unspecified (principal); H35.52 Pigmentary retinal dystrophy; E78.5 Hyperlipidemia, unspecified; I12.9 Hypertensive chronic kidney disease with stage 1 through stage 4 chronic kidney disease, or unspecified chronic kidney disease; E11.22 Type 2 diabetes mellitus with diabetic chronic kidney disease; H54.8 Legal blindness, as defined in USA; N18.30 Chronic kidney disease, stage 3 unspecified; I08.1 Rheumatic disorders of both mitral and tricuspid valves; Z86.718 Personal history of other venous thrombosis and embolism; Z86.73 Personal history of transient ischemic attack (TIA), and cerebral infarction without residual deficits; Z87.891 Personal history of nicotine dependence; Z88.6 Allergy status to analgesic agent
CPT/HCPCS: 70450; 70496; 70498; 71046; 80053; 80061; 83036; 85027; 93005; 93306; 93312; 93320; 93325; 99285

== ENCOUNTER 2024-04-11 19:56 | Observation (INO) | payer MEDICARE, OTHER ==
--- NOTE | 2024-04-11 20:11 | ED ---
Extremity Problem HPI - General Stated complaint: L Leg Pain Time Seen by Provider: 04/11/24 20:08 Source: RN notes reviewed, old records reviewed Limitations: no limitations - History of Present Illness Initial comments: This is a 73-year-old male presenting for left lower extremity pain and swelling. History of infection of the left leg concern for recurrent infection cellulitis with increased edema today. Patient has some mild bleeding with recent injury as well. He feels weak tired and mildly feverish MD Complaint: extremity pain, extremity swelling -: days(s) Location: left, lower extremity -: Yes myalgia, Yes arthralgia Radiation: proximal, distal Severity scale (1-10): 6 Consistency: constant Worsens with: nothing, walking Associated Symptoms: denies other symptoms - Related Data Home Medications Medication Instructions Recorded Confirmed Atorvastatin [Lipitor] 80 mg PO HS 10/10/18 04/11/24 Isosorbide Mononitrate ER [Imdur] 60 mg PO DAILY 10/10/18 04/11/24 Omeprazole [PriLOSEC] 20 mg PO BID 10/10/18 04/11/24 Rivaroxaban [Xarelto] 20 mg PO DAILY 10/10/18 04/11/24 amLODIPine [Norvasc] 5 mg PO BID 10/10/18 04/11/24 Albuterol Sulfate [Albuterol 2 puff INHALATION RT-Q4H PRN 01/27/20 04/11/24 Sulfate Hfa] Insulin Aspart [NovoLOG Flexpen] 5 - 15 units SQ AC-TID PRN 01/27/20 04/11/24 Insulin Degludec [Tresiba 18 units SQ BID 01/27/20 04/11/24 Flextouch U-100 Pen] Montelukast [Singulair] 10 mg PO HS 01/27/20 04/11/24 Dapagliflozin Propanediol [Farxiga] 5 mg PO HS 08/09/20 04/11/24 Tamsulosin [Flomax] 0.8 mg PO PC-SUPPER 08/09/20 04/11/24 Potassium Chloride ER [K-Dur 10] 10 meq PO DAILY 02/22/21 04/11/24 Budesonide/Glycopyr/Formoterol 2 puff INHALATION RT-BID 01/08/24 04/11/24 [Breztri Aerosphere Inhaler] Cyanocobalamin (Vitamin B-12) 1,000 mcg PO DAILY 01/08/24 04/11/24 [Vitamin B-12] Furosemide [Lasix] 20 mg PO DAILY 01/08/24 04/11/24 HYDROcodone/APAP 5-325MG [Coden 1 tab PO Q8H PRN 01/08/24 04/11/24 5-325] Levalbuterol Nebulized [Xopenex 1.25 mg INHALATION RT-Q8H PRN 01/08/24 04/11/24 Nebulized] Solifenacin Succinate 5 mg PO DAILY 01/08/24 04/11/24 allopurinoL [Zyloprim] 100 mg PO HS 01/08/24 04/11/24 Ferrous Sulfate [Iron (65 MG 325 mg PO DAILY 04/11/24 04/11/24 Elemental)] Labetalol [Trandate] 100 mg PO DAILY 04/11/24 04/11/24 Losartan Potassium 100 mg PO DAILY 04/11/24 04/11/24 Previous Rx's Medication Instructions Recorded Clopidogrel [Plavix] 75 mg PO DAILY #30 tablet 01/11/24 DULoxetine HCL [Cymbalta] 30 mg PO DAILY #30 cap 01/11/24 Cephalexin [Keflex] 500 mg PO TID 7 Days #21 cap 04/14/24 Allergies Allergy/AdvReac Type Severity Reaction Status Date / Time cortisone Allergy Anaphylaxis, Verified 04/11/24 21:23 tongue swelling Review of Systems ROS Statement: Those systems with pertinent positive or pertinent negative responses have been documented in the HPI. ROS Other: All systems not noted in ROS Statement are negative. 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 History of Any Multi-Drug Resistant Organisms: None Reported Past Surgical History: Appendectomy, Back Surgery, Cholecystectomy, Heart Catheterization, Joint Replacement, Orthopedic Surgery Additional Past Surgical History / Comment(s): BILAT TKA &MICHAEL. LT SHOULDER SX/bilateral total shoulder replacements. RT ROTATOR CUFF REPAIR X 2. COLO NOSCOPY Past Anesthesia/Blood Transfusion Reactions: No Reported Reaction Additional Past Anesthesia/Blood Transfusion Reaction / Comment(s): Pt unsure if he has received blood. Past Psychological History: No Psychological Hx Reported Additional Psychological History / Comment(s): Pt resides with grandson, age 16yrs. Smoking Status: Former smoker Past Alcohol Use History: None Reported Additional Past Alcohol Use History / Comment(s): Pt started smoking pipe in 1959 and quit in 1983 Past Drug Use History: None Reported - Past Family History Mother History Unknown: Yes Family Medical History: No Reported History Additional Family Medical History / Comment(s): Smoker. Father Sister(s) History Unknown: Yes Family Medical History: Vascular Disorder Additional Family Medical History / Comment(s): ASHD General Exam General appearance: alert, in no apparent distress Head exam: Present: atraumatic, normocephalic, normal inspection Eye exam: Present: normal appearance, PERRL, EOMI. Absent: scleral icterus, conjunctival injection, periorbital swelling ENT exam: Present: normal exam, mucous membranes moist Neck exam: Present: normal inspection. Absent: tenderness, meningismus, lymphadenopathy Respiratory exam: Present: normal lung sounds bilaterally. Absent: respiratory distress, wheezes, rales, rhonchi, stridor Cardiovascular Exam: Present: regular rate, normal rhythm, normal heart sounds. Absent: systolic murmur, diastolic murmur, rubs, gallop, clicks GI/Abdominal exam: Present: soft, normal bowel sounds. Absent: distended, tenderness, guarding, rebound, rigid Extremities exam: Present: normal inspection, full ROM, normal capillary refill. Absent: tenderness, pedal edema, joint swelling, calf tenderness Back exam: Present: normal inspection Neurological exam: Present: alert, oriented X3, CN II-XII intact Psychiatric exam: Present: normal affect, normal mood Skin exam: Present: warm, dry, intact, normal color. Absent: rash Course Vital Signs 04/11/24 04/11/24 04/11/24 20:00 22:19 23:46 Temperature 98.4 F Pulse Rate 55 L 52 L 50 L Respiratory 18 16 16 Rate Blood Pressure 145/73 143/62 O2 Sat by Pulse 97 96 98 Oximetry 04/11/24 23:55 Temperature Pulse Rate 50 L Respiratory 16 Rate Blood Pressure O2 Sat by Pulse 97 Oximetry - Reevaluation(s) Reevaluation #1: 04/11/24 20:41 Medical records reviewed Reevaluation #2: 04/11/24 20:41 Patient symptoms unchanged Reevaluation #3: 04/11/24 20:46 Patient informed of results questions answered Reevaluation #4: Was pt. sent in by a medical professional or institution (, [facility], SOCIAL INSURANCE ADVISER, urgent care, hospital, or residential...) When possible be specific @ -no Did you speak to anyone other than the patient for history (EMS, parent, family, police, friend...)? What history was obtained from this source @ -no Did you review nursing and triage notes (agree or disagree)? Why? @ -agree Are old charts reviewed (outside hosp., previous admission, EMS record, old EKG, old radiological studies, urgent care reports/EKG's, residential records)? Report findings @ -yes Differential Diagnosis (chest pain, altered mental status, abdominal pain women, abdominal pain men, vaginal bleeding, weakness, fever, dyspnea, syncope, headache, dizziness, GI bleed, back pain, seizure, CVA, palpatations, mental health, musculoskeletal)? @ -prior EKG interpreted by me (3pts min.). @ -yes X-rays interpreted by me (1pt min.). @ -no CT interpreted by me (1pt min.). @ -no U/S interpreted by me (1pt. min.). @ -yes negative for acute disease What testing was considered but not performed or refused? (CT, X-rays, U/S, labs)? Why? @ -none What meds were considered but not given or refused? Why? @ -none Did you discuss the management of the patient with other professionals (radha gomez i.e. , PA, SOCIAL INSURANCE ADVISER, lab, RT, psych nurse, social worker assistant, cutter machine tender, teacher, compliance review officer, case packer and sealer)? Give summary @ -no Was smoking cessation discussed for >3mins.? @ -no Was critical care preformed (if so, how long)? @ -no Were there social determinants of health that impacted care today? How? (Homelessness, low income, unemployed, alcoholism, drug addiction, transportation, low edu. Level, literacy, decrease access to med. care, assisted, rehab)? @ -none Was there de-escalation of care discussed even if they declined (Discuss DNR or withdrawal of care, Hospice)? DNR status @ -no What co-morbidities impacted this encounter? (DM, HTN, Smoking, COPD, CAD, Cancer, CVA, ARF, Chemo, Hep., AIDS, mental health diagnosis, sleep apnea, morbid obesity)? @ -none Was patient admitted / discharged? Hospital course, mention meds given and route, prescriptions, significant lab abnormalities, going to OR and other pertinent info. @ - 73-year-old male to ER for evaluation of left lower extremity pain and swelling history of cellulitis recurrent cellulitis and infection patient has bleeding from that area, patient admitted for IV antibiotics wound care Admitted Undiagnosed new problem with uncertain prognosis? @ -no Drug Therapy requiring intensive monitoring for toxicity (Heparin, Nitro, Insulin, Cardizem)? @ -no Were any procedures done? @ -no Diagnosis/symptom? @ -left leg cellulitis Acute, or Chronic, or Acute on Chronic? @ -Acute Uncomplicated (without systemic symptoms) or Complicated (systemic symptoms)? @ -Complicated Side effects of treatment? @ -no Exacerbation, Progression, or Severe Exacerbation? @ -exacerbation Poses a threat to life or bodily function? How? (Chest pain, [place], [place], pneumonia, PE, COPD, DKA, ARF, appy, cholecystitis, CVA, Diverticulitis, Homicidal, Suicidal, threat to staff... and all critical care pts) @ -yes with significant infection extremes of age - Consultations Consultation #1: Spoke with [facility] who agrees to meet this patient Medical Decision Making - Medical Decision Making 73-year-old male to ER for evaluation of left lower extremity pain and swelling history of cellulitis recurrent cellulitis and infection patient has bleeding from that area, patient admitted for IV antibiotics wound care - Lab Data Result diagrams: 04/14/24 02:53 04/14/24 02:53 - Radiology Data Radiology results: report reviewed (Ultrasound left leg negative for DVT), image reviewed Disposition Clinical Impression: Left leg cellulitis Disposition: ADMITTED IP TO THIS HOSP Condition: Good Is patient prescribed a controlled substance at d/c from ED?: No Time of Disposition: 20:30
[2024-04-11] MEDS ORDERED: NALOXONE 0.4 MG/ML 1 ML VIAL IV PRN (20:33)
[2024-04-11] MEDS ORDERED: MORPHINE SULFATE 4 MG/ML SYRINGE IV PRN (20:33)
[2024-04-11] MEDS ORDERED: ONDANSETRON 4 MG/2 ML VIAL IVP PRN (20:33)
--- NOTE | 2024-04-11 21:27 | US ---
EXAMINATION TYPE: US venous doppler duplex LE LT DATE OF EXAM: 04/11/2024 9:09 PM COMPARISON: 12/10/2020 CLINICAL INDICATION: Male, 73 years old with history of dvt; Pt states hx of DVT in right leg. Patien t is on two blood thinners. Patient has laceration on left calf SIDE PERFORMED: Left TECHNIQUE: The lower extremity deep venous system is examined utilizing real time linear array sonog danelle with graded compression, doppler sonography and color-flow sonography. VESSELS IMAGED: Common Femoral Vein Deep Femoral Vein Greater Saphenous Vein * Femoral Vein Popliteal Vein Small Saphenous Vein * Proximal Calf Veins (* superficial vessels) Left Leg: Appears negative for DVT today Grayscale, color doppler, spectral doppler imaging performed of the deep veins of the lower extremiti es. There is normal flow, compressibility, vascular waveforms. IMPRESSION: No evidence of deep venous thrombosis involving the left lower extremity. [facility], , 04/11/2024 9:25 PM
[2024-04-11] MEDS: SODIUM CHLORIDE 0.9% 1,000 ML IV STA (21:39)
[2024-04-11] MEDS: SODIUM CHLORIDE 0.9% 1,000 ML IV SCH (21:45)
[2024-04-11 22:04] LABS: ALT 19 U/L (4-49); AST 20 U/L (17-59); African American GFR (CKD) 45 (>60 ml/min/1.73 sqM); Albumin 3.2 g/dL (3.5-5.0); Alkaline Phosphatase 48 U/L (38-126); Anion Gap 7 mmol/L; Blood Urea Nitrogen 38 mg/dL (9-20); Calcium 8.8 mg/dL (8.4-10.2); Carbon Dioxide 23 mmol/L (22-30); Chloride 110 mmol/L (98-107); Glucose 146 mg/dL (74-99); Magnesium 2.2 mg/dL (1.6-2.3); Non-African American GFR(CKD) 39 (>60 ml/min/1.73 sqM); Phosphorus 3.5 mg/dL (2.5-4.5); Sodium 140 mmol/L (137-145); Total Bilirubin 0.3 mg/dL (0.2-1.3); Total Protein 5.1 g/dL (6.3-8.2)
[2024-04-11 22:07] LABS: INR 1.1 (<1.2); Partial Thromboplastin Time 28.9 sec (22.0-30.0)
[2024-04-11 22:11] LABS: Anisocytosis Slight; HCT 34.5 % (39.0-53.0); HGB 10.8 gm/dL (13.0-17.5); Hypochromasia Slight; MCH 25.4 pg (25.0-35.0); MCHC 31.5 g/dL (31.0-37.0); MCV 80.7 fL (80.0-100.0); Mean Platelet Volume 7.1; Microcytosis Slight; Platelet Count 193 k/uL (150-450); RBC 4.27 m/uL (4.30-5.90); RDW 17.4 % (11.5-15.5); WBC 11.7 k/uL (3.8-10.6)
[2024-04-11 22:13] LABS: NT-Pro-B-Type Natriuretic Pept 687 pg/mL
[2024-04-11 22:58] LABS: Eosinophils # (M) 0.12 k/uL (0-0.7); Lymphocytes # (M) 3.86 k/uL (1.0-4.8); Monocytes # (M) 0.59 k/uL (0-1.0); Neutrophils # (M) 7.14 k/uL (1.3-7.7); Neutrophils % (M) 61 %; Nucleated Red Blood Cells 0 /100 WBC (0-0); Total Cells Counted 100
[2024-04-11 23:01] LABS: Crenated RBC Present
[2024-04-12] MEDS: HYDROcodone/APAP 7.5-325MG 1 EACH TAB PO PRN (00:05)
[2024-04-12] MEDS ORDERED: ALBUTEROL NEBULIZED 2.5 MG/3 ML INHALATION PRN (07:19)
[2024-04-12] MEDS ORDERED: NON FORMULARY DRUG (Levalbuterol Nebulized 1.25 MG/3 ML Ml) INHALATION PRN (07:19)
[2024-04-12] MEDS ORDERED: DEXTROSE 50% SYRINGE 50 ML IVP PRN ×2 (07:28)
[2024-04-12] MEDS ORDERED: NON FORMULARY DRUG (Budesonide/Glycopyr/Formoterol [Breztri Aerosphere Inhaler] 10.7 GM Gm INHALATION SCH (08:00)
[2024-04-12 08:25] LABS: Glucose,Whole Blood 101 mg/dL (70-110)
[2024-04-12 08:30] LABS: HCT 34.2 % (39.6-50.0); HGB 10.3 g/dL (13.0-17.0); MCH 25.4 pg (27.0-32.0); MCHC 30.1 g/dL (32.0-37.0); MCV 84.2 FL (80.0-97.0); Mean Platelet Volume 10.2 FL (9.5-12.2); NRBC Per 100 WBC 0 X 10*3/uL (0.00-0.01); Platelet Count 156 X 10*3/uL (140-440); RBC 4.06 X 10*6/uL (4.40-5.60); RDW 17.2 % (11.5-14.5); WBC 11.48 X 10*3/uL (4.50-10.00)
[2024-04-12] MEDS: LOSARTAN 50 MG TAB PO SCH (08:39)
[2024-04-12] MEDS: amLODIPine 5 MG TAB PO SCH (08:39)
[2024-04-12] MEDS: FUROSEMIDE 20 MG TAB PO SCH (08:39)
[2024-04-12] MEDS: CLOPIDOGREL 75 MG TAB PO SCH (08:39)
[2024-04-12 09:01] LABS: ALT 20 U/L (10-49); AST 17 U/L (14-35); Albumin 3.6 g/dL (3.8-4.9); Albumin/Globulin Ratio 2.77 Ratio (1.60-3.17); Alkaline Phosphatase 66 U/L (41-126); Blood Urea Nitrogen 31.2 mg/dL (9.0-27.0); Calcium 8.9 mg/dL (8.7-10.3); Carbon Dioxide 22.2 mmol/L (21.6-31.8); Chloride 111 mmol/L (96-109); Globulin 1.3 g/dL (1.6-3.3); Glucose 131 mg/dL (70-110); Magnesium 2.3 mg/dL (1.5-2.4); Phosphorus 4.5 mg/dL (2.4-5.1); Potassium 4.2 mmol/L (3.5-5.5); Sodium 142 mmol/L (135-145); Total Bilirubin <0.2 mg/dL (0.3-1.2); Total Protein 4.9 g/dL (6.2-8.2)
[2024-04-12] MEDS: SYMBICORT 160-4.5 MCG INHALER INHALATION SCH (09:01)
[2024-04-12] MEDS: IPRATROPIUM 0.5 MG/2.5 ML NEBU INHALATION SCH (09:01)
[2024-04-12] MEDS: DULoxetine HCL 30 MG CAPSULE.DR PO SCH (09:26)
[2024-04-12] MEDS: TROSPIUM CHLORIDE 20 MG TABLET PO SCH (09:26)
[2024-04-12] MEDS: RIVAROXABAN 20 MG TAB PO SCH (09:26)
[2024-04-12] MEDS: LABETALOL 100 MG TAB PO SCH ×2 (09:26→21:09)
[2024-04-12] MEDS: INSULIN ASPART (NovoLOG) 100 UNIT/ML VIAL SQ SCH (09:32)
[2024-04-12 10:44] LABS: Basophils # (M) 0 X 10*3/uL (0.00-0.10); Crenated RBC 2+; Elliptocytes 2+; Eosinophils # (M) 0.23 X 10*3/uL (0.04-0.35); Lymphocytes # (M) 5.97 X 10*3/uL (0.90-5.00); Microcytosis (M) 2+; Monocytes # (M) 0.34 X 10*3/uL (0.20-1.00); Neutrophils # (M) 4.94 X 10*3/uL (1.80-7.70); Neutrophils % (M) 43 %
[2024-04-12 11:06] LABS: Glucose,Whole Blood 110 mg/dL (70-110)
--- NOTE | 2024-04-12 12:51 | P.HPIM ---
History of Present Illness H&P Date: 04/12/24 Patient is a 73-year-old male with recurrent left lower extremity cellulitis presents to the ED for worsening left lower extremity wound with erythema and edema. Patient states that over a week ago there were blisters on the left lower extremity then over the last few days they became open wounds. He states that he tried treating it with OTC antibiotic cream but that has not helped. He endorses stinging and warmth to the area. He endorses a few recent falls onto his left side. He denies chest pain, shortness of breath, palpitations, fever, chills, nausea, vomiting. EKG shows sinus bradycardia with a ventricular rate of 51 bpm. Venous Doppler study shows no evidence of DVT in the left lower extremity. WBCs 11.70, hemoglobin 10.8, platelets 193, D-dimer 0.36, sodium 140, potassium 4, CO2 23, BUN 38, creatinine 1.73, GFR 39, troponin <0.012. Afebrile, hypertensive in the 140s systolic, bradycardic in the low 50s, saturating well on room air. ED documentation reviewed. Review of systems: Pertinent positives and negatives as discussed in HPI, a complete review of systems was performed and all other systems are negative. Social history: Tobacco: Former smoker Alcohol: Denies Recreational drugs: Denies Travel: Denies Occupation: Unemployed Physical examination: Vital signs are reviewed. General: No acute distress. AOx4. HEENT: Head exam is unremarkable. EOMI bilaterally. ACs patent. Nares patent. Lungs: Bilateral breath sounds present; no rhonchi, wheezes, or rales. Heart: Rate and rhythm are regular. S1-S2 present. No murmur/rub/gallops. Abdomen: Soft, nontender, nondistended. Bowel sounds present. Extremities: Symmetric movement. Left lower extremity: ulcerated wound on lateral lower leg with erythema and warmth Psych: Normal affect and mood. Cooperative. Assessment/Plan: Left lower extremity cellulitis Continue IV ceftriaxone Consult infectious disease Hypertension Restart home medications Diabetes mellitus type 2 Monitor glucose Insulin sliding scale Hyperlipidemia Continue home medications DVT prophylaxis: Xarelto Chronic conditions: Hypertension, diabetes mellitus type 2, hyperlipidemia, chronic kidney disease stage IIIa, CHF, gout, asthma, history of strokes, retinitis pigmentosa The patient is admitted with an anticipated less than than 2 midnight stay for evaluation of left lower extremity wound. CODE STATUS: Full code Discussed with: Patient Anticipated discharge place: Home Attestation I have seen and examined this patient with my resident , discussed the same with the resident/CHETAN, and agree with the dictator's assessment and plan as written GENERAL: The patient is alert and oriented x3, not in any acute distress. Well developed, well nourished. HEENT: Pupils are round and equally reacting to light. EOMI. No scleral icterus. No conjunctival pallor. Normocephalic, atraumatic. No pharyngeal erythema. No thyromegaly. CARDIOVASCULAR: S1 and S2 present. No murmurs, rubs, or gallops. PULMONARY: Chest is clear to auscultation, no wheezing or crackles. ABDOMEN: Soft, nontender, nondistended, normoactive bowel sounds. No palpable organomegaly. MUSCULOSKELETAL: No joint swelling or deformity. EXTREMITIES: Bruising and wound on left calf, erythema seen NEUROLOGICAL: Gross neurological examination did not reveal any focal deficits. SKIN: No rashes. Dr. Jan dawkins Past Medical History Past Medical History: Asthma, Blood Disorder, Coronary Artery Disease (CAD), Cancer, Heart Failure, COPD, CVA/TIA, Diabetes Mellitus, Deep Vein Thrombosis (DVT), Eye Disorder, GERD/Reflux, Hyperlipidemia, Hypertension, Pneumonia, Pulmonary Embolus (PE), Renal Disease, Vascular Disorder Additional Past Medical History / Comment(s): LEUKEMIA-NO TX, CVA X 2 balance issues, IDDM type II, LEGALLY BLIND bilaterally-RETINITIS PIGMENTOSA, DVT R leg/L lung, PVD, current sore L upper gum, "weak bladder", RIKI with cpap use, GOUT, chronic kidney diease, recent back pain, past low iron and recently told he has iron anemia, elementary school records list epilepsy/pt was unaware. History of Any Multi-Drug Resistant Organisms: None Reported Past Surgical History: Appendectomy, Back Surgery, Cholecystectomy, Heart Catheterization, Joint Replacement, Orthopedic Surgery Additional Past Surgical History / Comment(s): BILAT TKA &MICHAEL. LT SHOULDER SX/bilateral total shoulder replacements. RT ROTATOR CUFF REPAIR X 2. COLONOSCOPY. Heart Cath in December 2022. LATONIA in February 2024 Past Anesthesia/Blood Transfusion Reactions: No Reported Reaction Additional Past Anesthesia/Blood Transfusion Reaction / Comment(s): Pt unsure if he has received blood. Past Psychological History: No Psychological Hx Reported Additional Psychological History / Comment(s): Pt resides with grandson, age 16yrs. Smoking Status: Former smoker Past Alcohol Use History: None Reported Additional Past Alcohol Use History / Comment(s): Pt started smoking pipe in 1959 and quit in 1983 Past Drug Use History: None Reported - Past Family History Mother History Unknown: Yes Family Medical History: No Reported History Additional Family Medical History / Comment(s): Smoker. Father Sister(s) History Unknown: Yes Family Medical History: Vascular Disorder Additional Family Medical History / Comment(s): ASHD Medications and Allergies Home Medications Medication Instructions Recorded Confirmed Type Atorvastatin [Lipitor] 80 mg PO HS 10/10/18 04/11/24 History Isosorbide Mononitrate ER [Imdur] 60 mg PO DAILY 10/10/18 04/11/24 History Omeprazole [PriLOSEC] 20 mg PO BID 10/10/18 04/11/24 History Rivaroxaban [Xarelto] 20 mg PO DAILY 10/10/18 04/11/24 History amLODIPine [Norvasc] 5 mg PO BID 10/10/18 04/11/24 History Albuterol Sulfate [Albuterol 2 puff INHALATION RT-Q4H PRN 01/27/20 04/11/24 History Sulfate Hfa] Insulin Aspart [NovoLOG Flexpen] 5 - 15 units SQ AC-TID PRN 01/27/20 04/11/24 History Insulin Degludec [Tresiba 18 units SQ BID 01/27/20 04/11/24 History Flextouch U-100 Pen] Montelukast [Singulair] 10 mg PO HS 01/27/20 04/11/24 History Dapagliflozin Propanediol [Farxiga] 5 mg PO HS 08/09/20 04/11/24 History Tamsulosin [Flomax] 0.8 mg PO PC-SUPPER 08/09/20 04/11/24 History Potassium Chloride ER [K-Dur 10] 10 meq PO DAILY 02/22/21 04/11/24 History Budesonide/Glycopyr/Formoterol 2 puff INHALATION RT-BID 01/08/24 04/11/24 History [Breztri Aerosphere Inhaler] Cyanocobalamin (Vitamin B-12) 1,000 mcg PO DAILY 01/08/24 04/11/24 History [Vitamin B-12] Furosemide [Lasix] 20 mg PO DAILY 01/08/24 04/11/24 History HYDROcodone/APAP 5-325MG [Havana 1 tab PO Q8H PRN 01/08/24 04/11/24 History 5-325] Levalbuterol Nebulized [Xopenex 1.25 mg INHALATION RT-Q8H PRN 01/08/24 04/11/24 History Nebulized] Solifenacin Succinate 5 mg PO DAILY 01/08/24 04/11/24 History allopurinoL [Zyloprim] 100 mg PO HS 01/08/24 04/11/24 History Clopidogrel [Plavix] 75 mg PO DAILY #30 tablet 01/11/24 04/11/24 Rx DULoxetine HCL [Cymbalta] 30 mg PO DAILY #30 cap 01/11/24 04/11/24 Rx Ferrous Sulfate [Feosol] 325 mg PO DAILY 04/11/24 04/11/24 History Labetalol [Trandate] 100 mg PO DAILY 04/11/24 04/11/24 History Losartan Potassium 100 mg PO DAILY 04/11/24 04/11/24 History Allergies Allergy/AdvReac Type Severity Reaction Status Date / Time cortisone Allergy Anaphylaxis, Verified 04/11/24 21:23 tongue swelling Physical Exam Vitals: Vital Signs Temp Pulse Pulse Resp BP BP Pulse Ox 04/12/24 02:00 98 F 54 L 14 148/62 94 L 04/12/24 00:32 97.9 F 72 15 135/68 99 04/11/24 23:55 50 L 16 97 04/11/24 23:46 50 L 16 98 04/11/24 22:19 52 L 16 143/62 96 04/11/24 20:00 98.4 F 55 L 18 145/73 97 Intake and Output 04/11/24 04/12/24 04/12/24 22:59 06:59 14:59 Other: # Bowel Movements 0 Weight 108.862 kg 108.862 kg Results CBC & Chem 7: 04/13/24 04:55 04/12/24 03:34 Labs: Abnormal Lab Results - Last 24 Hours (Table) 09/18/24 09/18/24 Range/Units 21:35 21:35 WBC 11.7 H (3.8-10.6) k/uL RBC 4.27 L (4.30-5.90) m/uL Hgb 10.8 L (13.0-17.5) gm/dL Hct 34.5 L (39.0-53.0) % RDW 17.4 H (11.5-15.5) % Chloride 110 H (98-107) mmol/L BUN 38 H (9-20) mg/dL Creatinine 1.73 H (0.66-1.25) mg/dL Glucose 146 H (74-99) mg/dL Total Protein 5.1 L (6.3-8.2) g/dL Albumin 3.2 L (3.5-5.0) g/dL
[2024-04-12 17:17] LABS: Glucose,Whole Blood 164 mg/dL (70-110)
[2024-04-12] MEDS: TAMSULOSIN 0.4 MG CAP.ER.24H PO SCH (17:52)
[2024-04-12 20:29] LABS: Glucose,Whole Blood 133 mg/dL (70-110)
[2024-04-12] MEDS: allopurinoL 100 MG TAB PO SCH (21:09)
[2024-04-12] MEDS: DAPAGLIFLOZIN PROPANEDIOL 5 MG TABLET PO SCH (21:09)
[2024-04-12] MEDS: ATORVASTATIN 80 MG TAB PO SCH (21:09)
[2024-04-12] MEDS: MONTELUKAST 10 MG TAB PO SCH (21:09)
[2024-04-12] MEDS: INSULIN DETEMIR (LEVEMIR) 100 UNIT/ML SYR SQ SCH (21:09)
--- NOTE | 2024-04-12 22:24 | P.CONS ---
History of Present Illness - Reason for Consult Consult date: 04/12/24 Left lower extremity cellulitis Requesting physician: Neno Garcia - Chief Complaint Left leg swelling and redness x few days - History of Present Illness Patient is a 73-year-old male with a past medical history significant for diabetes mellitus hypertension hyperlipidemia reflux DVT CVA TIA heart failure presenting to the hospital for evaluation of increased creasing left lower extremity pain swelling and redness in this patient symptom has been going on for the last few days patient denies any history of any trauma or fall and is not very clear how it started however there is a area of laceration to the left leg with some dry scaly skin and surrounding swelling and redness patient complaining of pain to the left leg to be dull aching and sharp mild to moderate intensity without any radiation with associated swelling redness denies any foul-smelling drainage patient denies high-grade fever or chills with the symptoms the patient was evaluated on presentation to the hospital he was afebrile and no fever have been called subsequently patient was not tachycardic hypotensive or hypoxic did have white count of 11.48 BUN/creatinine has been mildly elevated liver enzymes are normal patient did have a lower extremity Doppler that was negative for DVT patient was started on ceftriaxone infectious was consulted for further management of antibiotic therapy Review of Systems Positive point and negatives has been mentioned in the HPI, complete review of systems was performed and all other systems are negative Past Medical History Past Medical History: Asthma, Blood Disorder, Coronary Artery Disease (CAD), Cancer, Heart Failure, COPD, CVA/TIA, Diabetes Mellitus, Deep Vein Thrombosis (DVT), Eye Disorder, GERD/Reflux, Hyperlipidemia, Hypertension, Pneumonia, Pulmonary Embolus (PE), Renal Disease, Vascular Disorder Additional Past Medical History / Comment(s): LEUKEMIA-NO TX, CVA X 2 balance issues, IDDM type II, LEGALLY BLIND bilaterally-RETINITIS PIGMENTOSA, DVT R leg/L lung, PVD, current sore L upper gum, "weak bladder", RIKI with cpap use, GOUT, chronic kidney diease, recent back pain, past low iron and recently told he has iron anemia, elementary school records list epilepsy/pt was unaware. History of Any Multi-Drug Resistant Organisms: None Reported Past Surgical History: Appendectomy, Back Surgery, Cholecystectomy, Heart Catheterization, Joint Replacement, Orthopedic Surgery Additional Past Surgical History / Comment(s): BILAT TKA &MICHAEL. LT SHOULDER SX/bilateral total shoulder replacements. RT ROTATOR CUFF REPAIR X 2. COLONOSCOPY. Heart Cath in December 2022. LATONIA in February 2024 Past Anesthesia/Blood Transfusion Reactions: No Reported Reaction Additional Past Anesthesia/Blood Transfusion Reaction / Comm: Pt unsure if he has received blood. Past Psychological History: No Psychological Hx Reported Additional Psychological History / Comment(s): Pt resides with grandson, age 16yrs. Smoking Status: Former smoker Past Alcohol Use History: None Reported Additional Past Alcohol Use History / Comment(s): Pt started smoking pipe in 1959 and quit in 1983 Past Drug Use History: None Reported - Past Family History Mother History Unknown: Yes Family Medical History: No Reported History Additional Family Medical History / Comment(s): Smoker. Father Sister(s) History Unknown: Yes Family Medical History: Vascular Disorder Additional Family Medical History / Comment(s): ASHD Medications and Allergies Home Medications Medication Instructions Recorded Confirmed Type Atorvastatin [Lipitor] 80 mg PO HS 10/10/18 04/11/24 History Isosorbide Mononitrate ER [Imdur] 60 mg PO DAILY 10/10/18 04/11/24 History Omeprazole [PriLOSEC] 20 mg PO BID 10/10/18 04/11/24 History Rivaroxaban [Xarelto] 20 mg PO DAILY 10/10/18 04/11/24 History amLODIPine [Norvasc] 5 mg PO BID 10/10/18 04/11/24 History Albuterol Sulfate [Albuterol 2 puff INHALATION RT-Q4H PRN 01/27/20 04/11/24 History Sulfate Hfa] Insulin Aspart [NovoLOG Flexpen] 5 - 15 units SQ AC-TID PRN 01/27/20 04/11/24 History Insulin Degludec [Tresiba 18 units SQ BID 01/27/20 04/11/24 History Flextouch U-100 Pen] Montelukast [Singulair] 10 mg PO HS 01/27/20 04/11/24 History Dapagliflozin Propanediol [Farxiga] 5 mg PO HS 08/09/20 04/11/24 History Tamsulosin [Flomax] 0.8 mg PO PC-SUPPER 08/09/20 04/11/24 History Potassium Chloride ER [K-Dur 10] 10 meq PO DAILY 02/22/21 04/11/24 History Budesonide/Glycopyr/Formoterol 2 puff INHALATION RT-BID 01/08/24 04/11/24 History [Breztri Aerosphere Inhaler] Cyanocobalamin (Vitamin B-12) 1,000 mcg PO DAILY 01/08/24 04/11/24 History [Vitamin B-12] Furosemide [Lasix] 20 mg PO DAILY 01/08/24 04/11/24 History HYDROcodone/APAP 5-325MG [[place] 1 tab PO Q8H PRN 01/08/24 04/11/24 History 5-325] Levalbuterol Nebulized [Xopenex 1.25 mg INHALATION RT-Q8H PRN 01/08/24 04/11/24 History Nebulized] Solifenacin Succinate 5 mg PO DAILY 01/08/24 04/11/24 History allopurinoL [Zyloprim] 100 mg PO HS 01/08/24 04/11/24 History Clopidogrel [Plavix] 75 mg PO DAILY #30 tablet 01/11/24 04/11/24 Rx DULoxetine HCL [Cymbalta] 30 mg PO DAILY #30 cap 01/11/24 04/11/24 Rx Ferrous Sulfate [Feosol] 325 mg PO DAILY 04/11/24 04/11/24 History Labetalol [Trandate] 100 mg PO DAILY 04/11/24 04/11/24 History Losartan Potassium 100 mg PO DAILY 04/11/24 04/11/24 History Allergies Allergy/AdvReac Type Severity Reaction Status Date / Time cortisone Allergy Anaphylaxis, Verified 04/11/24 21:23 tongue swelling Physical Exam Vitals: Vital Signs Temp Pulse Pulse Resp BP BP Pulse Ox 04/12/24 09:04 98 04/12/24 08:00 47 L 16 04/12/24 07:00 97.6 F 47 L 16 156/74 97 04/12/24 02:00 98 F 54 L 14 148/62 94 L 04/12/24 00:32 97.9 F 72 15 135/68 99 04/11/24 23:55 50 L 16 97 04/11/24 23:46 50 L 16 98 04/11/24 22:19 52 L 16 143/62 96 04/11/24 20:00 98.4 F 55 L 18 145/73 97 Intake and Output 04/11/24 04/12/24 04/12/24 22:59 06:59 14:59 Output Total 400 Balance -400 Output: Urine 400 Other: # Bowel Movements 0 0 Weight 108.862 kg 108.862 kg GENERAL DESCRIPTION: Elderly male lying in bed, no distress. No tachypnea or accessory muscle of respiration use. HEENT: Shows Pallor , no scleral icterus. Oral mucous membrane is dry. No pharyngeal erythema or thrush NECK: Trachea central, no thyromegaly. LUNGS: Unlabored breathing. Clear to auscultation anteriorly. No wheeze or crackle. HEART: S1, S2, regular rate and rhythm. No loud murmur ABDOMEN: Soft, no tenderness , guarding or rigidity, no organomegaly EXTREMITIES: Left leg with swelling and redness did have some skin necrosis no foul-smelling drainage SKIN: No rash, no masses palpable. NEUROLOGICAL: The patient is awake, alert, oriented x3, mood and affect normal. Results CBC & Chem 7: 04/12/24 03:34 04/12/24 03:34 Labs: Abnormal Lab Results - Last 24 Hours (Table) 04/11/24 04/11/24 04/12/24 Range/Units 21:35 21:35 03:34 WBC 11.7 H 11.48 H (3.8-10.6) k/uL RBC 4.27 L 4.06 L (4.30-5.90) m/uL Hgb 10.8 L 10.3 L (13.0-17.5) gm/dL Hct 34.5 L 34.2 L (39.0-53.0) % MCH 25.4 L (27.0-32.0) pg MCHC 30.1 L (32.0-37.0) g/dL RDW 17.4 H 17.2 H (11.5-15.5) % Lymphocytes # (Manual) 5.97 H (0.90-5.00) X 10*3/uL Microcytosis (manual) 2+ A Crenated Cell 2+ A Elliptocytes 2+ A Chloride 110 H (98-107) mmol/L BUN 38 H (9-20) mg/dL Creatinine 1.73 H (0.66-1.25) mg/dL Est GFR (CKD-EPI) (>=60) Glucose 146 H (74-99) mg/dL Total Bilirubin (0.3-1.2) mg/dL C-Reactive Protein (<1.0) mg/dL Total Protein 5.1 L (6.3-8.2) g/dL Albumin 3.2 L (3.5-5.0) g/dL Globulin (1.6-3.3) g/dL 04/12/24 04/12/24 Range/Units 03:34 03:34 WBC (3.8-10.6) k/uL RBC (4.30-5.90) m/uL Hgb (13.0-17.5) gm/dL Hct (39.0-53.0) % MCH (27.0-32.0) pg MCHC (32.0-37.0) g/dL RDW (11.5-15.5) % Lymphocytes # (Manual) (0.90-5.00) X 10*3/uL Microcytosis (manual) Crenated Cell Elliptocytes Chloride 111 H (98-107) mmol/L BUN 31.2 H (9-20) mg/dL Creatinine 1.6 H (0.66-1.25) mg/dL Est GFR (CKD-EPI) 46 L (>=60) Glucose 131 H (74-99) mg/dL Total Bilirubin <0.2 L (0.3-1.2) mg/dL C-Reactive Protein 1.6 H (<1.0) mg/dL Total Protein 4.9 L (6.3-8.2) g/dL Albumin 3.6 L (3.5-5.0) g/dL Globulin 1.3 L (1.6-3.3) g/dL Assessment and Plan (1) Left leg cellulitis Current Visit: Yes Status: Acute Code(s): L03.116 - CELLULITIS OF LEFT LOWER LIMB SNOMED Code(s): 60122033060557529 Plan: 1patient presented hospital acute left lower extremity cellulitis in this patient who did have diffuse swelling redness more likely streptococcal disease clinically doubt gram-negative or MRSA infection 2-nursing staff advised to shiraz the area of the redness we will apply to Aquacel silver dressing to the open area followed by Paulo wrap from just above the toe to below the knee change every 48 hours 3-discontinue ceftriaxone 4-we will start the patient on cefazolin 2 g every 8 hours We will follow on clinical condition and cultures to further adjust medication if needed Thank you for this consultation we will follow the patient along with you Dictation was produced using [employer] dictation software. please excuse any grammatical, word or spelling errors. Time with Patient: Greater than 30
[2024-04-13 02:24] LABS: Glucose,Whole Blood 164 mg/dL (70-110)
[2024-04-13 06:01] LABS: Glucose,Whole Blood 129 mg/dL (70-110)
[2024-04-13 08:57] LABS: HCT 37.4 % (39.6-50.0); HGB 11.5 g/dL (13.0-17.0); MCH 25.3 pg (27.0-32.0); MCHC 30.7 g/dL (32.0-37.0); MCV 82.4 FL (80.0-97.0); Mean Platelet Volume 9.9 FL (9.5-12.2); NRBC Per 100 WBC 0 X 10*3/uL (0.00-0.01); Platelet Count 176 X 10*3/uL (140-440); RBC 4.54 X 10*6/uL (4.40-5.60); RDW 17.2 % (11.5-14.5); WBC 12.87 X 10*3/uL (4.50-10.00)
[2024-04-13 09:22] LABS: BUN/Creat Ratio 17.61 Ratio (12.00-20.00); Blood Urea Nitrogen 31.7 mg/dL (9.0-27.0); Calcium 8.5 mg/dL (8.7-10.3); Carbon Dioxide 24.2 mmol/L (21.6-31.8); Chloride 108 mmol/L (96-109); Glucose 123 mg/dL (70-110); Potassium 4.4 mmol/L (3.5-5.5); Sodium 142 mmol/L (135-145)
[2024-04-13 11:24] LABS: Basophils # (M) 0 X 10*3/uL (0.00-0.10); Eosinophils # (M) 0.26 X 10*3/uL (0.04-0.35); Lymphocytes # (M) 9.14 X 10*3/uL (0.90-5.00); Monocytes # (M) 0.13 X 10*3/uL (0.20-1.00); Neutrophils # (M) 3.35 X 10*3/uL (1.80-7.70); Neutrophils % (M) 26 %
[2024-04-13 12:01] LABS: Glucose,Whole Blood 105 mg/dL (70-110)
[2024-04-13] MEDS: ISOSORBIDE MONONITRATE ER 60 MG TAB.ER.24H PO SCH (13:09)
--- NOTE | 2024-04-13 14:23 | P.PN ---
Subjective Progress Note Date: 04/13/24 Patient is a 73-year-old male with recurrent left lower extremity cellulitis presents to the ED for worsening left lower extremity wound with erythema and edema. Patient states that over a week ago there were blisters on the left lower extremity then over the last few days they became open wounds. He states that he tried treating it with OTC antibiotic cream but that has not helped. He endorses stinging and warmth to the area. He endorses a few recent falls onto his left side. He denies chest pain, shortness of breath, palpitations, fever, chills, nausea, vomiting. EKG shows sinus bradycardia with a ventricular rate of 51 bpm. Venous Doppler study shows no evidence of DVT in the left lower extremity. WBCs 11.70, hemoglobin 10.8, platelets 193, D-dimer 0.36, sodium 140, potassium 4, CO2 23, BUN 38, creatinine 1.73, GFR 39, troponin <0.012. Afebrile, hypertensive in the 140s systolic, bradycardic in the low 50s, saturating well on room air. 04/13. Patient seen and examined lying comfortably in bed. Area of redness has been marked and covered with Aquacel silver dressing and Paulo wrap as per infectious disease. Labs: WBCs 12.87, hemoglobin 11.5, sodium 142, potassium 4.4, creatinine 1.8. Review of systems: Pertinent positives and negatives as discussed in HPI, a complete review of systems was performed and all other systems are negative. Physical examination: Vital signs are reviewed. General: No acute distress. AOx4. HEENT: Head exam is unremarkable. EOMI bilaterally. ACs patent. Nares patent. Lungs: Bilateral breath sounds present; no rhonchi, wheezes, or rales. Heart: Rate and rhythm are regular. S1-S2 present. No murmur/rub/gallops. Abdomen: Soft, nontender, nondistended. Bowel sounds present. Extremities: Symmetric movement. Left lower extremity: ulcerated wound on lateral lower leg with erythema and warmth covered with Aquacel silver dressing and Paulo wrap Psych: Normal affect and mood. Cooperative. Assessment/Plan: Left lower extremity cellulitis Discontinue IV ceftriaxone Start IV cefazolin 2 g every 8 hours as per infectious disease Continue Aquacel silver dressing and Paulo wrap Hypertension Continue home medications Diabetes mellitus type 2 Monitor glucose Insulin sliding scale Hyperlipidemia Continue home medications DVT prophylaxis: Xarelto Chronic conditions: Hypertension, diabetes mellitus type 2, hyperlipidemia, c hronic kidney disease stage IIIa, CHF, gout, asthma, history of strokes, retinitis pigmentosa Attestation I have seen and examined this patient with my resident , discussed the same with the resident/CHETAN, and agree with the dictator's assessment and plan as written Dr. Jan dawkins Objective - Vital Signs Vital signs: Vital Signs Temp 97.9 F 04/13/24 01:35 Pulse 59 L 04/13/24 01:35 Resp 16 04/13/24 01:35 BP 134/66 04/13/24 01:35 Pulse Ox 96 04/13/24 01:35 FiO2 Intake & Output 04/12/24 04/13/24 04/13/24 18:59 06:59 18:59 Intake Total 236 Output Total 800 Balance -564 Intake: Oral 236 Output: Urine 800 Other: # Voids 2 # Bowel Movements 0 - Labs CBC & Chem 7: 04/13/24 04:55 04/13/24 04:55 Labs: Abnormal Lab Results - Last 24 Hours (Table) 04/12/24 04/12/24 04/12/24 Range/Units 03:34 03:34 03:34 WBC 11.48 H (4.50-10.00) X 10*3/uL RBC 4.06 L (4.40-5.60) X 10*6/uL Hgb 10.3 L (13.0-17.0) g/dL Hct 34.2 L (39.6-50.0) % MCH 25.4 L (27.0-32.0) pg MCHC 30.1 L (32.0-37.0) g/dL RDW 17.2 H (11.5-14.5) % Lymphocytes # (Manual) 5.97 H (0.90-5.00) X 10*3/uL Microcytosis (manual) 2+ A Crenated Cell 2+ A Elliptocytes 2+ A Chloride 111 H (96-109) mmol/L BUN 31.2 H (9.0-27.0) mg/dL Creatinine 1.6 H (0.6-1.5) mg/dL Est GFR (CKD-EPI) 46 L (>=60) Glucose 131 H (70-110) mg/dL POC Glucose (mg/dL) (70-110) mg/dL Total Bilirubin <0.2 L (0.3-1.2) mg/dL C-Reactive Protein 1.6 H (<1.0) mg/dL Total Protein 4.9 L (6.2-8.2) g/dL Albumin 3.6 L (3.8-4.9) g/dL Globulin 1.3 L (1.6-3.3) g/dL 04/12/24 04/12/24 04/13/24 Range/Units 17:16 20:28 02:23 WBC (4.50-10.00) X 10*3/uL RBC (4.40-5.60) X 10*6/uL Hgb (13.0-17.0) g/dL Hct (39.6-50.0) % MCH (27.0-32.0) pg MCHC (32.0-37.0) g/dL RDW (11.5-14.5) % Lymphocytes # (Manual) (0.90-5.00) X 10*3/uL Microcytosis (manual) Crenated Cell Elliptocytes Chloride (96-109) mmol/L BUN (9.0-27.0) mg/dL Creatinine (0.6-1.5) mg/dL Est GFR (CKD-EPI) (>=60) Glucose (70-110) mg/dL POC Glucose (mg/dL) 164 H 133 H 164 H (70-110) mg/dL Total Bilirubin (0.3-1.2) mg/dL C-Reactive Protein (<1.0) mg/dL Total Protein (6.2-8.2) g/dL Albumin (3.8-4.9) g/dL Globulin (1.6-3.3) g/dL 04/13/24 Range/Units 06:00 WBC (4.50-10.00) X 10*3/uL RBC (4.40-5.60) X 10*6/uL Hgb (13.0-17.0) g/dL Hct (39.6-50.0) % MCH (27.0-32.0) pg MCHC (32.0-37.0) g/dL RDW (11.5-14.5) % Lymphocytes # (Manual) (0.90-5.00) X 10*3/uL Microcytosis (manual) Crenated Cell Elliptocytes Chloride (96-109) mmol/L BUN (9.0-27.0) mg/dL Creatinine (0.6-1.5) mg/dL Est GFR (CKD-EPI) (>=60) Glucose (70-110) mg/dL POC Glucose (mg/dL) 129 H (70-110) mg/dL Total Bilirubin (0.3-1.2) mg/dL C-Reactive Protein (<1.0) mg/dL Total Protein (6.2-8.2) g/dL Albumin (3.8-4.9) g/dL Globulin (1.6-3.3) g/dL Microbiology - Last 24 Hours (Table) 04/11/24 21:35 Blood Culture - Preliminary Blood
--- NOTE | 2024-04-13 15:09 | P.PN ---
Subjective Progress Note Date: 04/13/24 Principal diagnosis: Reason for follow-up is left lower extremity cellulitis and leukocytosis Patient is a 73-year-old male with a past medical history significant for diabetes mellitus hypertension hyperlipidemia reflux DVT CVA TIA heart failure presenting to the hospital for evaluation of increased creasing left lower extremity pain swelling and redness has been diagnosed with a cellulitis. On today's evaluation that is 04/13/2024, the patient continues to be afebrile, the patient is on room air and breathing comfortably, the Pt denies having any chest pain or cough, the patient denies having any abdominal pain no vomiting or any diarrhea has been reported, patient mention decrease in the pain to the left lower extremity. Patient white count slightly up to 12.87, creatinine 1.8 blood cultures are pending Objective - Vital Signs Vital signs: Vital Signs Temp 97.9 F 04/13/24 07:05 Pulse 53 L 04/13/24 07:05 Resp 18 04/13/24 07:05 BP 166/57 04/13/24 07:05 Pulse Ox 99 04/13/24 07:05 FiO2 Intake & Output 04/12/24 04/13/24 04/13/24 18:59 06:59 18:59 Intake Total 236 0 Output Total 800 250 Balance -564 -250 Intake: Oral 236 0 Output: Urine 800 250 Other: # Voids 2 # Bowel Movements 0 - Exam GENERAL DESCRIPTION: An elderly male lying in bed in no distress RESPIRATORY SYSTEM: Unlabored breathing , decreased breath sounds at bases HEART: S1 S2 regular rate and rhythm , ABDOMEN: Soft , no tenderness EXTREMITIES: Left leg is covered with a Paulo wrap - Labs CBC & Chem 7: 04/13/24 04:55 04/13/24 04:55 Labs: Abnormal Lab Results - Last 24 Hours (Table) 04/12/24 04/12/24 04/12/24 Range/Units 03:34 17:16 20:28 WBC (4.50-10.00) X 10*3/uL Hgb (13.0-17.0) g/dL Hct (39.6-50.0) % MCH (27.0-32.0) pg MCHC (32.0-37.0) g/dL RDW (11.5-14.5) % BUN (9.0-27.0) mg/dL Creatinine (0.6-1.5) mg/dL Est GFR (CKD-EPI) (>=60) Glucose (70-110) mg/dL POC Glucose (mg/dL) 164 H 133 H (70-110) mg/dL Calcium (8.7-10.3) mg/dL C-Reactive Protein 1.6 H (<1.0) mg/dL 04/13/24 04/13/24 04/13/24 Range/Units 02:23 04:55 04:55 WBC 12.87 H (4.50-10.00) X 10*3/uL Hgb 11.5 L (13.0-17.0) g/dL Hct 37.4 L (39.6-50.0) % MCH 25.3 L (27.0-32.0) pg MCHC 30.7 L (32.0-37.0) g/dL RDW 17.2 H (11.5-14.5) % BUN 31.7 H (9.0-27.0) mg/dL Creatinine 1.8 H (0.6-1.5) mg/dL Est GFR (CKD-EPI) 40 L (>=60) Glucose 123 H (70-110) mg/dL POC Glucose (mg/dL) 164 H (70-110) mg/dL Calcium 8.5 L (8.7-10.3) mg/dL C-Reactive Protein (<1.0) mg/dL 04/13/24 Range/Units 06:00 WBC (4.50-10.00) X 10*3/uL Hgb (13.0-17.0) g/dL Hct (39.6-50.0) % MCH (27.0-32.0) pg MCHC (32.0-37.0) g/dL RDW (11.5-14.5) % BUN (9.0-27.0) mg/dL Creatinine (0.6-1.5) mg/dL Est GFR (CKD-EPI) (>=60) Glucose (70-110) mg/dL POC Glucose (mg/dL) 129 H (70-110) mg/dL Calcium (8.7-10.3) mg/dL C-Reactive Protein (<1.0) mg/dL Microbiology - Last 24 Hours (Table) 04/11/24 21:35 Blood Culture - Preliminary Blood Assessment and Plan (1) Left leg cellulitis Current Visit: Yes Status: Acute Code(s): L03.116 - CELLULITIS OF LEFT LOWER LIMB SNOMED Code(s): 90366245909537238 Plan: 1patient presented hospital acute left lower extremity cellulitis in this patient who did have diffuse swelling redness more likely streptococcal disease clinically doubt gram-negative or MRSA infection 2-patient to continue with Paulo wrap from just above the toe to below the knee change every 48 hours 3-patient to continue with cefazolin 2 g every 8 hours, noticed to have slight worsening of the white count need to monitor closely Dictation was produced using [employer] dictation software. please excuse any grammatical, word or spelling errors. Time with Patient: Less than 30
[2024-04-13 16:52] LABS: Glucose,Whole Blood 158 mg/dL (70-110)
[2024-04-13 20:19] LABS: Glucose,Whole Blood 163 mg/dL (70-110)
[2024-04-14 06:27] LABS: Glucose,Whole Blood 111 mg/dL (70-110)
[2024-04-14 09:18] LABS: HCT 36.6 % (39.6-50.0); HGB 11.1 g/dL (13.0-17.0); MCH 24.8 pg (27.0-32.0); MCHC 30.3 g/dL (32.0-37.0); MCV 81.7 FL (80.0-97.0); Mean Platelet Volume 9.5 FL (9.5-12.2); NRBC Per 100 WBC 0 X 10*3/uL (0.00-0.01); Platelet Count 178 X 10*3/uL (140-440); RBC 4.48 X 10*6/uL (4.40-5.60); RDW 17.4 % (11.5-14.5)
[2024-04-14 09:41] LABS: BUN/Creat Ratio 21.71 Ratio (12.00-20.00); Blood Urea Nitrogen 36.9 mg/dL (9.0-27.0); Calcium 8.4 mg/dL (8.7-10.3); Chloride 108 mmol/L (96-109); Glucose 104 mg/dL (70-110); Potassium 4.3 mmol/L (3.5-5.5); Sodium 143 mmol/L (135-145)
[2024-04-14 10:58] LABS: Basophils # (M) 0.12 X 10*3/uL (0.00-0.10); Eosinophils # (M) 0.12 X 10*3/uL (0.04-0.35); Lymphocytes # (M) 8.12 X 10*3/uL (0.90-5.00); Monocytes # (M) 0.62 X 10*3/uL (0.20-1.00); Neutrophils % (M) 28 %
[2024-04-14 11:59] LABS: Glucose,Whole Blood 127 mg/dL (70-110)
[2024-04-14] MEDS: CEFEPIME 2 GM in SODIUM CHLORIDE 0.9% 100 ML IVPB SCH (13:49)
[2024-04-14 14:08] VITALS: BP 131/66; PULSE 60; RESP 16; TEMP 98.1
--- NOTE | 2024-04-14 14:49 | P.DS ---
Providers Date of admission: 04/11/24 20:33 Attending physician: Neno Garcia Consults: 04/12/24 09:17 Consult Physician Routine Consulting Provider: Pito Segal Consult Reason/Comments: lle cellulitis Do you want consulting provider notified?: Yes Primary care physician: Stated None Hospital Course: Discharge diagnosis: Left lower extremity cellulitis Hypertension Diabetes mellitus type 2 Hyperlipidemia Chronic kidney disease stage IIIa CHF History of stroke Retinitis pigmentosa Asthma Gout Hospital Course: Patient is a 73-year-old male with recurrent left lower extremity cellulitis presents to the ED for worsening left lower extremity wound with erythema and edema. Patient states that over a week ago there were blisters on the left lower extremity then over the last few days they became open wounds. He states that he tried treating it with OTC antibiotic cream but that has not helped. He endorses stinging and warmth to the area. He endorses a few recent falls onto his left side. He denies chest pain, shortness of breath, palpitations, fever, chills, nausea, vomiting. EKG shows sinus bradycardia with a ventricular rate of 51 bpm. Venous Doppler study shows no evidence of DVT in the left lower extremity. WBCs 11.70, hemoglobin 10.8, platelets 193, D-dimer 0.36, sodium 140, potassium 4, CO2 23, BUN 38, creatinine 1.73, GFR 39, troponin <0.012. Afebrile, hypertensive in the 140s systolic, bradycardic in the low 50s, saturating well on room air. 04/13. Patient seen and examined lying comfortably in bed. Area of redness has been marked and covered with Aquacel silver dressing and Paulo wrap as per infectious disease. Labs: WBCs 12.87, hemoglobin 11.5, sodium 142, potassium 4.4, creatinine 1.8. 04/14. Patient seen at bedside. Area of redness has been marked and covered with Aquacel silver dressing and Paulo wrap as per infectious disease with dressing change scheduled for later today. Endorses mild stinging in the leg below the knee. Ambulating well. Labs: WBCs 12.5, hemoglobin 11.1, sodium 143, potassium 4.3, creatinine 1.7. Patient is medically stable for discharge. Infectious disease has cleared the patient for discharge on oral Keflex three time daily for 7 days. Physical examination: Vital signs are reviewed. General: No acute distress. AOx4. HEENT: Head exam is unremarkable. EOMI bilaterally. ACs patent. Nares p atent. Lungs: Bilateral breath sounds present; no rhonchi, wheezes, or rales. Heart: Rate and rhythm are regular. S1-S2 present. No murmur/rub/gallops. Abdomen: Soft, nontender, nondistended. Bowel sounds present. Extremities: Symmetric movement. Left lower extremity: ulcerated wound on lateral lower leg with erythema and warmth covered with Aquacel silver dressing and Paulo wrap Psych: Normal affect and mood. Cooperative. Patient Condition at Discharge: Good Plan - Discharge Summary Discharge Rx Participant: No New Discharge Prescriptions: New Cephalexin [Keflex] 500 mg PO TID 7 Days #21 cap Continue Omeprazole [PriLOSEC] 20 mg PO BID Atorvastatin [Lipitor] 80 mg PO HS amLODIPine [Norvasc] 5 mg PO BID Isosorbide Mononitrate ER [Imdur] 60 mg PO DAILY Rivaroxaban [Xarelto] 20 mg PO DAILY Montelukast [Singulair] 10 mg PO HS Insulin Degludec [Tresiba Flextouch U-100 Pen] 18 units SQ BID Insulin Aspart [NovoLOG Flexpen] 5 - 15 units SQ AC-TID PRN PRN Reason: high blood sugar Albuterol Sulfate [Albuterol Sulfate Hfa] 2 puff INHALATION RT-Q4H PRN PRN Reason: Shortness Of Breath Dapagliflozin Propanediol [Farxiga] 5 mg PO HS Tamsulosin [Flomax] 0.8 mg PO PC-SUPPER Potassium Chloride ER [K-Dur 10] 10 meq PO DAILY Budesonide/Glycopyr/Formoterol [Breztri Aerosphere Inhaler] 2 puff INHALATION RT-BID Cyanocobalamin (Vitamin B-12) [Vitamin B-12] 1,000 mcg PO DAILY Furosemide [Lasix] 20 mg PO DAILY Ferrous Sulfate [Iron (65 MG Elemental)] 325 mg PO DAILY Labetalol [Trandate] 100 mg PO DAILY allopurinoL [Zyloprim] 100 mg PO HS HYDROcodone/APAP 5-325MG [[place] 5-325] 1 tab PO Q8H PRN PRN Reason: Pain Levalbuterol Nebulized [Xopenex Nebulized] 1.25 mg INHALATION RT-Q8H PRN PRN Reason: Shortness Of Breath Solifenacin Succinate 5 mg PO DAILY DULoxetine HCL [Cymbalta] 30 mg PO DAILY #30 cap Clopidogrel [Plavix] 75 mg PO DAILY #30 tablet Losartan Potassium 100 mg PO DAILY Discharge Medication List Atorvastatin [Lipitor] 80 mg PO HS 10/10/18 [History] Isosorbide Mononitrate ER [Imdur] 60 mg PO DAILY 10/10/18 [History] Omeprazole [PriLOSEC] 20 mg PO BID 10/10/18 [History] Rivaroxaban [Xarelto] 20 mg PO DAILY 10/10/18 [History] amLODIPine [Norvasc] 5 mg PO BID 10/10/18 [History] Albuterol Sulfate [Albuterol Sulfate Hfa] 2 puff INHALATION RT-Q4H PRN 01/27/20 [History] Insulin Aspart [NovoLOG Flexpen] 5 - 15 units SQ AC-TID PRN 01/27/20 [History] Insulin Degludec [Tresiba Flextouch U-100 Pen] 18 units SQ BID 01/27/20 [History] Montelukast [Singulair] 10 mg PO HS 01/27/20 [History] Dapagliflozin Propanediol [Farxiga] 5 mg PO HS 08/09/20 [History] Tamsulosin [Flomax] 0.8 mg PO PC-SUPPER 08/09/20 [History] Potassium Chloride ER [K-Dur 10] 10 meq PO DAILY 02/22/21 [History] Budesonide/Glycopyr/Formoterol [Breztri Aerosphere Inhaler] 2 puff INHALATION RT-BID 01/08/24 [History] Cyanocobalamin (Vitamin B-12) [Vitamin B-12] 1,000 mcg PO DAILY 01/08/24 [History] Furosemide [Lasix] 20 mg PO DAILY 01/08/24 [History] HYDROcodone/APAP 5-325MG [[place] 5-325] 1 tab PO Q8H PRN 01/08/24 [History] Levalbuterol Nebulized [Xopenex Nebulized] 1.25 mg INHALATION RT-Q8H PRN 01/08/24 [History] Solifenacin Succinate 5 mg PO DAILY 01/08/24 [History] allopurinoL [Zyloprim] 100 mg PO HS 01/08/24 [History] Clopidogrel [Plavix] 75 mg PO DAILY #30 tablet 01/11/24 [Rx] DULoxetine HCL [Cymbalta] 30 mg PO DAILY #30 cap 01/11/24 [Rx] Ferrous Sulfate [Iron (65 MG Elemental)] 325 mg PO DAILY 04/11/24 [History] Labetalol [Trandate] 100 mg PO DAILY 04/11/24 [History] Losartan Potassium 100 mg PO DAILY 04/11/24 [History] Cephalexin [Keflex] 500 mg PO TID 7 Days #21 cap 04/14/24 [Rx] Follow up Appointment(s)/Referral(s): [facility] [NON-STAFF] - As Needed [facility] [NON-STAFF] - As Needed (PENDING D/C ABX NEEDS) None,Stated [Primary Care Provider] - 1-2 days [facility], [REFERRING] - As Needed (PENDING D/C ABX NEEDS) Pito Segal MD [STAFF PHYSICIAN] - 1 Week Patient Instructions/Handouts: Cellulitis (GEN) Activity/Diet/Wound Care/Special Instructions: PCP: MD [facility] ([place]) - [facility] - [id number] [place] [address] P: dressing change every 48 hours with aquacell silver ag, gauze, and paulo wrap. Discharge Disposition: HOME WITH HOME HEALTH SERVICES
--- NOTE | 2024-04-14 16:05 | P.PN ---
Subjective Progress Note Date: 04/14/24 Principal diagnosis: Reason for follow-up is left lower extremity cellulitis and leukocytosis Patient is a 73-year-old male with a past medical history significant for diabetes mellitus hypertension hyperlipidemia reflux DVT CVA TIA heart failure presenting to the hospital for evaluation of increased creasing left lower extremity pain swelling and redness has been diagnosed with a cellulitis. On today's evaluation that is 04/14/2024, Patient is afebrile patient is currently on room air and denies having any shortness of breath, the patient denies any chest pain or cough, the patient denies any nausea vomiting did not have any abdominal pain and no diarrhea, the patient pain to the left leg has decreased intensity patient is feeling better and insisted on going home. Patient white count is 12.50 predominantly lymphocytes creatinine is 1.7 Objective - Vital Signs Vital signs: Vital Signs Temp 97.8 F 04/14/24 07:00 Pulse 55 L 04/14/24 07:00 Resp 15 04/14/24 07:00 BP 172/81 04/14/24 07:00 Pulse Ox 97 04/14/24 09:24 FiO2 Intake & Output 04/13/24 04/14/24 04/14/24 18:59 06:59 18:59 Intake Total 708 118 Output Total 650 1325 Balance 58 -1207 Intake: Oral 708 118 Output: Urine 650 1325 Other: # Voids 3 1 # Bowel Movements 1 1 - Exam GENERAL DESCRIPTION: An elderly male lying in bed in no distress RESPIRATORY SYSTEM: Unlabored breathing , decreased breath sounds at bases HEART: S1 S2 regular rate and rhythm , ABDOMEN: Soft , no tenderness EXTREMITIES: Left leg wound base looks clean surrounding redness has decreased - Labs CBC & Chem 7: 04/14/24 02:53 04/14/24 02:53 Labs: Abnormal Lab Results - Last 24 Hours (Table) 04/13/24 04/13/24 04/14/24 Range/Units 16:50 20:17 02:53 WBC 12.50 H (4.50-10.00) X 10*3/uL Hgb 11.1 L (13.0-17.0) g/dL Hct 36.6 L (39.6-50.0) % MCH 24.8 L (27.0-32.0) pg MCHC 30.3 L (32.0-37.0) g/dL RDW 17.4 H (11.5-14.5) % Lymphocytes # (Manual) 8.12 H (0.90-5.00) X 10*3/uL Basophils # (Manual) 0.12 H (0.00-0.10) X 10*3/uL BUN (9.0-27.0) mg/dL Creatinine (0.6-1.5) mg/dL Est GFR (CKD-EPI) (>=60) BUN/Creatinine Ratio (12.00-20.00) Ratio POC Glucose (mg/dL) 158 H 163 H (70-110) mg/dL Calcium (8.7-10.3) mg/dL 04/14/24 04/14/24 04/14/24 Range/Units 02:53 06:26 11:58 WBC (4.50-10.00) X 10*3/uL Hgb (13.0-17.0) g/dL Hct (39.6-50.0) % MCH (27.0-32.0) pg MCHC (32.0-37.0) g/dL RDW (11.5-14.5) % Lymphocytes # (Manual) (0.90-5.00) X 10*3/uL Basophils # (Manual) (0.00-0.10) X 10*3/uL BUN 36.9 H (9.0-27.0) mg/dL Creatinine 1.7 H (0.6-1.5) mg/dL Est GFR (CKD-EPI) 43 L (>=60) BUN/Creatinine Ratio 21.71 H (12.00-20.00) Ratio POC Glucose (mg/dL) 111 H 127 H (70-110) mg/dL Calcium 8.4 L (8.7-10.3) mg/dL Microbiology - Last 24 Hours (Table) 04/11/24 21:35 Blood Culture - Preliminary Blood Assessment and Plan (1) Left leg cellulitis Current Visit: Yes Status: Acute Code(s): L03.116 - CELLULITIS OF LEFT LOWER LIMB SNOMED Code(s): 95885617919090653 Plan: 1patient presented hospital acute left lower extremity cellulitis in this patient who did have diffuse swelling redness more likely streptococcal disease clinically doubt gram-negative or MRSA infection 2-patient advised Aquacel silver dressing to the left leg wound followed by Paulo wrap for compression 3-patient will finish therapy with oral Keflex 500 mg 3 times daily for 7 days and close outpatient follow-up discussed with the admitting physician Dictation was produced using [employer] software. please excuse any grammatical, word or spelling errors. Time with Patient: Less than 30
[2024-04-14 17:07] LABS: Glucose,Whole Blood 116 mg/dL (70-110)
== END 2024-04-14 19:27 | disposition home health service (06) ==
LOC: EC 19:56 → 6NMEDSUR 20:33
PROVIDERS: ADMIT Hospitalist; ATTEND Hospitalist
DX: L03.116 Cellulitis of left lower limb (principal); I25.10 Atherosclerotic heart disease of native coronary artery without angina pectoris; J44.9 Chronic obstructive pulmonary disease, unspecified; K21.9 Gastro-esophageal reflux disease without esophagitis; E78.5 Hyperlipidemia, unspecified; E11.51 Type 2 diabetes mellitus with diabetic peripheral angiopathy without gangrene; G47.33 Obstructive sleep apnea (adult) (pediatric); E11.22 Type 2 diabetes mellitus with diabetic chronic kidney disease; I13.0 Hypertensive heart and chronic kidney disease with heart failure and stage 1 through stage 4 chronic kidney disease, or unspecified chronic kidney disease; I50.9 Heart failure, unspecified; N18.31 Chronic kidney disease, stage 3a; H35.52 Pigmentary retinal dystrophy; M10.9 Gout, unspecified; Z56.0 Unemployment, unspecified; Z85.6 Personal history of leukemia; Z86.711 Personal history of pulmonary embolism; Z86.718 Personal history of other venous thrombosis and embolism; Z86.73 Personal history of transient ischemic attack (TIA), and cerebral infarction without residual deficits; Z87.891 Personal history of nicotine dependence; Z79.899 Other long term (current) drug therapy; Z79.01 Long term (current) use of anticoagulants; Z79.4 Long term (current) use of insulin; Z79.84 Long term (current) use of oral hypoglycemic drugs; Z79.02 Long term (current) use of antithrombotics/antiplatelets
CPT/HCPCS: 80048; 80053; 83605; 83735; 83880; 84100; 84145; 84484; 85025; 85379; 85610; 85652; 85730; 86140; 87040; 93005; 94760; 96361; 96365; 96366; 96367; 99284

== ENCOUNTER 2024-06-02 20:42 | Emergency (ER) | payer MEDICARE, OTHER ==
[2024-06-02 20:49] VITALS: TEMP 98.3
--- NOTE | 2024-06-02 20:51 | ED ---
Chest Pain HPI - General Chief Complaint: Chest Pain Stated Complaint: Chest pain Time Seen by Provider: 06/02/24 20:44 Source: patient, EMS, RN notes reviewed, old records reviewed Mode of arrival: EMS - History of Present Illness Initial Comments: This is a 74 male to the ER for evaluation patient presents today in evaluation of chest pain really more of anxiety and stress, increased anxiety and stress throughout the day at home difficulty sleeping presenting patient to the ER. Patient comes with family states has been increasingly stressed out to the day but at this time patient states he feels well he took his nighttime medication, no current chest pain MD Complaint: chest pain, other (Anxiety) -: hour(s) Pain Location: substernal, left chest Pain Radiation: LUE Severity: moderate Severity scale (1-10): 4 Quality: tightness Consistency: constant Improves With: nothing, eating Worsens With: nothing Anginal Symptoms: dyspnea, sense of impending doom Treatments Prior to Arrival: none - Related Data Home Medications Medication Instructions Recorded Confirmed Atorvastatin [Lipitor] 80 mg PO HS 10/10/18 04/11/24 Isosorbide Mononitrate ER [Imdur] 60 mg PO DAILY 10/10/18 04/11/24 Omeprazole [PriLOSEC] 20 mg PO BID 10/10/18 04/11/24 Rivaroxaban [Xarelto] 20 mg PO DAILY 10/10/18 04/11/24 amLODIPine [Norvasc] 5 mg PO BID 10/10/18 04/11/24 Albuterol Sulfate [Albuterol 2 puff INHALATION RT-Q4H PRN 01/27/20 04/11/24 Sulfate Hfa] Insulin Aspart [NovoLOG Flexpen] 5 - 15 units SQ AC-TID PRN 01/27/20 04/11/24 Insulin Degludec [Tresiba 18 units SQ BID 01/27/20 04/11/24 Flextouch U-100 Pen] Montelukast [Singulair] 10 mg PO HS 01/27/20 04/11/24 Dapagliflozin Propanediol [Farxiga] 5 mg PO HS 08/09/20 04/11/24 Tamsulosin [Flomax] 0.8 mg PO PC-SUPPER 08/09/20 04/11/24 Potassium Chloride ER [K-Dur 10] 10 meq PO DAILY 02/22/21 04/11/24 Budesonide/Glycopyr/Formoterol 2 puff INHALATION RT-BID 01/08/24 04/11/24 [Breztri Aerosphere Inhaler] Cyanocobalamin (Vitamin B-12) 1,000 mcg PO DAILY 01/08/24 04/11/24 [Vitamin B-12] Furosemide [Lasix] 20 mg PO DAILY 01/08/24 04/11/24 HYDROcodone/APAP 5-325MG [[place] 1 tab PO Q8H PRN 01/08/24 04/11/24 5-325] Levalbuterol Nebulized [Xopenex 1.25 mg INHALATION RT-Q8H PRN 01/08/24 04/11/24 Nebulized] Solifenacin Succinate 5 mg PO DAILY 01/08/24 04/11/24 allopurinoL [Zyloprim] 100 mg PO HS 01/08/24 04/11/24 Ferrous Sulfate [Iron (65 MG 325 mg PO DAILY 04/11/24 04/11/24 Elemental)] Labetalol [Trandate] 100 mg PO DAILY 04/11/24 04/11/24 Losartan Potassium 100 mg PO DAILY 04/11/24 04/11/24 Previous Rx's Medication Instructions Recorded Clopidogrel [Plavix] 75 mg PO DAILY #30 tablet 01/11/24 DULoxetine HCL [Cymbalta] 30 mg PO DAILY #30 cap 01/11/24 Cephalexin [Keflex] 500 mg PO TID 7 Days #21 cap 04/14/24 Allergies Allergy/AdvReac Type Severity Reaction Status Date / Time cortisone Allergy Anaphylaxis, Verified 06/02/24 20:49 tongue swelling Review of Systems ROS Statement: Those systems with pertinent positive or pertinent negative responses have been documented in the HPI. ROS Other: All systems not noted in ROS Statement are negative. EKG Findings - EKG Comments: EKG Findings:: EKG is sinus 68 AL 211 QRS 96 QTc 411 - EKG Results: EKG: interpreted by ARA Past Medical History Past Medical History: Asthma, Blood Disorder, Coronary Artery Disease (CAD), Cancer, Heart Failure, COPD, CVA/TIA, Diabetes Mellitus, Deep Vein Thrombosis (DVT), Eye Disorder, GERD/Reflux, Hearing Disorder / Deafness, Hyperlipidemia, Hypertension, Pneumonia, Pulmonary Embolus (PE), Renal Disease, Seizure Disorder, Vascular Disorder Additional Past Medical History / Comment(s): LEUKEMIA-NO TX, CVA X 2 balance issues, IDDM type II, LEGALLY BLIND bilaterally-RETINITIS PIGMENTOSA, DVT R leg/L lung, PVD, current sore L upper gum, "weak bladder", RIKI with cpap use, GOUT, chronic kidney diease, recent back pain, past low iron and recently told he has iron anemia, elementary school records list epilepsy/pt was unaware. History of Any Multi-Drug Resistant Organisms: None Reported Past Surgical History: Appendectomy, Back Surgery, Cholecystectomy, Heart Catheterization, Joint Replacement, Orthopedic Surgery Additional Past Surgical History / Comment(s): BILAT TKA &MICHAEL. LT SHOULDER SX/bilateral total shoulder replacements. RT ROTATOR CUFF REPAIR X 2. COLONOSCOPY Past Anesthesia/Blood Transfusion Reactions: No Reported Reaction Additional Past Anesthesia/Blood Transfusion Reaction / Comment(s): Pt unsure if he has received blood. Past Psychological History: No Psychological Hx Reported Smoking Status: Former smoker Past Alcohol Use History: None Reported Past Drug Use History: None Reported - Past Family History Mother History Unknown: Yes Family Medical History: No Reported History Additional Family Medical History / Comment(s): Smoker. Father Sister(s) History Unknown: Yes Family Medical History: Vascular Disorder Additional Family Medical History / Comment(s): ASHD General Exam General appearance: alert, in no apparent distress Head exam: Present: atraumatic, normocephalic, normal inspection Eye exam: Present: normal appearance, PERRL, EOMI. Absent: scleral icterus, conjunctival injection, periorbital swelling ENT exam: Present: normal exam, mucous membranes moist Neck exam: Present: normal inspection. Absent: tenderness, meningismus, lymphadenopathy Respiratory exam: Present: normal lung sounds bilaterally. Absent: respiratory distress, wheezes, rales, rhonchi, stridor Cardiovascular Exam: Present: regular rate, normal rhythm, normal heart sounds. Absent: systolic murmur, diastolic murmur, rubs, gallop, clicks GI/Abdominal exam: Present: soft, normal bowel sounds. Absent: distended, tenderness, guarding, rebound, rigid Extremities exam: Present: normal inspection, full ROM, normal capillary refill. Absent: tenderness, pedal edema, joint swelling, calf tenderness Back exam: Present: normal inspection Neurological exam: Present: alert, oriented X3, CN II-XII intact Psychiatric exam: Present: normal affect, normal mood Skin exam: Present: warm, dry, intact, normal color. Absent: rash Course Vital Signs 06/02/24 20:46 Temperature 98.3 F Pulse Rate 61 Respiratory 16 Rate Blood Pressure 156/76 O2 Sat by Pulse 96 Oximetry - Reevaluation(s) Reevaluation #1: 06/02/24 21:00 Medical record is reviewed Reevaluation #2: 06/02/24 21:00 Patient symptoms unchanged Reevaluation #3: 06/02/24 21:00 Informed of results and questions answered Reevaluation #4: Was pt. sent in by a medical professional or institution (VIRGEN Callejas, PAPER PRODUCTS SUPERVISOR, urgent care, hospital, or [facility]...) When possible be specific @ -no Did you speak to anyone other than the patient for history (EMS, parent, family, police, friend...)? What history was obtained from this source @ -no Did you review nursing and triage notes (agree or disagree)? Why? @ -agree Are old charts reviewed (outside hosp., previous admission, EMS record, old EKG, old radiological studies, urgent care reports/EKG's, [facility] records)? Report findings @ -yes Differential Diagnosis (chest pain, altered mental status, abdominal pain women, abdominal pain men, vaginal bleeding, weakness, fever, dyspnea, syncope, headache, dizziness, GI bleed, back pain, seizure, CVA, palpatations, mental health, musculoskeletal)? @ -prior EKG interpreted by me (3pts min.). @ -yes X-rays interpreted by me (1pt min.). @ -yes negative for acute disease CT interpreted by me (1pt min.). @ -no U/S interpreted by me (1pt. min.). @ -no What testing was considered but not performed or refused? (CT, X-rays, U/S, labs)? Why? @ -none What meds were considered but not given or refused? Why? @ -none Did you discuss the management of the patient with other professionals (professionals i.e. VIRGEN Callejas, PAPER PRODUCTS SUPERVISOR, lab, RT, psych nurse, clinical social work therapist, sales support coordinator, teacher, administrative hearing officer, piano case and bench assembler)? Give summary @ -no Was smoking cessation discussed for >3mins.? @ -no Was critical care preformed (if so, how long)? @ -no Were there social determinants of health that impacted care today? How? (Homelessness, low income, unemployed, alcoholism, drug addiction, transportation, low edu. Level, literacy, decrease access to med. care, usp, rehab)? @ -none Was there de-escalation of care discussed even if they declined (Discuss DNR or withdrawal of care, Hospice)? DNR status @ -no What co-morbidities impacted this encounter? (DM, HTN, Smoking, COPD, CAD, Cancer, CVA, ARF, Chemo, Hep., AIDS, mental health diagnosis, sleep apnea, morbid obesity)? @ -none Was patient admitted / discharged? Hospital course, mention meds given and route, prescriptions, significant lab abnormalities, going to OR and other pertinent info. @ - Undiagnosed new problem with uncertain prognosis? @ -no Drug Therapy requiring intensive monitoring for toxicity (Heparin, Nitro, Insulin, Cardizem)? @ -no Were any procedures done? @ -no Diagnosis/symptom? @ - Acute, or Chronic, or Acute on Chronic? @ -Acute Uncomplicated (without systemic symptoms) or Complicated (systemic symptoms)? @ -Complicated Side effects of treatment? @ -no Exacerbation, Progression, or Severe Exacerbation? @ -exacerbation Poses a threat to life or bodily function? How? (Chest pain, [place], [place], pneumonia, PE, COPD, DKA, ARF, appy, cholecystitis, CVA, Diverticulitis, Homicidal, Suicidal, threat to staff... and all critical care pts) @ -yes Reevaluation #5: Differential Chest Pain: Stable Angina, Unstable Angina, STEMI, NSTEMI Aortic Dissection, Pneumothorax, Musculoskeletal, Esophageal Spasm GERD, Cholecystitis, Pancreatitis, Zoster, this is not meant to be an all-inclusive list. Chest Pain MDM - MDM 74 male to the ER for evaluation of chest pain significant chest pain and anxiety prior to arrival all resolved before patient arrived in the ER patient feels well and can be discharged home Disposition Clinical Impression: Chest pain, Anxiety reaction Disposition: HOME SELF-CARE Condition: Good Instructions (If sedation given, give patient instructions): Chest Pain (ED) Is patient prescribed a controlled substance at d/c from ED?: No Referrals: None,Stated [REFERRING] - 1-2 days Time of Disposition: 22:30
--- NOTE | 2024-06-02 21:14 | XR ---
EXAMINATION TYPE: XR chest 1V portable DATE OF EXAM: 06/02/2024 9:07 PM COMPARISON: Previous chest radiograph dated 03/13/2024. CLINICAL INDICATION: Male, 74 years old with history of chest pain; [facility] TECHNIQUE: XR chest 1V portable Frontal view of the chest. FINDINGS: Cardiomegaly. Mild left lung base scarring/atelectasis. Otherwise, no acute focal consolidation. No pleural effusion. No evidence of pneumothorax. Bilateral shoulder arthroplasty device is noted. IMPRESSION: No acute cardiopulmonary process. [facility], , 06/02/2024 9:12 PM
[2024-06-02 21:24] LABS: Anisocytosis Slight; HGB 11.3 gm/dL (13.0-17.5); Hypochromasia Slight; MCHC 32.4 g/dL (31.0-37.0); MCV 80.2 fL (80.0-100.0); Mean Platelet Volume 7.6; Microcytosis Slight; Platelet Count 186 k/uL (150-450); RBC 4.36 m/uL (4.30-5.90); RDW 16.8 % (11.5-15.5)
[2024-06-02 21:29] LABS: ALT 18 U/L (4-49); AST 23 U/L (17-59); African American GFR (CKD) 45 (>60 ml/min/1.73 sqM); Albumin 3.3 g/dL (3.5-5.0); Alkaline Phosphatase 56 U/L (38-126); Anion Gap 6 mmol/L; Blood Urea Nitrogen 49 mg/dL (9-20); Calcium 8.8 mg/dL (8.4-10.2); Carbon Dioxide 19 mmol/L (22-30); Chloride 114 mmol/L (98-107); Glucose 137 mg/dL (74-99); Lipase 124 U/L (23-300); Magnesium 2.1 mg/dL (1.6-2.3); Non-African American GFR(CKD) 39 (>60 ml/min/1.73 sqM); Sodium 139 mmol/L (137-145); Total Bilirubin 0.4 mg/dL (0.2-1.3); Total Protein 5.2 g/dL (6.3-8.2)
[2024-06-02 21:34] LABS: Partial Thromboplastin Time 26.3 sec (22.0-30.0); Prothrombin Time 11.4 sec (10.0-12.5)
[2024-06-02 21:37] LABS: NT-Pro-B-Type Natriuretic Pept 334 pg/mL
[2024-06-02] MEDS: SODIUM CHLORIDE 0.9% 500 ML 500 ML IV STA (21:39)
[2024-06-02 22:32] VITALS: BP 139/63; PULSE 66; RESP 15
[2024-06-02 23:01] LABS: Basophils # (M) 0.45 k/uL (0-0.2); Eosinophils # (M) 0.15 k/uL (0-0.7); Lymphocytes # (M) 9.75 k/uL (1.0-4.8); Monocytes # (M) 0.15 k/uL (0-1.0); Neutrophils # (M) 4.65 k/uL (1.3-7.7); Neutrophils % (M) 31 %; Nucleated Red Blood Cells 0 /100 WBC (0-0); Total Cells Counted 200
[2024-06-02 23:26] LABS: Ovalocytes Present; Poikilocytosis (M) Present
== END 2024-06-02 22:33 | disposition home or self-care (01) ==
LOC: EC 20:42
DX: R07.89 Other chest pain (principal); F41.1 Generalized anxiety disorder; Z88.8 Allergy status to other drugs, medicaments and biological substances; Z87.891 Personal history of nicotine dependence
CPT/HCPCS: 36415; 71045; 80053; 83690; 83735; 83880; 84484; 85025; 85610; 85730; 93005; 99285

== ENCOUNTER 2024-07-06 21:41 | Observation (INO) | payer MEDICARE, OTHER ==
--- NOTE | 2024-07-06 22:03 | ED ---
General Adult HPI - General Chief complaint: Chest Pain Stated complaint: Chest pain Time Seen by Provider: 07/06/24 21:48 Source: patient, EMS, RN notes reviewed, old records reviewed Mode of arrival: EMS Limitations: no limitations - History of Present Illness Initial comments: Patient is a 74-year-old male who presents emergency department complaining of hypertension and chest pain. States symptoms started approximate hour to an hour and a half before arrival. Describes it as a pressure-like sensation over the left side of his chest with no radiation. Denies any nausea or vomiting. Denies any diaphoresis. Denies any history of cardiac stents but states this has happened before when his blood pressure gets elevated. He has a history of asthma, CAD, heart failure, COPD, diabetes, hypertension, hyperlipidemia. Follows with rv servicer Dr. Carrington. Has no other acute complaints. Presents for further evaluation at this time.States chest pain was of 4 to a 5 prior to EMS arrival. Received 1 nitroglycerin as well as 324 mg of aspirin. Chest pain is now 1-2. States it is much improved.Blood pressures apparently had systolics over 200 when EMS arrived. Improved following nitro. States he has been compliant with all medications.Patient also has a history of CKD as well as leukemia with somewhat chronic mild leukocytosis. - Related Data Home Medications Medication Instructions Recorded Confirmed Atorvastatin [Lipitor] 80 mg PO HS 10/10/18 04/11/24 Isosorbide Mononitrate ER [Imdur] 60 mg PO DAILY 10/10/18 04/11/24 Omeprazole [PriLOSEC] 20 mg PO BID 10/10/18 04/11/24 Rivaroxaban [Xarelto] 20 mg PO DAILY 10/10/18 04/11/24 amLODIPine [Norvasc] 5 mg PO BID 10/10/18 04/11/24 Albuterol Sulfate [Albuterol 2 puff INHALATION RT-Q4H PRN 01/27/20 04/11/24 Sulfate Hfa] Insulin Aspart [NovoLOG Flexpen] 5 - 15 units SQ AC-TID PRN 01/27/20 04/11/24 Insulin Degludec [Tresiba 18 units SQ BID 01/27/20 04/11/24 Flextouch U-100 Pen] Montelukast [Singulair] 10 mg PO HS 01/27/20 04/11/24 Dapagliflozin Propanediol [Farxiga] 5 mg PO HS 08/09/20 04/11/24 Tamsulosin [Flomax] 0.8 mg PO PC-SUPPER 08/09/20 04/11/24 Potassium Chloride ER [K-Dur 10] 10 meq PO DAILY 02/22/21 04/11/24 Budesonide/Glycopyr/Formoterol 2 puff INHALATION RT-BID 01/08/24 04/11/24 [Breztri Aerosphere Inhaler] Cyanocobalamin (Vitamin B-12) 1,000 mcg PO DAILY 01/08/24 04/11/24 [Vitamin B-12] Furosemide [Lasix] 20 mg PO DAILY 01/08/24 04/11/24 HYDROcodone/APAP 5-325MG [[place] 1 tab PO Q8H PRN 01/08/24 04/11/24 5-325] Levalbuterol Nebulized [Xopenex 1.25 mg INHALATION RT-Q8H PRN 01/08/24 04/11/24 Nebulized] Solifenacin Succinate 5 mg PO DAILY 01/08/24 04/11/24 allopurinoL [Zyloprim] 100 mg PO HS 01/08/24 04/11/24 Ferrous Sulfate [Iron (65 MG 325 mg PO DAILY 04/11/24 04/11/24 Elemental)] Labetalol [Trandate] 100 mg PO DAILY 04/11/24 04/11/24 Losartan Potassium 100 mg PO DAILY 04/11/24 04/11/24 Previous Rx's Medication Instructions Recorded Clopidogrel [Plavix] 75 mg PO DAILY #30 tablet 01/11/24 DULoxetine HCL [Cymbalta] 30 mg PO DAILY #30 cap 01/11/24 Cephalexin [Keflex] 500 mg PO TID 7 Days #21 cap 04/14/24 Allergies Allergy/AdvReac Type Severity Reaction Status Date / Time cortisone Allergy Anaphylaxis, Verified 06/02/24 20:49 tongue swelling Review of Systems ROS Statement: Those systems with pertinent positive or pertinent negative responses have been documented in the HPI. Review of Systems: CONST: Denies fever EYES: Denies blurry vision ENT: Denies nasal congestion C/V: Endorses chest pain RESP: Denies shortness of breath GI: Denies abdominal pain : Denies dysuria SKIN: Denies rash. MSK: Denies joint pain. NEURO: Denies headache ROS Other: All systems not noted in ROS Statement are negative. Past Medical History Past Medical History: Asthma, Blood Disorder, Coronary Artery Disease (CAD), Cancer, Heart Failure, COPD, CVA/TIA, Diabetes Mellitus, Deep Vein Thrombosis (DVT), Eye Disorder, GERD/Reflux, Hearing Disorder / Deafness, Hyperlipidemia, Hypertension, Pneumonia, Pulmonary Embolus (PE), Renal Disease, Seizure Disorder, Vascular Disorder Additional Past Medical History / Comment(s): LEUKEMIA-NO TX, CVA X 2 balance issues, IDDM type II, LEGALLY BLIND bilaterally-RETINITIS PIGMENTOSA, DVT R leg/L lung, PVD, current sore L upper gum, "weak bladder", RIKI with cpap use, GOUT, chronic kidney diease, recent back pain, past low iron and recently t old he has iron anemia, elementary school records list epilepsy/pt was unaware. History of Any Multi-Drug Resistant Organisms: None Reported Past Surgical History: Appendectomy, Back Surgery, Cholecystectomy, Heart Catheterization, Joint Replacement, Orthopedic Surgery Additional Past Surgical History / Comment(s): BILAT TKA &MICHAEL. LT SHOULDER SX/bilateral total shoulder replacements. RT ROTATOR CUFF REPAIR X 2. COLONOS COPY Past Anesthesia/Blood Transfusion Reactions: No Reported Reaction Additional Past Anesthesia/Blood Transfusion Reaction / Comment(s): Pt unsure if he has received blood. Past Psychological History: No Psychological Hx Reported Smoking Status: Former smoker Past Alcohol Use History: None Reported Past Drug Use History: None Reported - Past Family History Mother History Unknown: Yes Family Medical History: No Reported History Additional Family Medical History / Comment(s): Smoker. Father Sister(s) History Unknown: Yes Family Medical History: Vascular Disorder Additional Family Medical History / Comment(s): [facility] General Exam - General Exam Comments Initial Comments: General: Appears in no acute distress. HEAD: Normal with no signs of head trauma. EYES: PERRLA, EOMI, conjunctiva normal, no discharge. ENT: Hearing grossly intact, normal oropharynx. RESPIRATORY: Clear breath sounds bilaterally. No wheezes, rales, or rhonchi. C/V: Regular rate and rhythm. S1 and S2 auscultated, no edema, peripheral pulses 2+ and intact throughout. Chest pain is mildly reproducible on palpation. ABD: Abd is soft, nontender, nondistended EXT: Normal range of motion, no obvious deformity SKIN: No rashes or lesions observed on exposed skin. NEURO: Alert and oriented x 4. Limitations: no limitations Course Vital Signs 07/06/24 21:44 Temperature 97.5 F L Pulse Rate 54 L Respiratory 19 Rate Blood Pressure 163/72 O2 Sat by Pulse 100 Oximetry Medical Decision Making - Medical Decision Making Was pt. sent in by a medical professional or institution (, PA, HOT WOUND SPRING PRODUCTION SUPERVISOR, urgent care, hospital, or halfway...) When possible be specific @ -No Did you speak to anyone other than the patient for history (EMS, parent, family, police, friend...)? What history was obtained from this source @ -No Did you review nursing and triage notes (agree or disagree)? Why? @ -I reviewed and agree with nursing and triage notes Were old charts reviewed (outside hosp., previous admission, EMS record, old EKG, old radiological studies, urgent care reports/EKG's, halfway records)? Report findings @ -Reviewed from May 2024, including EKG which is similar to today's EKGs. Differential Diagnosis (chest pain, altered mental status, abdominal pain women, abdominal pain men, vaginal bleeding, weakness, fever, dyspnea, syncope, headache, dizziness, GI bleed, back pain, seizure, CVA, palpatations, mental health, musculoskeletal)? @ -Differential Chest Pain: Stable Angina, Unstable Angina, STEMI, NSTEMI Aortic Dissection, Pneumothorax, Musculoskeletal, Esophageal Spasm GERD, Cholecystitis, Pancreatitis, Zoster, this is not meant to be an all-inclusive list. EKG interpreted by me (3pts min.). @ -As above X-rays interpreted by me (1pt min.). @ - CT interpreted by me (1pt min.). @ -None done U/S interpreted by me (1pt. min.). @ -None done What testing was considered but not performed or refused? (CT, X-rays, U/S, labs)? Why? @ -None What meds were considered but not given or refused? Why? @ -Considered aspirin however patient already received 324 mg of aspirin from EMS. Did you discuss the management of the patient with other professionals (professionals i.e. Dr., PA, HOT WOUND SPRING PRODUCTION SUPERVISOR, lab, RT, psych nurse, nephrology social worker, graphic arts technician, teacher, customer service security officer, telephonic nurse case manager)? Give summary @ -No Was smoking cessation discussed for >3mins.? @ -No Was critical care preformed (if so, how long)? @ -No Were there social determinants of health that impacted care today? How? (Homelessness, low income, unemployed, alcoholism, drug addiction, transportation, low edu. Level, literacy, decrease access to med. care, snf, rehab)? @ -No Was there de-escalation of care discussed even if they declined (Discuss DNR or withdrawal of care, Hospice)? DNR status @ -No What co-morbidities impacted this encounter? (DM, HTN, Smoking, COPD, CAD, Cancer, CVA, ARF, Chemo, Hep., AIDS, mental health diagnosis, sleep apnea, morbid obesity)? @ -CAD, CHF, asthma, diabetes, hypertension, hyperlipidemia Was patient admitted / discharged? Hospital course, mention meds given and route, prescriptions, significant lab abnormalities, going to OR and other pertinent info. @ -Based on the patient's presentation and physical exam, presents emergency department with chest pain as well as hypertension. Hypertension seems to be improved at this time following nitro and aspirin administration by EMS. Chest pain is also improved from a 5 to a 1-2. Patient currently resting comfortably at this time. We will obtain cardiac workup. Patient was in agreement this plan. Patient already received aspirin. He will be placed on Nitropaste for the chest pain as his initial chest pain nearly resolved with oral nitro.. We will continue to monitor his symptoms. EKG revealed no obvious acute ischemia.Repeat EKG shows no dynamic changes. Laboratory studies remarkable for his chronic leukocytosis from his leukemia. Patient has elevated BUN and creatinine within his baseline for CKD. Troponin is undetectable. Chest x-ray unremarkable. On reevaluation, patient is resting comfortably at this time. Patient will be admitted to cardiac observation for trending of his troponin. Chest pain is resolved at this time. Blood pressure remains improved. He was in agreement this plan. Cardiology consulted. Undiagnosed new problem with uncertain prognosis? @ -No Drug Therapy requiring intensive monitoring for toxicity (Heparin, Nitro, Insulin, Cardizem)? @ -No Were any procedures done? @ -No Diagnosis/symptom? @ -Chest pain, hypertensive urgency Acute, or Chronic, or Acute on Chronic? @ -Acute Uncomplicated (without systemic symptoms) or Complicated (systemic symptoms)? @ -Complicated Side effects of treatment? @ -None Exacerbation, Progression, or Severe Exacerbation] @ -No Poses a threat to life or bodily function? @ -Potentially, yes - Lab Data Result diagrams: 07/06/24 21:56 07/06/24 21:56 Lab Results 07/06/24 07/06/24 07/06/24 Range/Units 21:56 21:56 21:56 WBC 14.5 H (3.8-10.6) k/uL RBC 4.78 (4.30-5.90) m/uL Hgb 12.2 L (13.0-17.5) gm/dL Hct 38.4 L (39.0-53.0) % MCV 80.4 (80.0-100.0) fL MCH 25.6 (25.0-35.0) pg MCHC 31.8 (31.0-37.0) g/dL RDW 17.3 H (11.5-15.5) % Plt Count 161 (150-450) k/uL MPV 7.8 Hypochromasia Slight Anisocytosis Slight Microcytosis Slight PT 11.7 (10.0-12.5) sec INR 1.1 (<1.2) APTT 26.4 (22.0-30.0) sec Sodium 138 (137-145) mmol/L Potassium 4.4 (3.5-5.1) mmol/L Chloride 113 H (98-107) mmol/L Carbon Dioxide 20 L (22-30) mmol/L Anion Gap 5 mmol/L BUN 41 H (9-20) mg/dL Creatinine 1.74 H (0.66-1.25) mg/dL Est GFR (CKD-EPI)AfAm 44 (>60 ml/min/1.73 sqM) Est GFR (CKD-EPI)NonAf 38 (>60 ml/min/1.73 sqM) Glucose 93 (74-99) mg/dL Calcium 9.1 (8.4-10.2) mg/dL Magnesium 2.4 H (1.6-2.3) mg/dL Total Bilirubin 0.5 (0.2-1.3) mg/dL AST 23 (17-59) U/L ALT 24 (4-49) U/L Alkaline Phosphatase 48 (38-126) U/L Troponin I (0.000-0.034) ng/mL NT-Pro-B Natriuret Pep 231 pg/mL Total Protein 5.7 L (6.3-8.2) g/dL Albumin 3.7 (3.5-5.0) g/dL 07/06/24 Range/Units 21:56 WBC (3.8-10.6) k/uL RBC (4.30-5.90) m/uL Hgb (13.0-17.5) gm/dL Hct (39.0-53.0) % MCV (80.0-100.0) fL MCH (25.0-35.0) pg MCHC (31.0-37.0) g/dL RDW (11.5-15.5) % Plt Count (150-450) k/uL MPV Hypochromasia Anisocytosis Microcytosis PT (10.0-12.5) sec INR (<1.2) APTT (22.0-30.0) sec Sodium (137-145) mmol/L Potassium (3.5-5.1) mmol/L Chloride (98-107) mmol/L Carbon Dioxide (22-30) mmol/L Anion Gap mmol/L BUN (9-20) mg/dL Creatinine (0.66-1.25) mg/dL Est GFR (CKD-EPI)AfAm (>60 ml/min/1.73 sqM) Est GFR (CKD-EPI)NonAf (>60 ml/min/1.73 sqM) Glucose (74-99) mg/dL Calcium (8.4-10.2) mg/dL Magnesium (1.6-2.3) mg/dL Total Bilirubin (0.2-1.3) mg/dL AST (17-59) U/L ALT (4-49) U/L Alkaline Phosphatase (38-126) U/L Troponin I <0.012 (0.000-0.034) ng/mL NT-Pro-B Natriuret Pep pg/mL Total Protein (6.3-8.2) g/dL Albumin (3.5-5.0) g/dL - EKG Data -: EKG Interpreted by Me EKG Comments: 12-lead Electrocardiogram Interpretation Note EKG was reviewed and interpreted by myself. 12-lead ECG performed at 2156 is interpreted by me as revealing sinus bradycardia at a rate of 52 beats per minute. [place] is normal. ID interval is 184 ms, QRS duration is 91 ms, QTc is 409 ms.. There were no ST or T wave abnormalities to suggest myocardial ischemia or injury. R wave progression across the precordium was satisfactory. By my interpretation this EKG is non-diagnostic for acute ischemia. Compared with EKG from June 02, 2024 with no obvious acute change. 12-lead Electrocardiogram Interpretation Note EKG was reviewed and interpreted by myself. 12-lead ECG performed at 2245 is interpreted by me as revealing sinus bradycardia at a rate of 49 beats per minute. [place] is normal. ID interval is 199 ms, QRS durations 109 ms, QTc is 421 ms.. There were no ST or T wave abnormalities to suggest myocardial ischemia or injury. R wave progression across the precordium was satisfactory. By my interpretation this EKG is non-diagnostic for acute ischemia. No Dynamic changes when compared with EKG from earlier today. Disposition Clinical Impression: Chest pain, Hypertensive urgency Disposition: ADMITTED IP TO THIS HOSP Condition: Stable Referrals: Sugar Cummins MD [Primary Care Provider] - 1-2 days Time of Disposition: 22:53
--- NOTE | 2024-07-06 22:09 | XR ---
EXAMINATION TYPE: XR chest 2V DATE OF EXAM: 07/06/2024 CLINICAL HISTORY: Chest pain TECHNIQUE: Frontal and lateral views of the chest are obtained. COMPARISON: Prior chest x-ray June 02, 2024 FINDINGS: Slightly elevated left hemidiaphragm is redemonstrated. There is no focal air space opacit y, pleural effusion, or pneumothorax seen. The cardiac silhouette size is within normal limits. Surg ical change of both shoulders is partially imaged similar to the prior. IMPRESSION: No acute process. No significant change from most recent prior. [facility], , 07/06/2024 10:07 PM
[2024-07-06] MEDS: NITROGLYCERIN OINT 1 INCH/GM PACKET TOPICAL SCH (22:15)
[2024-07-06] MEDS: SODIUM CHLORIDE 0.9% 500 ML 500 ML IV STA (22:18)
[2024-07-06 22:30] LABS: Anisocytosis Slight; Basophils # (A) 0.1 k/uL (0-0.2); Basophils % (A) 1 %; Eosinophils # (A) 0.2 k/uL (0-0.7); Eosinophils % (A) 1 %; HCT 38.4 % (39.0-53.0); HGB 12.2 gm/dL (13.0-17.5); Hypochromasia Slight; Lymphocytes # (A) 8.1 k/uL (1.0-4.8); Lymphocytes % (A) 56 %; MCH 25.6 pg (25.0-35.0); MCHC 31.8 g/dL (31.0-37.0); MCV 80.4 fL (80.0-100.0); Mean Platelet Volume 7.8; Microcytosis Slight; Monocytes # (A) 0.4 k/uL (0-1.0); Monocytes % (A) 3 %; Neutrophils # (A) 5.4 k/uL (1.3-7.7); Neutrophils % (A) 37 %; Platelet Count 161 k/uL (150-450); RBC 4.78 m/uL (4.30-5.90); RDW 17.3 % (11.5-15.5); WBC 14.5 k/uL (3.8-10.6)
[2024-07-06 22:31] LABS: ALT 24 U/L (4-49); AST 23 U/L (17-59); African American GFR (CKD) 44 (>60 ml/min/1.73 sqM); Albumin 3.7 g/dL (3.5-5.0); Alkaline Phosphatase 48 U/L (38-126); Anion Gap 5 mmol/L; Blood Urea Nitrogen 41 mg/dL (9-20); Calcium 9.1 mg/dL (8.4-10.2); Carbon Dioxide 20 mmol/L (22-30); Chloride 113 mmol/L (98-107); Glucose 93 mg/dL (74-99); INR 1.1 (<1.2); Magnesium 2.4 mg/dL (1.6-2.3); Non-African American GFR(CKD) 38 (>60 ml/min/1.73 sqM); Partial Thromboplastin Time 26.4 sec (22.0-30.0); Potassium 4.4 mmol/L (3.5-5.1); Prothrombin Time 11.7 sec (10.0-12.5); Sodium 138 mmol/L (137-145); Total Bilirubin 0.5 mg/dL (0.2-1.3); Total Protein 5.7 g/dL (6.3-8.2)
[2024-07-06 22:37] LABS: NT-Pro-B-Type Natriuretic Pept 231 pg/mL
[2024-07-06] MEDS ORDERED: ONDANSETRON 4 MG/2 ML VIAL IVP PRN (22:53)
[2024-07-06] MEDS ORDERED: NALOXONE 0.4 MG/ML 1 ML VIAL IV PRN (22:53)
[2024-07-06 23:11] LABS: Appearance,Urine Clear (Clear); Bilirubin,Urine Negative (Negative); Blood,Urine Negative (Negative); Color,Urine Colorless; Glucose,Urine (UA) 3+ (Negative); Ketones,Urine Negative (Negative); Leukocyte Esterase,Urine Negative (Negative); Nitrite,Urine Negative (Negative); Protein,Urine Negative (Negative); Specific Gravity,Urine 1.014 (1.001-1.035); Urobilinogen,Urine <2.0 mg/dL (<2.0)
[2024-07-06 23:24] LABS: Ovalocytes Present; RBC Fragments Present
[2024-07-06] MEDS ORDERED: ALBUTEROL NEBULIZED 2.5 MG/3 ML INHALATION PRN ×2 (23:29)
[2024-07-06] MEDS ORDERED: HYDROcodone/APAP 5-325MG 1 EACH TAB PO PRN (23:29)
[2024-07-07] MEDS: HEPARIN SODIUM,PORCINE 5,000 UNIT/ML 1 ML VIAL SQ SCH (00:31)
[2024-07-07 04:45] LABS: ALT 24 U/L (4-49); AST 23 U/L (17-59); African American GFR (CKD) 50 (>60 ml/min/1.73 sqM); Albumin 3.5 g/dL (3.5-5.0); Alkaline Phosphatase 44 U/L (38-126); Anion Gap 6 mmol/L; Blood Urea Nitrogen 41 mg/dL (9-20); Calcium 9.1 mg/dL (8.4-10.2); Carbon Dioxide 22 mmol/L (22-30); Chloride 111 mmol/L (98-107); Glucose 90 mg/dL (74-99); Non-African American GFR(CKD) 44 (>60 ml/min/1.73 sqM); Potassium 4.3 mmol/L (3.5-5.1); Sodium 139 mmol/L (137-145); Total Bilirubin 0.4 mg/dL (0.2-1.3); Total Protein 5.3 g/dL (6.3-8.2)
[2024-07-07 04:58] LABS: Anisocytosis Slight; Basophils # (A) 0.1 k/uL (0-0.2); Basophils % (A) 1 %; Eosinophils # (A) 0.2 k/uL (0-0.7); Eosinophils % (A) 1 %; HCT 36.5 % (39.0-53.0); HGB 11.6 gm/dL (13.0-17.5); Hypochromasia Slight; Lymphocytes # (A) 6.7 k/uL (1.0-4.8); Lymphocytes % (A) 53 %; MCHC 31.8 g/dL (31.0-37.0); MCV 81.7 fL (80.0-100.0); Mean Platelet Volume 7.5; Monocytes # (A) 0.4 k/uL (0-1.0); Monocytes % (A) 3 %; Neutrophils % (A) 40 %; Platelet Count 142 k/uL (150-450); RBC 4.47 m/uL (4.30-5.90); RDW 17.2 % (11.5-15.5); WBC 12.6 k/uL (3.8-10.6)
[2024-07-07 05:44] LABS: Ovalocytes Present; Tear Drop Cells Present
[2024-07-07 05:44] LABS: Glucose,Whole Blood 82 mg/dL (70-110)
--- NOTE | 2024-07-07 08:31 | P.CRDCN ---
History of Present Illness Consult date: 07/07/24 Consult reason: chest pain, hypertension History of present illness: This is Edward Sood NP, I'm dictating on behalf of Dr. Celeste's H&P and A&P The patient was interviewed and examined. HPI: Patient is a pleasant 74-year-old male, patient of Dr. Carrington, with a past medical history of asthma, leukemia, coronary artery disease, heart failure, COPD, CVA, diabetes, DVT, GERD, hyperlipidemia, hypertension, pulmonary embolus, gout, chronic kidney disease who presents to the hospital with complaints of hypertension and chest pain. Patient's symptoms started approximately an hour and a half prior to arrival to the emergency department, and he described the pain as pressure-like over the left side of the chest without radiation. He denies any symptoms of diaphoresis, nausea, dizziness, or syncope. He does state that the symptoms are similar to the last time he had extremely elevated blood pressure. Patient received a nitroglycerin as well as aspirin en route to the hospital, and his pain improved. This morning the patient states that his pain is resolved. He continues to demonstrate a low heart rate on telemetry, as well as elevated blood pressure. ROS: [No fever, chills, or rigors] [no cough, phlegm, or expectoration] [no nausea, vomiting, or diarrhea] [no hematuria, dysuria] [no musculoskelatal complaints] [no strokes or seizures] [no skin lesions] EXAMINATION: GENERAL: Well-appearing, well-nourished and in no acute distress. NECK: Supple without JVD or thyromegaly. LUNGS: Breath sounds clear to auscultation bilaterally. Respiration equal and unlabored. No wheezes, rales or rhonchi. HEART: Slow rate and regular rhythm without murmurs, rubs or gallops. S1 and S2 heard. EXTREMITIES: Normal range of motion, no edema. No clubbing or cyanosis. Peripheral pulses intact and strong. REVIEW OF LABS, ECG & MEDICAL DATA: LABS: White count 12.6, hemoglobin 11.6, platelets 142, sodium 139, potassium 4.3, chloride 111, BUN 41, creatinine 1.57, calcium 9.1, magnesium 2.4, troponin-less than 0.012 x 3, BNP 231 EKG: Sinus bradycardia IMAGING: Chest x-ray dated 07/06/2024 demonstrates no acute process, no significant change from most recent prior. VITALS: Temp 98.4, pulse 49, respirations 15, blood pressure 164/71, O2 saturation 98% on room air IMPRESSION: 1. Accelerated hypertension 2. Bradycardia 3. History of congestive heart failure 4. History of DVT and PE PLAN: Discontinue labetalol, losartan, amlodipine. Hold Lasix due to elevated creatinine. Start Procardia XL 90 mg daily. Start valsartan 80 mg twice daily. Continue to monitor blood pressure and heart rate. Will adjust medications as needed. Further recommendations based on patient's clinical course. Thank you for the consult and allowing us to participate in the care of this patient. 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 History of Any Multi-Drug Resistant Organisms: None Reported Past Surgical History: Appendectomy, Back Surgery, Cholecystectomy, Heart Catheterization, Joint Replacement, Orthopedic Surgery Additional Past Surgical History / Comment(s): BILAT TKA &MICHAEL. LT SHOULDER SX/bilateral total shoulder replacements. RT ROTATOR CUFF REPAIR X 2. COLONOSCOPY Past Anesthesia/Blood Transfusion Reactions: No Reported Reaction Additional Past Anesthesia/Blood Transfusion Reaction / Comment(s): Pt unsure if he has received blood. Past Psychological History: No Psychological Hx Reported Additional Psychological History / Comment(s): Pt resides with grandson, age 18yrs. Smoking Status: Former smoker Past Alcohol Use History: None Reported Additional Past Alcohol Use History / Comment(s): Pt started smoking pipe in 1959 and quit in 1983 Past Drug Use History: None Reported - Past Family History Mother History Unknown: Yes Family Medical History: No Reported History Additional Family Medical History / Comment(s): Smoker. Father Sister(s) History Unknown: Yes Family Medical History: Vascular Disorder Additional Family Medical History / Comment(s): ASHD Medications and Allergies Home Medications Medication Instructions Recorded Confirmed Type Atorvastatin [Lipitor] 80 mg PO HS 10/10/18 04/11/24 History Isosorbide Mononitrate ER [Imdur] 60 mg PO DAILY 10/10/18 04/11/24 History Omeprazole [PriLOSEC] 20 mg PO BID 10/10/18 04/11/24 History Rivaroxaban [Xarelto] 20 mg PO DAILY 10/10/18 04/11/24 History amLODIPine [Norvasc] 5 mg PO BID 10/10/18 04/11/24 History Albuterol Sulfate [Albuterol 2 puff INHALATION RT-Q4H PRN 01/27/20 04/11/24 History Sulfate Hfa] Insulin Aspart [NovoLOG Flexpen] 5 - 15 units SQ AC-TID PRN 01/27/20 04/11/24 History Insulin Degludec [Tresiba 18 units SQ BID 01/27/20 04/11/24 History Flextouch U-100 Pen] Montelukast [Singulair] 10 mg PO HS 01/27/20 04/11/24 History Dapagliflozin Propanediol [Farxiga] 5 mg PO HS 08/09/20 04/11/24 History Tamsulosin [Flomax] 0.8 mg PO PC-SUPPER 08/09/20 04/11/24 History Potassium Chloride ER [K-Dur 10] 10 meq PO DAILY 02/22/21 04/11/24 History Budesonide/Glycopyr/Formoterol 2 puff INHALATION RT-BID 01/08/24 04/11/24 History [Breztri Aerosphere Inhaler] Cyanocobalamin (Vitamin B-12) 1,000 mcg PO DAILY 01/08/24 04/11/24 History [Vitamin B-12] Furosemide [Lasix] 20 mg PO DAILY 01/08/24 04/11/24 History HYDROcodone/APAP 5-325MG [[place] 1 tab PO Q8H PRN 01/08/24 04/11/24 History 5-325] Levalbuterol Nebulized [Xopenex 1.25 mg INHALATION RT-Q8H PRN 01/08/24 04/11/24 History Nebulized] Solifenacin Succinate 5 mg PO DAILY 01/08/24 04/11/24 History allopurinoL [Zyloprim] 100 mg PO HS 01/08/24 04/11/24 History Clopidogrel [Plavix] 75 mg PO DAILY #30 tablet 01/11/24 04/11/24 Rx DULoxetine HCL [Cymbalta] 30 mg PO DAILY #30 cap 01/11/24 04/11/24 Rx Ferrous Sulfate [Iron (65 MG 325 mg PO DAILY 04/11/24 04/11/24 History Elemental)] Labetalol [Trandate] 100 mg PO DAILY 04/11/24 04/11/24 History Losartan Potassium 100 mg PO DAILY 04/11/24 04/11/24 History Cephalexin [Keflex] 500 mg PO TID 7 Days #21 cap 04/14/24 Rx Allergies Allergy/AdvReac Type Severity Reaction Status Date / Time cortisone Allergy Anaphylaxis, Verified 06/02/24 20:49 tongue swelling Physical Exam Vitals: Vital Signs Temp Pulse Pulse Resp BP BP Pulse Ox 07/07/24 07:00 98.4 F 49 L 15 164/71 98 07/07/24 01:13 97.3 F L 51 L 18 143/73 99 07/07/24 00:56 97.6 F 07/07/24 00:30 48 L 14 143/63 96 07/07/24 00:00 48 L 14 136/59 96 07/06/24 23:30 50 L 16 142/59 97 07/06/24 23:00 73 12 153/60 96 07/06/24 22:49 50 L 18 141/61 96 07/06/24 21:44 97.5 F L 54 L 19 163/72 100 Intake and Output 07/06/24 07/07/24 07/07/24 22:59 06:59 14:59 Other: # Voids 1 1 # Bowel Movements 1 Weight 99.79 kg 99.79 kg Results 07/07/24 04:11 07/07/24 04:11 Cardiac Enzymes 07/06/24 07/06/24 07/06/24 Range/Units 21:56 21:56 23:43 AST 23 (17-59) U/L Troponin I <0.012 <0.012 (0.000-0.034) ng/mL 07/07/24 07/07/24 Range/Units 04:11 04:11 AST 23 (17-59) U/L Troponin I <0.012 (0.000-0.034) ng/mL Coagulation 07/06/24 Range/Units 21:56 PT 11.7 (10.0-12.5) sec APTT 26.4 (22.0-30.0) sec CBC 07/06/24 07/07/24 Range/Units 21:56 04:11 WBC 14.5 H 12.6 H (3.8-10.6) k/uL RBC 4.78 4.47 (4.30-5.90) m/uL Hgb 12.2 L 11.6 L (13.0-17.5) gm/dL Hct 38.4 L 36.5 L (39.0-53.0) % Plt Count 161 142 L (150-450) k/uL Comprehensive Metabolic Panel 07/06/24 07/07/24 Range/Units 21:56 04:11 Sodium 138 139 (137-145) mmol/L Potassium 4.4 4.3 (3.5-5.1) mmol/L Chloride 113 H 111 H (98-107) mmol/L Carbon Dioxide 20 L 22 (22-30) mmol/L BUN 41 H 41 H (9-20) mg/dL Creatinine 1.74 H 1.57 H (0.66-1.25) mg/dL Glucose 93 90 (74-99) mg/dL Calcium 9.1 9.1 (8.4-10.2) mg/dL AST 23 23 (17-59) U/L ALT 24 24 (4-49) U/L Alkaline Phosphatase 48 44 (38-126) U/L Total Protein 5.7 L 5.3 L (6.3-8.2) g/dL Albumin 3.7 3.5 (3.5-5.0) g/dL Current Medications Generic Name Dose Route Start Last Admin Trade Name Freq PRN Reason Stop Dose Admin Hydrocodone Bitart/Acetaminophen 1 each 07/06/24 23:29 Hydrocodone/Apap 5-325mg 1 Each Tab PO Q8H PRN Pain Albuterol Sulfate 2.5 mg 07/06/24 23:29 Albuterol Nebulized 2.5 Mg/3 Ml INHALATION RT-Q4H PRN Shortness Of Breath Albuterol/Ipratropium 3 ml 07/07/24 08:00 Ipratropium-Albuterol 3 Ml Neb INHALATION RT-QID [facility] Atorvastatin Calcium 80 mg 07/07/24 21:00 Atorvastatin 80 Mg Tab PO HS [facility] Budesonide/Formoterol Fumarate 2 puff 07/07/24 08:00 Symbicort 160-4.5 Mcg Inhaler INHALATION RT-BID [facility] Clopidogrel Bisulfate 75 mg 07/07/24 09:00 Clopidogrel 75 Mg Tab PO DAILY [facility] Dapagliflozin 5 mg 07/07/24 21:00 Dapagliflozin Propanediol 5 Mg Tablet PO HS [facility] Duloxetine HCl 30 mg 07/07/24 09:00 Duloxetine Hcl 30 Mg Capsule.Dr PO DAILY [facility] Ferrous Sulfate 325 mg 07/07/24 09:00 Ferrous Sulfate 325 Mg Tab PO DAILY [facility] Heparin Sodium (Porcine) 5,000 unit 07/07/24 00:00 07/07/24 00:31 Heparin Sodium,Porcine 5,000 Unit/Ml 1 Ml Vial SQ Not Given Q8HR [facility] Insulin Detemir 18 unit 07/07/24 07:00 Insulin Detemir (Levemir) 100 Unit/Ml Syr SQ BID@0700,2100 [facility] Isosorbide Mononitrate 60 mg 07/07/24 09:00 Isosorbide Mononitrate Er 60 Mg Tab.Er.24h PO DAILY [facility] Naloxone HCl 0.2 mg 07/06/24 22:53 Naloxone 0.4 Mg/Ml 1 Ml Vial IV Q2M PRN Opioid Reversal Nifedipine 90 mg 07/07/24 09:00 Nifedipine Xl 90 Mg Tab.Er.24 PO DAILY [facility] Nitroglycerin 0.5 inch 07/06/24 22:00 07/07/24 06:03 Nitroglycerin Oint 1 Inch/Gm Packet TOPICAL 0.5 inch Q8H [facility] Administration Ondansetron HCl 4 mg 07/06/24 22:53 Ondansetron 4 Mg/2 Ml Vial IVP Q8HR PRN Nausea And Vomiting Rivaroxaban 20 mg 07/07/24 18:30 Rivaroxaban 20 Mg Tab PO PC-SUPPER [facility] Protocol Tamsulosin HCl 0.8 mg 07/07/24 18:30 Tamsulosin 0.4 Mg Cap.Er.24h PO PC-SUPPER [place] Valsartan 80 mg 07/07/24 09:00 Valsartan 80 Mg Tab PO BID [place] Intake and Output 07/06/24 07/07/24 07/07/24 22:59 06:59 14:59 Other: # Voids 1 1 # Bowel Movements 1 Weight 99.79 kg 99.79 kg 07/07/24 04:11 07/07/24 04:11
[2024-07-07] MEDS: INSULIN DETEMIR (LEVEMIR) 100 UNIT/ML SYR SQ SCH (08:57)
[2024-07-07] MEDS: FERROUS SULFATE 325 MG TAB PO SCH (08:58)
[2024-07-07] MEDS: NIFEdipine XL 90 MG TAB.ER.24 PO SCH (08:58)
[2024-07-07] MEDS: VALSARTAN 80 MG TAB PO SCH (08:58)
[2024-07-07] MEDS: CLOPIDOGREL 75 MG TAB PO SCH (08:58)
[2024-07-07] MEDS ORDERED: amLODIPine 5 MG TAB PO SCH (09:00)
[2024-07-07] MEDS ORDERED: FUROSEMIDE 20 MG TAB PO SCH (09:00)
[2024-07-07] MEDS ORDERED: LABETALOL 100 MG TAB PO SCH (09:00)
[2024-07-07] MEDS ORDERED: LOSARTAN 50 MG TAB PO SCH (09:00)
[2024-07-07] MEDS: SYMBICORT 160-4.5 MCG INHALER INHALATION SCH (09:12)
[2024-07-07] MEDS: IPRATROPIUM-ALBUTEROL 3 ML NEB INHALATION SCH (09:12)
[2024-07-07] MEDS: ISOSORBIDE MONONITRATE ER 60 MG TAB.ER.24H PO SCH (10:10)
[2024-07-07] MEDS: DULoxetine HCL 30 MG CAPSULE.DR PO SCH (10:11)
[2024-07-07 11:42] LABS: Glucose,Whole Blood 118 mg/dL (70-110)
--- NOTE | 2024-07-07 13:22 | P.HPIM ---
History of Present Illness Patient is [id number] male came in with complaints of chest pressure-like sensation nonradiating. Found to have highly elevated blood pressure with systolics going up to 100 because of which patient came to the ER. Patient bloo d pressure has come down to 60 systolic patient had an EKG which did not show any acute ST-T wave changes chest pain completely resolved at this time patient is on multiple medications for hypertension at home patient uses labetalol amlodipine and losartan at home. Patient was switched to valsartan and nifedipine labetalol was discontinued because of sinus bradycardia patient is also on Lasix does have a history of congestive heart failure normal ejection fraction EF of around 60 to 65% with chronic diastolic function. Patient takes Lasix at home but this is being held because of elevated creatinine of 1.5 patient baseline creatinine is around that. REVIEW OF SYSTEMS: All other systems are negative except those mentioned in the HPI PHYSICAL EXAMINATION: GENERAL: The patient is alert and oriented x3, not in any acute distress. Well developed, well nourished. HEENT: Pupils are round and equally reacting to light. EOMI. No scleral icterus. No conjunctival pallor. Normocephalic, atraumatic. No pharyngeal erythema. No thyromegaly. CARDIOVASCULAR: S1 and S2 present. No murmurs, rubs, or gallops. PULMONARY: Chest is clear to auscultation, no wheezing or crackles. ABDOMEN: Soft, nontender, nondistended, normoactive bowel sounds. No palpable organomegaly. MUSCULOSKELETAL: No joint swelling or deformity. EXTREMITIES: No cyanosis, clubbing, or pedal edema. NEUROLOGICAL: Gross neurological examination did not reveal any focal deficits. SKIN: No rashes. Assessment and plan -Accelerated hypertension: Patient is presently started on nifedipine and valsartan patient blood pressure improved -Congestive failure chronic diastolic function patient is euvolemic holding off Lasix because of elevated creatinine although this is baseline patient will be resumed on Lasix tomorrow -Chest pressure secondary to elevated blood pressure which resolved at this time troponins are negative rule out acute coronary syndromes cardiology evaluated the patient -Chronic elevation of white count etiology is not known no evidence of infection at this time -Coronary disease -COPD without any acute exacerbation -Type 2 diabetes mellitus -History of DVT for which patient is on Xarelto which we will resume -Hyperlipidemia -History of PE -Seizure disorder -Peripheral vascular disease For above-mentioned chronic medical problems patient will be resumed on appropriate home medications DVT prophylaxis: On Xarelto Past Medical History Past Medical History: Asthma, Blood Disorder, Coronary Artery Disease (CAD), Cancer, Heart Failure, COPD, CVA/TIA, Diabetes Mellitus, Deep Vein Thrombosis (DVT), Eye Disorder, GERD/Reflux, Hearing Disorder / Deafness, Hyperlipidemia, Hypertension, Pneumonia, Pulmonary Embolus (PE), Renal Disease, Seizure Disorder, Vascular Disorder Additional Past Medical History / Comment(s): LEUKEMIA-NO TX, CVA X 2 balance issues, IDDM type II, LEGALLY BLIND bilaterally-RETINITIS PIGMENTOSA, DVT R leg/L lung, PVD, current sore L upper gum, "weak bladder", RIKI with cpap use, GOUT, chronic kidney diease, recent back pain, past low iron and recently told he has iron anemia, elementary school records list epilepsy/pt was unaware. History of Any Multi-Drug Resistant Organisms: None Reported Past Surgical History: Appendectomy, Back Surgery, Cholecystectomy, Heart Catheterization, Joint Replacement, Orthopedic Surgery Additional Past Surgical History / Comment(s): BILAT TKA &MICHAEL. LT SHOULDER S X/bilateral total shoulder replacements. RT ROTATOR CUFF REPAIR X 2. COLONOSCOPY Past Anesthesia/Blood Transfusion Reactions: No Reported Reaction Additional Past Anesthesia/Blood Transfusion Reaction / Comment(s): Pt unsure if he has received blood. Past Psychological History: No Psychological Hx Reported Additional Psychological History / Comment(s): Pt resides with grandson, age 18yrs. Smoking Status: Former smoker Past Alcohol Use History: None Reported Additional Past Alcohol Use History / Comment(s): Pt started smoking pipe in 1959 and quit in 1983 Past Drug Use History: None Reported - Past Family History Mother History Unknown: Yes Family Medical History: No Reported History Additional Family Medical History / Comment(s): Smoker. Father Sister(s) History Unknown: Yes Family Medical History: Vascular Disorder Additional Family Medical History / Comment(s): ASHD Medications and Allergies Home Medications Medication Instructions Recorded Confirmed Type Atorvastatin [Lipitor] 80 mg PO HS 10/10/18 04/11/24 History Isosorbide Mononitrate ER [Imdur] 60 mg PO DAILY 10/10/18 04/11/24 History Omeprazole [PriLOSEC] 20 mg PO BID 10/10/18 04/11/24 History Rivaroxaban [Xarelto] 20 mg PO DAILY 10/10/18 04/11/24 History amLODIPine [Norvasc] 5 mg PO BID 10/10/18 04/11/24 History Albuterol Sulfate [Albuterol 2 puff INHALATION RT-Q4H PRN 01/27/20 04/11/24 History Sulfate Hfa] Insulin Aspart [NovoLOG Flexpen] 5 - 15 units SQ AC-TID PRN 01/27/20 04/11/24 History Insulin Degludec [Tresiba 18 units SQ BID 01/27/20 04/11/24 History Flextouch U-100 Pen] Montelukast [Singulair] 10 mg PO HS 01/27/20 04/11/24 History Dapagliflozin Propanediol [Farxiga] 5 mg PO HS 08/09/20 04/11/24 History Tamsulosin [Flomax] 0.8 mg PO PC-SUPPER 08/09/20 04/11/24 History Potassium Chloride ER [K-Dur 10] 10 meq PO DAILY 02/22/21 04/11/24 History Budesonide/Glycopyr/Formoterol 2 puff INHALATION RT-BID 01/08/24 04/11/24 History [Breztri Aerosphere Inhaler] Cyanocobalamin (Vitamin B-12) 1,000 mcg PO DAILY 01/08/24 04/11/24 History [Vitamin B-12] Furosemide [Lasix] 20 mg PO DAILY 01/08/24 04/11/24 History HYDROcodone/APAP 5-325MG [[place] 1 tab PO Q8H PRN 01/08/24 04/11/24 History 5-325] Levalbuterol Nebulized [Xopenex 1.25 mg INHALATION RT-Q8H PRN 01/08/24 04/11/24 History Nebulized] Solifenacin Succinate 5 mg PO DAILY 01/08/24 04/11/24 History allopurinoL [Zyloprim] 100 mg PO HS 01/08/24 04/11/24 History Clopidogrel [Plavix] 75 mg PO DAILY #30 tablet 01/11/24 04/11/24 Rx DULoxetine HCL [Cymbalta] 30 mg PO DAILY #30 cap 01/11/24 04/11/24 Rx Ferrous Sulfate [Iron (65 MG 325 mg PO DAILY 04/11/24 04/11/24 History Elemental)] Labetalol [Trandate] 100 mg PO DAILY 04/11/24 04/11/24 History Losartan Potassium 100 mg PO DAILY 04/11/24 04/11/24 History Cephalexin [Keflex] 500 mg PO TID 7 Days #21 cap 04/14/24 Rx Allergies Allergy/AdvReac Type Severity Reaction Status Date / Time cortisone Allergy Anaphylaxis, Verified 06/02/24 20:49 tongue swelling Physical Exam Vitals: Vital Signs Temp Pulse Pulse Resp BP BP Pulse Ox 07/07/24 07:00 98.4 F 49 L 15 164/71 98 07/07/24 01:13 97.3 F L 51 L 18 143/73 99 07/07/24 00:56 97.6 F 07/07/24 00:30 48 L 14 143/63 96 07/07/24 00:00 48 L 14 136/59 96 07/06/24 23:30 50 L 16 142/59 97 07/06/24 23:00 73 12 153/60 96 07/06/24 22:49 50 L 18 141/61 96 07/06/24 21:44 97.5 F L 54 L 19 163/72 100 Intake and Output 07/06/24 07/07/24 07/07/24 22:59 06:59 14:59 Other: # Voids 1 1 # Bowel Movements 1 Weight 99.79 kg 99.79 kg Results CBC & Chem 7: 07/07/24 04:11 07/07/24 04:11 Labs: Abnormal Lab Results - Last 24 Hours (Table) 07/06/24 07/06/24 07/06/24 Range/Units 21:56 21:56 22:45 WBC 14.5 H (3.8-10.6) k/uL Hgb 12.2 L (13.0-17.5) gm/dL Hct 38.4 L (39.0-53.0) % RDW 17.3 H (11.5-15.5) % Plt Count (150-450) k/uL Lymphocytes # 8.1 H (1.0-4.8) k/uL Chloride 113 H (98-107) mmol/L Carbon Dioxide 20 L (22-30) mmol/L BUN 41 H (9-20) mg/dL Creatinine 1.74 H (0.66-1.25) mg/dL POC Glucose (mg/dL) (70-110) mg/dL Magnesium 2.4 H (1.6-2.3) mg/dL Total Protein 5.7 L (6.3-8.2) g/dL Urine Glucose (UA) 3+ H (Negative) 07/07/24 07/07/24 07/07/24 Range/Units 04:11 04:11 11:41 WBC 12.6 H (3.8-10.6) k/uL Hgb 11.6 L (13.0-17.5) gm/dL Hct 36.5 L (39.0-53.0) % RDW 17.2 H (11.5-15.5) % Plt Count 142 L (150-450) k/uL Lymphocytes # 6.7 H (1.0-4.8) k/uL Chloride 111 H (98-107) mmol/L Carbon Dioxide (22-30) mmol/L BUN 41 H (9-20) mg/dL Creatinine 1.57 H (0.66-1.25) mg/dL POC Glucose (mg/dL) 118 H (70-110) mg/dL Magnesium (1.6-2.3) mg/dL Total Protein 5.3 L (6.3-8.2) g/dL Urine Glucose (UA) (Negative) Thrombosis Risk Factor Assmnt - Choose All That Apply Each Factor Represents 1 point: Abnormal pulmonary function (COPD), Obesity (BMI >25), Swollen legs (current) Each Risk Factor Represents 2 Points: Age 61-74 years Each Risk Factor Represents 3 Points: History of DVT/PE Thrombosis Risk Factor Assessment Total Risk Factor Score: 8 Thrombosis Risk Factor Assessment Level: High Risk
[2024-07-07 17:23] LABS: Glucose,Whole Blood 142 mg/dL (70-110)
[2024-07-07] MEDS: RIVAROXABAN 20 MG TAB PO SCH (18:24)
[2024-07-07] MEDS: TAMSULOSIN 0.4 MG CAP.ER.24H PO SCH (18:24)
[2024-07-07 20:46] LABS: Glucose,Whole Blood 167 mg/dL (70-110)
[2024-07-07] MEDS: DAPAGLIFLOZIN PROPANEDIOL 5 MG TABLET PO SCH (21:01)
[2024-07-07] MEDS: ATORVASTATIN 80 MG TAB PO SCH (21:01)
[2024-07-08 05:57] LABS: Glucose,Whole Blood 85 mg/dL (70-110)
[2024-07-08 07:32] LABS: Anisocytosis Slight; HCT 38.5 % (39.0-53.0); HGB 12.2 gm/dL (13.0-17.5); Hypochromasia Slight; MCH 25.8 pg (25.0-35.0); MCHC 31.8 g/dL (31.0-37.0); MCV 81.3 fL (80.0-100.0); Mean Platelet Volume 7.2; Microcytosis Slight; Platelet Count 147 k/uL (150-450); RBC 4.74 m/uL (4.30-5.90); RDW 17.2 % (11.5-15.5); WBC 13.3 k/uL (3.8-10.6)
[2024-07-08 07:45] LABS: African American GFR (CKD) 51 (>60 ml/min/1.73 sqM); Anion Gap 4 mmol/L; Blood Urea Nitrogen 37 mg/dL (9-20); Calcium 8.9 mg/dL (8.4-10.2); Carbon Dioxide 26 mmol/L (22-30); Chloride 109 mmol/L (98-107); Glucose 67 mg/dL (74-99); Non-African American GFR(CKD) 44 (>60 ml/min/1.73 sqM); Potassium 4.2 mmol/L (3.5-5.1); Sodium 139 mmol/L (137-145)
[2024-07-08 07:55] VITALS: BP 151/78; PULSE 54; RESP 17; TEMP 98.4
--- NOTE | 2024-07-08 09:08 | P.PN ---
Subjective Progress Note Date: 07/08/24 This is Edward Sood NP, I'm dictating on behalf of Dr. Celeste's H&P and A&P. Patient was interviewed and examined. Patient is a pleasant 74-year-old male who presented to the hospital with chest pain and accelerated hypertension. Patient this morning reports that he is feeling fine. He is denying chest pain, shortness of breath, palpitations, dizziness. Patient's blood pressure does appear to be better controlled with the medication changes we made yesterday. GENERAL: Well-appearing, well-nourished and in no acute distress. NECK: Supple without JVD or thyromegaly. LUNGS: Breath sounds clear to auscultation bilaterally. Respiration equal and unlabored. No wheezes, rales or rhonchi. HEART: Regular rate and rhythm without murmurs, rubs or gallops. S1 and S2 heard. EXTREMITIES: Normal range of motion, no edema. No clubbing or cyanosis. Peripheral pulses intact and strong. VITALS: Temp 98.4, pulse 54, respirations 17, blood pressure 151/78, O2 saturation 100% on room air TELEMETRY: Atrial fibrillation with controlled ventricular response LABS: White count 13.3, hemoglobin 12.2, platelets 147, sodium 139, potassium 4.2, BUN 37, creatinine 1.55, calcium 8.9 IMPRESSION: 1. Accelerated hypertension 2. Bradycardia 3. History of congestive heart failure 4. History of DVT and PE PLAN: Continue nifedipine and valsartan as ordered. Patient may be discharged from a cardiology standpoint. Patient should have follow-up evaluation in few weeks for blood pressure. If his blood pressure is still greater than 130/80, valsartan may be increased to 160 twice daily. Thank you for allowing us to participate in the care of this patient. Objective - Vital Signs Vital signs: Vital Signs Temp 98.4 F 07/08/24 07:00 Pulse 54 L 07/08/24 07:00 Resp 17 07/08/24 07:00 BP 151/78 07/08/24 07:00 Pulse Ox 100 07/08/24 07:00 FiO2 Intake & Output 07/07/24 07/08/24 07/08/24 18:59 06:59 18:59 Other: # Voids 1 1 # Bowel Movements 1 - Labs CBC & Chem 7: 07/08/24 07:03 07/08/24 07:03 Labs: Abnormal Lab Results - Last 24 Hours (Table) 07/07/24 07/07/24 07/07/24 Range/Units 11:41 17:21 20:44 WBC (3.8-10.6) k/uL Hgb (13.0-17.5) gm/dL Hct (39.0-53.0) % RDW (11.5-15.5) % Plt Count (150-450) k/uL Chloride (98-107) mmol/L BUN (9-20) mg/dL Creatinine (0.66-1.25) mg/dL Glucose (74-99) mg/dL POC Glucose (mg/dL) 118 H 142 H 167 H (70-110) mg/dL 07/08/24 07/08/24 Range/Units 07:03 07:03 WBC 13.3 H (3.8-10.6) k/uL Hgb 12.2 L (13.0-17.5) gm/dL Hct 38.5 L (39.0-53.0) % RDW 17.2 H (11.5-15.5) % Plt Count 147 L (150-450) k/uL Chloride 109 H (98-107) mmol/L BUN 37 H (9-20) mg/dL Creatinine 1.55 H (0.66-1.25) mg/dL Glucose 67 L (74-99) mg/dL POC Glucose (mg/dL) (70-110) mg/dL
--- NOTE | 2024-07-08 20:43 | P.DS ---
Providers Date of admission: 07/06/24 22:54 Attending physician: Neno Garcia Consults: 07/06/24 22:53 Consult Physician Routine Consulting Provider: [facility] Consult Reason/Comments: chest pain, hypertensive urgency Do you want consulting provider notified?: Yes Primary care physician: Sugar Cummins Hospital Course: Final Diagnosis -Accelerated hypertension: Patient is presently started on nifedipine and valsartan patient blood pressure improved -Congestive failure chronic diastolic function patient is euvolemic holding off Lasix because of elevated creatinine -Chest pressure secondary to elevated blood pressure which resolved at this time troponins are negative rule out acute coronary syndromes cardiology evaluated the patient -Chronic elevation of white count etiology is not known no evidence of infection at this time -Coronary disease -COPD without any acute exacerbation -Type 2 diabetes mellitus -History of DVT for which patient is on Xarelto which we will resume -Hyperlipidemia -History of PE -Seizure disorder -Peripheral vascular disease Discharge Disposition Stable for discharge home. He will continue on nifedipine and valsartan. Labetalol amlodipine and losartan have been discontinued. This was discussed with patient and he agrees to these changes. His creatinine has improved down to 1.55 and he will continue all same home medications including Lasix on discharge. Advised to follow-up with his main program proposals coordinator Dr. Carrington in 1 week patient to see his PCP Dr. Mary Kay Cummins in 1 to 2 days. Hospital Course Patient is a 74-year-old male came in with complaints of chest pressure-like sensation nonradiating. Found to have highly elevated blood pressure with distolics going up to 100 because of which patient came to the ER. patient had an EKG which did not show any acute ST-T wave changes. chest pain completely resolved at this time. patient is on multiple medications for hypertension at home patient uses labetalol amlodipine and losartan at home. Patient was switched to valsartan and nifedipine labetalol was discontinued because of sinus bradycardia. patient is also on Lasix does have a history of congestive heart failure normal ejection fraction EF of around 60 to 65% with chronic diastolic function. Patient takes Lasix at home but this is being held because of elevated creatinine of 1.5 patient baseline creatinine is around that. He was admitted to the hospital with cardiac consultation. He is not having any further reports of blood pressure. His blood pressure is currently 151/78. He is cleared for discharge home. Please see medication reconciliation for a list of current medications. Thank you for allowing us to participate in the care of this patient. The impression and plan of care has been dictated by Kenia Wong, Nurse Practitioner as directed. Dr. Laura MD I have performed a history and physical examination and medical decision making of this patient, discussed the same with the dictator, and agree with the dictators assessment and plan as written, documented as a scribe. Based on total visit time, I have performed more than 50% of this visit. Patient Condition at Discharge: Stable Plan - Discharge Summary New Discharge Prescriptions: New Valsartan [Diovan] 80 mg PO BID #60 tab NIFEdipine XL [Procardia XL] 90 mg PO DAILY #30 tab Continue Omeprazole [PriLOSEC] 20 mg PO BID Atorvastatin [Lipitor] 80 mg PO HS Isosorbide Mononitrate ER [Imdur] 60 mg PO DAILY Rivaroxaban [Xarelto] 20 mg PO DAILY Montelukast [Singulair] 10 mg PO HS Insulin Degludec [Tresiba Flextouch U-100 Pen] 18 units SQ BID Insulin Aspart [NovoLOG Flexpen] 5 - 15 units SQ AC-TID PRN PRN Reason: high blood sugar Albuterol Sulfate [Albuterol Sulfate Hfa] 2 puff INHALATION RT-Q4H PRN PRN Reason: Shortness Of Breath Dapagliflozin Propanediol [Farxiga] 5 mg PO HS Tamsulosin [Flomax] 0.8 mg PO PC-SUPPER Potassium Chloride ER [K-Dur 10] 10 meq PO DAILY Budesonide/Glycopyr/Formoterol [Breztri Aerosphere Inhaler] 2 puff INHALATION RT-BID Cyanocobalamin (Vitamin B-12) [Vitamin B-12] 1,000 mcg PO DAILY Furosemide [Lasix] 20 mg PO DAILY Ferrous Sulfate [Iron (65 MG Elemental)] 325 mg PO DAILY Cephalexin [Keflex] 500 mg PO TID 7 Days #21 cap allopurinoL [Zyloprim] 100 mg PO HS HYDROcodone/APAP 5-325MG [Leeds 5-325] 1 tab PO Q8H PRN PRN Reason: Pain Levalbuterol Nebulized [Xopenex Nebulized] 1.25 mg INHALATION RT-Q8H PRN PRN Reason: Shortness Of Breath Solifenacin Succinate 5 mg PO DAILY DULoxetine HCL [Cymbalta] 30 mg PO DAILY #30 cap Clopidogrel [Plavix] 75 mg PO DAILY #30 tablet rOPINIRole HCL [Requip] 0.5 mg PO HS Discontinued amLODIPine [Norvasc] 5 mg PO BID Labetalol [Trandate] 100 mg PO DAILY Losartan Potassium 100 mg PO DAILY Discharge Medication List Atorvastatin [Lipitor] 80 mg PO HS 10/10/18 [History] Isosorbide Mononitrate ER [Imdur] 60 mg PO DAILY 10/10/18 [History] Omeprazole [PriLOSEC] 20 mg PO BID 10/10/18 [History] Rivaroxaban [Xarelto] 20 mg PO DAILY 10/10/18 [History] Albuterol Sulfate [Albuterol Sulfate Hfa] 2 puff INHALATION RT-Q4H PRN 01/27/20 [History] Insulin Aspart [NovoLOG Flexpen] 5 - 15 units SQ AC-TID PRN 01/27/20 [History] Insulin Degludec [Tresiba Flextouch U-100 Pen] 18 units SQ BID 01/27/20 [History] Montelukast [Singulair] 10 mg PO HS 01/27/20 [History] Dapagliflozin Propanediol [Farxiga] 5 mg PO HS 08/09/20 [History] Tamsulosin [Flomax] 0.8 mg PO PC-SUPPER 08/09/20 [History] Potassium Chloride ER [K-Dur 10] 10 meq PO DAILY 02/22/21 [History] Budesonide/Glycopyr/Formoterol [Breztri Aerosphere Inhaler] 2 puff INHALATION RT-BID 01/08/24 [History] Cyanocobalamin (Vitamin B-12) [Vitamin B-12] 1,000 mcg PO DAILY 01/08/24 [History] Furosemide [Lasix] 20 mg PO DAILY 01/08/24 [History] HYDROcodone/APAP 5-325MG [Leeds 5-325] 1 tab PO Q8H PRN 01/08/24 [History] Levalbuterol Nebulized [Xopenex Nebulized] 1.25 mg INHALATION RT-Q8H PRN 01/08/24 [History] Solifenacin Succinate 5 mg PO DAILY 01/08/24 [History] allopurinoL [Zyloprim] 100 mg PO HS 01/08/24 [History] Clopidogrel [Plavix] 75 mg PO DAILY #30 tablet 01/11/24 [Rx] DULoxetine HCL [Cymbalta] 30 mg PO DAILY #30 cap 01/11/24 [Rx] Ferrous Sulfate [Iron (65 MG Elemental)] 325 mg PO DAILY 04/11/24 [History] Cephalexin [Keflex] 500 mg PO TID 7 Days #21 cap 04/14/24 [Rx] rOPINIRole HCL [Requip] 0.5 mg PO HS 07/07/24 [History] NIFEdipine XL [Procardia XL] 90 mg PO DAILY #30 tab 07/08/24 [Rx] Valsartan [Diovan] 80 mg PO BID #60 tab 07/08/24 [Rx] Follow up Appointment(s)/Referral(s): Sara Carrington MD [STAFF PHYSICIAN] - 1 Week (Please call office on Tuesday to schedule a post-hospital follow up with Dr. Carrington) Sugar Cummins MD [Primary Care Provider] - 1-2 days Ambulatory/Diagnostic Orders: Basic Metabolic Panel [LAB.AMB] Time Frame: 3 Days, Location: None Selected Discharge Disposition: HOME SELF-CARE
== END 2024-07-08 11:48 | disposition home or self-care (01) ==
LOC: EC 21:41 → 6NMEDSUR 22:54
PROVIDERS: ADMIT Hospitalist; ATTEND Hospitalist
DX: R07.89 Other chest pain (principal); D72.829 Elevated white blood cell count, unspecified; I13.0 Hypertensive heart and chronic kidney disease with heart failure and stage 1 through stage 4 chronic kidney disease, or unspecified chronic kidney disease; I50.32 Chronic diastolic (congestive) heart failure; N18.9 Chronic kidney disease, unspecified; E78.5 Hyperlipidemia, unspecified; E11.22 Type 2 diabetes mellitus with diabetic chronic kidney disease; E11.51 Type 2 diabetes mellitus with diabetic peripheral angiopathy without gangrene; G40.909 Epilepsy, unspecified, not intractable, without status epilepticus; H91.90 Unspecified hearing loss, unspecified ear; I25.10 Atherosclerotic heart disease of native coronary artery without angina pectoris; I48.91 Unspecified atrial fibrillation; J44.89 Other specified chronic obstructive pulmonary disease; K21.9 Gastro-esophageal reflux disease without esophagitis; M10.9 Gout, unspecified; G47.33 Obstructive sleep apnea (adult) (pediatric); H54.8 Legal blindness, as defined in USA; Z79.01 Long term (current) use of anticoagulants; Z79.02 Long term (current) use of antithrombotics/antiplatelets; Z79.4 Long term (current) use of insulin; Z79.899 Other long term (current) drug therapy; Z85.6 Personal history of leukemia; Z86.711 Personal history of pulmonary embolism; Z86.718 Personal history of other venous thrombosis and embolism; Z86.73 Personal history of transient ischemic attack (TIA), and cerebral infarction without residual deficits; Z87.891 Personal history of nicotine dependence; Z88.8 Allergy status to other drugs, medicaments and biological substances
CPT/HCPCS: 96372; 99285; 36415; 93005; 83880; 80053 ×2; 80048; 83735; 84484 ×2; 85025 ×2; 85027; 85610; 85730; 81003; 71046; G0378 ×3; J1644

== ENCOUNTER 2024-08-05 17:00 | Observation (INO) | payer MEDICARE, OTHER ==
--- NOTE | 2024-08-05 17:21 | ED ---
General Adult HPI - General Chief complaint: Chest Pain Stated complaint: Chest pain Time Seen by Provider: 08/05/24 17:03 Source: patient, RN notes reviewed Mode of arrival: EMS Limitations: no limitations - History of Present Illness Initial comments: Patient is a 74-year-old male present to the emergency department with concerns with chest discomfort. Onset of symptoms was around 330 while at rest. Patient has pressure in his chest. Patient had associated dyspnea. Symptoms resolved with aspirin and nitroglycerin. Patient is currently symptom-free. Patient was in the hospital a month ago with somewhat similar symptoms. No calf pain or new leg swelling. No associated nausea or diaphoresis. Blood pressure at home was 170/80. - Related Data Home Medications Medication Instructions Recorded Confirmed Atorvastatin [Lipitor] 80 mg PO HS 10/10/18 07/07/24 Isosorbide Mononitrate ER [Imdur] 60 mg PO DAILY 10/10/18 07/07/24 Omeprazole [PriLOSEC] 20 mg PO BID 10/10/18 07/07/24 Rivaroxaban [Xarelto] 20 mg PO DAILY 10/10/18 07/07/24 Albuterol Sulfate [Albuterol 2 puff INHALATION RT-Q4H PRN 01/27/20 07/07/24 Sulfate Hfa] Insulin Aspart [NovoLOG Flexpen] 5 - 15 units SQ AC-TID PRN 01/27/20 07/07/24 Insulin Degludec [Tresiba 18 units SQ BID 01/27/20 07/07/24 Flextouch U-100 Pen] Montelukast [Singulair] 10 mg PO HS 01/27/20 07/07/24 Dapagliflozin Propanediol [Farxiga] 5 mg PO HS 08/09/20 07/07/24 Tamsulosin [Flomax] 0.8 mg PO PC-SUPPER 08/09/20 07/07/24 Potassium Chloride ER [K-Dur 10] 10 meq PO DAILY 02/22/21 07/07/24 Budesonide/Glycopyr/Formoterol 2 puff INHALATION RT-BID 01/08/24 07/07/24 [Breztri Aerosphere Inhaler] Cyanocobalamin (Vitamin B-12) 1,000 mcg PO DAILY 01/08/24 07/07/24 [Vitamin B-12] Furosemide [Lasix] 20 mg PO DAILY 01/08/24 07/07/24 HYDROcodone/APAP 5-325MG [[place] 1 tab PO Q8H PRN 01/08/24 07/07/24 5-325] Levalbuterol Nebulized [Xopenex 1.25 mg INHALATION RT-Q8H PRN 01/08/24 07/07/24 Nebulized] Solifenacin Succinate 5 mg PO DAILY 01/08/24 07/07/24 allopurinoL [Zyloprim] 100 mg PO HS 01/08/24 07/07/24 Ferrous Sulfate [Iron (65 MG 325 mg PO DAILY 04/11/24 07/07/24 Elemental)] rOPINIRole HCL [Requip] 0.5 mg PO HS 07/07/24 07/07/24 Previous Rx's Medication Instructions Recorded Clopidogrel [Plavix] 75 mg PO DAILY #30 tablet 01/11/24 DULoxetine HCL [Cymbalta] 30 mg PO DAILY #30 cap 01/11/24 Cephalexin [Keflex] 500 mg PO TID 7 Days #21 cap 04/14/24 NIFEdipine XL [Procardia XL] 90 mg PO DAILY #30 tab 07/08/24 Valsartan [Diovan] 80 mg PO BID #60 tab 07/08/24 Allergies Allergy/AdvReac Type Severity Reaction Status Date / Time cortisone Allergy Anaphylaxis, Verified 07/07/24 14:14 tongue swelling Review of Systems ROS Statement: Those systems with pertinent positive or pertinent negative responses have been documented in the HPI. ROS Other: All systems not noted in ROS Statement are negative. Constitutional: Denies: fever Eyes: Denies: eye pain ENT: Denies: ear pain Respiratory: Reports: as per HPI Cardiovascular: Reports: as per HPI, chest pain Endocrine: Denies: fatigue Gastrointestinal: Denies: abdominal pain Musculoskeletal: Denies: back pain Past Medical History Past Medical History: Asthma, Blood Disorder, Coronary Artery Disease (CAD), Cancer, Heart Failure, COPD, CVA/TIA, Diabetes Mellitus, Deep Vein Thrombosis (DVT), Eye Disorder, GERD/Reflux, Hearing Disorder / Deafness, Hyperlipidemia, Hypertension, Pneumonia, Pulmonary Embolus (PE), Renal Disease, Seizure Disorder, Vascular Disorder Additional Past Medical History / Comment(s): LEUKEMIA-NO [place], 2010/2012CVA X 2 balance issues, IDDM type II, LEGALLY BLIND bilaterally-RETINITIS PIGMENTOSA, DVT R leg/L lung, PVD, current sore L upper gum, "weak bladder", RIKI with cpap use, GOUT, chronic kidney diease, recent back pain, past low iron and recently told he has iron anemia, elementary school records list epilepsy/pt was unaware. History of Any Multi-Drug Resistant Organisms: None Reported Past Surgical History: Appendectomy, Back Surgery, Cholecystectomy, Heart Catheterization, Joint Replacement, Orthopedic Surgery Additional Past Surgical History / Comment(s): BILAT TKA &MICHAEL. LT SHOULDER SX/bilateral total shoulder replacements. RT ROTATOR CUFF REPAIR X 2. COLONOSCOPY Past Anesthesia/Blood Transfusion Reactions: No Reported Reaction Additional Past Anesthesia/Blood Transfusion Reaction / Comment(s): Pt unsure if he has received blood. Past Psychological History: No Psychological Hx Reported Smoking Status: Former smoker Past Alcohol Use History: None Reported Past Drug Use History: None Reported - Past Family History Mother History Unknown: Yes Family Medical History: No Reported History Additional Family Medical History / Comment(s): Smoker. Father Sister(s) History Unknown: Yes Family Medical History: Vascular Disorder Additional Family Medical History / Comment(s): ASHD General Exam Limitations: no limitations General appearance: alert, in no apparent distress Head exam: Present: atraumatic Eye exam: Present: other (Disconjugate gaze) Neck exam: Present: normal inspection Respiratory exam: Present: normal lung sounds bilaterally. Absent: chest wall tenderness Cardiovascular Exam: Present: regular rate, normal rhythm, normal heart sounds Expanded Peripheral pulses: 2+: Radial (R), Radial (L), Posterior Tibialis (R), Posterior Tibialis (L) GI/Abdominal exam: Present: soft. Absent: tenderness Extremities exam: Present: normal inspection. Absent: pedal edema, calf tenderness Neurological exam: Present: alert Psychiatric exam: Present: normal affect, normal mood Skin exam: Present: normal color Course Vital Signs 08/05/24 08/05/24 08/05/24 17:08 17:32 17:48 Temperature 98.3 F Pulse Rate 63 61 Pulse Rate [ 65 [employer] ] Respiratory 16 18 Rate Blood Pressure 181/105 180/83 O2 Sat by Pulse 99 98 Oximetry 08/05/24 08/05/24 17:51 18:38 Temperature Pulse Rate 58 L Pulse Rate [ 65 [employer] ] Respiratory 18 Rate Blood Pressure 170/78 O2 Sat by Pulse 98 Oximetry EKG Findings - EKG Results: EKG: interpreted by ERMD, sinus rhythm, normal axis, normal QRS, normal ST/T EKG shows: bradycardia Medical Decision Making - Medical Decision Making Was pt. sent in by a medical professional or institution (, PA, MISSION ANALYST, urgent care, hospital, or half-way...) When possible be specific @ -No Did you speak to anyone other than the patient for history (EMS, parent, family, police, friend...)? What history was obtained from this source @ -No Did you review nursing and triage notes (agree or disagree)? Why? @ -I reviewed and agree with nursing and triage notes Were old charts reviewed (outside hosp., previous admission, EMS record, old EKG, old radiological studies, urgent care reports/EKG's, half-way records)? Report findings @ -Chest x-ray from previous admission reviewed revealed no acute process, judith lar Differential Diagnosis (chest pain, altered mental status, abdominal pain women, abdominal pain men, vaginal bleeding, weakness, fever, dyspnea, syncope, headache, dizziness, GI bleed, back pain, seizure, CVA, palpatations, mental health, musculoskeletal)? @ -Differential Chest Pain: Stable Angina, Unstable Angina, STEMI, NSTEMI Aortic Dissection, Pneumothorax, Musculoskeletal, Esophageal Spasm GERD, Cholecystitis, Pancreatitis, Zoster, this is not meant to be an all-inclusive list. EKG interpreted by me (3pts min.). @ -As above X-rays interpreted by me (1pt min.). @ -Chest x-ray shows no acute process CT interpreted by me (1pt min.). @ -None done U/S interpreted by me (1pt. min.). @ -None done What testing was considered but not performed or refused? (CT, X-rays, U/S, labs)? Why? @ -None What meds were considered but not given or refused? Why? @ -None Did you discuss the management of the patient with other professionals (professionals i.e. , PA, MISSION ANALYST, lab, RT, psych nurse, psychologist social, glass or mirror inspector, teacher, booking police officer, employment case manager)? Give summary @ -Case discussed with practitioner Tyra Cruz who will admit covering hospital call Was smoking cessation discussed for >3mins.? @ -No Was critical care preformed (if so, how long)? @ -No Were there social determinants of health that impacted care today? How? (Homelessness, low income, unemployed, alcoholism, drug addiction, transportation, low edu. Level, literacy, decrease access to med. care, correction, rehab)? @ -No Was there de-escalation of care discussed even if they declined (Discuss DNR or withdrawal of care, Hospice)? DNR status @ -No What co-morbidities impacted this encounter? (DM, HTN, Smoking, COPD, CAD, Cancer, CVA, ARF, Chemo, Hep., AIDS, mental health diagnosis, sleep apnea, morbid obesity)? @ -History of cardiac disease Was patient admitted / discharged? Hospital course, mention meds given and route, prescriptions, significant lab abnormalities, going to OR and other pertinent info. @ -Patient presents with concerns for hypertension and chest discomfort, mild on arrival. Initial evaluation unremarkable. Patient will be admitted with cardiac consult. Admission orders written Undiagnosed new problem with uncertain prognosis? @ -No Drug Therapy requiring intensive monitoring for toxicity (Heparin, Nitro, Insulin, Cardizem)? @ -No Were any procedures done? @ -No Diagnosis/symptom? @ -Chest pain Acute, or Chronic, or Acute on Chronic? @ -Acute Uncomplicated (without systemic symptoms) or Complicated (systemic symptoms)? @ -Default Side effects of treatment? @ -No Exacerbation, Progression, or Severe Exacerbation? @ -No Poses a threat to life or bodily function? How? (Chest pain, [place], [place], pneumonia, PE, COPD, DKA, ARF, appy, cholecystitis, CVA, Diverticulitis, Homicidal, Suicidal, threat to staff... and all critical care pts) @ -Threat to cardiac function - Lab Data Result diagrams: 08/05/24 17:11 08/05/24 17:11 Lab Results 08/05/24 08/05/24 08/05/24 Range/Units 17:11 17:11 17:11 WBC 17.6 H (3.8-10.6) k/uL RBC 4.75 (4.30-5.90) m/uL Hgb 12.4 L (13.0-17.5) gm/dL Hct 38.6 L (39.0-53.0) % MCV 81.2 (80.0-100.0) fL MCH 26.1 (25.0-35.0) pg MCHC 32.1 (31.0-37.0) g/dL RDW 17.6 H (11.5-15.5) % Plt Count 196 (150-450) k/uL MPV 7.0 Neutrophils % (Manual) 36 % Lymphocytes % (Manual) 58 % Monocytes % (Manual) 5 % Eosinophils % (Manual) 1 % Neutrophils # (Manual) 6.34 (1.3-7.7) k/uL Lymphocytes # (Manual) 10.21 H (1.0-4.8) k/uL Monocytes # (Manual) 0.88 (0-1.0) k/uL Eosinophils # (Manual) 0.18 (0-0.7) k/uL Nucleated RBCs 0 (0-0) /100 WBC Manual Slide Review Performed RBC Morphology Hypochromasia Slight Anisocytosis Slight Microcytosis Slight PT 11.9 (10.0-12.5) sec INR 1.1 (<1.2) APTT 25.8 (22.0-30.0) sec Sodium 141 (137-145) mmol/L Potassium 4.6 (3.5-5.1) mmol/L Chloride 110 H (98-107) mmol/L Carbon Dioxide 23 (22-30) mmol/L Anion Gap 8 mmol/L BUN 45 H (9-20) mg/dL Creatinine 1.61 H (0.66-1.25) mg/dL Est GFR (CKD-EPI)AfAm 49 (>60 ml/min/1.73 sqM) Est GFR (CKD-EPI)NonAf 42 (>60 ml/min/1.73 sqM) Glucose 202 H (74-99) mg/dL Calcium 8.9 (8.4-10.2) mg/dL Magnesium 2.3 (1.6-2.3) mg/dL Total Bilirubin 0.2 (0.2-1.3) mg/dL AST 26 (17-59) U/L ALT 29 (4-49) U/L Alkaline Phosphatase 57 (38-126) U/L Troponin I (0.000-0.034) ng/mL Total Protein 5.7 L (6.3-8.2) g/dL Albumin 3.7 (3.5-5.0) g/dL 08/05/24 Range/Units 17:11 WBC (3.8-10.6) k/uL RBC (4.30-5.90) m/uL Hgb (13.0-17.5) gm/dL Hct (39.0-53.0) % MCV (80.0-100.0) fL MCH (25.0-35.0) pg MCHC (31.0-37.0) g/dL RDW (11.5-15.5) % Plt Count (150-450) k/uL MPV Neutrophils % (Manual) % Lymphocytes % (Manual) % Monocytes % (Manual) % Eosinophils % (Manual) % Neutrophils # (Manual) (1.3-7.7) k/uL Lymphocytes # (Manual) (1.0-4.8) k/uL Monocytes # (Manual) (0-1.0) k/uL Eosinophils # (Manual) (0-0.7) k/uL Nucleated RBCs (0-0) /100 WBC Manual Slide Review RBC Morphology Hypochromasia Anisocytosis Microcytosis PT (10.0-12.5) sec INR (<1.2) APTT (22.0-30.0) sec Sodium (137-145) mmol/L Potassium (3.5-5.1) mmol/L Chloride (98-107) mmol/L Carbon Dioxide (22-30) mmol/L Anion Gap mmol/L BUN (9-20) mg/dL Creatinine (0.66-1.25) mg/dL Est GFR (CKD-EPI)AfAm (>60 ml/min/1.73 sqM) Est GFR (CKD-EPI)NonAf (>60 ml/min/1.73 sqM) Glucose (74-99) mg/dL Calcium (8.4-10.2) mg/dL Magnesium (1.6-2.3) mg/dL Total Bilirubin (0.2-1.3) mg/dL AST (17-59) U/L ALT (4-49) U/L Alkaline Phosphatase (38-126) U/L Troponin I <0.012 (0.000-0.034) ng/mL Total Protein (6.3-8.2) g/dL Albumin (3.5-5.0) g/dL Disposition Clinical Impression: Chest pain Disposition: ADMITTED IP TO THIS HOSP Is patient prescribed a controlled substance at d/c from ED?: No Referrals: Sugar Cummins MD [Primary Care Provider] - 1-2 days Time of Disposition: 18:57
[2024-08-05] MEDS: ASPIRIN 81 MG PO STA (17:30)
[2024-08-05] MEDS: NITROGLYCERIN OINT 1 INCH/GM PACKET TOPICAL STA (17:30)
[2024-08-05 17:33] VITALS: RESP 18
[2024-08-05 17:36] LABS: INR 1.1 (<1.2); Partial Thromboplastin Time 25.8 sec (22.0-30.0); Prothrombin Time 11.9 sec (10.0-12.5)
[2024-08-05 17:44] LABS: Anisocytosis Slight; HCT 38.6 % (39.0-53.0); HGB 12.4 gm/dL (13.0-17.5); Hypochromasia Slight; MCH 26.1 pg (25.0-35.0); MCHC 32.1 g/dL (31.0-37.0); MCV 81.2 fL (80.0-100.0); Microcytosis Slight; Platelet Count 196 k/uL (150-450); RBC 4.75 m/uL (4.30-5.90); RDW 17.6 % (11.5-15.5); WBC 17.6 k/uL (3.8-10.6)
[2024-08-05 17:57] LABS: ALT 29 U/L (4-49); AST 26 U/L (17-59); African American GFR (CKD) 49 (>60 ml/min/1.73 sqM); Albumin 3.7 g/dL (3.5-5.0); Alkaline Phosphatase 57 U/L (38-126); Anion Gap 8 mmol/L; Blood Urea Nitrogen 45 mg/dL (9-20); Calcium 8.9 mg/dL (8.4-10.2); Carbon Dioxide 23 mmol/L (22-30); Chloride 110 mmol/L (98-107); Glucose 202 mg/dL (74-99); Magnesium 2.3 mg/dL (1.6-2.3); Non-African American GFR(CKD) 42 (>60 ml/min/1.73 sqM); Potassium 4.6 mmol/L (3.5-5.1); Sodium 141 mmol/L (137-145); Total Bilirubin 0.2 mg/dL (0.2-1.3); Total Protein 5.7 g/dL (6.3-8.2)
--- NOTE | 2024-08-05 18:10 | XR ---
EXAMINATION TYPE: XR chest 2V DATE OF EXAM: 08/05/2024 5:51 PM COMPARISON: Chest radiographs from 07/06/2024 CLINICAL INDICATION: Male, 74 years old with history of Chest Pain; TECHNIQUE: XR chest 2V Frontal and lateral views of the chest. FINDINGS: Lungs/Pleura: There is no evidence of pleural effusion, focal consolidation, or pneumothorax. Pulmonary vascularity: Unremarkable. Heart/mediastinum: Cardiomediastinal silhouette is unremarkable. Musculoskeletal: No acute osseous pathology. Bilateral shoulder arthroplasties appear intact. Other findings: None IMPRESSION: No acute cardiopulmonary disease/process. [facility], , 08/05/2024 6:08 PM
[2024-08-05 18:28] LABS: Eosinophils # (M) 0.18 k/uL (0-0.7); Lymphocytes # (M) 10.21 k/uL (1.0-4.8); Monocytes # (M) 0.88 k/uL (0-1.0); Neutrophils # (M) 6.34 k/uL (1.3-7.7); Neutrophils % (M) 36 %; Nucleated Red Blood Cells 0 /100 WBC (0-0); Total Cells Counted 100
[2024-08-05] MEDS ORDERED: NITROGLYCERIN SL TABS 0.4 MG TAB SUBLINGUAL PRN (18:57)
[2024-08-05] MEDS ORDERED: NON FORMULARY DRUG (Levalbuterol Nebulized 1.25 MG/3 ML Ml) INHALATION PRN (19:38)
[2024-08-05] MEDS ORDERED: HYDROcodone/APAP 5-325MG 1 EACH TAB PO PRN (19:38)
[2024-08-05] MEDS ORDERED: ALBUTEROL HFA INHALER INHALATION PRN (19:38)
[2024-08-05] MEDS ORDERED: IPRATROPIUM-ALBUTEROL 3 ML NEB INHALATION PRN (19:38)
[2024-08-05] MEDS: INSULIN DETEMIR (LEVEMIR) 100 UNIT/ML SYR SQ SCH (20:49)
[2024-08-05 20:50] LABS: Glucose,Whole Blood 208 mg/dL (70-110)
[2024-08-05] MEDS: DAPAGLIFLOZIN PROPANEDIOL 5 MG TABLET PO SCH (20:51)
[2024-08-05] MEDS: ATORVASTATIN 80 MG TAB PO SCH (20:51)
[2024-08-05] MEDS: MONTELUKAST 10 MG TAB PO SCH (20:51)
[2024-08-05] MEDS: allopurinoL 100 MG TAB PO SCH (20:51)
[2024-08-05] MEDS: VALSARTAN 80 MG TAB PO SCH (20:52)
[2024-08-05] MEDS: PANTOPRAZOLE 40 MG TABLET PO SCH (20:52)
[2024-08-06] MEDS: NITROGLYCERIN OINT 1 INCH/GM PACKET TOPICAL SCH (00:37)
[2024-08-06] MEDS: IPRATROPIUM 0.5 MG/2.5 ML NEBU INHALATION SCH (08:12)
[2024-08-06] MEDS: SYMBICORT 160-4.5 MCG INHALER INHALATION SCH (08:13)
[2024-08-06] MEDS: FUROSEMIDE 20 MG TAB PO SCH (08:37)
[2024-08-06] MEDS: RIVAROXABAN 20 MG TAB PO SCH (08:37)
[2024-08-06] MEDS: TROSPIUM CHLORIDE 20 MG TABLET PO SCH (08:37)
[2024-08-06] MEDS: ISOSORBIDE MONONITRATE ER 60 MG TAB.ER.24H PO SCH (08:37)
[2024-08-06] MEDS: POTASSIUM CHLORIDE ER 10 MEQ TAB.ER.PRT PO SCH (08:37)
[2024-08-06] MEDS: DULoxetine HCL 30 MG CAPSULE.DR PO SCH (08:37)
[2024-08-06] MEDS: NIFEdipine XL 90 MG TAB.ER.24 PO SCH (08:37)
[2024-08-06] MEDS: CYANOCOBALAMIN 500 MCG TAB PO SCH (08:37)
[2024-08-06] MEDS: FERROUS SULFATE 325 MG TAB PO SCH (08:38)
[2024-08-06] MEDS: CLOPIDOGREL 75 MG TAB PO SCH (08:40)
[2024-08-06 08:43] LABS: Glucose,Whole Blood 85 mg/dL (70-110)
[2024-08-06 08:49] VITALS: TEMP 97.7
[2024-08-06] MEDS ORDERED: ASPIRIN 325 MG TAB PO SCH (09:00)
[2024-08-06 09:17] LABS: LDL Cholesterol,Calculated 85.7 mg/dL (0.0-131.0)
--- NOTE | 2024-08-06 10:23 | P.CRDCN ---
History of Present Illness Consult date: 08/06/24 History of present illness: History of Present Illness: The patient is a 74-year-old male with a history of diabetes, hypertension, hyperlipidemia, CAD who presented to the emergency room with elevated blood pressure and chest discomfort. He was in the hospital about a month ago with symptoms of chest discomfort. He has been monitoring his blood pressure at home and it has been elevated. He has dyspnea on exertion and occasional chest discomfort that has not been activity related. His chest discomfort has been chronic and he underwent coronary angiography in December 2022 that revealed mild CAD without significant progression compared to the prior testing. He has a normal left ventricular systolic function by [facility] in February 2024. His activity is limited but stable. He is legally blind. He has occasional peripheral edema but no PND nor orthopnea. On presentation his blood pressure was elevated. He was pain-free. He has a prior history of TIA. He has no recent PND, orthopnea or arrhythmia. He has no history of atrial fibrillation. His current risk factors are positive for hypertension, hyperlipidemia, diabetes, peripheral vascular disease. He has been taken off beta-kristin in the past because of sinus bradycardia. Medications: Diovan 80 mg twice a day Procardia 90 mg daily, isosorbide mononitrate 60 mg daily, Lasix 20 mg daily, Farxiga 5 mg daily, Plavix 75 mg daily, atorvastatin 80 mg daily, Xarelto 20 mg daily, Flomax, Prilosec, Singul air, insulin, Cymbalta, albuterol. Review of Systems: Respiratory: He has a history of chronic dyspnea on exertion but no recent wheezing or cough GI: No nausea or vomiting . No history of peptic ulcer disease. No recent GI bleed. : No hematuria or dysuria. Nervous System: He has a prior history of TIA but no seizure Physical Examination: 74-year-old male, alert oriented, legally blind,Blood pressure 179/89, Heart rate 57 Head: Normocephalic. Eyes: Sclerae nonicteric. Neck: Good carotid upstroke, no bruit, no jugular venous distention. Lungs: Clear to auscultation. Heart: Regular rate and rhythm, S1-S2, no S3, no rub. Systolic ejection murmur. Abdomen: Soft nontender, positive bowel sounds no organomegaly. Extremities: Trace edema, intact distal pulses. Labs: BUN 45, creatinine 1.6, hemoglobin 12.4, troponin less than 0.012. LDL of 85. Chest x-ray with no acute infiltrate EKG: Sinus bradycardia, rate of [address]-T wave changes Impression: 1. Hypertension remains elevated 2. Symptoms of chest discomfort with no evidence of acute coronary syndrome with a known history of mild CAD 3. History of diabetes 4. History of hyperlipidemia 5. Chronic kidney disease 6. Legally blind Plan: 1. Add hydralazine 25 mg twice a day 2. Follow blood pressure 3. No indication to repeat echocardiogram at this time 4. If blood pressure under better control probable discharge home today and follow-up as an outpatient 5. Thank you for this consult we will follow with you. 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 History of Any Multi-Drug Resistant Organisms: None Reported Past Surgical History: Appendectomy, Back Surgery, Cholecystectomy, Heart Catheterization, Joint Replacement, Orthopedic Surgery Additional Past Surgical History / Comment(s): BILAT TKA &MICHAEL. LT SHOULDER SX/bilateral total shoulder replacements. RT ROTATOR CUFF REPAIR X 2. COLONOSCOPY Past Anesthesia/Blood Transfusion Reactions: No Reported Reaction Additional Past Anesthesia/Blood Transfusion Reaction / Comment(s): Pt unsure if he has received blood. Past Psychological History: No Psychological Hx Reported Smoking Status: Former smoker Past Alcohol Use History: None Reported Past Drug Use History: None Reported - Past Family History Mother History Unknown: Yes Family Medical History: No Reported History Additional Family Medical History / Comment(s): Smoker. Father Sister(s) History Unknown: Yes Family Medical History: Vascular Disorder Additional Family Medical History / Comment(s): ASHD Medications and Allergies Home Medications Medication Instructions Recorded Confirmed Type Atorvastatin [Lipitor] 80 mg PO HS 10/10/18 08/05/24 History Isosorbide Mononitrate ER [Imdur] 60 mg PO DAILY 10/10/18 08/05/24 History Omeprazole [PriLOSEC] 20 mg PO BID 10/10/18 08/05/24 History Rivaroxaban [Xarelto] 20 mg PO DAILY 10/10/18 08/05/24 History Albuterol Sulfate [Albuterol 2 puff INHALATION RT-Q4H PRN 01/27/20 08/05/24 History Sulfate Hfa] Insulin Aspart [NovoLOG Flexpen] 5 - 15 units SQ AC-TID PRN 01/27/20 08/05/24 History Insulin Degludec [Tresiba 18 units SQ BID 01/27/20 08/05/24 History Flextouch U-100 Pen] Montelukast [Singulair] 10 mg PO HS 01/27/20 08/05/24 History Dapagliflozin Propanediol [Farxiga] 5 mg PO HS 08/09/20 08/05/24 History Tamsulosin [Flomax] 0.8 mg PO PC-SUPPER 08/09/20 08/05/24 History Potassium Chloride ER [K-Dur 10] 10 meq PO DAILY 02/22/21 08/05/24 History Budesonide/Glycopyr/Formoterol 2 puff INHALATION RT-BID 01/08/24 08/05/24 History [Breztri Aerosphere Inhaler] Cyanocobalamin (Vitamin B-12) 1,000 mcg PO DAILY 01/08/24 08/05/24 History [Vitamin B-12] Furosemide [Lasix] 20 mg PO DAILY 01/08/24 08/05/24 History HYDROcodone/APAP 5-325MG [[place] 1 tab PO Q8H PRN 01/08/24 08/05/24 History 5-325] Levalbuterol Nebulized [Xopenex 1.25 mg INHALATION RT-Q8H PRN 01/08/24 08/05/24 History Nebulized] Solifenacin Succinate 5 mg PO DAILY 01/08/24 08/05/24 History allopurinoL [Zyloprim] 100 mg PO HS 01/08/24 08/05/24 History Clopidogrel [Plavix] 75 mg PO DAILY #30 tablet 01/11/24 08/05/24 Rx DULoxetine HCL [Cymbalta] 30 mg PO DAILY #30 cap 01/11/24 08/05/24 Rx Ferrous Sulfate [Iron (65 MG 325 mg PO DAILY 04/11/24 08/05/24 History Elemental)] rOPINIRole HCL [Requip] 0.5 mg PO HS 07/07/24 08/05/24 History NIFEdipine XL [Procardia XL] 90 mg PO DAILY #30 tab 07/08/24 08/05/24 Rx Valsartan [Diovan] 80 mg PO BID #60 tab 07/08/24 08/05/24 Rx Ipratropium-Albuterol Nebulize 3 ml INHALATION RT-Q4H PRN 08/05/24 08/05/24 History [Duoneb 0.5 mg-3 mg/3 ml Soln] Allergies Allergy/AdvReac Type Severity Reaction Status Date / Time cortisone Allergy Anaphylaxis, Verified 08/05/24 19:00 tongue swelling Physical Exam Vitals: Vital Signs Temp Pulse Pulse Resp BP Pulse Ox 08/06/24 08:44 97.7 F 57 L 18 176/89 98 08/06/24 08:15 98 08/06/24 06:00 55 L 18 176/77 95 08/06/24 04:00 51 L 18 156/75 97 08/06/24 02:00 66 18 155/71 95 08/06/24 00:00 64 18 163/74 97 08/05/24 22:00 56 L 18 163/71 97 08/05/24 20:00 61 18 173/73 98 08/05/24 18:38 58 L 18 170/78 98 08/05/24 17:51 65 08/05/24 17:48 65 08/05/24 17:32 61 18 180/83 98 08/05/24 17:08 98.3 F 63 16 181/105 99 Intake and Output 08/05/24 08/06/24 08/06/24 22:59 06:59 14:59 Other: Weight 102.058 kg Results 08/05/24 17:11 08/05/24 17:11 Cardiac Enzymes 0108/05/24 08/05/24 Range/Units 17:11 17:11 20:05 AST 26 (17-59) U/L Troponin I <0.012 <0.012 (0.000-0.034) ng/mL 08/05/24 Range/Units 23:42 AST (17-59) U/L Troponin I <0.012 (0.000-0.034) ng/mL Coagulation 08/05/24 Range/Units 17:11 PT 11.9 (10.0-12.5) sec APTT 25.8 (22.0-30.0) sec Lipids 08/05/24 Range/Units 17:11 Triglycerides 149.00 (0.00-149.00) mg/dL Cholesterol 160.00 (0.00-200.00) mg/dL HDL Cholesterol 44.50 (40.00-60.00) mg/dL Cholesterol/HDL Ratio 3.60 Ratio CBC 08/05/24 Range/Units 17:11 WBC 17.6 H (3.8-10.6) k/uL RBC 4.75 (4.30-5.90) m/uL Hgb 12.4 L (13.0-17.5) gm/dL Hct 38.6 L (39.0-53.0) % Plt Count 196 (150-450) k/uL Comprehensive Metabolic Panel 08/05/24 Range/Units 17:11 Sodium 141 (137-145) mmol/L Potassium 4.6 (3.5-5.1) mmol/L Chloride 110 H (98-107) mmol/L Carbon Dioxide 23 (22-30) mmol/L BUN 45 H (9-20) mg/dL Creatinine 1.61 H (0.66-1.25) mg/dL Glucose 202 H (74-99) mg/dL Calcium 8.9 (8.4-10.2) mg/dL AST 26 (17-59) U/L ALT 29 (4-49) U/L Alkaline Phosphatase 57 (38-126) U/L Total Protein 5.7 L (6.3-8.2) g/dL Albumin 3.7 (3.5-5.0) g/dL Current Medications Generic Name Dose Route Start Last Admin Trade Name Freq PRN Reason Stop Dose Admin Hydrocodone Bitart/Acetaminophen 1 each 08/05/24 19:38 Hydrocodone/Apap 5-325mg 1 Each Tab PO Q8H PRN Pain Albuterol/Ipratropium 3 ml 08/05/24 19:38 Ipratropium-Albuterol 3 Ml Neb INHALATION RT-Q4H PRN Shortness Of Breath Allopurinol 100 mg 08/05/24 21:00 08/05/24 20:51 Allopurinol 100 Mg Tab PO 100 mg HS [facility] Administration Atorvastatin Calcium 80 mg 08/05/24 21:00 08/05/24 20:51 Atorvastatin 80 Mg Tab PO 80 mg HS [facility] Administration Budesonide/Formoterol Fumarate 2 puff 08/06/24 08:00 08/06/24 08:13 Symbicort 160-4.5 Mcg Inhaler INHALATION Not Given RT-BID [facility] Clopidogrel Bisulfate 75 mg 08/06/24 09:00 08/06/24 08:40 Clopidogrel 75 Mg Tab PO 75 mg DAILY [facility] Administration Cyanocobalamin 1,000 mcg 08/06/24 09:00 08/06/24 08:37 Cyanocobalamin 500 Mcg Tab PO 1,000 mcg DAILY [facility] Administration Dapagliflozin 5 mg 08/05/24 21:00 08/05/24 20:51 Dapagliflozin Propanediol 5 Mg Tablet PO 5 mg HS [facility] Administration Duloxetine HCl 30 mg 08/06/24 09:00 08/06/24 08:37 Duloxetine Hcl 30 Mg Capsule.Dr PO 30 mg DAILY [facility] Administration Ferrous Sulfate 325 mg 08/06/24 09:00 08/06/24 08:38 Ferrous Sulfate 325 Mg Tab PO 325 mg DAILY [facility] Administration Furosemide 20 mg 08/06/24 09:00 08/06/24 08:37 Furosemide 20 Mg Tab PO 20 mg DAILY [facility] Administration Insulin Detemir 18 unit 08/05/24 21:00 08/06/24 08:43 Insulin Detemir (Levemir) 100 Unit/Ml Syr SQ 18 unit BID@0700,2100 [facility] Administration Ipratropium [place] 0.5 mg 08/06/24 08:00 08/06/24 08:12 Ipratropium 0.5 Mg/2.5 Ml Nebu INHALATION Not Given RT-QID [facility] Isosorbide Mononitrate 60 mg 08/06/24 09:00 08/06/24 08:37 Isosorbide Mononitrate Er 60 Mg Tab.Er.24h PO 60 mg DAILY [facility] Administration Montelukast Sodium 10 mg 08/05/24 21:00 08/05/24 20:51 Montelukast 10 Mg Tab PO 10 mg HS [facility] Administration Nifedipine 90 mg 08/06/24 09:00 08/06/24 08:37 Nifedipine Xl 90 Mg Tab.Er.24 PO 90 mg DAILY [facility] Administration Nitroglycerin 0.4 mg 08/05/24 18:57 Nitroglycerin Sl Tabs 0.4 Mg Tab SUBLINGUAL Q5M PRN Chest Pain Pantoprazole Sodium 40 mg 08/05/24 21:00 08/06/24 08:38 Pantoprazole 40 Mg Tablet PO 40 mg BID [facility] Administration Potassium Chloride 10 meq 08/06/24 09:00 08/06/24 08:37 Potassium Chloride Er 10 Meq Tab.Er.Prt PO 10 meq DAILY [facility] Administration Rivaroxaban 20 mg 08/06/24 09:00 08/06/24 08:37 Rivaroxaban 20 Mg Tab PO 20 mg DAILY [facility] Administration Protocol Ropinirole HCl 0.5 mg 08/05/24 21:00 08/05/24 20:50 Ropinirole Hcl 0.25 Mg Tab PO 0.5 mg HS [facility] Administration Tamsulosin HCl 0.8 mg 08/06/24 18:30 Tamsulosin 0.4 Mg Cap.Er.24h PO PC-SUPPER [facility] Trospium 20 mg 08/06/24 09:00 08/06/24 08:37 Trospium Chloride 20 Mg Tablet PO 20 mg DAILY [facility] Administration Valsartan 80 mg 08/05/24 21:00 08/06/24 08:38 Valsartan 80 Mg Tab PO 80 mg BID [facility] Administration Intake and Output 08/05/24 08/06/24 08/06/24 22:59 06:59 14:59 Other: Weight 102.058 kg 08/05/24 17:11 08/05/24 17:11
[2024-08-06] MEDS: hydrALAZINE HCL 25 MG TAB PO SCH (10:46)
[2024-08-06 10:52] VITALS: BP 177/83; PULSE 55
--- NOTE | 2024-08-06 11:10 | P.HPIM ---
History of Present Illness 72-year-old pleasant male came in because of chest discomfort pressure-like sensation on the left side of the chest. Patient chest pain is nonradiating not associate with diaphoresis nausea and lightheadedness nonpleuritic in nature p gene had coronary angiography in December 2022 which showed mild coronary artery disease although patient blood pressure was high with systolic going up to about 170 patient was eval by cardiology they recommended starting him on hydralazine started on 25 twice daily of hydralazine which I am increasing it to 50 3 times daily. Patient denied any fever chills EKG did not show any acute ST-T wave tza nges troponins were negative. Chest pain completely resolved patient has elevated creatinine of 1.5 which is his baseline. REVIEW OF SYSTEMS: All other systems are negative except those mentioned in the HPI PHYSICAL EXAMINATION: GENERAL: The patient is alert and oriented x3, not in any acute distress. Well developed, well nourished. HEENT: Pupils are round and equally reacting to light. EOMI. No scleral icterus. No conjunctival pallor. Normocephalic, atraumatic. No pharyngeal erythema. No thyromegaly. Legally blind CARDIOVASCULAR: S1 and S2 present. No murmurs, rubs, or gallops. PULMONARY: Chest is clear to auscultation, no wheezing or crackles. ABDOMEN: Soft, nontender, nondistended, normoactive bowel sounds. No palpable organomegaly. MUSCULOSKELETAL: No joint swelling or deformity. EXTREMITIES: No cyanosis, clubbing, or pedal edema. NEUROLOGICAL: Gross neurological examination did not reveal any focal deficits. SKIN: No rashes. Assessment and plan -Chest pain rule out acute coronary syndromes was eval by cardiology cleared by cardiology no further workup was recommended -Hypertension elevated accelerated hypertension add hydralazine 50 mg 3 times daily will be discharged to follow-up with PCP -Type 2 diabetes mellitus -Hyperlipidemia -Chronic kidney disease stage IIIb -Coronary artery disease mild -COPD/asthma -History of DVT in the past -Seizure disorder -Prevascular disease Patient will be discharged later today Past Medical History Past Medical History: Asthma, Blood Disorder, Coronary Artery Disease (CAD), Cancer, Heart Failure, COPD, CVA/TIA, Diabetes Mellitus, Deep Vein Thrombosis (DVT), Eye Disorder, GERD/Reflux, Hearing Disorder / Deafness, Hyperlipidemia, Hypertension, Pneumonia, Pulmonary Embolus (PE), Renal Disease, Seizure Disorder, Vascular Disorder Additional Past Medical History / Comment(s): LEUKEMIA-NO TX, CVA X 2 balance issues, IDDM type II, LEGALLY BLIND bilaterally-RETINITIS PIGMENTOSA, DVT R leg/L lung, PVD, current sore L upper gum, "weak bladder", RIKI with cpap use, GOUT, chronic kidney diease, recent back pain, past low iron and recently told he has iron anemia, elementary school records list epilepsy/pt was unaware. History of Any Multi-Drug Resistant Organisms: None Reported Past Surgical History: Appendectomy, Back Surgery, Cholecystectomy, Heart Catheterization, Joint Replacement, Orthopedic Surgery Additional Past Surgical History / Comment(s): BILAT TKA &MICHAEL. LT SHOULDER SX/bilateral total shoulder replacements. RT ROTATOR CUFF REPAIR X 2. COLONOSCOPY Past Anesthesia/Blood Transfusion Reactions: No Reported Reaction Additional Past Anesthesia/Blood Transfusion Reaction / Comment(s): Pt unsure if he has received blood. Past Psychological History: No Psychological Hx Reported Smoking Status: Former smoker Past Alcohol Use History: None Reported Past Drug Use History: None Reported - Past Family History Mother History Unknown: Yes Family Medical History: No Reported History Additional Family Medical History / Comment(s): Smoker. Father Sister(s) History Unknown: Yes Family Medical History: Vascular Disorder Additional Family Medical History / Comment(s): ASHD Medications and Allergies Home Medications Medication Instructions Recorded Confirmed Type Atorvastatin [Lipitor] 80 mg PO HS 10/10/18 08/05/24 History Isosorbide Mononitrate ER [Imdur] 60 mg PO DAILY 10/10/18 08/05/24 History Omeprazole [PriLOSEC] 20 mg PO BID 10/10/18 08/05/24 History Rivaroxaban [Xarelto] 20 mg PO DAILY 10/10/18 08/05/24 History Albuterol Sulfate [Albuterol 2 puff INHALATION RT-Q4H PRN 01/27/20 08/05/24 History Sulfate Hfa] Insulin Aspart [NovoLOG Flexpen] 5 - 15 units SQ AC-TID PRN 01/27/20 08/05/24 History Insulin Degludec [Tresiba 18 units SQ BID 01/27/20 08/05/24 History Flextouch U-100 Pen] Montelukast [Singulair] 10 mg PO HS 01/27/20 08/05/24 History Dapagliflozin Propanediol [Farxiga] 5 mg PO HS 08/09/20 08/05/24 History Tamsulosin [Flomax] 0.8 mg PO PC-SUPPER 08/09/20 08/05/24 History Potassium Chloride ER [K-Dur 10] 10 meq PO DAILY 02/22/21 08/05/24 History Budesonide/Glycopyr/Formoterol 2 puff INHALATION RT-BID 01/08/24 08/05/24 History [Breztri Aerosphere Inhaler] Cyanocobalamin (Vitamin B-12) 1,000 mcg PO DAILY 01/08/24 08/05/24 History [Vitamin B-12] Furosemide [Lasix] 20 mg PO DAILY 01/08/24 08/05/24 History HYDROcodone/APAP 5-325MG [[place] 1 tab PO Q8H PRN 01/08/24 08/05/24 History 5-325] Levalbuterol Nebulized [Xopenex 1.25 mg INHALATION RT-Q8H PRN 01/08/24 08/05/24 History Nebulized] Solifenacin Succinate 5 mg PO DAILY 01/08/24 08/05/24 History allopurinoL [Zyloprim] 100 mg PO HS 01/08/24 08/05/24 History Clopidogrel [Plavix] 75 mg PO DAILY #30 tablet 01/11/24 08/05/24 Rx DULoxetine HCL [Cymbalta] 30 mg PO DAILY #30 cap 01/11/24 08/05/24 Rx Ferrous Sulfate [Iron (65 MG 325 mg PO DAILY 04/11/24 08/05/24 History Elemental)] rOPINIRole HCL [Requip] 0.5 mg PO HS 07/07/24 08/05/24 History NIFEdipine XL [Procardia XL] 90 mg PO DAILY #30 tab 07/08/24 08/05/24 Rx Valsartan [Diovan] 80 mg PO BID #60 tab 07/08/24 08/05/24 Rx Ipratropium-Albuterol Nebulize 3 ml INHALATION RT-Q4H PRN 08/05/24 08/05/24 History [Duoneb 0.5 mg-3 mg/3 ml Soln] hydrALAZINE HCL [Apresoline] 50 mg PO TID #90 tab 08/06/24 Rx Allergies Allergy/AdvReac Type Severity Reaction Status Date / Time cortisone Allergy Anaphylaxis, Verified 08/05/24 19:00 tongue swelling Physical Exam Vitals: Vital Signs Temp Pulse Pulse Resp BP Pulse Ox 08/06/24 10:50 55 L 18 177/83 98 08/06/24 10:28 52 L 18 167/79 98 08/06/24 08:44 97.7 F 57 L 18 176/89 98 08/06/24 08:15 98 08/06/24 06:00 55 L 18 176/77 95 08/06/24 04:00 51 L 18 156/75 97 08/06/24 02:00 66 18 155/71 95 08/06/24 00:00 64 18 163/74 97 08/05/24 22:00 56 L 18 163/71 97 08/05/24 20:00 61 18 173/73 98 08/05/24 18:38 58 L 18 170/78 98 08/05/24 17:51 65 08/05/24 17:48 65 08/05/24 17:32 61 18 180/83 98 08/05/24 17:08 98.3 F 63 16 181/105 99 Intake and Output 08/05/24 08/06/24 08/06/24 22:59 06:59 14:59 Output Total 600 Balance -600 Output: Urine 600 Other: Weight 102.058 kg Results CBC & Chem 7: 08/05/24 17:11 08/05/24 17:11 Labs: Abnormal Lab Results - Last 24 Hours (Table) 08/05/24 08/05/24 08/05/24 Range/Units 17:11 17:11 20:48 WBC 17.6 H (3.8-10.6) k/uL Hgb 12.4 L (13.0-17.5) gm/dL Hct 38.6 L (39.0-53.0) % RDW 17.6 H (11.5-15.5) % Lymphocytes # (Manual) 10.21 H (1.0-4.8) k/uL Chloride 110 H (98-107) mmol/L BUN 45 H (9-20) mg/dL Creatinine 1.61 H (0.66-1.25) mg/dL Glucose 202 H (74-99) mg/dL POC Glucose (mg/dL) 208 H (70-110) mg/dL Total Protein 5.7 L (6.3-8.2) g/dL
--- NOTE | 2024-08-06 11:11 | P.DS ---
Providers Date of admission: 08/05/24 18:57 Attending physician: Neno Garcia Consults: 08/05/24 18:57 Consult Physician Urgent Consulting Provider: Martir Nuñez Consult Reason/Comments: cp Do you want consulting provider notified?: Yes Primary care physician: [facility] Course: 72-year-old pleasant male came in because of chest discomfort pressure-like sensation on the left side of the chest. Patient chest pain is nonradiating not associate with diaphoresis nausea and lightheadedness nonpleuritic in nature patient had coronary angiography in December 2022 which showed mild coronary artery disease although patient blood pressure was high with systolic going up to about 170 patient was eval by cardiology they recommended starting him on hydralazine started on 25 twice daily of hydralazine which I am increasing it to 50 3 times daily. Patient denied any fever chills EKG did not show any acute ST-T wave changes troponins were negative. Chest pain completely resolved patient has elevated creatinine of 1.5 which is his baseline. REVIEW OF SYSTEMS: All other systems are negative except those mentioned in the HPI PHYSICAL EXAMINATION: GENERAL: The patient is alert and oriented x3, not in any acute distress. Well developed, well nourished. HEENT: Pupils are round and equally reacting to light. EOMI. No scleral icterus. No conjunctival pallor. Normocephalic, atraumatic. No pharyngeal erythema. No thyromegaly. Legally blind CARDIOVASCULAR: S1 and S2 present. No murmurs, rubs, or gallops. PULMONARY: Chest is clear to auscultation, no wheezing or crackles. ABDOMEN: Soft, nontender, nondistended, normoactive bowel sounds. No palpable organomegaly. MUSCULOSKELETAL: No joint swelling or deformity. EXTREMITIES: No cyanosis, clubbing, or pedal edema. NEUROLOGICAL: Gross neurological examination did not reveal any focal deficits. SKIN: No rashes. Assessment and plan -Chest pain rule out acute coronary syndromes was eval by cardiology cleared by cardiology no further workup was recommended -Hypertension elevated accelerated hypertension add hydralazine 50 mg 3 times daily will be discharged to follow-up with PCP -Type 2 diabetes mellitus -Hyperlipidemia -Chronic kidney disease stage IIIb -Coronary artery disease mild -COPD/asthma -History of DVT in the past -Seizure disorder -Prevascular disease Plan - Discharge Summary New Discharge Prescriptions: New hydrALAZINE HCL [Apresoline] 50 mg PO TID #90 tab No Action Omeprazole [PriLOSEC] 20 mg PO BID Atorvastatin [Lipitor] 80 mg PO HS Isosorbide Mononitrate ER [Imdur] 60 mg PO DAILY Rivaroxaban [Xarelto] 20 mg PO DAILY Montelukast [Singulair] 10 mg PO HS Insulin Degludec [Tresiba Flextouch U-100 Pen] 18 units SQ BID Insulin Aspart [NovoLOG Flexpen] 5 - 15 units SQ AC-TID PRN PRN Reason: high blood sugar Albuterol Sulfate [Albuterol Sulfate Hfa] 2 puff INHALATION RT-Q4H PRN PRN Reason: Shortness Of Breath Dapagliflozin Propanediol [Farxiga] 5 mg PO HS Tamsulosin [Flomax] 0.8 mg PO PC-SUPPER Potassium Chloride ER [K-Dur 10] 10 meq PO DAILY Budesonide/Glycopyr/Formoterol [Breztri Aerosphere Inhaler] 2 puff INHALATION RT-BID Cyanocobalamin (Vitamin B-12) [Vitamin B-12] 1,000 mcg PO DAILY Furosemide [Lasix] 20 mg PO DAILY Ferrous Sulfate [Iron (65 MG Elemental)] 325 mg PO DAILY Valsartan [Diovan] 80 mg PO BID #60 tab allopurinoL [Zyloprim] 100 mg PO HS HYDROcodone/APAP 5-325MG [[place] 5-325] 1 tab PO Q8H PRN PRN Reason: Pain Levalbuterol Nebulized [Xopenex Nebulized] 1.25 mg INHALATION RT-Q8H PRN PRN Reason: Shortness Of Breath Solifenacin Succinate 5 mg PO DAILY DULoxetine HCL [Cymbalta] 30 mg PO DAILY #30 cap Clopidogrel [Plavix] 75 mg PO DAILY #30 tablet rOPINIRole HCL [Requip] 0.5 mg PO HS NIFEdipine XL [Procardia XL] 90 mg PO DAILY #30 tab Ipratropium-Albuterol Nebulize [Duoneb 0.5 mg-3 mg/3 ml Soln] 3 ml INHALATION RT-Q4H PRN PRN Reason: Shortness Of Breath Discharge Medication List Atorvastatin [Lipitor] 80 mg PO HS 10/10/18 [History] Isosorbide Mononitrate ER [Imdur] 60 mg PO DAILY 10/10/18 [History] Omeprazole [PriLOSEC] 20 mg PO BID 10/10/18 [History] Rivaroxaban [Xarelto] 20 mg PO DAILY 10/10/18 [History] Albuterol Sulfate [Albuterol Sulfate Hfa] 2 puff INHALATION RT-Q4H PRN 01/27/20 [History] Insulin Aspart [NovoLOG Flexpen] 5 - 15 units SQ AC-TID PRN 01/27/20 [History] Insulin Degludec [Tresiba Flextouch U-100 Pen] 18 units SQ BID 01/27/20 [H istory] Montelukast [Singulair] 10 mg PO HS 01/27/20 [History] Dapagliflozin Propanediol [Farxiga] 5 mg PO HS 08/09/20 [History] Tamsulosin [Flomax] 0.8 mg PO PC-SUPPER 08/09/20 [History] Potassium Chloride ER [K-Dur 10] 10 meq PO DAILY 02/22/21 [History] Budesonide/Glycopyr/Formoterol [Breztri Aerosphere Inhaler] 2 puff INHALATION RT-BID 01/08/24 [History] Cyanocobalamin (Vitamin B-12) [Vitamin B-12] 1,000 mcg PO DAILY 01/08/24 [History] Furosemide [Lasix] 20 mg PO DAILY 01/08/24 [History] HYDROcodone/APAP 5-325MG [[place] 5-325] 1 tab PO Q8H PRN 01/08/24 [History] Levalbuterol Nebulized [Xopenex Nebulized] 1.25 mg INHALATION RT-Q8H PRN 01/08/24 [History] Solifenacin Succinate 5 mg PO DAILY 01/08/24 [History] allopurinoL [Zyloprim] 100 mg PO HS 01/08/24 [History] Clopidogrel [Plavix] 75 mg PO DAILY #30 tablet 01/11/24 [Rx] DULoxetine HCL [Cymbalta] 30 mg PO DAILY #30 cap 01/11/24 [Rx] Ferrous Sulfate [Iron (65 MG Elemental)] 325 mg PO DAILY 04/11/24 [History] rOPINIRole HCL [Requip] 0.5 mg PO HS 07/07/24 [History] NIFEdipine XL [Procardia XL] 90 mg PO DAILY #30 tab 07/08/24 [Rx] Valsartan [Diovan] 80 mg PO BID #60 tab 07/08/24 [Rx] Ipratropium-Albuterol Nebulize [Duoneb 0.5 mg-3 mg/3 ml Soln] 3 ml INHALATION RT-Q4H PRN 08/05/24 [History] hydrALAZINE HCL [Apresoline] 50 mg PO TID #90 tab 08/06/24 [Rx] Follow up Appointment(s)/Referral(s): Sugar Cummins MD [Primary Care Provider] - 3 Days Discharge Disposition: HOME SELF-CARE
[2024-08-06] MEDS: hydrALAZINE HCL 25 MG TAB PO STA (11:36)
[2024-08-06] MEDS ORDERED: hydrALAZINE HCL 50 MG TAB PO SCH (16:00)
[2024-08-06] MEDS ORDERED: TAMSULOSIN 0.4 MG CAP.ER.24H PO SCH (18:30)
== END 2024-08-06 11:48 | disposition home or self-care (01) ==
LOC: EC 17:00 → 6NMEDSUR 18:57
PROVIDERS: ADMIT Hospitalist; ATTEND Hospitalist
DX: R07.89 Other chest pain (principal); I25.10 Atherosclerotic heart disease of native coronary artery without angina pectoris; I13.0 Hypertensive heart and chronic kidney disease with heart failure and stage 1 through stage 4 chronic kidney disease, or unspecified chronic kidney disease; I50.9 Heart failure, unspecified; N18.32 Chronic kidney disease, stage 3b; E11.22 Type 2 diabetes mellitus with diabetic chronic kidney disease; K21.9 Gastro-esophageal reflux disease without esophagitis; E78.5 Hyperlipidemia, unspecified; E11.51 Type 2 diabetes mellitus with diabetic peripheral angiopathy without gangrene; H54.8 Legal blindness, as defined in USA; J44.9 Chronic obstructive pulmonary disease, unspecified; G40.909 Epilepsy, unspecified, not intractable, without status epilepticus; Z85.6 Personal history of leukemia; Z86.711 Personal history of pulmonary embolism; Z86.718 Personal history of other venous thrombosis and embolism; Z86.73 Personal history of transient ischemic attack (TIA), and cerebral infarction without residual deficits; Z87.891 Personal history of nicotine dependence; Z79.899 Other long term (current) drug therapy; Z79.01 Long term (current) use of anticoagulants; Z79.4 Long term (current) use of insulin; Z79.84 Long term (current) use of oral hypoglycemic drugs; Z79.02 Long term (current) use of antithrombotics/antiplatelets
CPT/HCPCS: 99285; 36415; 94760; 93005; 80061; 80053; 83735; 84484; 85025; 85610; 85730; 71046; G0378 ×2

== ENCOUNTER 2024-10-24 17:03 | Emergency (ER) | payer MEDICARE, OTHER ==
[2024-10-24 18:02] VITALS: TEMP 98.1
[2024-10-24 18:13] LABS: ALT 35 U/L (4-49); AST 31 U/L (17-59); African American GFR (CKD) 39 (>60 ml/min/1.73 sqM); Albumin 3.5 g/dL (3.5-5.0); Alkaline Phosphatase 54 U/L (38-126); Anion Gap 8 mmol/L; Anisocytosis Slight; Basophils # (A) 0.1 k/uL (0-0.2); Basophils % (A) 1 %; Blood Urea Nitrogen 44 mg/dL (9-20); Carbon Dioxide 23 mmol/L (22-30); Chloride 106 mmol/L (98-107); Eosinophils # (A) 0.2 k/uL (0-0.7); Eosinophils % (A) 1 %; Glucose 153 mg/dL (74-99); HCT 40.2 % (39.0-53.0); HGB 12.5 gm/dL (13.0-17.5); Lymphocytes # (A) 7.1 k/uL (1.0-4.8); Lymphocytes % (A) 50 %; MCH 25.6 pg (25.0-35.0); MCHC 31.1 g/dL (31.0-37.0); MCV 82.4 fL (80.0-100.0); Magnesium 2.4 mg/dL (1.6-2.3); Mean Platelet Volume 7.9; Monocytes # (A) 0.4 k/uL (0-1.0); Monocytes % (A) 3 %; Neutrophils % (A) 42 %; Non-African American GFR(CKD) 34 (>60 ml/min/1.73 sqM); Platelet Count 180 k/uL (150-450); Potassium 4.7 mmol/L (3.5-5.1); RBC 4.88 m/uL (4.30-5.90); RDW 16.5 % (11.5-15.5); Sodium 137 mmol/L (137-145); Total Bilirubin 0.5 mg/dL (0.2-1.3); Total Protein 5.5 g/dL (6.3-8.2); WBC 14.1 k/uL (3.8-10.6)
[2024-10-24 18:15] LABS: Partial Thromboplastin Time 26.6 sec (22.0-30.0); Prothrombin Time 11.2 sec (10.0-12.5)
--- NOTE | 2024-10-24 18:17 | XR ---
EXAMINATION TYPE: XR chest 2V DATE OF EXAM: 10/24/2024 CLINICAL INDICATION: Male, 74 years old with history of difficulty breathing, TECHNIQUE: Frontal and lateral views of the chest are obtained. COMPARISON: Chest x-ray August 05, 2024 FINDINGS: There is cardiomegaly with central vascular congestion and tiny bilateral pleural effusions . Surgical change to bilateral shoulders is partially imaged similar to prior. IMPRESSION: Correlate for CHF exacerbation/fluid overload state. [facility], , 10/24/2024 6:14 PM
[2024-10-24 18:20] LABS: NT-Pro-B-Type Natriuretic Pept 114 pg/mL
[2024-10-24] MEDS: methylPREDNISolone SOD SUCCI 125 MG/2 ML VIAL IV STA (18:26)
[2024-10-24] MEDS: MAGNESIUM SULFATE-D5W PMX 1 GM in DEXTROSE/WATER 1 100ML.BAG IVPB STA (18:27)
[2024-10-24 18:35] LABS: Influenza A Not Detected (Not Detectd); Influenza B Not Detected (Not Detectd); RSV Not Detected (Not Detectd)
[2024-10-24] MEDS: IPRATROPIUM-ALBUTEROL 3 ML NEB INHALATION STA (18:51)
[2024-10-24 19:36] LABS: Appearance,Urine Clear (Clear); Bilirubin,Urine Negative (Negative); Blood,Urine Negative (Negative); Color,Urine Colorless; Glucose,Urine (UA) 4+ (Negative); Ketones,Urine Negative (Negative); Leukocyte Esterase,Urine Negative (Negative); Nitrite,Urine Negative (Negative); PH, Urine 5.5 (5.0-8.0); Protein,Urine Negative (Negative); Specific Gravity,Urine 1.011 (1.001-1.035); Urobilinogen,Urine <2.0 mg/dL (<2.0)
--- NOTE | 2024-10-24 20:56 | ED ---
General Adult HPI - General Chief complaint: Shortness of Breath Stated complaint: JANUARY Time Seen by Provider: 10/24/24 17:19 Source: patient, EMS, RN notes reviewed, old records reviewed Mode of arrival: EMS - History of Present Illness Initial comments: Patient is a 74-year-old male who presents emergency department complaining of wheezing, cough. Patient has been having worsening cough for the last day or so. Has a history of COPD, asthma, CHF. Denies any lower extremity edema. Denies any productive cough. Denies any orthopnea. Denies any PND. Denies any nausea or vomiting. Denies diarrhea. No known sick contacts. States this feels like his COPD and possible bronchitis. Presents for further evaluation at this time. - Related Data Home Medications Medication Instructions Recorded Confirmed Atorvastatin [Lipitor] 80 mg PO HS 10/10/18 10/24/24 Isosorbide Mononitrate ER [Imdur] 60 mg PO DAILY 10/10/18 10/24/24 Omeprazole [PriLOSEC] 20 mg PO BID 10/10/18 10/24/24 Rivaroxaban [Xarelto] 20 mg PO DAILY 10/10/18 10/24/24 Albuterol Sulfate [Albuterol 2 puff INHALATION RT-Q4H PRN 01/27/20 10/24/24 Sulfate Hfa] Insulin Aspart [NovoLOG Flexpen] 5 - 15 units SQ AC-TID 01/27/20 10/24/24 Insulin Degludec [Tresiba 18 units SQ BID 01/27/20 10/24/24 Flextouch U-100 Pen] Montelukast [Singulair] 10 mg PO HS 01/27/20 10/24/24 Dapagliflozin Propanediol [Farxiga] 5 mg PO HS 08/09/20 10/24/24 Tamsulosin [Flomax] 0.8 mg PO PC-SUPPER 08/09/20 10/24/24 Potassium Chloride ER [K-Dur 10] 10 meq PO DAILY 02/22/21 10/24/24 Budesonide/Glycopyr/Formoterol 2 puff INHALATION RT-BID 01/08/24 10/24/24 [Breztri Aerosphere Inhaler] Cyanocobalamin (Vitamin B-12) 1,000 mcg PO DAILY 01/08/24 10/24/24 [Vitamin B-12] Furosemide [Lasix] 20 mg PO DAILY 01/08/24 10/24/24 Levalbuterol Nebulized [Xopenex 1.25 mg INHALATION RT-Q8H PRN 01/08/24 10/24/24 Nebulized] Solifenacin Succinate 5 mg PO DAILY 01/08/24 10/24/24 allopurinoL [Zyloprim] 100 mg PO HS 01/08/24 10/24/24 Ferrous Sulfate [Iron (65 MG 325 mg PO DAILY 04/11/24 10/24/24 Elemental)] rOPINIRole HCL [Requip] 0.5 mg PO HS 07/07/24 10/24/24 Ipratropium-Albuterol Nebulize 3 ml INHALATION RT-Q4H PRN 08/05/24 10/24/24 [Duoneb 0.5 mg-3 mg/3 ml Soln] HYDROcodone/APAP 10-325MG [[place] 1 tab PO Q6H PRN 10/24/24 10/24/24 10-325] Ozempic 2mg/3ml 0.5 mg SQ TU 10/24/24 10/24/24 Valsartan 160 mg PO BID 10/24/24 10/24/24 hydroCHLOROthiazide [Hydrodiuril] 25 mg PO DAILY 10/24/24 10/24/24 Previous Rx's Medication Instructions Recorded Clopidogrel [Plavix] 75 mg PO DAILY #30 tablet 01/11/24 DULoxetine HCL [Cymbalta] 30 mg PO DAILY #30 cap 01/11/24 NIFEdipine XL [Procardia XL] 90 mg PO DAILY #30 tab 07/08/24 hydrALAZINE HCL [Apresoline] 50 mg PO TID #90 tab 08/06/24 Albuterol Inhaler [Ventolin Hfa 2 puff INHALATION QID #8 gm 10/24/24 Inhaler] Azithromycin [Zithromax] 250 mg PO DAILY 4 Days #4 tab 10/24/24 predniSONE [Deltasone] 40 mg PO DAILY 5 Days #10 tab 10/24/24 Allergies Allergy/AdvReac Type Severity Reaction Status Date / Time cortisone Allergy Anaphylaxis, Verified 10/24/24 18:02 tongue swelling Review of Systems ROS Statement: Those systems with pertinent positive or pertinent negative responses have been documented in the HPI. Review of Systems: CONST: Denies fever EYES: Denies blurry vision ENT: Denies nasal congestion C/V: Denies Chest pain RESP: Endorses cough, congestion GI: Denies abdominal pain : Denies dysuria SKIN: Denies rash. MSK: Denies joint pain. NEURO: Denies headache ROS Other: All systems not noted in ROS Statement are negative. 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 History of Any Multi-Drug Resistant Organisms: None Reported Past Surgical History: Appendectomy, Back Surgery, Cholecystectomy, Heart Catheterization, Joint Replacement, Orthopedic Surgery Additional Past Surgical History / Comment(s): BILAT TKA &MICHAEL. LT SHOULDER SX/bilateral total shoulder replacements. RT ROTATOR CUFF REPAIR X 2. COLO NOSCOPY Past Anesthesia/Blood Transfusion Reactions: No Reported Reaction Additional Past Anesthesia/Blood Transfusion Reaction / Comment(s): Pt unsure if he has received blood. Past Psychological History: No Psychological Hx Reported Smoking Status: Former smoker Past Alcohol Use History: None Reported Past Drug Use History: None Reported - Past Family History Mother History Unknown: Yes Family Medical History: No Reported History Additional Family Medical History / Comment(s): Smoker. Father Sister(s) History Unknown: Yes Family Medical History: Vascular Disorder Additional Family Medical History / Comment(s): ASHD General Exam - General Exam Comments Initial Comments: General: Appears in no acute distress. HEAD: Normal with no signs of head trauma. EYES: EOMI ENT: Hearing grossly intact, normal oropharynx. RESPIRATORY: Bilateral end expiratory wheezing. No hypoxia. No significant increased work of breathing. C/V: Regular rate and rhythm. S1 and S2 auscultated, no edema, peripheral pulses 2+ and intact throughout ABD: Abd is soft, nontender, nondistended EXT: No obvious deformity. SKIN: No rashes or lesions observed on exposed skin. NEURO: Alert and oriented x 4. Course Vital Signs 10/24/24 10/24/24 10/24/24 17:30 18:51 19:05 Temperature 98.1 F Pulse Rate 60 56 L 64 Respiratory 16 Rate Blood Pressure 133/73 O2 Sat by Pulse 97 Oximetry 10/24/24 10/24/24 20:18 21:02 Temperature Pulse Rate 68 72 Respiratory 18 17 Rate Blood Pressure 146/66 156/68 O2 Sat by Pulse 96 95 Oximetry Medical Decision Making - Medical Decision Making Was pt. sent in by a medical professional or institution (, PA, VALVE FITTER, urgent care, hospital, or care home...) When possible be specific @ -[No] Did you speak to anyone other than the patient for history (EMS, parent, family, police, friend...)? What history was obtained from this source @ -[No] Did you review nursing and triage notes (agree or disagree)? Why? @ -[I reviewed and agree with nursing and triage notes] Were old charts reviewed (outside hosp., previous admission, EMS record, old EKG, old radiological studies, urgent care reports/EKG's, care home records)? Report findings @ -Reviewed today's EKG with EKG from August 06, 2024 with no significant change. Differential Diagnosis (chest pain, altered mental status, abdominal pain women, abdominal pain men, vaginal bleeding, weakness, fever, dyspnea, syncope, headache, dizziness, GI bleed, back pain, seizure, CVA, palpatations, mental health, musculoskeletal)? @ -Differential Dyspnea: Coronary syndrome, arrhythmia, tamponade, asthma, COPD, pulmonary embolism, pne umonia, pneumothorax, pulmonary effusion, anaphylaxis, diabetic ketoacidosis, flailed chest, pulmonary contusion, diaphragmatic rupture, anemia, neuromuscular, this is not meant to be an all-inclusive list. EKG interpreted by me (3pts min.). @ -[As above] X-rays interpreted by me (1pt min.). @ -Chest x-ray reveals no evidence of acute cardiopulmonary process. No infiltrate or infection. Mild pulmonary vascular congestion however clinically, patient has no CHF symptoms. Seems to be more COPD. Does not have orthopnea or PND. BNP within normal limits. No lower extremity peripheral edema. Patient is wheezy on exam. CT interpreted by me (1pt min.). @ -[None done] U/S interpreted by me (1pt. min.). @ -[None done] What testing was considered but not performed or refused? (CT, X-rays, U/S, labs)? Why? @ -[None] What meds were considered but not given or refused? Why? @ -[None] Did you discuss the management of the patient with other professionals (professionals i.e. , PA, VALVE FITTER, lab, RT, psych nurse, nursing home social worker, wax engraver, teacher, conservation science officer, medical case manager)? Give summary @ -[No] Was smoking cessation discussed for >3mins.? @ -[No] Was critical care preformed (if so, how long)? @ -[No] Were there social determinants of health that impacted care today? How? (Homelessness, low income, unemployed, alcoholism, drug addiction, transportation, low edu. Level, literacy, decrease access to med. care, detention, rehab)? @ -[No] Was there de-escalation of care discussed even if they declined (Discuss DNR or withdrawal of care, Hospice)? DNR status @ -[No] What co-morbidities impacted this encounter? (DM, HTN, Smoking, COPD, CAD, Cancer, CVA, ARF, Chemo, Hep., AIDS, mental health diagnosis, sleep apnea, morbid obesity)? @ -COPD, CHF Was patient admitted / discharged? Hospital course, mention meds given and route, prescriptions, significant lab abnormalities, going to OR and other pertinent info. @ -Based on the patient's presentation and physical exam, presents with what I suspect to be a COPD exacerbation. Patient was in agreement with this. Will obtain upper respiratory labs as well as viral swabs, chest x-ray. Patient be symptomatically treated with DuoNeb, IV magnesium and Solu-Medrol. Vital signs are within acceptable limits. Chest x-ray reveals no evidence of acute cardiopulmonary process. No infiltrate or infection. Mild pulmonary vascular congestion however clinically, patient has no CHF symptoms. Seems to be more COPD. Does not have orthopnea or PND. BNP within normal limits. No lower extremity peripheral edema. Patient is wheezy on exam. Patient's laboratory studies remarkable for mild leukocytosis of 14 which is likely reactive. Patient has stable CKD, and no other obvious findings. BNP is stated above is within acceptable limits. After breathing treatments, patient is feeling improved. We discussed his workup. I believe it is safe for the patient to be discharged home at this time and he is asking to leave. Diagnosis is COPD as well as tracheobronchitis. He will be started on azithromycin and given a prescription for albuterol inhaler and prednisone. Patient was in agreement this plan. As stated above, I do not believe this is CHF exacerbation as clinically, he has no symptoms with a normal BNP. Chest x-r ay does show mild pulmonary vascular congestion however this does appear to be a chronic finding as this chest x-ray appears similar to prior x-rays. Vital signs are still within acceptable limits and patient is not requiring any supplemental oxygen. I will provide the patient with a prescription for prednisone, albuterol inhaler, azithromycin. I instructed the patient to follow up with their PCP in the next 1-3 days. I explained that the patient should return to the emergency department if they experience any worsening symptoms. Strict return precautions were discussed with the patient. The patient expressed understanding of these instructions. I answered all questions that the patient had. The patient was discharged home in [good] condition with their prescriptions and follow up information. Undiagnosed new problem with uncertain prognosis? @ -[No] Drug Therapy requiring intensive monitoring for toxicity (Heparin, Nitro, Insulin, Cardizem)? @ -[No] Were any procedures done? @ -[No] Diagnosis/symptom? @ -COPD, tracheobronchitis Acute, or Chronic, or Acute on Chronic? @ -Acute Uncomplicated (without systemic symptoms) or Complicated (systemic symptoms)? @ -Uncomplicated Side effects of treatment? @ -[No] Exacerbation, Progression, or Severe Exacerbation? @ -[No] Poses a threat to life or bodily function? How? (Chest pain, [place], SD, pneumonia, PE, COPD, DKA, ARF, appy, cholecystitis, CVA, Diverticulitis, Homicidal, Suicidal, threat to staff... and all critical care pts) @ -Unlikely at this time - Lab Data Result diagrams: 10/24/24 17:43 10/24/24 17:43 Lab Results 10/24/24 10/24/24 10/24/24 Range/Units 16:25 17:43 17:43 WBC 14.1 H (3.8-10.6) k/uL RBC 4.88 (4.30-5.90) m/uL Hgb 12.5 L (13.0-17.5) gm/dL Hct 40.2 (39.0-53.0) % MCV 82.4 (80.0-100.0) fL MCH 25.6 (25.0-35.0) pg MCHC 31.1 (31.0-37.0) g/dL RDW 16.5 H (11.5-15.5) % Plt Count 180 (150-450) k/uL MPV 7.9 Neutrophils % 42 % Lymphocytes % 50 % Monocytes % 3 % Eosinophils % 1 % Basophils % 1 % Neutrophils # 6.0 (1.3-7.7) k/uL Lymphocytes # 7.1 H (1.0-4.8) k/uL Monocytes # 0.4 (0-1.0) k/uL Eosinophils # 0.2 (0-0.7) k/uL Basophils # 0.1 (0-0.2) k/uL Manual Slide Review Performed Anisocytosis Slight PT 11.2 (10.0-12.5) sec INR 1.0 (<1.2) APTT 26.6 (22.0-30.0) sec Sodium (137-145) mmol/L Potassium (3.5-5.1) mmol/L Chloride (98-107) mmol/L Carbon Dioxide (22-30) mmol/L Anion Gap mmol/L BUN (9-20) mg/dL Creatinine (0.66-1.25) mg/dL Est GFR (CKD-EPI)AfAm (>60 ml/min/1.73 sqM) Est GFR (CKD-EPI)NonAf (>60 ml/min/1.73 sqM) Glucose (74-99) mg/dL Calcium (8.4-10.2) mg/dL Magnesium (1.6-2.3) mg/dL Total Bilirubin (0.2-1.3) mg/dL AST (17-59) U/L ALT (4-49) U/L Alkaline Phosphatase (38-126) U/L NT-Pro-B Natriuret Pep pg/mL Total Protein (6.3-8.2) g/dL Albumin (3.5-5.0) g/dL Urine Color Colorless Urine Appearance Clear (Clear) Urine pH 5.5 (5.0-8.0) Ur Specific [place] 1.011 (1.001-1.035) Urine Protein Negative (Negative) Urine Glucose (UA) 4+ H (Negative) Urine Ketones Negative (Negative) Urine Blood Negative (Negative) Urine Nitrite Negative (Negative) Urine Bilirubin Negative (Negative) Urine Urobilinogen <2.0 (<2.0) mg/dL Ur Leukocyte Esterase Negative (Negative) Influenza Type A (PCR) (Not Detectd) Influenza Type B (PCR) (Not Detectd) RSV (PCR) (Not Detectd) SARS-CoV-2 (PCR) (Not Detectd) 10/24/24 10/24/24 Range/Units 17:43 17:43 WBC (3.8-10.6) k/uL RBC (4.30-5.90) m/uL Hgb (13.0-17.5) gm/dL Hct (39.0-53.0) % MCV (80.0-100.0) fL MCH (25.0-35.0) pg MCHC (31.0-37.0) g/dL RDW (11.5-15.5) % Plt Count (150-450) k/uL MPV Neutrophils % % Lymphocytes % % Monocytes % % Eosinophils % % Basophils % % Neutrophils # (1.3-7.7) k/uL Lymphocytes # (1.0-4.8) k/uL Monocytes # (0-1.0) k/uL Eosinophils # (0-0.7) k/uL Basophils # (0-0.2) k/uL Manual Slide Review Anisocytosis PT (10.0-12.5) sec INR (<1.2) APTT (22.0-30.0) sec Sodium 137 (137-145) mmol/L Potassium 4.7 (3.5-5.1) mmol/L Chloride 106 (98-107) mmol/L Carbon Dioxide 23 (22-30) mmol/L Anion Gap 8 mmol/L BUN 44 H (9-20) mg/dL Creatinine 1.93 H (0.66-1.25) mg/dL Est GFR (CKD-EPI)AfAm 39 (>60 ml/min/1.73 sqM) Est GFR (CKD-EPI)NonAf 34 (>60 ml/min/1.73 sqM) Glucose 153 H (74-99) mg/dL Calcium 9.0 (8.4-10.2) mg/dL Magnesium 2.4 H (1.6-2.3) mg/dL Total Bilirubin 0.5 (0.2-1.3) mg/dL AST 31 (17-59) U/L ALT 35 (4-49) U/L Alkaline Phosphatase 54 (38-126) U/L NT-Pro-B Natriuret Pep 114 pg/mL Total Protein 5.5 L (6.3-8.2) g/dL Albumin 3.5 (3.5-5.0) g/dL Urine Color Urine Appearance (Clear) Urine pH (5.0-8.0) Ur Specific [place] (1.001-1.035) Urine Protein (Negative) Urine Glucose (UA) (Negative) Urine Ketones (Negative) Urine Blood (Negative) Urine Nitrite (Negative) Urine Bilirubin (Negative) Urine Urobilinogen (<2.0) mg/dL Ur Leukocyte Esterase (Negative) Influenza Type A (PCR) Not Detected (Not Detectd) Influenza Type B (PCR) Not Detected (Not Detectd) RSV (PCR) Not Detected (Not Detectd) SARS-CoV-2 (PCR) Not Detected (Not Detectd) - EKG Data -: EKG Interpreted by Me EKG Comments: 12-lead Electrocardiogram Interpretation Note EKG was reviewed and interpreted by myself. 12-lead ECG performed at 1734 is interpreted by me as revealing normal sinus rhythm at a rate of 69 beats per minute. [place] is normal. MO interval is 193 ms, QRS duration is 107 ms, QTc is 434 ms.. There were no ST or T wave abnormalities to suggest myocardial ischemia or injury. R wave progression across the precordium was satisfactory. By my interpretation this EKG is non-diagnostic for acute ischemia. Disposition Clinical Impression: Tracheobronchitis, COPD (chronic obstructive pulmonary disease) Disposition: HOME SELF-CARE Condition: Good Instructions (If sedation given, give patient instructions): Acute Bronchitis (ED), COPD (Chronic Obstructive Pulmonary Disease) (ED) Prescriptions: predniSONE [Deltasone] 40 mg PO DAILY 5 Days #10 tab Albuterol Inhaler [Ventolin Hfa Inhaler] 2 puff INHALATION QID #8 gm Azithromycin [Zithromax] 250 mg PO DAILY 4 Days #4 tab Is patient prescribed a controlled substance at d/c from ED?: No Referrals: Nonstaff,Physician [Primary Care Provider] - 1-2 days Forms: Area PCPs Time of Disposition: 20:50
[2024-10-24] MEDS: AZITHROMYCIN 500 MG TAB PO STA (21:01)
[2024-10-24 21:03] VITALS: BP 156/68; PULSE 72; RESP 17
== END 2024-10-24 21:23 | disposition home or self-care (01) ==
LOC: EC 17:03
DX: J44.89 Other specified chronic obstructive pulmonary disease (principal); I13.0 Hypertensive heart and chronic kidney disease with heart failure and stage 1 through stage 4 chronic kidney disease, or unspecified chronic kidney disease; E11.22 Type 2 diabetes mellitus with diabetic chronic kidney disease; N18.9 Chronic kidney disease, unspecified; I50.9 Heart failure, unspecified; Z88.8 Allergy status to other drugs, medicaments and biological substances; Z79.4 Long term (current) use of insulin; Z79.899 Other long term (current) drug therapy; Z86.73 Personal history of transient ischemic attack (TIA), and cerebral infarction without residual deficits; Z87.891 Personal history of nicotine dependence
CPT/HCPCS: 36415; 94640; 93005; 83880; 80053; 83735; 85025; 85610; 85730; 81003; 87636; 71046; 99285; 96365; 96366; 96375; J3475; J2919

== ENCOUNTER 2024-11-04 19:29 | Emergency (ER) | payer MEDICARE, OTHER ==
[2024-11-04 19:33] LABS: Glucose,Whole Blood 90 mg/dL (70-110)
[2024-11-04 19:36] VITALS: RESP 18; TEMP 97.9
--- NOTE | 2024-11-04 19:58 | ED ---
General Adult HPI - General Chief complaint: Dizziness Stated complaint: Dizziness Time Seen by Provider: 11/04/24 19:35 Source: patient, EMS, RN notes reviewed, old records reviewed Mode of arrival: EMS - History of Present Illness Initial comments: This is a 74-year-old male who presents to the emergency department stating that he took 2 units of his short acting insulin prior to eating he ate what he states is a normal meal and took 18 units of his long-acting insulin. Patient states he laid down and started to feel lightheaded so he got up to walk around and he almost fell over and his grandson helped him down they called EMS EMS stated blood glucose on him and it was 51. They gave him an amp of dextrose and he was feeling considerably better. Patient denies any fever chills or cough. Patient denies chest pain difficulty breathing or shortness of breath. Patient denies any abdominal pain patient has nausea vomiting or diarrhea. Currently patient states he feels at his baseline. - Related Data Home Medications Medication Instructions Recorded Confirmed Atorvastatin [Lipitor] 80 mg PO HS 10/10/18 10/24/24 Isosorbide Mononitrate ER [Imdur] 60 mg PO DAILY 10/10/18 10/24/24 Omeprazole [PriLOSEC] 20 mg PO BID 10/10/18 10/24/24 Rivaroxaban [Xarelto] 20 mg PO DAILY 10/10/18 10/24/24 Albuterol Sulfate [Albuterol 2 puff INHALATION RT-Q4H PRN 01/27/20 10/24/24 Sulfate Hfa] Insulin Aspart [NovoLOG Flexpen] 5 - 15 units SQ AC-TID 01/27/20 10/24/24 Insulin Degludec [Tresiba 18 units SQ BID 01/27/20 10/24/24 Flextouch U-100 Pen] Montelukast [Singulair] 10 mg PO HS 01/27/20 10/24/24 Dapagliflozin Propanediol [Farxiga] 5 mg PO HS 08/09/20 10/24/24 Tamsulosin [Flomax] 0.8 mg PO PC-SUPPER 08/09/20 10/24/24 Potassium Chloride ER [K-Dur 10] 10 meq PO DAILY 02/22/21 10/24/24 Budesonide/Glycopyr/Formoterol 2 puff INHALATION RT-BID 01/08/24 10/24/24 [Breztri Aerosphere Inhaler] Cyanocobalamin (Vitamin B-12) 1,000 mcg PO DAILY 01/08/24 10/24/24 [Vitamin B-12] Furosemide [Lasix] 20 mg PO DAILY 01/08/24 10/24/24 Levalbuterol Nebulized [Xopenex 1.25 mg INHALATION RT-Q8H PRN 01/08/24 10/24/24 Nebulized] Solifenacin Succinate 5 mg PO DAILY 01/08/24 10/24/24 allopurinoL [Zyloprim] 100 mg PO HS 01/08/24 10/24/24 Ferrous Sulfate [Iron (65 MG 325 mg PO DAILY 04/11/24 10/24/24 Elemental)] rOPINIRole HCL [Requip] 0.5 mg PO HS 07/07/24 10/24/24 Ipratropium-Albuterol Nebulize 3 ml INHALATION RT-Q4H PRN 08/05/24 10/24/24 [Duoneb 0.5 mg-3 mg/3 ml Soln] HYDROcodone/APAP 10-325MG [Atkins 1 tab PO Q6H PRN 10/24/24 10/24/24 10-325] Ozempic 2mg/3ml 0.5 mg SQ TU 10/24/24 10/24/24 Valsartan 160 mg PO BID 10/24/24 10/24/24 hydroCHLOROthiazide [Hydrodiuril] 25 mg PO DAILY 10/24/24 10/24/24 Previous Rx's Medication Instructions Recorded Clopidogrel [Plavix] 75 mg PO DAILY #30 tablet 01/11/24 DULoxetine HCL [Cymbalta] 30 mg PO DAILY #30 cap 01/11/24 NIFEdipine XL [Procardia XL] 90 mg PO DAILY #30 tab 07/08/24 hydrALAZINE HCL [Apresoline] 50 mg PO TID #90 tab 08/06/24 Albuterol Inhaler [Ventolin Hfa 2 puff INHALATION QID #8 gm 10/24/24 Inhaler] Azithromycin [Zithromax] 250 mg PO DAILY 4 Days #4 tab 10/24/24 predniSONE [Deltasone] 40 mg PO DAILY 5 Days #10 tab 10/24/24 Azithromycin [Zithromax Tri-Fernando (3 500 mg PO DAILY 3 Days #3 tab 11/04/24 tabs)] Allergies Allergy/AdvReac Type Severity Reaction Status Date / Time cortisone Allergy Anaphylaxis, Verified 11/04/24 19:36 tongue swelling Review of Systems ROS Statement: Those systems with pertinent positive or pertinent negative responses have been documented in the HPI. ROS Other: All systems not noted in ROS Statement are negative. 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 History of Any Multi-Drug Resistant Organisms: None Reported Past Surgical History: Appendectomy, Back Surgery, Cholecystectomy, Heart Catheterization, Joint Replacement, Orthopedic Surgery Additional Past Surgical History / Comment(s): BILAT TKA &MICHAEL. LT SHOULDER SX/bilateral total shoulder replacements. RT ROTATOR CUFF REPAIR X 2. COLONOSCOPY Past Anesthesia/Blood Transfusion Reactions: No Reported Reaction Additional Past Anesthesia/Blood Transfusion Reaction / Comment(s): Pt unsure if he has received blood. Past Psychological History: No Psychological Hx Reported Smoking Status: Former smoker Past Alcohol Use History: None Reported Past Drug Use History: None Reported - Past Family History Mother History Unknown: Yes Family Medical History: No Reported History Additional Family Medical History / Comment(s): Smoker. Father Sister(s) History Unknown: Yes Family Medical History: Vascular Disorder Additional Family Medical History / Comment(s): ASHD General Exam - General Exam Comments Initial Comments: GENERAL: Patient is well-developed and well-nourished. Patient is nontoxic and well- hydrated and is in no acute distress. ENT: Neck is soft and supple. No significant lymphadenopathy is noted. Oropharynx is clear. Moist mucous membranes. Neck has full range of motion without eliciting any pain. EYES: The sclera were anicteric and conjunctiva were pink and moist. Patient has slight nystagmus and he states he is legally blind. Extraocular movements were intact and pupils were equal round and reactive to light. Eyelids were unremarkable. PULMONARY: Unlabored respirations. Good breath sounds bilaterally. No audible rales rhonchi or wheezing was noted. CARDIOVASCULAR: There is a regular rate and rhythm without any murmurs gallops or rubs. ABDOMEN: Soft and nontender with normal bowel sounds. No palpable organomegaly was noted. There is no palpable pulsatile mass. SKIN: Skin is clear with no lesions or rashes and otherwise unremarkable. NEUROLOGIC: Patient is alert and oriented x3. Cranial nerves II through XII are grossly intact. Motor and sensory are also intact. Normal speech, volume and content. Symmetrical smile. MUSCULOSKELETAL: Normal extremities with adequate strength and full range of motion. No lower extremity swelling or edema. No calf tenderness. LYMPHATICS: No significant lymphadenopathy is noted PSYCHIATRIC: Normal psychiatric evaluation. Course Vital Signs 11/04/24 19:32 Temperature 97.9 F Pulse Rate 61 Respiratory 18 Rate Blood Pressure 142/70 O2 Sat by Pulse 99 Oximetry Medical Decision Making - Medical Decision Making EKG is interpreted by myself. EKG shows a sinus bradycardia at 59 bpm NE was 196 QRS is 93 QT interval is 393 QTc is 392. Patient's EKG shows no ST segment elevation or depression. Was pt. sent in by a medical professional or institution (, PA, RN CHARGE, urgent care, hospital, or long-term...) When possible be specific @ -No Did you speak to anyone other than the patient for history (EMS, parent, family, police, friend...)? What history was obtained from this source @ -No Did you review nursing and triage notes (agree or disagree)? Why? @ -I reviewed and agree with nursing and triage notes Were old charts reviewed (outside hosp., previous admission, EMS record, old EKG, old radiological studies, urgent care reports/EKG's, long-term records)? Report findings @ -No old charts were reviewed Differential Diagnosis? @ -Differential Altered Mental Status: Hypoglycemia, DKA, hypercapnia, ETOH, overdose, CO poisoning, trauma, myxedema coma, HTN encephalopathy, infection, encephalitis, psychosis, intercranial hemorrhage, hepatic encephalopathy, meningitis, CVA, this is not meant to be an all-inclusive list EKG interpreted by me (3pts min.). @ -As above X-rays interpreted by me (1pt min.). @ -X-ray shows questionable right lower lobe infiltrate CT interpreted by me (1pt min.). @ -None done U/S interpreted by me (1pt. min.). @ -None done What testing was considered but not performed or refused? (CT, X-rays, U/S, labs)? Why? @ -None What meds were considered but not given or refused? Why? @ -None Did you discuss the management of the patient with other professionals (professionals i.e. , PA, RN CHARGE, lab, RT, psych nurse, clinical social work therapist, russian teacher, teacher, patrol officer, nurse case management)? Give summary @ -No Was smoking cessation discussed for >3mins.? @ -No Was critical care preformed (if so, how long)? @ -No Were there social determinants of health that impacted care today? How? (Homelessness, low income, unemployed, alcoholism, drug addiction, transportation, low edu. Level, literacy, decrease access to med. care, senior living, rehab)? @ -No Was there de-escalation of care discussed even if they declined (Discuss DNR or withdrawal of care, Hospice)? DNR status @ -No What co-morbidities impacted this encounter? (DM, HTN, Smoking, COPD, CAD, Cancer, CVA, ARF, Chemo, Hep., AIDS, mental health diagnosis, sleep apnea, morbid obesity)? @ -None Was patient admitted / discharged? Hospital course, mention meds given and route, prescriptions, significant lab abnormalities, going to OR and other pertinent info. @ -Patient's kidney function is a little worse than baseline. Patient also has a possible pneumonia. Patient is no longer hypoglycemic because he was given dextrose in the ambulance and was able to eat in the ER. I indicated to the patient that it would keep him overnight but he did not want to stay overnight because he wants to see his oncologist for his leukemia in the morning so he asked to be discharged. Undiagnosed new problem with uncertain prognosis? @ -No Drug Therapy requiring intensive monitoring for toxicity (Heparin, Nitro, Insulin, Cardizem)? @ -No Were any procedures done? @ -No Diagnosis/symptom? @ -Pneumonia Acute, or Chronic, or Acute on Chronic? @ -Acute Uncomplicated (without systemic symptoms) or Complicated (systemic symptoms)? @ -Complicated Side effects of treatment? @ -No Exacerbation, Progression, or Severe Exacerbation? @ -No Poses a threat to life or bodily function? How? (Chest pain, [place], [place], pneumonia, PE, COPD, DKA, ARF, appy, cholecystitis, CVA, Diverticulitis, Homicidal, Suicidal, threat to staff... and all critical care pts) @ -Yes this could lead to sepsis and endorgan dysfunction Diagnosis/symptom? @ -Hypoglycemia Acute, or Chronic, or Acute on Chronic? @ -Acute Uncomplicated (without systemic symptoms) or Complicated (systemic symptoms)? @ -complicated Side effects of treatment? @ -None Exacerbation, Progression, or Severe Exacerbation] @ -No Poses a threat to life or bodily function? @ -No Diagnosis/symptom? @ -SERJIO Acute, or Chronic, or Acute on Chronic? @ -Acute Uncomplicated (without systemic symptoms) or Complicated (systemic symptoms)? @ -Complicated Side effects of treatment? @ -None Exacerbation, Progression, or Severe Exacerbation] @ -No Poses a threat to life or bodily function? @ -No - Lab Data Result diagrams: 11/04/24 19:39 11/04/24 19:39 Lab Results 11/04/24 11/04/24 11/04/24 Range/Units 19:32 19:39 19:39 WBC 16.98 H (4.50-10.00) 10*3/uL RBC 4.59 (4.40-5.60) 10*6/uL Hgb 11.9 L (13.0-17.0) g/dL Hct 38.1 L (39.6-50.0) % MCV 83.0 (80.0-97.0) fL MCH 25.9 L (27.0-32.0) pg MCHC 31.2 L (32.0-37.0) g/dL Plt Count 174 (140-440) 10*3/uL MPV 10.0 (9.5-12.2) fL Immature Gran % (Auto) 0.4 % Immature Gran # 0.06 H (0.00-0.04) 10*3/uL Sodium 138 (137-145) mmol/L Potassium 3.7 (3.5-5.1) mmol/L Chloride 108 H (98-107) mmol/L Carbon Dioxide 23 (22-30) mmol/L Anion Gap 7 mmol/L BUN 47 H (9-20) mg/dL Creatinine 2.28 H (0.66-1.25) mg/dL Est GFR (CKD-EPI)AfAm 32 (>60 ml/min/1.73 sqM) Est GFR (CKD-EPI)NonAf 28 (>60 ml/min/1.73 sqM) Glucose 76 (74-99) mg/dL POC Glucose (mg/dL) 90 (70-110) mg/dL POC Glu Leather Polisher ID Weldon Sánchez Calcium 8.9 (8.4-10.2) mg/dL Total Bilirubin 0.4 (0.2-1.3) mg/dL AST 27 (17-59) U/L ALT 40 (4-49) U/L Alkaline Phosphatase 53 (38-126) U/L Total Protein 5.3 L (6.3-8.2) g/dL Albumin 3.3 L (3.5-5.0) g/dL Disposition Clinical Impression: Pneumonia, SERJIO (acute kidney injury), Hypoglycemia Disposition: HOME SELF-CARE Prescriptions: Azithromycin [Zithromax Tri-Fernando (3 tabs)] 500 mg PO DAILY 3 Days #3 tab Is patient prescribed a controlled substance at d/c from ED?: No Referrals: Sugar Cummins MD [Primary Care Provider] - 1-2 days Time of Disposition: 21:19
--- NOTE | 2024-11-04 20:23 | XR ---
EXAMINATION TYPE: XR chest 2V DATE OF EXAM: 11/04/2024 8:13 PM COMPARISON: 10/24/2024 CLINICAL INDICATION: Male, 74 years old with history of Difficulty breathing , TECHNIQUE: XR chest 2V view(s) obtained. FINDINGS: The heart size is normal. The pulmonary vasculature is normal. There is some silhouetting of the right heart border. Right lower lung field increased opacity is pre sent. Correlate for pneumonia or atelectasis IMPRESSION: 1. Clinical correlation recommended for right middle lobe pneumonia or atelectasis. [facility], , 11/04/2024 8:21 PM
[2024-11-04 20:25] LABS: HCT 38.1 % (39.6-50.0); HGB 11.9 g/dL (13.0-17.0); MCH 25.9 pg (27.0-32.0); MCHC 31.2 g/dL (32.0-37.0); Platelet Count 174 10*3/uL (140-440); RBC 4.59 10*6/uL (4.40-5.60); RDW 16.7 % (11.5-14.5); WBC 16.98 10*3/uL (4.50-10.00)
[2024-11-04 20:52] LABS: Band Neutrophils % 1 %; Lymphocytes # (M) 10.19 k/uL (1.0-4.8); Monocytes # (M) 0.68 k/uL (0-1.0); Neutrophils # (M) 6.11 k/uL (1.3-7.7); Neutrophils % (M) 35 %; Nucleated Red Blood Cells 0 /100 WBC (0-0); Total Cells Counted 100
[2024-11-04 20:57] LABS: ALT 40 U/L (4-49); AST 27 U/L (17-59); African American GFR (CKD) 32 (>60 ml/min/1.73 sqM); Albumin 3.3 g/dL (3.5-5.0); Alkaline Phosphatase 53 U/L (38-126); Anion Gap 7 mmol/L; Blood Urea Nitrogen 47 mg/dL (9-20); Calcium 8.9 mg/dL (8.4-10.2); Carbon Dioxide 23 mmol/L (22-30); Chloride 108 mmol/L (98-107); Glucose 76 mg/dL (74-99); Non-African American GFR(CKD) 28 (>60 ml/min/1.73 sqM); Potassium 3.7 mmol/L (3.5-5.1); Sodium 138 mmol/L (137-145); Total Bilirubin 0.4 mg/dL (0.2-1.3); Total Protein 5.3 g/dL (6.3-8.2)
[2024-11-04 21:15] LABS: Anisocytosis (M) Present; Ovalocytes Present
[2024-11-04] MEDS: AZITHROMYCIN 500 MG TAB PO STA (21:15)
[2024-11-04] MEDS: SODIUM CHLORIDE 0.9% 500 ML 500 ML IV ONE (21:16)
[2024-11-04] MEDS: cefTRIAXone IN SWFI 1,000 MG/10 ML SYRINGE IVP STA (21:18)
[2024-11-04 21:37] VITALS: BP 150/64; PULSE 62
== END 2024-11-04 21:47 | disposition home or self-care (01) ==
LOC: EC 19:29
DX: J18.9 Pneumonia, unspecified organism (principal); N17.9 Acute kidney failure, unspecified; E11.649 Type 2 diabetes mellitus with hypoglycemia without coma; Z87.891 Personal history of nicotine dependence; Z86.73 Personal history of transient ischemic attack (TIA), and cerebral infarction without residual deficits; Z88.8 Allergy status to other drugs, medicaments and biological substances
CPT/HCPCS: 36415; 93005; 80053; 85025; 71046; 99284; 96374; J0696

== ENCOUNTER 2024-11-09 23:17 | Observation (INO) | payer MEDICARE, OTHER ==
[2024-11-09 23:41] LABS: Glucose,Whole Blood 341 mg/dL (70-110)
[2024-11-10] MEDS: CLOPIDOGREL 75 MG TAB PO STA (00:19)
[2024-11-10 00:22] LABS: VBG PH 7.42 (7.31-7.41)
[2024-11-10 00:23] LABS: ALT 40 U/L (4-49); AST 63 U/L (17-59); African American GFR (CKD) 41 (>60 ml/min/1.73 sqM); Albumin 3.3 g/dL (3.5-5.0); Alkaline Phosphatase 66 U/L (38-126); Anion Gap 12 mmol/L; Blood Urea Nitrogen 53 mg/dL (9-20); Calcium 9.3 mg/dL (8.4-10.2); Carbon Dioxide 17 mmol/L (22-30); Chloride 105 mmol/L (98-107); Glucose 359 mg/dL (74-99); Lipase 153 U/L (23-300); Magnesium 1.9 mg/dL (1.6-2.3); Non-African American GFR(CKD) 36 (>60 ml/min/1.73 sqM); Phosphorus 3.2 mg/dL (2.5-4.5); Potassium 3.9 mmol/L (3.5-5.1); Sodium 134 mmol/L (137-145); Total Bilirubin 0.5 mg/dL (0.2-1.3); Total Protein 5.3 g/dL (6.3-8.2)
[2024-11-10 00:26] LABS: Appearance,Urine Cloudy (Clear); Bacteria,Urine Rare /hpf; Bilirubin,Urine Negative (Negative); Blood,Urine Negative (Negative); Budding Yeast,Urine Rare /hpf; Color,Urine Yellow; Glucose,Urine (UA) Trace (Negative); Hyaline Casts,Urine 3 /lpf (0-2); Ketones,Urine Negative (Negative); Leukocyte Esterase,Urine Negative (Negative); Mucus,Urine Rare /hpf; Nitrite,Urine Negative (Negative); Protein,Urine 1+ (Negative); RBC,Urine 1 /hpf (0-5); Specific Gravity,Urine 1.021 (1.001-1.035); Squamous Epithelial Cell,Urine 2 /hpf (0-4); Urobilinogen,Urine <2.0 mg/dL (<2.0); WBC,Urine 3 /hpf (0-5)
[2024-11-10 00:28] LABS: INR 1.1 (<1.2); Partial Thromboplastin Time 23.3 sec (22.0-30.0); Prothrombin Time 11.6 sec (10.0-12.5)
[2024-11-10 00:31] LABS: NT-Pro-B-Type Natriuretic Pept 792 pg/mL
[2024-11-10 00:32] LABS: HGB 11.8 g/dL (13.0-17.0); MCH 26.3 pg (27.0-32.0); MCHC 31.9 g/dL (32.0-37.0); MCV 82.4 fL (80.0-97.0); Platelet Count 193 10*3/uL (140-440); RBC 4.49 10*6/uL (4.40-5.60); RDW 16.1 % (11.5-14.5); WBC 27.29 10*3/uL (4.50-10.00)
[2024-11-10] MEDS: cefTRIAXone IN SWFI 1,000 MG/10 ML SYRINGE IVP STA (01:38)
[2024-11-10] MEDS: AZITHROMYCIN 500 MG in SODIUM CHLORIDE 0.9% 250 ML IVPB STA (01:44)
[2024-11-10 01:48] LABS: Lymphocytes # (M) 11.19 k/uL (1.0-4.8); Monocytes # (M) 0.55 k/uL (0-1.0); Neutrophils # (M) 15.56 k/uL (1.3-7.7); Neutrophils % (M) 57 %; Nucleated Red Blood Cells 0 /100 WBC (0-0); Total Cells Counted 200
[2024-11-10 01:59] LABS: Poikilocytosis (M) Present
--- NOTE | 2024-11-10 02:15 | XR ---
EXAM: XR Chest, 2 Views CLINICAL HISTORY: ITS.REASON XR Reason: Chest Pain TECHNIQUE: Frontal and lateral views of the chest. COMPARISON: No relevant prior studies available. FINDINGS: Lungs: Unremarkable. No consolidation. Pleural space: Unremarkable. No pneumothorax. Heart: Unremarkable. No cardiomegaly. Mediastinum: Unremarkable. Bones/joints: Bilateral reverse shoulder arthroplasties. IMPRESSION: No acute findings in the chest.
[2024-11-10] MEDS ORDERED: NITROGLYCERIN SL TABS 0.4 MG TAB SUBLINGUAL PRN (02:43)
[2024-11-10] MEDS ORDERED: MORPHINE SULFATE 2 MG/ML SYRINGE IVP PRN (02:43)
[2024-11-10] MEDS ORDERED: ALBUTEROL NEBULIZED 2.5 MG/3 ML INHALATION PRN (02:46)
[2024-11-10] MEDS ORDERED: HYDROcodone/APAP 10-325MG 1 EACH TAB PO PRN (02:46)
[2024-11-10] MEDS ORDERED: IPRATROPIUM-ALBUTEROL 3 ML NEB INHALATION PRN (02:46)
--- NOTE | 2024-11-10 02:48 | ED ---
General Adult HPI - General Chief complaint: Shortness of Breath Stated complaint: shortness of breath Time Seen by Provider: 11/09/24 23:25 Source: patient, edi analyst Mode of arrival: EMS Limitations: no limitations - History of Present Illness Initial comments: Patient is a 74-year-old gentleman the past medical history of COPD, leukemia, CAD, prior CVA, DVT presenting today for chest pain. Patient states that he was recently diagnosed and treated for pneumonia after presenting here about 5 days ago. States he has had a dry cough nonproductive of sputum or hemoptysis. He was treated with steroids and azithromycin and has 1 day left of his course. States tonight he went to bed and started to feel his heart pounding. Pain is intermittent and located in the left side of his chest. He received 2 sublingual nitroglycerin by EMS which has since resolved his pain. He was not given aspirin as he is allergic to this and typically takes Plavix instead. Has mild associated shortness of breath. Denies dizziness or lightheadedness, fevers, chills, lower extremity swelling, abdominal pain, nausea, vomiting. - Related Data Home Medications Medication Instructions Recorded Confirmed Atorvastatin [Lipitor] 80 mg PO HS 10/10/18 10/24/24 Isosorbide Mononitrate ER [Imdur] 60 mg PO DAILY 10/10/18 10/24/24 Omeprazole [PriLOSEC] 20 mg PO BID 10/10/18 10/24/24 Rivaroxaban [Xarelto] 20 mg PO DAILY 10/10/18 10/24/24 Albuterol Sulfate [Albuterol 2 puff INHALATION RT-Q4H PRN 01/27/20 10/24/24 Sulfate Hfa] Insulin Aspart [NovoLOG Flexpen] 5 - 15 units SQ AC-TID 01/27/20 10/24/24 Insulin Degludec [Tresiba 18 units SQ BID 01/27/20 10/24/24 Flextouch U-100 Pen] Montelukast [Singulair] 10 mg PO HS 01/27/20 10/24/24 Dapagliflozin Propanediol [Farxiga] 5 mg PO HS 08/09/20 10/24/24 Tamsulosin [Flomax] 0.8 mg PO PC-SUPPER 08/09/20 10/24/24 Potassium Chloride ER [K-Dur 10] 10 meq PO DAILY 02/22/21 10/24/24 Budesonide/Glycopyr/Formoterol 2 puff INHALATION RT-BID 01/08/24 10/24/24 [Breztri Aerosphere Inhaler] Cyanocobalamin (Vitamin B-12) 1,000 mcg PO DAILY 01/08/24 10/24/24 [Vitamin B-12] Furosemide [Lasix] 20 mg PO DAILY 01/08/24 10/24/24 Levalbuterol Nebulized [Xopenex 1.25 mg INHALATION RT-Q8H PRN 01/08/24 10/24/24 Nebulized] Solifenacin Succinate 5 mg PO DAILY 01/08/24 10/24/24 allopurinoL [Zyloprim] 100 mg PO HS 01/08/24 10/24/24 Ferrous Sulfate [Iron (65 MG 325 mg PO DAILY 04/11/24 10/24/24 Elemental)] rOPINIRole HCL [Requip] 0.5 mg PO HS 07/07/24 10/24/24 Ipratropium-Albuterol Nebulize 3 ml INHALATION RT-Q4H PRN 08/05/24 10/24/24 [Duoneb 0.5 mg-3 mg/3 ml Soln] HYDROcodone/APAP 10-325MG [[place] 1 tab PO Q6H PRN 10/24/24 10/24/24 10-325] Ozempic 2mg/3ml 0.5 mg SQ TU 10/24/24 10/24/24 Valsartan 160 mg PO BID 10/24/24 10/24/24 hydroCHLOROthiazide [Hydrodiuril] 25 mg PO DAILY 10/24/24 10/24/24 Previous Rx's Medication Instructions Recorded Clopidogrel [Plavix] 75 mg PO DAILY #30 tablet 01/11/24 DULoxetine HCL [Cymbalta] 30 mg PO DAILY #30 cap 01/11/24 NIFEdipine XL [Procardia XL] 90 mg PO DAILY #30 tab 07/08/24 hydrALAZINE HCL [Apresoline] 50 mg PO TID #90 tab 08/06/24 Albuterol Inhaler [Ventolin Hfa 2 puff INHALATION QID #8 gm 10/24/24 Inhaler] Azithromycin [Zithromax] 250 mg PO DAILY 4 Days #4 tab 10/24/24 predniSONE [Deltasone] 40 mg PO DAILY 5 Days #10 tab 10/24/24 Azithromycin [Zithromax Tri-Fernando (3 500 mg PO DAILY 3 Days #3 tab 11/04/24 tabs)] Allergies Allergy/AdvReac Type Severity Reaction Status Date / Time cortisone Allergy Anaphylaxis, Verified 11/04/24 19:36 tongue swelling Review of Systems ROS Statement: Those systems with pertinent positive or pertinent negative responses have been documented in the HPI. ROS Other: All systems not noted in ROS Statement are negative. 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 History of Any Multi-Drug Resistant Organisms: None Reported Past Surgical History: Appendectomy, Back Surgery, Cholecystectomy, Heart Catheterization, Joint Replacement, Orthopedic Surgery Additional Past Surgical History / Comment(s): BILAT TKA &MICHAEL. LT SHOULDER SX/bilateral total shoulder replacements. RT ROTATOR CUFF REPAIR X 2. COLONOSCOPY Past Anesthesia/Blood Transfusion Reactions: No Reported Reaction Additional Past Anesthesia/Blood Transfusion Reaction / Comment(s): Pt unsure if he has received blood. Past Psychological History: No Psychological Hx Reported Smoking Status: Former smoker Past Alcohol Use History: None Reported Past Drug Use History: None Reported - Past Family History Mother History Unknown: Yes Family Medical History: No Reported History Additional Family Medical History / Comment(s): Smoker. Father Sister(s) History Unknown: Yes Family Medical History: Vascular Disorder Additional Family Medical History / Comment(s): ASHD General Exam - General Exam Comments Initial Comments: PE: CONSTITUTIONAL: No apparent distress, well appearing SKIN: Warm, dry, no jaundice, hives or petechiae EYES: Pupils are equally round, extraocular movements intact, persistent right sided nystagmus, patient states is chronic for him and he is legally blind, clear conjunctiva, non-icteric sclera HENT: Normocephalic, atraumatic, moist mucus membranes, oropharynx clear without exudates NECK: , Full range of motion, normal appearance PULMONARY: Clear to auscultation without wheezes, rhonchi, or rales, normal excursion, no accessory muscle use and no stridor CARDIOVASCULAR: Regular rate, rhythm, normal S1 and S2. No appreciated murmurs, rubs or gallops. Strong radial pulses with intact distal perfusion. No lower extremity edema GASTROINTESTINAL: Soft, active bowel sounds throughout, non-tender, non- distended, no palpable masses, no rebound or guarding. No hepatosplenomegaly GENITOURINARY: MUSCULOSKELETAL: Extremities have no gross deformity, no edema, redness, or swelling. No calf swelling NEUROLOGIC:_a/o x 3, GCS 15, normal mentation and speech. Moves all extremities x 4 without motor or sensory deficit PSYCHIATRIC:_normal mood and affect, thought process is clear and linear Limitations: no limitations Course Vital Signs 11/09/24 11/09/24 11/10/24 23:22 23:25 01:15 Temperature 98 F Pulse Rate 66 65 56 L Respiratory 12 16 Rate Blood Pressure 158/60 125/56 O2 Sat by Pulse 97 97 98 Oximetry 11/10/24 03:00 Temperature Pulse Rate 62 Respiratory 18 Rate Blood Pressure 143/65 O2 Sat by Pulse 97 Oximetry EKG Findings - EKG Comments: EKG Findings:: Sinus rhythm, rate 66 bpm normal intervals, left axis deviation, no clear ST elevations or depressions, question Q-wave lead III, no STEMI Medical Decision Making - Medical Decision Making Was pt. sent in by a medical professional or institution (, PA, PAROLE OFFICER, urgent care, hospital, or correction...) When possible be specific @ -No Did you speak to anyone other than the patient for history (EMS, parent, family, police, friend...)? What history was obtained from this source @ -No Did you review nursing and triage notes (agree or disagree)? Why? @ -I reviewed and agree with nursing and triage notes Were old charts reviewed (outside hosp., previous admission, EMS record, old EKG, old radiological studies, urgent care reports/EKG's, correction records)? Report findings @ -Medical records reviewed on chart review patient was here on 10/24/2024 for COPD exacerbation, discharged home with azithromycin and prednisone, here on 11/04/2024 for dizziness, apparently was hypoglycemic at that time but requested to be discharged home so was discharged home Reviewed chest x-ray performed on 11/04/24, s which was read as concerning for right middle lobe pneumonia Differential Diagnosis (chest pain, altered mental status, abdominal pain women, abdominal pain men, vaginal bleeding, weakness, fever, dyspnea, syncope, headache, dizziness, GI bleed, back pain, seizure, CVA, palpatations, mental health, musculoskeletal)? Differential Chest Pain: Stable Angina, Unstable Angina, STEMI, NSTEMI Aortic Dissection, pericarditis, pleurisy, chostochondirits, Pneumothorax, Musculoskeletal, Esophageal Spasm GERD, Cholecystitis, Pancreatitis, Zoster, this is not meant to be an all- inclusive list. EKG interpreted by me (3pts min.). @ -As above X-rays interpreted by me (1pt min.). @I personally reviewed chest x-ray, to myself it appeared patient may have right sided lung consolidation, appears stable from chest x-ray obtained 04/06/2025 however radiologist read is no acute process and this does not appear changed from x-ray performed on 11/04/2024, patient does have a significant leukocytosis and persistent cough so Rocephin and azithromycin was ordered to cover for persistent pneumonia CT interpreted by me (1pt min.). @ -None done U/S interpreted by me (1pt. min.). @ -None done What testing was considered but not performed or refused? (CT, X-rays, U/S, labs)? Why? @ -None What meds were considered but not given or refused? Why? @ -None Did you discuss the management of the patient with other professionals (professionals i.e. , PA, PAROLE OFFICER, lab, RT, psych nurse, certified social workers in health care, criminal justice lawyer, teacher, security vehicle patrol officer, employment evaluator/case manager)? Give summary @ -No Was smoking cessation discussed for >3mins.? @ -No Was critical care preformed (if so, how long)? @ -No Were there social determinants of health that impacted care today? How? (Homelessness, low income, unemployed, alcoholism, drug addiction, transportatio n, low edu. Level, literacy, decrease access to med. care, long-term, rehab)? @ -No Was there de-escalation of care discussed even if they declined (Discuss DNR or withdrawal of care, Hospice)? @ -No What co-morbidities impacted this encounter? (DM, HTN, Smoking, COPD, CAD, Cancer, CVA, ARF, Chemo, Hep., AIDS, mental health diagnosis, sleep apnea, morbid obesity)? @ -Prior CVA, CAD, COPD, CHF, DVT, leukemia Was patient admitted / discharged? Hospital course, mention meds given and route, prescriptions, significant lab abnormalities, going to OR and other pertinent info. Admission- this is a 74-year-old male history, leukemia, CAD presenting today for intermittent left-sided chest pain. Started this evening when as he was going to bed. Recently was treated for pneumonia. On last day of steroids antibiotics. Vital signs stable on arrival. Pain now resolved after nitro. Plan for chest pain workup. Patient agreeable plan of care. Labs remarkable for for leukocytosis white blood cell count 27,000. This could be secondary to infection, exacerbated by recent steroid use however patient also does have a history leukemia states that his white blood cell count is typically elevated. I did order a prophylactic dose of antibiotics, covering for pneumonia. Updated patient to findings and plan of care. Plan for admission for chest pain. Patient agreeable with plan. Case was discussed with ALLISON Aquino kindly accepts patient for admission Undiagnosed new problem with uncertain prognosis? @ -No Drug Therapy requiring intensive monitoring for toxicity (Heparin, Nitro, Insulin, Cardizem)? @ -No Were any procedures done? @ -No Diagnosis/symptom? @Chest pain, right sided pneumonia Acute, or Chronic, or Acute on Chronic? @ -Acute Uncomplicated (without systemic symptoms) or Complicated (systemic symptoms)? @Complicated Side effects of treatment? @ -No Exacerbation, Progression, or Severe Exacerbation? @ -No Poses a threat to life or bodily function? How? (Chest pain, [place], [place], pneumonia, PE, COPD, DKA, ARF, appy, cholecystitis, CVA, Diverticulitis, Homicidal, Suicidal, threat to staff... and all critical care pts) @Potentially if secondary to underlying cardiac etiology - Lab Data Result diagrams: 11/09/24 23:36 11/09/24 23:36 Lab Results 11/09/24 11/09/24 11/09/24 Range/Units 23:36 23:36 23:36 WBC 27.29 H (4.50-10.00) 10*3/uL RBC 4.49 (4.40-5.60) 10*6/uL Hgb 11.8 L (13.0-17.0) g/dL Hct 37.0 L (39.6-50.0) % MCV 82.4 (80.0-97.0) fL MCH 26.3 L (27.0-32.0) pg MCHC 31.9 L (32.0-37.0) g/dL Plt Count 193 (140-440) 10*3/uL MPV 10.0 (9.5-12.2) fL Immature Gran % (Auto) 0.6 % Neutrophils % (Manual) 57 % Lymphocytes % (Manual) 41 % Monocytes % (Manual) 2 % Immature Gran # 0.16 H (0.00-0.04) 10*3/uL Neutrophils # (Manual) 15.56 H (1.3-7.7) k/uL Lymphocytes # (Manual) 11.19 H (1.0-4.8) k/uL Monocytes # (Manual) 0.55 (0-1.0) k/uL Nucleated RBCs 0 (0-0) /100 WBC Manual Slide Review Performed Poikilocytosis (manual Present PT 11.6 (10.0-12.5) sec INR 1.1 (<1.2) APTT 23.3 (22.0-30.0) sec VBG pH (7.31-7.41) VBG pCO2 (37-51) mmHg VBG HCO3 (24-28) mmol/L Sodium 134 L (137-145) mmol/L Potassium 3.9 (3.5-5.1) mmol/L Chloride 105 (98-107) mmol/L Carbon Dioxide 17 L (22-30) mmol/L Anion Gap 12 mmol/L BUN 53 H (9-20) mg/dL Creatinine 1.85 H (0.66-1.25) mg/dL Est GFR (CKD-EPI)AfAm 41 (>60 ml/min/1.73 sqM) Est GFR (CKD-EPI)NonAf 36 (>60 ml/min/1.73 sqM) Glucose 359 H (74-99) mg/dL POC Glucose (mg/dL) (70-110) mg/dL POC Glu Combat Systems Engineer ID Calcium 9.3 (8.4-10.2) mg/dL Phosphorus 3.2 (2.5-4.5) mg/dL Magnesium 1.9 (1.6-2.3) mg/dL Total Bilirubin 0.5 (0.2-1.3) mg/dL AST 63 H (17-59) U/L ALT 40 (4-49) U/L Alkaline Phosphatase 66 (38-126) U/L Troponin I (0.000-0.034) ng/mL NT-Pro-B Natriuret Pep 792 pg/mL Total Protein 5.3 L (6.3-8.2) g/dL Albumin 3.3 L (3.5-5.0) g/dL Lipase 153 (23-300) U/L Urine Color Urine Appearance (Clear) Urine pH (5.0-8.0) Ur Specific [place] (1.001-1.035) Urine Protein (Negative) Urine Glucose (UA) (Negative) Urine Ketones (Negative) Urine Blood (Negative) Urine Nitrite (Negative) Urine Bilirubin (Negative) Urine Urobilinogen (<2.0) mg/dL Ur Leukocyte Esterase (Negative) Urine RBC (0-5) /hpf Urine WBC (0-5) /hpf Ur Squamous Epith Cells (0-4) /hpf Urine Bacteria (None) /hpf Hyaline Casts (0-2) /lpf Urine Mucus (None) /hpf Urine Yeast (Budding) (None) /hpf Acetone, Qual Negative (Negative) 11/09/24 11/09/24 11/09/24 Range/Units 23:36 23:36 23:39 WBC (4.50-10.00) 10*3/uL RBC (4.40-5.60) 10*6/uL Hgb (13.0-17.0) g/dL Hct (39.6-50.0) % MCV (80.0-97.0) fL MCH (27.0-32.0) pg MCHC (32.0-37.0) g/dL Plt Count (140-440) 10*3/uL MPV (9.5-12.2) fL Immature Gran % (Auto) % Neutrophils % (Manual) % Lymphocytes % (Manual) % Monocytes % (Manual) % Immature Gran # (0.00-0.04) 10*3/uL Neutrophils # (Manual) (1.3-7.7) k/uL Lymphocytes # (Manual) (1.0-4.8) k/uL Monocytes # (Manual) (0-1.0) k/uL Nucleated RBCs (0-0) /100 WBC Manual Slide Review Poikilocytosis (manual PT (10.0-12.5) sec INR (<1.2) APTT (22.0-30.0) sec VBG pH (7.31-7.41) VBG pCO2 (37-51) mmHg VBG HCO3 (24-28) mmol/L Sodium (137-145) mmol/L Potassium (3.5-5.1) mmol/L Chloride (98-107) mmol/L Carbon Dioxide (22-30) mmol/L Anion Gap mmol/L BUN (9-20) mg/dL Creatinine (0.66-1.25) mg/dL Est GFR (CKD-EPI)AfAm (>60 ml/min/1.73 sqM) Est GFR (CKD-EPI)NonAf (>60 ml/min/1.73 sqM) Glucose (74-99) mg/dL POC Glucose (mg/dL) 341 H (70-110) mg/dL POC Glu Combat Systems Engineer ID [place] Calcium (8.4-10.2) mg/dL Phosphorus (2.5-4.5) mg/dL Magnesium 2.0 (1.6-2.3) mg/dL Total Bilirubin (0.2-1.3) mg/dL AST (17-59) U/L ALT (4-49) U/L Alkaline Phosphatase (38-126) U/L Troponin I 0.013 (0.000-0.034) ng/mL NT-Pro-B Natriuret Pep pg/mL Total Protein (6.3-8.2) g/dL Albumin (3.5-5.0) g/dL Lipase (23-300) U/L Urine Color Urine Appearance (Clear) Urine pH (5.0-8.0) Ur Specific [place] (1.001-1.035) Urine Protein (Negative) Urine Glucose (UA) (Negative) Urine Ketones (Negative) Urine Blood (Negative) Urine Nitrite (Negative) Urine Bilirubin (Negative) Urine Urobilinogen (<2.0) mg/dL Ur Leukocyte Esterase (Negative) Urine RBC (0-5) /hpf Urine WBC (0-5) /hpf Ur Squamous Epith Cells (0-4) /hpf Urine Bacteria (None) /hpf Hyaline Casts (0-2) /lpf Urine Mucus (None) /hpf Urine Yeast (Budding) (None) /hpf Acetone, Qual (Negative) 11/10/24 11/10/24 Range/Units 00:02 00:03 WBC (4.50-10.00) 10*3/uL RBC (4.40-5.60) 10*6/uL Hgb (13.0-17.0) g/dL Hct (39.6-50.0) % MCV (80.0-97.0) fL MCH (27.0-32.0) pg MCHC (32.0-37.0) g/dL Plt Count (140-440) 10*3/uL MPV (9.5-12.2) fL Immature Gran % (Auto) % Neutrophils % (Manual) % Lymphocytes % (Manual) % Monocytes % (Manual) % Immature Gran # (0.00-0.04) 10*3/uL Neutrophils # (Manual) (1.3-7.7) k/uL Lymphocytes # (Manual) (1.0-4.8) k/uL Monocytes # (Manual) (0-1.0) k/uL Nucleated RBCs (0-0) /100 WBC Manual Slide Review Poikilocytosis (manual PT (10.0-12.5) sec INR (<1.2) APTT (22.0-30.0) sec VBG pH 7.42 H (7.31-7.41) VBG pCO2 33 L (37-51) mmHg VBG HCO3 21 L (24-28) mmol/L Sodium (137-145) mmol/L Potassium (3.5-5.1) mmol/L Chloride (98-107) mmol/L Carbon Dioxide (22-30) mmol/L Anion Gap mmol/L BUN (9-20) mg/dL Creatinine (0.66-1.25) mg/dL Est GFR (CKD-EPI)AfAm (>60 ml/min/1.73 sqM) Est GFR (CKD-EPI)NonAf (>60 ml/min/1.73 sqM) Glucose (74-99) mg/dL POC Glucose (mg/dL) (70-110) mg/dL POC Glu Combat Systems Engineer ID Calcium (8.4-10.2) mg/dL Phosphorus (2.5-4.5) mg/dL Magnesium (1.6-2.3) mg/dL Total Bilirubin (0.2-1.3) mg/dL AST (17-59) U/L ALT (4-49) U/L Alkaline Phosphatase (38-126) U/L Troponin I (0.000-0.034) ng/mL NT-Pro-B Natriuret Pep pg/mL Total Protein (6.3-8.2) g/dL Albumin (3.5-5.0) g/dL Lipase (23-300) U/L Urine Color Yellow Urine Appearance Cloudy (Clear) Urine pH 6.0 (5.0-8.0) Ur Specific [place] 1.021 (1.001-1.035) Urine Protein 1+ H (Negative) Urine Glucose (UA) Trace H (Negative) Urine Ketones Negative (Negative) Urine Blood Negative (Negative) Urine Nitrite Negative (Negative) Urine Bilirubin Negative (Negative) Urine Urobilinogen <2.0 (<2.0) mg/dL Ur Leukocyte Esterase Negative (Negative) Urine RBC 1 (0-5) /hpf Urine WBC 3 (0-5) /hpf Ur Squamous Epith Cells 2 (0-4) /hpf Urine Bacteria Rare H (None) /hpf Hyaline Casts 3 H (0-2) /lpf Urine Mucus Rare H (None) /hpf Urine Yeast (Budding) Rare H (None) /hpf Acetone, Qual (Negative) Disposition Clinical Impression: Chest pain, Pneumonia involving right lung Disposition: ADMITTED IP TO THIS HOSP Condition: Stable
[2024-11-10 02:57] LABS: Glucose,Whole Blood 417 mg/dL (70-110)
[2024-11-10] MEDS: INSULIN REGULAR 100 UNIT/ML VIAL (IV) IV ONE (02:59)
[2024-11-10 05:39] LABS: Glucose,Whole Blood 288 mg/dL (70-110)
[2024-11-10] MEDS: PANTOPRAZOLE 40 MG TABLET PO SCH (06:03)
[2024-11-10] MEDS: INSULIN LISPRO (HumaLOG) 100 UNIT/ML 10 mL VL SQ SCH (06:03)
[2024-11-10] MEDS: INSULIN GLARGINE (LANTUS) 100 UNIT/ML SYR SQ SCH (06:04)
[2024-11-10 07:41] VITALS: BP 166/74; RESP 17; TEMP 97.2
[2024-11-10] MEDS: ALBUTEROL NEBULIZED 2.5 MG/3 ML INHALATION SCH (07:49)
[2024-11-10] MEDS: TIOTROPIUM 2.5 MCG INHALER INHALATION SCH (07:50)
[2024-11-10] MEDS: SYMBICORT 160-4.5 MCG INHALER INHALATION SCH (07:50)
[2024-11-10] MEDS: CYANOCOBALAMIN 500 MCG TAB PO SCH (08:34)
[2024-11-10] MEDS: FUROSEMIDE 20 MG TAB PO SCH (08:35)
[2024-11-10] MEDS: ISOSORBIDE MONONITRATE ER 60 MG TAB.ER.24H PO SCH (08:35)
[2024-11-10] MEDS: CLOPIDOGREL 75 MG TAB PO SCH (08:35)
[2024-11-10] MEDS: FERROUS SULFATE 325 MG TAB PO SCH (08:35)
[2024-11-10] MEDS: POTASSIUM CHLORIDE ER 10 MEQ TAB.ER.PRT PO SCH (08:35)
[2024-11-10] MEDS: VALSARTAN 160 MG TAB PO SCH (08:35)
[2024-11-10] MEDS: NIFEdipine XL 90 MG TAB.ER.24 PO SCH (08:35)
[2024-11-10] MEDS: DULoxetine HCL 30 MG CAPSULE.DR PO SCH (08:35)
[2024-11-10] MEDS: hydroCHLOROthiazide 25 MG TAB PO SCH (10:25)
[2024-11-10] MEDS: hydrALAZINE HCL 50 MG TAB PO SCH (10:25)
[2024-11-10] MEDS: ACETAMINOPHEN TAB 325 MG TAB PO PRN (10:29)
--- NOTE | 2024-11-10 11:13 | P.CRDCN ---
History of Present Illness Consult date: 11/10/24 Consult reason: chest pain History of present illness: This is a 74-year-old male patient of Dr. Carrington with past medical history of diabetes, hypertension, dyslipidemia, peripheral vascular disease, tobacco use with pipe, history of pulmonary embolism, coronary artery disease with no obstructive disease on cardiac catheterization performed in 2022, history of leukemia. We have been asked to evaluate the patient for chest pain. Patient presented to the hospital due to shortness of breath. Patient states that he was seen in the emergency center on 11/04 for pneumonia and was discharged home on a Z-Fernando. Last evening, he developed worsening shortness of breath and chest pain which he thought was related to the weather change. He states he had chest pain that lasted for about 2 minutes. His main concern was difficulty in breathing. He does have a cough and sputum production in the morning. No fever or chills. He states he is taking all of his medications as directed. He did get 2 nitroglycerin which seemed to help with the pain which is on the left side of his chest nonradiating. It occurred with the shortness of breath. When he moves he has shortness of breath which is chronic and seems to be at his baseline. He does have a history of asthma and COPD as well. He also states that when he bends over and stands up he feels dizzy. He denies lower extremity edema. Blood pressure 166/74, heart rate in the 40s to 60, pulse ox 99% on room air. Patient is status post Plavix 300 mg oral and 1 dose of IV antibiotics -EKG: Sinus rhythm with no acute ST-T wave changes. -Chest x-ray: No acute process. -Laboratory studies: WBC 27, hemoglobin 11.8, sodium 134, potassium 3.9, BUN 53 creatinine 1.85, blood sugar 341, troponin negative x 3. AST 63. proBNP 792. Acetone negative. Urinalysis negative for infection. -Home cardiac medications: -Cardiac catheterization performed 01/07/2023 revealed 10% distal left main, 30% proximal LAD, 30% mid RCA and right dominant. -LATONIA performed 03/19/2024 revealed normal EF, no PFO, no TONYA clot, mild MR, mild TR. -Lexiscan stress test performed 11/08/2022 revealed normal EF, reversible inferior apical defect. Review Of Systems: At the time of my exam: CONSTITUTIONAL: Denies fever or chills. HEENT: Denies blurred vision, vision changes, or eye pain. Denies hemoptysis CARDIOVASCULAR: Denies chest pain. Denies orthopnea. Denies PND. Denies palpitations RESPIRATORY: Denies shortness of breath. Chronic dyspnea on exertion GASTROINTESTINAL: Denies abdominal pain. Denies nausea or vomiting. HEMATOLOGIC: Denies bleeding disorders. GENITOURINARY: Denies any blood in urine. SKIN: Denies puritis. Denies rash. Physical examination: Gen: This is 74-year-old male in no acute distress VS: reviewed HEENT: Head is atraumatic, normocephalic. Pupils equal, round. Sclerae is anic teric. NECK: Supple. No JVD. LUNGS: Clear to auscultation. No wheezes or rhonchi. No intercostal retractions. HEART: Regular rate and rhythm. 2/6 systolic ejection murmur at the base. ABDOMEN: Soft No tenderness. EXTREMITIES: No pedal edema. No calf tenderness. NEUROLOGICAL: Patient is awake, alert and oriented x3. Assessment: Atypical chest pain, acute coronary syndrome ruled out Chronic dyspnea on exertion History of nonobstructive coronary artery disease on cardiac catheterization pe rformed in 2022 Diabetes Hypertension Dyslipidemia Peripheral vascular disease History of pulmonary embolism History of leukemia History of tobacco use with pipe Plan: Resume patient's home cardiac medications Add nitroglycerin for home-prescription has been sent to his pharmacy No further cardiac workup in the hospital Patient is cleared for discharge from cardiology and will follow-up with Dr. Carrington in 1 week. Thank you kindly for this consultation. Nurse practitioner note has been reviewed, I agree with documented findings and plan of care. Patient was seen and examined. 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 History of Any Multi-Drug Resistant Organisms: None Reported Past Surgical History: Appendectomy, Back Surgery, Cholecystectomy, Heart Catheterization, Joint Replacement, Orthopedic Surgery Additional Past Surgical History / Comment(s): BILAT TKA &MICHAEL. LT SHOULDER SX/bilateral total shoulder replacements. RT ROTATOR CUFF REPAIR X 2. COLONOSCOPY Past Anesthesia/Blood Transfusion Reactions: No Reported Reaction Additional Past Anesthesia/Blood Transfusion Reaction / Comment(s): Pt unsure if he has received blood. Past Psychological History: No Psychological Hx Reported Additional Psychological History / Comment(s): Pt resides with grandson, age 18yrs. Smoking Status: Former smoker Past Alcohol Use History: None Reported Additional Past Alcohol Use History / Comment(s): Pt started smoking pipe in 1959 and quit in 1983 Past Drug Use History: None Reported - Past Family History Mother History Unknown: Yes Family Medical History: No Reported History Additional Family Medical History / Comment(s): Smoker. Father Sister(s) History Unknown: Yes Family Medical History: Vascular Disorder Additional Family Medical History / Comment(s): ASHD Medications and Allergies Home Medications Medication Instructions Recorded Confirmed Type Atorvastatin [Lipitor] 80 mg PO HS 10/10/18 10/24/24 History Isosorbide Mononitrate ER [Imdur] 60 mg PO DAILY 10/10/18 10/24/24 History Omeprazole [PriLOSEC] 20 mg PO BID 10/10/18 10/24/24 History Rivaroxaban [Xarelto] 20 mg PO DAILY 10/10/18 10/24/24 History Albuterol Sulfate [Albuterol 2 puff INHALATION RT-Q4H PRN 01/27/20 10/24/24 History Sulfate Hfa] Insulin Aspart [NovoLOG Flexpen] 5 - 15 units SQ AC-TID 01/27/20 10/24/24 History Insulin Degludec [Tresiba 18 units SQ BID 01/27/20 10/24/24 History Flextouch U-100 Pen] Montelukast [Singulair] 10 mg PO HS 01/27/20 10/24/24 History Dapagliflozin Propanediol [Farxiga] 5 mg PO HS 08/09/20 10/24/24 History Tamsulosin [Flomax] 0.8 mg PO PC-SUPPER 08/09/20 10/24/24 History Potassium Chloride ER [K-Dur 10] 10 meq PO DAILY 02/22/21 10/24/24 History Budesonide/Glycopyr/Formoterol 2 puff INHALATION RT-BID 01/08/24 10/24/24 History [Breztri Aerosphere Inhaler] Cyanocobalamin (Vitamin B-12) 1,000 mcg PO DAILY 01/08/24 10/24/24 History [Vitamin B-12] Furosemide [Lasix] 20 mg PO DAILY 01/08/24 10/24/24 History Levalbuterol Nebulized [Xopenex 1.25 mg INHALATION RT-Q8H PRN 01/08/24 10/24/24 History Nebulized] Solifenacin Succinate 5 mg PO DAILY 01/08/24 10/24/24 History allopurinoL [Zyloprim] 100 mg PO HS 01/08/24 10/24/24 History Clopidogrel [Plavix] 75 mg PO DAILY #30 tablet 01/11/24 10/24/24 Rx DULoxetine HCL [Cymbalta] 30 mg PO DAILY #30 cap 01/11/24 10/24/24 Rx Ferrous Sulfate [Iron (65 MG 325 mg PO DAILY 04/11/24 10/24/24 History Elemental)] rOPINIRole HCL [Requip] 0.5 mg PO HS 07/07/24 10/24/24 History NIFEdipine XL [Procardia XL] 90 mg PO DAILY #30 tab 07/08/24 10/24/24 Rx Ipratropium-Albuterol Nebulize 3 ml INHALATION RT-Q4H PRN 08/05/24 10/24/24 History [Duoneb 0.5 mg-3 mg/3 ml Soln] hydrALAZINE HCL [Apresoline] 50 mg PO TID #90 tab 08/06/24 10/24/24 Rx Albuterol Inhaler [Ventolin Hfa 2 puff INHALATION QID #8 gm 10/24/24 Rx Inhaler] Azithromycin [Zithromax] 250 mg PO DAILY 4 Days #4 tab 10/24/24 Rx HYDROcodone/APAP 10-325MG [[place] 1 tab PO Q6H PRN 10/24/24 10/24/24 History 10-325] Ozempic 2mg/3ml 0.5 mg SQ TU 10/24/24 10/24/24 History Valsartan 160 mg PO BID 10/24/24 10/24/24 History hydroCHLOROthiazide [Hydrodiuril] 25 mg PO DAILY 10/24/24 10/24/24 History predniSONE [Deltasone] 40 mg PO DAILY 5 Days #10 tab 10/24/24 Rx Azithromycin [Zithromax Tri-Fernando (3 500 mg PO DAILY 3 Days #3 tab 11/04/24 Rx tabs)] Nitroglycerin Sl Tabs [Nitrostat] 0.4 mg SUBLINGUAL Q5M PRN #25 tab 11/10/24 Rx Allergies Allergy/AdvReac Type Severity Reaction Status Date / Time cortisone Allergy Anaphylaxis, Verified 11/04/24 19:36 tongue swelling Physical Exam Vitals: Vital Signs Temp Pulse Pulse Resp BP BP BP 11/10/24 08:09 52 L 11/10/24 07:54 48 L 11/10/24 07:15 97.2 F L 49 L 17 166/74 11/10/24 03:40 97 F L 60 20 156/61 11/10/24 03:00 62 18 143/65 11/10/24 01:15 56 L 16 125/56 11/09/24 23:25 65 11/09/24 23:22 98 F 66 12 158/60 Pulse Ox 11/10/24 08:09 11/10/24 07:54 11/10/24 07:15 99 11/10/24 03:40 97 11/10/24 03:00 97 11/10/24 01:15 98 11/09/24 23:25 97 11/09/24 23:22 97 Intake and Output 11/09/24 11/10/24 11/10/24 22:59 06:59 14:59 Other: # Voids 1 Weight 102.058 kg Results 11/09/24 23:36 11/09/24 23:36 Cardiac Enzymes 11/09/24 11/09/24 11/10/24 Range/Units 23:36 23:36 02:50 AST 63 H (17-59) U/L Troponin I 0.013 <0.012 (0.000-0.034) ng/mL 11/10/24 Range/Units 05:49 AST (17-59) U/L Troponin I <0.012 (0.000-0.034) ng/mL Coagulation 11/09/24 Range/Units 23:36 PT 11.6 (10.0-12.5) sec APTT 23.3 (22.0-30.0) sec CBC 11/09/24 Range/Units 23:36 WBC 27.29 H (4.50-10.00) 10*3/uL RBC 4.49 (4.40-5.60) 10*6/uL Hgb 11.8 L (13.0-17.0) g/dL Hct 37.0 L (39.6-50.0) % Plt Count 193 (140-440) 10*3/uL Comprehensive Metabolic Panel 11/09/24 Range/Units 23:36 Sodium 134 L (137-145) mmol/L Potassium 3.9 (3.5-5.1) mmol/L Chloride 105 (98-107) mmol/L Carbon Dioxide 17 L (22-30) mmol/L BUN 53 H (9-20) mg/dL Creatinine 1.85 H (0.66-1.25) mg/dL Glucose 359 H (74-99) mg/dL Calcium 9.3 (8.4-10.2) mg/dL AST 63 H (17-59) U/L ALT 40 (4-49) U/L Alkaline Phosphatase 66 (38-126) U/L Total Protein 5.3 L (6.3-8.2) g/dL Albumin 3.3 L (3.5-5.0) g/dL Current Medications Generic Name Dose Route Start Last Admin Trade Name Freq PRN Reason Stop Dose Admin Acetaminophen 650 mg 11/10/24 02:43 Acetaminophen Tab 325 Mg Tab PO Q4HR PRN Pain Hydrocodone Bitart/Acetaminophen 1 each 11/10/24 02:46 Hydrocodone/Apap 10-325mg 1 Each Tab PO Q6H PRN Pain Albuterol Sulfate 2.5 mg 11/10/24 02:46 Albuterol Nebulized 2.5 Mg/3 Ml INHALATION RT-Q4H PRN Shortness Of Breath Albuterol Sulfate 2.5 mg 11/10/24 08:00 11/10/24 07:49 Albuterol Nebulized 2.5 Mg/3 Ml INHALATION 2.5 mg RT-QID [facility] Administration Albuterol/Ipratropium 3 ml 11/10/24 02:46 Ipratropium-Albuterol 3 Ml Neb INHALATION RT-Q4H PRN Shortness Of Breath Allopurinol 50 mg 11/10/24 21:00 Allopurinol 100 Mg Tab PO HS [facility] Atorvastatin Calcium 80 mg 11/10/24 21:00 Atorvastatin 80 Mg Tab PO HS [facility] Budesonide/Formoterol Fumarate 2 puff 11/10/24 08:00 11/10/24 07:50 Symbicort 160-4.5 Mcg Inhaler INHALATION 2 puff RT-BID [facility] Administration Clopidogrel Bisulfate 75 mg 11/10/24 09:00 Clopidogrel 75 Mg Tab PO DAILY [facility] Cyanocobalamin 1,000 mcg 11/10/24 09:00 Cyanocobalamin 500 Mcg Tab PO DAILY [facility] Dapagliflozin 5 mg 11/10/24 21:00 Dapagliflozin Propanediol 5 Mg Tablet PO HS [facility] Duloxetine HCl 30 mg 11/10/24 09:00 Duloxetine Hcl 30 Mg Capsule.Dr PO DAILY [facility] Ferrous Sulfate 325 mg 11/10/24 09:00 Ferrous Sulfate 325 Mg Tab PO DAILY [facility] Furosemide 20 mg 11/10/24 09:00 Furosemide 20 Mg Tab PO DAILY [facility] Hydralazine HCl 50 mg 11/10/24 09:00 Hydralazine Hcl 50 Mg Tab PO TID [facility] Hydrochlorothiazide 25 mg 11/10/24 09:00 Hydrochlorothiazide 25 Mg Tab PO DAILY [facility] Insulin Glargine 18 unit 11/10/24 07:00 11/10/24 06:04 Insulin Glargine (Lantus) 100 Unit/Ml Syr SQ 18 unit BID@0700,2100 [facility] Administration Insulin Human Lispro 0 unit 11/10/24 07:30 11/10/24 06:03 Insulin Lispro (Humalog) 100 Unit/Ml 10 Ml Vl SQ 9 unit AC-TID [facility] Administration Protocol Isosorbide Mononitrate 60 mg 11/10/24 09:00 Isosorbide Mononitrate Er 60 Mg Tab.Er.24h PO DAILY [facility] Montelukast Sodium 10 mg 11/10/24 21:00 Montelukast 10 Mg Tab PO HS [facility] Morphine Sulfate 2 mg 11/10/24 02:43 Morphine Sulfate 2 Mg/Ml Syringe IVP 11/11/24 23:00 Q5M PRN Chest Pain Nifedipine 90 mg 11/10/24 09:00 Nifedipine Xl 90 Mg Tab.Er.24 PO DAILY [facility] Nitroglycerin 0.4 mg 11/10/24 02:43 Nitroglycerin Sl Tabs 0.4 Mg Tab SUBLINGUAL Q5M PRN Chest Pain Pantoprazole Sodium 40 mg 11/10/24 07:30 11/10/24 06:03 Pantoprazole 40 Mg Tablet PO 40 mg AC-BRKFST [facility] Administration Potassium Chloride 10 meq 11/10/24 09:00 Potassium Chloride Er 10 Meq Tab.Er.Prt PO DAILY [facility] Rivaroxaban 20 mg 11/10/24 17:30 Rivaroxaban 20 Mg Tab PO W/SUPPER [facility] Protocol Ropinirole HCl 0.5 mg 11/10/24 21:00 Ropinirole Hcl 0.25 Mg Tab PO HS [facility] Tamsulosin HCl 0.8 mg 11/10/24 18:30 Tamsulosin 0.4 Mg Cap.Er.24h PO PC-SUPPER [facility] Tiotropium [place] 2 puff 11/10/24 08:00 11/10/24 07:50 Tiotropium 2.5 Mcg Inhaler INHALATION 2 puff RT-DAILY [facility] Administration Valsartan 160 mg 11/10/24 09:00 Valsartan 160 Mg Tab PO BID [facility] Intake and Output 11/09/24 11/10/24 11/10/24 22:59 06:59 14:59 Other: # Voids 1 Weight 102.058 kg 11/09/24 23:36 11/09/24 23:36
[2024-11-10 12:38] LABS: Glucose,Whole Blood 238 mg/dL (70-110)
--- NOTE | 2024-11-10 13:34 | P.HPIM ---
History of Present Illness H&P Date: 11/10/24 History of present illness: 74-year-old male patient with a past medical history significant for diabetes, hypertension hyperlipidemia peripheral vascular disease tobacco use with pipe, history of PE, coronary artery disease with no obstructive disease on cardiac catheterization in 2022, history of LAD, who presented with complaint of chest pain. Patient presented to the hospital with shortness of breath. Patient was recently seen in the ED on 11/04 for pneumonia and was discharged home on Z-Fernando. Patient complained of worsening shortness of breath and chest pain, chest pain lasted for about 2 minutes, patient reported shortness of breath, cough, sputum production. Patient is afebrile, heart rate 60, respiratory rate 20, blood pressure 156/61, saturating 97% on room air. WBCs 27.19, hemoglobin 11.8, platelet 193. Sodium 134 potassium 3.9, chloride 105, CO2 17, BUN 53 creatinine 1.85 Troponin remain negative EKG negative for acute changes Chest x-ray negative for acute process. Assessment and plan: Chest pain: Atypical Chronic dyspnea Recent pneumonia History of leukemia History of DVT/PE Hypertension Hyperlipidemia Diabetes mellitus Nonobstructive coronary artery disease per carotid catheterization in 2022 History of tobacco use with pipe Monitor with serial troponin and EKGs Continue home meds Monitor vitals Monitor vital signs and labs Labs and medication were reviewed. Continue same treatment. Further recommendations as per clinical course of the patient PHYSICAL EXAMINATION: GENERAL: The patient is A&O x3, NAD HEENT: EOMI, Sclerae anicteric, Moist Mucous membranes Neck: Supple, Non tender, No JVD PULMONARY: Equal breath souds B/L, No wheezing, No crackles. CARDIOVASCULAR: S1, S2 present. No murmurs, rubs, or gallops. ABDOMEN: Soft, nontender, nondistended, normoactive bowel sounds. No guarding or rebound tenderness. MUSCULOSKELETAL: No edema, No cyanosis. No clubbing. Normal ROM. Intact peripheral pulses. NEUROLOGICAL: CN 2-12 grossly intact. No FND REVIEW OF SYSTEMS: CONSTITUTIONAL: No fever, no malaise, no fatigue. HEENT: No recent visual problems or hearing problems. Denied any sore throat. CARDIOVASCULAR: No chest pain, orthopnea, PND, no palpitations, no syncope. PULMONARY: Complain of cough and shortness of breath. GASTROINTESTINAL: No diarrhea, no nausea, no vomiting, no abdominal pain. NEUROLOGICAL: No headaches, no weakness, no numbness. HEMATOLOGICAL: Denies any bleeding or petechiae. GENITOURINARY: Denies any burning micturition, frequency, or urgency. MUSCULOSKELETAL/RHEUMATOLOGICAL: Denies any joint pain, swelling, or any muscle pain. ENDOCRINE: Denies any polyuria or polydipsia. The rest of the 14-point review of systems is negative. Dictation was produced using [employer] software. please excuse any grammatical, word or spelling errors. 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 History of Any Multi-Drug Resistant Organisms: None Reported Past Surgical History: Appendectomy, Back Surgery, Cholecystectomy, Heart Catheterization, Joint Replacement, Orthopedic Surgery Additional Past Surgical History / Comment(s): BILAT TKA &MICHAEL. LT SHOULDER SX/bilateral total shoulder replacements. RT ROTATOR CUFF REPAIR X 2. COLONOSCOPY Past Anesthesia/Blood Transfusion Reactions: No Reported Reaction Additional Past Anesthesia/Blood Transfusion Reaction / Comment(s): Pt unsure if he has received blood. Past Psychological History: No Psychological Hx Reported Additional Psychological History / Comment(s): Pt resides with grandson, age 18yrs. Smoking Status: Former smoker Past Alcohol Use History: None Reported Additional Past Alcohol Use History / Comment(s): Pt started smoking pipe in 1959 and quit in 1983 Past Drug Use History: None Reported - Past Family History Mother History Unknown: Yes Family Medical History: No Reported History Additional Family Medical History / Comment(s): Smoker. Father Sister(s) History Unknown: Yes Family Medical History: Vascular Disorder Additional Family Medical History / Comment(s): ASHD Medications and Allergies Home Medications Medication Instructions Recorded Confirmed Type Atorvastatin [Lipitor] 80 mg PO HS 10/10/18 11/10/24 History Isosorbide Mononitrate ER [Imdur] 60 mg PO DAILY 10/10/18 11/10/24 History Omeprazole [PriLOSEC] 20 mg PO BID 10/10/18 11/10/24 History Rivaroxaban [Xarelto] 20 mg PO DAILY 10/10/18 11/10/24 History Albuterol Sulfate [Albuterol 2 puff INHALATION RT-Q4H PRN 01/27/20 11/10/24 History Sulfate Hfa] Insulin Aspart [NovoLOG Flexpen] 5 - 15 units SQ AC-TID 01/27/20 11/10/24 History Insulin Degludec [Tresiba 18 units SQ BID 01/27/20 11/10/24 History Flextouch U-100 Pen] Montelukast [Singulair] 10 mg PO HS 01/27/20 11/10/24 History Dapagliflozin Propanediol [Farxiga] 5 mg PO HS 08/09/20 11/10/24 History Tamsulosin [Flomax] 0.8 mg PO PC-SUPPER 08/09/20 11/10/24 History Potassium Chloride ER [K-Dur 10] 10 meq PO DAILY 02/22/21 11/10/24 History Budesonide/Glycopyr/Formoterol 2 puff INHALATION RT-BID 01/08/24 11/10/24 History [Breztri Aerosphere Inhaler] Furosemide [Lasix] 20 mg PO DAILY 01/08/24 11/10/24 History Levalbuterol Nebulized [Xopenex 1.25 mg INHALATION RT-Q8H PRN 01/08/24 11/10/24 History Nebulized] Solifenacin Succinate 5 mg PO DAILY 01/08/24 11/10/24 History allopurinoL [Zyloprim] 100 mg PO HS 01/08/24 11/10/24 History Clopidogrel [Plavix] 75 mg PO DAILY #30 tablet 01/11/24 11/10/24 Rx DULoxetine HCL [Cymbalta] 30 mg PO DAILY #30 cap 01/11/24 11/10/24 Rx Ferrous Sulfate [Iron (65 MG 325 mg PO DAILY 04/11/24 11/10/24 History Elemental)] rOPINIRole HCL [Requip] 0.5 mg PO HS 07/07/24 11/10/24 History NIFEdipine XL [Procardia XL] 90 mg PO DAILY #30 tab 07/08/24 11/10/24 Rx Ipratropium-Albuterol Nebulize 3 ml INHALATION RT-Q4H PRN 08/05/24 11/10/24 History [Duoneb 0.5 mg-3 mg/3 ml Soln] hydrALAZINE HCL [Apresoline] 50 mg PO TID #90 tab 08/06/24 11/10/24 Rx HYDROcodone/APAP 10-325MG [[place] 1 tab PO Q6H PRN 10/24/24 11/10/24 History 10-325] Ozempic 2mg/3ml 0.5 mg SQ TU 10/24/24 11/10/24 History Valsartan 160 mg PO BID 10/24/24 11/10/24 History hydroCHLOROthiazide [Hydrodiuril] 25 mg PO DAILY 10/24/24 11/10/24 History Cetirizine HCl [Zyrtec] 10 mg PO DAILY 11/10/24 11/10/24 History Clotrimazole Cream [Lotrimin Cream] 1 applic TOPICAL BID 11/10/24 11/10/24 History Levofloxacin [Levaquin] 500 mg PO DAILY 11/10/24 11/10/24 History Nitroglycerin Sl Tabs [Nitrostat] 0.4 mg SUBLINGUAL Q5M PRN #25 tab 11/10/24 Rx Vitamin B-12 1000mcg Quick Dissolve 1,000 mcg PO DAILY 11/10/24 11/10/24 History predniSONE [Deltasone] 20 mg PO BID-W/MEALS 11/10/24 11/10/24 History Allergies Allergy/AdvReac Type Severity Reaction Status Date / Time cortisone Allergy Anaphylaxis, Verified 11/10/24 12:23 tongue swelling Physical Exam Vitals: Vital Signs Temp Pulse Pulse Resp BP BP BP 11/10/24 11:49 52 L 11/10/24 11:37 56 L 11/10/24 08:09 52 L 11/10/24 07:54 48 L 11/10/24 07:15 97.2 F L 49 L 17 166/74 11/10/24 03:40 97 F L 60 20 156/61 11/10/24 03:00 62 18 143/65 11/10/24 01:15 56 L 16 125/56 11/09/24 23:25 65 11/09/24 23:22 98 F 66 12 158/60 Pulse Ox 11/10/24 11:49 11/10/24 11:37 11/10/24 08:09 11/10/24 07:54 11/10/24 07:15 99 11/10/24 03:40 97 11/10/24 03:00 97 11/10/24 01:15 98 11/09/24 23:25 97 11/09/24 23:22 97 Intake and Output 11/09/24 11/10/24 11/10/24 22:59 06:59 14:59 Intake Total 118 Balance 118 Intake: Oral 118 Other: # Voids 1 Weight 102.058 kg Results CBC & Chem 7: 11/09/24 23:36 11/09/24 23:36 Labs: Abnormal Lab Results - Last 24 Hours (Table) 11/09/24 11/09/24 11/09/24 Range/Units 23:36 23:36 23:39 WBC 27.29 H (4.50-10.00) 10*3/uL Hgb 11.8 L (13.0-17.0) g/dL Hct 37.0 L (39.6-50.0) % MCH 26.3 L (27.0-32.0) pg MCHC 31.9 L (32.0-37.0) g/dL Immature Gran # 0.16 H (0.00-0.04) 10*3/uL Neutrophils # (Manual) 15.56 H (1.3-7.7) k/uL Lymphocytes # (Manual) 11.19 H (1.0-4.8) k/uL VBG pH (7.31-7.41) VBG pCO2 (37-51) mmHg VBG HCO3 (24-28) mmol/L Sodium 134 L (137-145) mmol/L Carbon Dioxide 17 L (22-30) mmol/L BUN 53 H (9-20) mg/dL Creatinine 1.85 H (0.66-1.25) mg/dL Glucose 359 H (74-99) mg/dL POC Glucose (mg/dL) 341 H (70-110) mg/dL AST 63 H (17-59) U/L Total Protein 5.3 L (6.3-8.2) g/dL Albumin 3.3 L (3.5-5.0) g/dL Urine Protein (Negative) Urine Glucose (UA) (Negative) Urine Bacteria (None) /hpf Hyaline Casts (0-2) /lpf Urine Mucus (None) /hpf Urine Yeast (Budding) (None) /hpf 11/10/24 11/10/24 11/10/24 Range/Units 00:02 00:03 02:56 WBC (4.50-10.00) 10*3/uL Hgb (13.0-17.0) g/dL Hct (39.6-50.0) % MCH (27.0-32.0) pg MCHC (32.0-37.0) g/dL Immature Gran # (0.00-0.04) 10*3/uL Neutrophils # (Manual) (1.3-7.7) k/uL Lymphocytes # (Manual) (1.0-4.8) k/uL VBG pH 7.42 H (7.31-7.41) VBG pCO2 33 L (37-51) mmHg VBG HCO3 21 L (24-28) mmol/L Sodium (137-145) mmol/L Carbon Dioxide (22-30) mmol/L BUN (9-20) mg/dL Creatinine (0.66-1.25) mg/dL Glucose (74-99) mg/dL POC Glucose (mg/dL) 417 H (70-110) mg/dL AST (17-59) U/L Total Protein (6.3-8.2) g/dL Albumin (3.5-5.0) g/dL Urine Protein 1+ H (Negative) Urine Glucose (UA) Trace H (Negative) Urine Bacteria Rare H (None) /hpf Hyaline Casts 3 H (0-2) /lpf Urine Mucus Rare H (None) /hpf Urine Yeast (Budding) Rare H (None) /hpf 11/10/24 11/10/24 Range/Units 05:37 12:36 WBC (4.50-10.00) 10*3/uL Hgb (13.0-17.0) g/dL Hct (39.6-50.0) % MCH (27.0-32.0) pg MCHC (32.0-37.0) g/dL Immature Gran # (0.00-0.04) 10*3/uL Neutrophils # (Manual) (1.3-7.7) k/uL Lymphocytes # (Manual) (1.0-4.8) k/uL VBG pH (7.31-7.41) VBG pCO2 (37-51) mmHg VBG HCO3 (24-28) mmol/L Sodium (137-145) mmol/L Carbon Dioxide (22-30) mmol/L BUN (9-20) mg/dL Creatinine (0.66-1.25) mg/dL Glucose (74-99) mg/dL POC Glucose (mg/dL) 288 H 238 H (70-110) mg/dL AST (17-59) U/L Total Protein (6.3-8.2) g/dL Albumin (3.5-5.0) g/dL Urine Protein (Negative) Urine Glucose (UA) (Negative) Urine Bacteria (None) /hpf Hyaline Casts (0-2) /lpf Urine Mucus (None) /hpf Urine Yeast (Budding) (None) /hpf Thrombosis Risk Factor Assmnt - Choose All That Apply Any of the Below Risk Factors Present?: Yes Each Factor Represents 1 point: Abnormal pulmonary function (COPD), Obesity (BMI >25) Other Risk Factors: Yes Each Risk Factor Represents 2 Points: Age 61-74 years Each Risk Factor Represents 3 Points: History of DVT/PE Other congenital or acquired thrombophilia - If yes, enter type in comment: No Thrombosis Risk Factor Assessment Total Risk Factor Score: 7 Thrombosis Risk Factor Assessment Level: High Risk
--- NOTE | 2024-11-10 13:41 | P.DS ---
Providers Date of admission: 11/10/24 02:46 Attending physician: Neno Garcia Consults: 11/10/24 02:44 Consult Physician Urgent Consulting Provider: [facility] Consult Reason/Comments: chest pain Do you want consulting provider notified?: Yes, Notify in am Primary care physician: Stated None Hospital Course: Discharge diagnoses: Chest pain: Atypical Chronic dyspnea Recent pneumonia History of leukemia History of DVT/PE--on Xarelto Hypertension Hyperlipidemia Diabetes mellitus Nonobstructive coronary artery disease per carotid catheterization in 2022 History of tobacco use with pipe Monitoring serial troponin EKGs, cardiology consulted, chest pain atypical. Dyspnea and cough chronic without any acute changes, recently finished antibiotics azithromycin. Continue home inhalers. Continue Plavix, Xarelto, Lasix, dapagliflozin, hydralazine, hydrochlorothiazide, Imdur, Procardia. Valsartan. Continue home insulin. Outpatient follow-up with PCP and cardiology. Hospital course: 74-year-old male patient with a past medical history significant for diabetes, hypertension hyperlipidemia peripheral vascular disease tobacco use with pipe, history of PE, coronary artery disease with no obstructive disease on cardiac catheterization in 2022, history of LAD, who presented with complaint of chest pain. Patient presented to the hospital with shortness of breath. Patient was recently seen in the ED on 11/04 for pneumonia and was discharged home on Z-Fernando. Patient complained of worsening shortness of breath and chest pain, chest pain lasted for about 2 minutes, patient reported shortness of breath, cough, sputum production. Patient is afebrile, heart rate 60, respiratory rate 20, blood pressure 156/61, saturating 97% on room air. WBCs 27.19, hemoglobin 11.8, platelet 193. Sodium 134 potassium 3.9, chloride 105, CO2 17, BUN 53 creatinine 1.85 Troponin remain negative EKG negative for acute changes Chest x-ray negative for acute process. Patient was admitted to [facility] er evaluation and management of chest pain and shortness of breath, patient's abdominal pain resolved during hospitalization. Patient recently finished Z-Fernando for Pneumonia, was evaluated in the ED on 11/04. Leukocytosis chronic. Patient afebrile, remained on room air. Cardiology consulted, chest pain atypical, okay to discharge. Patient condition and vital stable at discharge. Patient's home medications resumed at discharge. Added as needed nitroglycerin. PHYSICAL EXAMINATION: GENERAL: The patient is A&O x3, NAD HEENT: EOMI, Sclerae anicteric, Moist Mucous membranes Neck: Supple, Non tender, No JVD PULMONARY: Equal breath souds B/L, No wheezing, No crackles. CARDIOVASCULAR: S1, S2 present. No murmurs, rubs, or gallops. ABDOMEN: Soft, nontender, nondistended, normoactive bowel sounds. No guarding or rebound tenderness. MUSCULOSKELETAL: No edema, No cyanosis. No clubbing. Normal ROM. Intact peripheral pulses. NEUROLOGICAL: CN 2-12 grossly intact. No FND SKIN: No rashes. Dictation was produced using [employer] dictation software. please excuse any grammatical, word or spelling errors. Patient Condition at Discharge: Stable Plan - Discharge Summary Discharge Rx Participant: No New Discharge Prescriptions: New Nitroglycerin Sl Tabs [Nitrostat] 0.4 mg SUBLINGUAL Q5M PRN #25 tab PRN Reason: Chest Pain Continue Omeprazole [PriLOSEC] 20 mg PO BID Atorvastatin [Lipitor] 80 mg PO HS Isosorbide Mononitrate ER [Imdur] 60 mg PO DAILY Rivaroxaban [Xarelto] 20 mg PO DAILY Montelukast [Singulair] 10 mg PO HS Insulin Degludec [Tresiba Flextouch U-100 Pen] 18 units SQ BID Insulin Aspart [NovoLOG Flexpen] 5 - 15 units SQ AC-TID Albuterol Sulfate [Albuterol Sulfate Hfa] 2 puff INHALATION RT-Q4H PRN PRN Reason: Shortness Of Breath Dapagliflozin Propanediol [Farxiga] 5 mg PO HS Tamsulosin [Flomax] 0.8 mg PO PC-SUPPER Potassium Chloride ER [K-Dur 10] 10 meq PO DAILY Budesonide/Glycopyr/Formoterol [Breztri Aerosphere Inhaler] 2 puff INHALATION RT-BID Furosemide [Lasix] 20 mg PO DAILY Ferrous Sulfate [Iron (65 MG Elemental)] 325 mg PO DAILY hydrALAZINE HCL [Apresoline] 50 mg PO TID #90 tab HYDROcodone/APAP 10-325MG [[place] 10-325] 1 tab PO Q6H PRN PRN Reason: Pain Vitamin B-12 1000mcg Quick Dissolve 1,000 mcg PO DAILY Cetirizine HCl [Zyrtec] 10 mg PO DAILY predniSONE [Deltasone] 20 mg PO BID-W/MEALS allopurinoL [Zyloprim] 100 mg PO HS Levalbuterol Nebulized [Xopenex Nebulized] 1.25 mg INHALATION RT-Q8H PRN PRN Reason: Shortness Of Breath Solifenacin Succinate 5 mg PO DAILY DULoxetine HCL [Cymbalta] 30 mg PO DAILY #30 cap Clopidogrel [Plavix] 75 mg PO DAILY #30 tablet rOPINIRole HCL [Requip] 0.5 mg PO HS NIFEdipine XL [Procardia XL] 90 mg PO DAILY #30 tab Ipratropium-Albuterol Nebulize [Duoneb 0.5 mg-3 mg/3 ml Soln] 3 ml INHALATION RT-Q4H PRN PRN Reason: Shortness Of Breath Ozempic 2mg/3ml 0.5 mg SQ TU hydroCHLOROthiazide [Hydrodiuril] 25 mg PO DAILY Valsartan 160 mg PO BID Clotrimazole Cream [Lotrimin Cream] 1 applic TOPICAL BID Levofloxacin [Levaquin] 500 mg PO DAILY Discharge Medication List Atorvastatin [Lipitor] 80 mg PO HS 10/10/18 [History] Isosorbide Mononitrate ER [Imdur] 60 mg PO DAILY 10/10/18 [History] Omeprazole [PriLOSEC] 20 mg PO BID 10/10/18 [History] Rivaroxaban [Xarelto] 20 mg PO DAILY 10/10/18 [History] Albuterol Sulfate [Albuterol Sulfate Hfa] 2 puff INHALATION RT-Q4H PRN 01/27/20 [History] Insulin Aspart [NovoLOG Flexpen] 5 - 15 units SQ AC-TID 01/27/20 [History] Insulin Degludec [Tresiba Flextouch U-100 Pen] 18 units SQ BID 01/27/20 [History] Montelukast [Singulair] 10 mg PO HS 01/27/20 [History] Dapagliflozin Propanediol [Farxiga] 5 mg PO HS 08/09/20 [History] Tamsulosin [Flomax] 0.8 mg PO PC-SUPPER 08/09/20 [History] Potassium Chloride ER [K-Dur 10] 10 meq PO DAILY 02/22/21 [History] Budesonide/Glycopyr/Formoterol [Breztri Aerosphere Inhaler] 2 puff INHALATION RT-BID 01/08/24 [History] Furosemide [Lasix] 20 mg PO DAILY 01/08/24 [History] Levalbuterol Nebulized [Xopenex Nebulized] 1.25 mg INHALATION RT-Q8H PRN 01/08/24 [History] Solifenacin Succinate 5 mg PO DAILY 01/08/24 [History] allopurinoL [Zyloprim] 100 mg PO HS 01/08/24 [History] Clopidogrel [Plavix] 75 mg PO DAILY #30 tablet 01/11/24 [Rx] DULoxetine HCL [Cymbalta] 30 mg PO DAILY #30 cap 01/11/24 [Rx] Ferrous Sulfate [Iron (65 MG Elemental)] 325 mg PO DAILY 04/11/24 [History] rOPINIRole HCL [Requip] 0.5 mg PO HS 07/07/24 [History] NIFEdipine XL [Procardia XL] 90 mg PO DAILY #30 tab 07/08/24 [Rx] Ipratropium-Albuterol Nebulize [Duoneb 0.5 mg-3 mg/3 ml Soln] 3 ml INHALATION RT-Q4H PRN 08/05/24 [History] hydrALAZINE HCL [Apresoline] 50 mg PO TID #90 tab 08/06/24 [Rx] HYDROcodone/APAP 10-325MG [[place] 10-325] 1 tab PO Q6H PRN 10/24/24 [History] Ozempic 2mg/3ml 0.5 mg SQ TU 10/24/24 [History] Valsartan 160 mg PO BID 10/24/24 [History] hydroCHLOROthiazide [Hydrodiuril] 25 mg PO DAILY 10/24/24 [History] Cetirizine HCl [Zyrtec] 10 mg PO DAILY 11/10/24 [History] Clotrimazole Cream [Lotrimin Cream] 1 applic TOPICAL BID 11/10/24 [History] Levofloxacin [Levaquin] 500 mg PO DAILY 11/10/24 [History] Nitroglycerin Sl Tabs [Nitrostat] 0.4 mg SUBLINGUAL Q5M PRN #25 tab 11/10/24 [Rx] Vitamin B-12 1000mcg Quick Dissolve 1,000 mcg PO DAILY 11/10/24 [History] predniSONE [Deltasone] 20 mg PO BID-W/MEALS 11/10/24 [History] Follow up Appointment(s)/Referral(s): Sara Carrington MD [STAFF PHYSICIAN] - 1 Week None,Stated [Primary Care Provider] - 1-2 days
[2024-11-10 15:36] VITALS: PULSE 54
[2024-11-10] MEDS ORDERED: RIVAROXABAN 20 MG TAB PO SCH (17:30)
[2024-11-10] MEDS ORDERED: TAMSULOSIN 0.4 MG CAP.ER.24H PO SCH (18:30)
[2024-11-10] MEDS ORDERED: DAPAGLIFLOZIN PROPANEDIOL 5 MG TABLET PO SCH (21:00)
[2024-11-10] MEDS ORDERED: ATORVASTATIN 80 MG TAB PO SCH (21:00)
[2024-11-10] MEDS ORDERED: allopurinoL 100 MG TAB PO SCH (21:00)
[2024-11-10] MEDS ORDERED: MONTELUKAST 10 MG TAB PO SCH (21:00)
== END 2024-11-10 16:55 | disposition home or self-care (01) ==
LOC: EC 23:17 → 6NMEDSUR 11-10 02:46
PROVIDERS: ADMIT Hospitalist; ATTEND Hospitalist
DX: R07.89 Other chest pain (principal); J44.0 Chronic obstructive pulmonary disease with (acute) lower respiratory infection; J18.9 Pneumonia, unspecified organism; E11.51 Type 2 diabetes mellitus with diabetic peripheral angiopathy without gangrene; I25.10 Atherosclerotic heart disease of native coronary artery without angina pectoris; E78.5 Hyperlipidemia, unspecified; I11.0 Hypertensive heart disease with heart failure; I50.9 Heart failure, unspecified; E66.9 Obesity, unspecified; Z68.35 Body mass index [BMI] 35.0-35.9, adult; Z79.01 Long term (current) use of anticoagulants; Z79.4 Long term (current) use of insulin; Z79.02 Long term (current) use of antithrombotics/antiplatelets; Z79.51 Long term (current) use of inhaled steroids; Z79.899 Other long term (current) drug therapy; Z88.8 Allergy status to other drugs, medicaments and biological substances; Z85.6 Personal history of leukemia; Z87.891 Personal history of nicotine dependence; Z86.711 Personal history of pulmonary embolism; Z86.718 Personal history of other venous thrombosis and embolism; Z86.73 Personal history of transient ischemic attack (TIA), and cerebral infarction without residual deficits
CPT/HCPCS: 96365; 96375; 99285; 36415; 94640 ×2; 93005; 83880; 80053; 82803; 82009; 83690; 83735; 84100; 84484; 85025; 85610; 85730; 81001; 71046; G0378; J0456; J0696